=== PATIENT | male | born 1935 | race Caucasian/White ===

== ENCOUNTER 2019-08-10 17:48 | Observation (INO) ==
[2019-08-10] MEDS ORDERED: SODIUM CHLORIDE 0.9% 500 ML IV SCH (18:15)
[2019-08-10 18:41] LABS: Basophils # (auto) 0.03 K/uL (0-0.2); Basophils % (auto) 0.4 %; Eosinophils % (auto) 1.4 %; Hematocrit (blood only) 42.6 % (42-52); Hemoglobin 14.6 g/dL (14.0-18.0); Immature Granulocytes # (auto) 0.01 K/uL (0.00-0.02); Immature Granulocytes % (auto) 0.1 %; Lymphocytes # (auto) 0.93 K/uL (1.2-3.4); Mean Corpuscular Hgb Conc 34.3 g/dL (32-36); Mean Corpuscular Volume 90.4 fL (80-100); Monocytes % (auto) 11.1 %; Neutrophils # (auto) 5.31 K/uL (1.4-6.5); Platelet Count 183 K/uL (130-400); RDW Coefficient of Variation 13.6 % (11.5-14.5); RDW Standard Deviation 45.2 fL (36.4-46.3); Red Blood Count 4.71 M/uL (4.7-6.1); White Blood Count 7.18 K/uL (4.8-10.8)
[2019-08-10 18:49] LABS: BUN Creatinine Ratio 16.8 (10-20); Calcium 8.4 mg/dl (8.5-10.1); Creatinine Clr Calc Pharmacy 49.7 ml/min; Est GFR (Non-African American) 56.1; Magnesium 2.3 mg/dl (1.8-2.4)
[2019-08-10 19:13] LABS: Albumin Globulin Ratio 0.8 (0.9-2); Bilirubin,Total 0.6 mg/dl (0.2-1); Globulin 3.6 gm/dl (2.5-4.0); Thyroid Stimulating Hormone 3.72 uIu/ml (0.300-4.500); Total Protein 6.6 gm/dl (6.4-8.2); Troponin I 0.06 ng/ml (0-0.045)
--- NOTE | 2019-08-10 19:16 | Emergency Department Note ---
History of Present Illness General Chief Complaint: Syncope Time Seen by Provider: 08/10/19 17:58 Source: patient Mode of arrival: ambulatory Limitations: no limitations History of Present Illness Provider Complaint: + loss of consciousness Onset (ago): less than 1 hour(s) -: + second(s) Description of event: no tonic-clonic movements Prodromal symptoms: + none Witnessed: + yes - by bystander Context: + at rest; no standing up Injuries sustained associated with event: + none Current symptoms: + none History: + previous syncopal episode Treatments prior to arrival: + none HPI narrative: This is an 84-year-old male who presents to the ED with a chief complaint of a syncopal episode. The patient was sitting in a chair when the daughter noticed that he became pale and passed out. He was smoking his pipe at the time. The patient was out for less than a minute. The patient did not have any seizure activity. He has had similar symptoms previously. The last episode was in January. The daughter states that when he awoke, he stated what happened. And he otherwise did not have any symptoms. He does have a history of A. fib and is on Xarelto. 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 He just finished wearing a event monitor last week. The daughter is unsure of t he results. The patient has no complaints at this time. His last syncopal episode happened in January. At that time he had a complete work-up including an echocardiogram that did not show any reason for his syncope. Home Medicaitons Home Medications Medication Instructions Recorded Confirmed Type finasteride 5 mg PO DAILY 01/10/19 06/27/19 History cyanocobalamin (vitamin B-12) 1,000 mcg PO DAILY 03/09/19 06/27/19 History 1,000 mcg tablet levothyroxine 75 mcg PO DAILY 03/09/19 06/27/19 History rivaroxaban [Xarelto] 10 mg PO DAILY 03/09/19 06/27/19 History tamsulosin 0.4 mg capsule 0.4 mg PO DAILY 03/09/19 06/27/19 History Blood Pressure Med 1 tab PO HS 06/27/19 06/27/19 History Allergies Allergy/AdvReac Type Severity Reaction Status Date / Time No Known Allergies Allergy Unverified 06/27/19 23:40 Past Med/Surg History Medical History Atrial fibrillation CKD (chronic kidney disease) On rivaroxaban therapy Family History Other Family history non-contributory Social History Preferred Language: Wallisian Feels Safe at Home: Yes Smoking Status: Current every day smoker Review of Systems A total of 10 systems reviewed and were otherwise negative Physical Exam Vital Signs: Vital Signs - 24 hr 08/10/19 17:53 08/10/19 17:54 08/10/19 18:00 Temperature Temperature Source Pulse Rate 51 L 67 72 Pulse Rate from Sp O2 Sensor 71 80 72 Respiratory Rate 22 20 23 Respiratory Effort / Characteristics Respiratory Depth Respiratory Patter n Blood Pressure 126/66 108/67 Blood Pressure Dary n 78 71 Pulse Oximetry 96 96 96 Oxygen Delivery Me thod Sepsis Recent Feve r Within 48 Hours Sepsis New/Unexpla ined Change in Men naz Status Sepsis Action Take n by Nursing 08/10/19 18:01 08/10/19 18:21 Temperature 36.8 C Temperature Source Oral Pulse Rate 70 83 Pulse Rate from Sp O2 Sensor 78 Respiratory Rate 21 20 Respiratory Effort / Characteristics Non-Labored Sponta neous Respiratory Depth Normal Respiratory Patter n Regular Blood Pressure 126/66 Blood Pressure Dary n 86 Pulse Oximetry 96 96 Oxygen Delivery Me thod Room Air Sepsis Recent Feve r Within 48 Hours No Sepsis New/Unexpla ined Change in Men naz Status No Sepsis Action Take n by Nursing No Action Required Physical Exam: CONSTITUTIONAL/VITAL SIGNS: Reviewed / noted above. GENERAL: Non-toxic in appearance. INTEGUMENTARY: Warm, dry, and [place]. HEAD: Normocephalic. EYES: without scleral icterus or trauma. ENT/OROPHARYNX: clear and moist. LYMPHADENOPATHY/NECK: Is supple without lymphadenopathy or meningismus. RESPIRATORY: Lungs clear and equal. CARDIOVASCULAR: Regular rate and rhythm. GI/ABDOMEN: Soft and nontender. No organomegaly or pulsatile mass. No rebound or guarding. Normal bowel sounds. EXTREMITIES: Warm and well perfused. BACK: No CVA tenderness. NEUROLOGICAL: Intact without focal deficits. PSYCHIATRIC: normal affect. MUSCULOSKELETAL: Normally developed with good muscle tone. TRIAGE NURSING DOCUMENTATION REVIEWED. Course Administered Medications Discontinued Medications Sodium Chloride (Nss) 500 mls @ 999 mls/hr IV .Q31M JOE Stop: 08/10/19 18:45 Last Infusion: 08/10/19 19:08 Dose: 0 mls/hr Documented by: [id number] Admin: 08/10/19 18:32 Dose: 999 mls/hr Documented by: [id number] Medical Decision Making Differential Diagnosis + syncope due to orthostatic hypotension, + vasovagal event, + pulmonary embolism, + dehydration, + orthostasis, + infection, + hypoglycemia, + electrolyte abnormalities, + dysrhythmias, + ACS, + intracerebral event and + neurologic Medical Records Attestation: I reviewed the patient's medical records. Home Medications Current Medication List: was personally reviewed by me Laboratory Data Attestation: I reviewed the patient's lab results. Result diagrams: 08/10/19 18:20 08/10/19 18:20 Lab Results 08/10/19 08/10/19 Range/Units 18:20 18:20 WBC 7.18 (4.8-10.8) K/uL RBC 4.71 (4.7-6.1) M/uL Hgb 14.6 (14.0-18.0) g/dL Hct 42.6 (42-52) % MCV 90.4 (80-100) fL MCH 31.0 (25-34) pg MCHC 34.3 (32-36) g/dL RDW Std Deviation 45.2 (36.4-46.3) fL RDW Coeff of Millie 13.6 (11.5-14.5) % Plt Count 183 (130-400) K/uL MPV 11.0 H (7.4-10.4) fL Immature Gran % (Auto) 0.1 % Neut % (Auto) 74.0 % Lymph % (Auto) 13.0 % [place] % (Auto) 11.1 % Eos % (Auto) 1.4 % Baso % (Auto) 0.4 % Neut # (Auto) 5.31 (1.4-6.5) K/uL Lymph # (Auto) 0.93 L (1.2-3.4) K/uL [place] # (Auto) 0.80 H (0.11-0.59) K/uL Eos # (Auto) 0.10 (0-0.5) K/uL Baso # (Auto) 0.03 (0-0.2) K/uL Immature Gran # (Auto) 0.01 (0.00-0.02) K/uL Sodium 137 (136-145) mmol/L Potassium 4.0 (3.5-5.1) mmol/L Chloride 105 (98-107) mmol/L Carbon Dioxide 26 (21-32) mmol/L Anion Gap 6.0 (3-11) BUN 20 H (7-18) mg/dl Creatinine 1.17 (0.6-1.4) mg/dl Est Cr Clr Drug Dosing 49.7 ml/min Est GFR ( Amer) 65.0 Est GFR (Non-Af Amer) 56.1 BUN/Creatinine Ratio 16.8 (10-20) Glucose 93 (70-99) mg/dl Calcium 8.4 L (8.5-10.1) mg/dl Magnesium 2.3 (1.8-2.4) mg/dl Total Bilirubin 0.6 (0.2-1) mg/dl AST 6 L (15-37) U/L ALT 10 L (12-78) U/L Alkaline Phosphatase 44 L (45-117) U/L Troponin I 0.060 H* (0-0.045) ng/ml Total Protein 6.6 (6.4-8.2) gm/dl Albumin 3.0 L (3.4-5.0) gm/dl Globulin 3.6 (2.5-4.0) gm/dl Albumin/Globulin Ratio 0.8 L (0.9-2) TSH 3.720 (0.300-4.500) uIu/ml ECG Data Attestation: I personally reviewed and interpreted this ECG as follows: Indication: syncope Rate (beats per minute): 80 Rhythm: atrial fibrillation Findings: no PVC and no ST elevation Blood Pressure Blood Pressure Findings: Normal blood pressure MDM Narrative This is an 84-year-old male who presents to the ED with a chief complaint of a syncopal episode. The patient was sitting in a chair when the daughter noticed that he became pale and passed out. He was smoking his pipe at the time. The patient was out for less than a minute. The patient did not have any seizure ac tivity. He has had similar symptoms previously. The last episode was in January. The daughter states that when he awoke, he stated what happened. And he otherwise did not have any symptoms. He does have a history of A. fib and is on Xarelto. 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 He just finished wearing a event monitor last week. The daughter is unsure of the results. The patient has no complaints at this time. His last syncopal episode happened in January. At that time he had a complete work-up including an echocardiogram that did not show any reason for his syncope. The patient CBC and chemistry panel was unremarkable. Troponin is slightly elevated at 0.60. Twelve-lead EKG shows a atrial fibrillation at a rate of 80 without acute injury or ectopy. The patient does have a history of A. fib and is on Xarelto. He was treated with 500 cc normal saline IV. He was monitored here. He will be seen by the hospitalist for further inpatient evaluation and care due to the elevated troponin. I did speak with cardiology, Dr. Butler, about the patient. He will see the patient tomorrow. Impression & Plan Syncope, Elevated troponin Discharge Plan Visit Data Chief Complaint: Syncope ED Provider: Christiano Bagley Discharge Problem: Syncope, Elevated troponin Patient Disposition: Being Evaluated by Hospitalist Forms Stand Alone Forms: My [facility] [employer] [facility] Prescriptions Prescriptions: No Action cyanocobalamin (vitamin B-12) [Vitamin B-12] 1,000 mcg tablet 1,000 mcg PO DAILY RF: 0 tamsulosin 0.4 mg capsule 0.4 mg PO DAILY RF: 0 finasteride 5 mg tablet 5 mg PO DAILY RF: 0 levothyroxine 75 mcg Tablet 75 mcg PO DAILY RF: 0 Xarelto 10 mg Tablet 10 mg PO DAILY RF: 0 Blood Pressure Med 1 tab PO HS RF: 0 Referrals Referrals: Raf Uribe DO [Primary Care Provider] - Discharge Problem: Syncope Qualifiers: Syncope type: unspecified Qualified Code(s): R55 - Syncope and collapse
--- NOTE | 2019-08-10 20:09 | XRay Report ---
XR chest 1V portable HISTORY: Shortness of breath. syncope COMPARISON: Chest 03/09/2019. FINDINGS: The heart remains mildly enlarged. The lungs are clear. No pleural effusions. No pneumothor ax. Mild elevation the left hemidiaphragm, unchanged. IMPRESSION: No significant change compared to the prior study. No acute process. ACT 112: Negative or not required by law. Electronically signed by: Tony Escudero M.D. 08/10/2019 8:07 PM
[2019-08-10] MEDS ORDERED: POLYETHYLENE (MIRALAX) 17 GM PACK PO PRN (20:28)
[2019-08-10] MEDS ORDERED: MAGNESIUM HYDROXIDE SUSP 30 ML UDC PO PRN (20:28)
[2019-08-10] MEDS ORDERED: ONDANSETRON INJ 2 MG/ML 2 ML VIAL IV PRN (20:28)
[2019-08-10] MEDS ORDERED: ACETAMINOPHEN 325 MG TAB PO PRN (20:28)
[2019-08-10] MEDS ORDERED: NITROGLYCERIN SL 0.4 MG/TAB TAB SL PRN (20:28)
--- NOTE | 2019-08-10 21:06 | History & Physical Report ---
Date of Service August 10, 2019 Assessment & Plan (1) Syncope: Pt is 84 y/o M with PMH Paroxysmal atrial fibrillation on Xarelto, HTN, BPH, CKD III, CVA, hypothyroidism presented to ER with c/o syncope this afternoon while sitting. Denies CP, SOB, palpitations, dizziness prior to episode. H/O syncopal episode in 01/2019. No recent fall or head injury Zio patch removed last week (results unavailable at this time) Echo: 07/03/2019: EF: 55%, moderate aortic regurgitation, moderate mitral regu rgitation, mild tricuspid regurgitation. DDX: arrhythmia, tachybrady syndrome, orthostatic hypotension In ER pt asymptomatic and reports feels at baseline. Afebrile, P: 51-80's, BP: 126/66, R: 21, 96% on RA. No leukocytosis, no significant electrolyte abnormality EKG with rate controlled a-fib -Monitor on tele -orthostatic vital signs -carotid doppler r/o carotid disease -CBC, BMP in am -Cardiology consult (2) Atrial fibrillation: H/O PAF on Xarelto -Current rate controlled -Continue Xarelto (3) Elevated troponin: Mildly elevated troponin Troponin: 0.06. EKG rate controlled a-fib, no acute ST elevation -Trend troponin -Had echo in 06/2019 (4) HTN (hypertension): SBP's high 90's to 120's in ER -Hold home BP and BPH meds HS and reassess tomorrow (5) CKD (chronic kidney disease), stage III: Cr: 1.17. Baseline Cr: 1.2 -Monitor renal functions (6) BPH (benign prostatic hyperplasia): -Hold HS BPH meds at this time and reassess BP tomorrow (7) Hypothyroidism: TSH: 3.7 -Continue levothyroxine DVT Prophylaxis -On Xarelto Full Code as per discussion with pt and family Follows with Dr Raf Uribe for routine care Pt was seen and care coordinated with Dr Fallon. See addendum History of Present Illness Chief Complaint: Syncope Primary Care Provider: Raf Uribe DO Pt is 84 y/o M with PMH Paroxysmal atrial fibrillation on Xarelto, HTN, BPH, CKD III, CVA, hypothyroidism presented to ER with c/o syncope this afternoon. Pt primarily Guinean speaking, family assists is some translation. Reports pt was sitting outside in the shade today with his feet up smoking pipe. Family noticed that pt twitched his legs and then had syncopal episode. Family was able to lower pt from chair immediately and reports pt regained consciousness. Denies any falls or head injury recently. Denies any dizziness, palpitations, CP, SOB prior to episode. States felt normal and without symptoms upon awakening today and ate breakfast. Has been reporting some intermittent "not feeling well" described as nausea, dizziness and lethargy over past couple of weeks. Most days feels well and able to push mow and chop some wood and does feel tired after doing those activities but without any dizziness. Reports syncopal episode in 01/2019 after prolonged standing that occurred while in [place] and had negative work up at that time. Pt followed with Dr Barragan with cardiology last week and had Zio patch removed last week (results unavailable to me at this time). Echo: 07/03/2019: EF: 55%, moderate aortic regurgitation, moderate mitral regurgitation, mild tricuspid regurgitation. Denies fever/chills, diaphoresis, V/D/C, OLSON, vision changes, neck pain, CP, SOB, orthopnea, palpitations, cough, sore throat, choking, otalgia, rhinorrhea, abdominal pain, paresthesias, weakness, extremity weakness, extremity edema, rashes, urinary symptoms. Allergies Allergy/AdvReac Type Severity Reaction Status Date / Time No Known Allergies Allergy Unverified 08/10/19 20:00 Home Medications Home Medications Medication Instructions Recorded Confirmed Type finasteride 5 mg PO HS 01/10/19 08/10/19 History cyanocobalamin (vitamin B-12) 1,000 mcg PO DAILY 03/09/19 08/10/19 History 1,000 mcg tablet tamsulosin 0.4 mg capsule 0.4 mg PO HS 03/09/19 08/10/19 History Potassium Tab 75 mg PO 3XWK 08/10/19 08/10/19 History candesartan 32 mg PO HS 08/10/19 08/10/19 History ferrous sulfate [iron] 325 mg PO 3XWK 08/10/19 08/10/19 History fluticasone propionate [Flonase 2 spray INTRANASAL DAILY 08/10/19 08/10/19 History Allergy Relief] levothyroxine 125 mcg PO DAILY 08/10/19 08/10/19 History rivaroxaban [Xarelto] 20 mg PO PM 08/10/19 08/10/19 History torsemide 0 mg PO DAILY 08/10/19 08/10/19 History Past Med/Surg History Medical History Atrial fibrillation BPH (benign prostatic hyperplasia) CKD (chronic kidney disease), stage III HTN (hypertension) Hypothyroidism On rivaroxaban therapy Surgical History History of cataract surgery Family History Brother Cancer Mother Stroke Social History Preferred Language: Lithuanian Communication Ability: Effective Sole Stapler Welt Required: No Beliefs That Will Affect Care: None marital status: Current Living Situation: Spouse Other Information That Helps Us Care for You: No Feels Safe at Home: Yes Safety Concerns: Afraid for Self Smoking Status: Current some day smoker Tobacco Type: pipe ; Do You Dip or Chew Tobacco: No ; Second Hand Exposure: No ; Tobacco Cessation Education Requested by Patient: No Hx Alcohol Use: Yes Alcohol type: wine Hx Substance Use: No Review of Systems Review of Systems: All systems reviewed & are unremarkable except as noted in HPI & below Physical Exam Physical Exam: General: no distress, WDWN Head: normocephalic, atraumatic Eyes: PERRL, EOM's intact, conjunctiva non-injected, anicteric ENT: normal inspection external ears, nose, mucous membranes moist Neck: supple, trachea midline Lungs: clear, no respiratory distress, no wheezing/rhonchi/rales CV: irregularly irregular, systolic murmur, no pretibial edema Abd: normal BS, soft, non-tender Ext: no cyanosis, no calf tenderness Neuro: A&O x 3, no focal deficits noted, normal affect Skin: warm, dry Results & Data Results & Data ([facility]) Vital Signs (Past 12 Hours) Vital Signs Temp Pulse Resp BP Pulse Ox 08/10/19 20:31 77 22 97 08/10/19 20:30 78 15 119/82 97 08/10/19 20:01 83 22 98 08/10/19 20:00 83 24 114/84 97 08/10/19 19:31 83 22 98 08/10/19 19:30 75 22 120/88 98 08/10/19 19:01 72 24 97 08/10/19 19:00 74 24 122/68 98 08/10/19 18:31 78 22 97 08/10/19 18:30 78 24 99/75 L 97 08/10/19 18:21 36.8 C 83 20 126/66 96 08/10/19 18:01 70 21 96 08/10/19 18:00 72 23 108/67 96 08/10/19 17:54 67 20 96 08/10/19 17:53 51 L 22 126/66 96 Laboratory Results Short CBC 08/10/19 08/10/19 Range/Units 18:20 18:20 WBC 7.18 (4.8-10.8) K/uL Hgb 14.6 (14.0-18.0) g/dL Hct 42.6 (42-52) % Plt Count 183 (130-400) K/uL Troponin I 0.060 H* (0-0.045) ng/ml BMP 08/10/19 18:20 Sodium 137 Potassium 4.0 Chloride 105 Carbon Dioxide 26 BUN 20 H Creatinine 1.17 Glucose 93 Calcium 8.4 L Cardiac Enzymes 08/10/19 Range/Units 18:20 Troponin I 0.060 H* (0-0.045) ng/ml Liver Function 08/10/19 Range/Units 18:20 Total Bilirubin 0.6 (0.2-1) mg/dl AST 6 L (15-37) U/L ALT 10 L (12-78) U/L Alkaline Phosphatase 44 L (45-117) U/L Albumin 3.0 L (3.4-5.0) gm/dl Diagnostic Findings CXR: IMPRESSION: No significant change compared to the prior study. No acute process. Code Status & VTE Plan VTE Prophylaxis Plan VTE Prophylaxis will be ordered: Yes Supervising Physician Co-Signing Physician Notes Attending addendum: Patient seen and examined, care coordinated with Aracely Nuno PA-C This is an 84-year-old male with past medical history of paroxysmal A. fib on Xarelto for anticoagulation, hypertension CKD stage III prior history of CVA Brought to ER after patient sustained episode of syncope Patient reports of not feeling , felt dizzy and lightheaded, had brief episode of passing out, patient reports and sustained a fall, family members were present Patient will be monitored in telemetry unit, Mild elevation of troponin, no complaint of shortness of breath or chest pain, Recent echo 3 weeks ago showed normal LV function Cardiology consult requested Please refer to further documentation by Elaine Nuno PA-C for discussion of other chronic issues. Chelsie Fallon MD (1) Syncope Syncope type: unspecified Qualified Code(s): R55 - Syncope and collapse
[2019-08-10] MEDS ORDERED: POTASSIUM 75 MG PO SCH (22:30)
[2019-08-10] MEDS ORDERED: RIVAROXABAN 20 MG TAB PO SCH (23:00)
[2019-08-11] MEDS: LEVOTHYROXINE SODIUM 125 MCG TABLET PO SCH (05:43)
--- NOTE | 2019-08-11 06:07 | Ultrasound Report ---
US carotid doppler BI HISTORY: Mental status change syncope /assessment for carotid stenosis COMPARISON: None. TECHNIQUE: Real-time, grayscale, and color Doppler sonography of the carotid arteries was performed. Imaging reviewed in the transverse and longitudinal planes. All measurements were calculated based on NASCET criteria. FINDINGS: Antegrade flow is seen in the bilateral vertebral arteries. The brachial pressures are hemodynamically similar. Mild plaque formation bilaterally The peak systolic velocity within the right ICA is 45. The right systolic ratio is 0.4. The peak systolic velocity within the left ICA is 46. The left systolic ratio is 0.5. IMPRESSION: No hemodynamically significant stenosis seen within the carotid arteries. Mild plaque formation bilat erally. ACT 112: Negative or not required by law. The above report was generated using voice recognition software. It may contain grammatical, syntax or spelling errors. Electronically signed by: Shree Lea M.D. 08/11/2019 6:06 AM
[2019-08-11 06:45] LABS: BUN Creatinine Ratio 19.6 (10-20); Calcium 8.3 mg/dl (8.5-10.1); Est GFR (Non-African American) 64.7; Potassium 3.9 mmol/L (3.5-5.1)
[2019-08-11 06:51] LABS: Troponin I 0.068 ng/ml (0-0.045)
[2019-08-11] MEDS: ASPIRIN 81 MG ECTAB PO SCH (08:33)
[2019-08-11] MEDS: FLUTICASONE PROPIONATE NA SPR 16 GM BTL NAE SCH (08:33)
[2019-08-11] MEDS: CYANOCOBALAMIN 500 MCG TABLET (VITAMIN B-12) PO SCH (08:33)
--- NOTE | 2019-08-11 10:20 | Cardiology Consultation ---
Date of Consultation August 11, 2019 Assessment & Plan (1) Syncope: (2) Atrial fibrillation: Recurrent syncope. Paroxysmal AF. Converted from rate controlled AF to SR overnight at 20:48 without pause. Zio monitor x 14 days without explanation of syncope, although no events reported while wearing the monitor. Troponin mildly elevated x 3 at 0.06, 0.065, 0.068 ng/ml without chuckie angina. Normal LVEF on recent outpatient echo. Recommend ongoing inpatient observation. Will consider implantable loop recorder or pacemaker implantation this hospital stay. hold Xarelto. Start heparin bridge at 2100. Updates discussed with patient's spouse , Sara, , by phone. History of Present Illness Attending Physician: Bud Michaels MD History of Present Illness Timmy Gaines is an 84 year old male seen in cardiology consultation per the request of Dr. Fallon for the evaluation of syncope. The patient's primary language is Lebanese. In addition to interviewing patient, history is obtained from review of his records, and telephone discussion with his spouse, Sara. Shortly after getting out of bed yesterday the patient was sitting outside with his feet propped up smoking his pipe. His spouse noticed that his legs were twitching he lost consciousness and lost postural tone in the chair. Spouse was able to pull him out from the chair and to lower him to the ground at which time he regained consciousness with no postevent confusion noted. He has had other loss of consciousness events. One occurred in January 2019 he was walking in [facility], he became weak, sat down on a wall, and then lost consciousness falling backwards into a tree. He was seen locally at a hospital there and discharged. He had another event when they were vacationing in [place] several years ago. The patient also has several unwitnessed fall episodes that his spouse is concerned may have actually been syncopal episodes. The patient had been seen in outpatient consultation by Dr. Jame Barragan of our practice for evaluation of syncope earlier this month. A 14-day 0 monitor worker had been placed on 07/20/2019. The results were reviewed today. The predominant rhythm was sinus rhythm with an average heart rate of 67 bpm. 67 relatively brief episodes of supraventricular tachycardia were observed the longest of which was 14.9 seconds with an average rate of 90 bpm. Atrial fibrillation occurred, 2% burden, with ventricular rates ranging from 56 to 153 bpm. Average ventricular rate while in atrial fibrillation was 86 bpm. The longest episode was 3 hours and 3 minutes with average heart rate of 81 bpm. Frequent supraventricular ectopy was noted, 7.4% burden. No pauses or bradycardia arrhythmia were observed. There was 1 patient triggered event that correlated with sinus rhythm with atrial ectopic beat. EKG noted on presentation to the emergency department last evening 08/10/2019, atrial fibrillation 80 bpm, QT interval 491 ms which is mildly prolonged, compared to the previous tracing dated 06/27/2019 atrial fibrillation had replaced sinus rhythm. On telemetry the patient converted from atrial fibrillation to sinus rhythm last evening at 2048 hrs., with a 1.3-second offset, therefore there is no significant conversion pause observed. Repeat EKG performed this morning 08/11/19 revealed sinus rhythm at 61 bpm with first-degree AV block, [place] interval 290 ms, age-indeterminate inferior infarct pattern which is more recognizable now that he is in sinus rhythm. Recent outpatient echocardiogram performed 07/03/2019 at [facility] revealed moderate concentric left ventricular hypertrophy LVEF 55 to 59%, moderate aortic valve sclerosis without stenosis, mild aortic valve regurgitation, moderate mitral regurgitation mild tricuspid regurgitation. Normal left ventricular wall motion without regional wall motion abnormalities. Allergies Allergy/AdvReac Type Severity Reaction Status Date / Time No Known Allergies Allergy Unverified 08/10/19 20:00 Home Medications Home Medications Medication Instructions Recorded Confirmed Type finasteride 5 mg PO HS 01/10/19 08/10/19 History cyanocobalamin (vitamin B-12) 1,000 mcg PO DAILY 03/09/19 08/10/19 History 1,000 mcg tablet tamsulosin 0.4 mg capsule 0.4 mg PO HS 03/09/19 08/10/19 History Potassium Tab 75 mg PO 3XWK 08/10/19 08/10/19 History candesartan 32 mg PO HS 08/10/19 08/10/19 History ferrous sulfate [iron] 325 mg PO 3XWK 08/10/19 08/10/19 History fluticasone propionate [Flonase 2 spray INTRANASAL DAILY 08/10/19 08/10/19 History Allergy Relief] levothyroxine 125 mcg PO DAILY 08/10/19 08/10/19 History rivaroxaban [Xarelto] 20 mg PO PM 08/10/19 08/10/19 History torsemide 0 mg PO DAILY 08/10/19 08/10/19 History Patient History Medical History Atrial fibrillation BPH (benign prostatic hyperplasia) CKD (chronic kidney disease), stage III HTN (hypertension) Hypothyroidism On rivaroxaban therapy Surgical History History of cataract surgery Family History Brother Cancer Mother Stroke Social History Preferred Language: Japanese Communication Ability: Effective Agate Setter Required: No Beliefs That Will Affect Care: None marital status: Current Living Situation: Spouse Other Information That Helps Us Care for You: No Feels Safe at Home: Yes Safety Concerns: Afraid for Self Smoking Status: Current some day smoker Tobacco Type: pipe ; Do You Dip or Chew Tobacco: No ; Second Hand Exposure: No ; Tobacco Cessation Education Requested by Patient: No Hx Alcohol Use: Yes Alcohol type: wine Hx Substance Use: No Physical Exam Physical Exam: Temp Pulse Resp BP Pulse Ox 36.5 C 62 15 153/77 H 95 08/11/19 11:44 08/11/19 11:44 08/11/19 11:44 08/11/19 11:44 08/11/19 11:44 Constitutional: WD/WN, vitals as above Respiratory: normal respiratory effort, lungs clear to auscultation Cardiovascular: RRR, no murmur, no edema Gastrointestinal (Abdomen): normal bowel sounds, soft, nontender, no hepatosplenomegaly Musculoskeletal: no cyanosis or clubbing, extremities motor strength 5/5 Neurologic: PERRL, EOMI, accommodation nl, no face palsy, no dysarthria Results & Data ([facility]) Vital Signs (Past 12 Hours) Vital Signs Temp Pulse Pulse Resp BP BP Pulse Ox 08/11/19 07:43 36.7 C 63 21 135/74 93 08/11/19 04:03 58 L 10 L 161/75 H 96 08/11/19 04:00 58 L 60 16 152/80 H 97 08/11/19 03:47 62 21 152/80 H 98 08/11/19 03:46 69 21 160/75 H 94 08/11/19 03:45 67 21 165/81 H 99 08/11/19 03:30 64 13 96 08/11/19 03:04 63 21 133/69 95 08/11/19 03:00 59 L 16 97 08/11/19 02:30 60 18 97 08/11/19 02:04 58 L 16 113/53 L 96 08/11/19 02:00 61 3 L 96 08/11/19 01:38 36.6 C 08/11/19 01:30 59 L 10 L 97 08/11/19 01:04 71 17 157/70 H 08/11/19 01:00 62 19 98 08/11/19 00:30 65 8 L 96 08/11/19 00:00 63 19 94 08/10/19 23:47 36.5 C 68 20 125/59 L 98 08/10/19 23:30 67 21 96 08/10/19 23:28 66 14 125/59 L 97 08/10/19 23:00 65 18 95 08/10/19 22:34 36.6 C 61 14 138/70 96 08/10/19 22:31 71 17 08/10/19 22:29 62 11 L 138/70 08/10/19 22:25 68 19 Laboratory Results Cardiac Enzymes 08/10/19 08/11/19 08/11/19 Range/Units 18:20 00:14 06:00 AST 6 L (15-37) U/L Troponin I 0.060 H* 0.065 H* 0.068 H* (0-0.045) ng/ml CBC 08/10/19 Range/Units 18:20 WBC 7.18 (4.8-10.8) K/uL RBC 4.71 (4.7-6.1) M/uL Hgb 14.6 (14.0-18.0) g/dL Hct 42.6 (42-52) % Plt Count 183 (130-400) K/uL Neut # (Auto) 5.31 (1.4-6.5) K/uL Lymph # (Auto) 0.93 L (1.2-3.4) K/uL [place] # (Auto) 0.80 H (0.11-0.59) K/uL Eos # (Auto) 0.10 (0-0.5) K/uL Baso # (Auto) 0.03 (0-0.2) K/uL Comprehensive Metabolic Panel 08/10/19 08/11/19 Range/Units 18:20 06:00 Sodium 137 140 (136-145) mmol/L Potassium 4.0 3.9 (3.5-5.1) mmol/L Chloride 105 109 H (98-107) mmol/L Carbon Dioxide 26 26 (21-32) mmol/L BUN 20 H 20 H (7-18) mg/dl Creatinine 1.17 1.04 (0.6-1.4) mg/dl Glucose 93 84 (70-99) mg/dl Calcium 8.4 L 8.3 L (8.5-10.1) mg/dl AST 6 L (15-37) U/L ALT 10 L (12-78) U/L Alkaline Phosphatase 44 L (45-117) U/L Total Protein 6.6 (6.4-8.2) gm/dl Albumin 3.0 L (3.4-5.0) gm/dl Intake and Output 08/10/19 08/11/19 08/11/19 22:59 06:59 14:59 Intake Total 500 / 500 240 / 240 Balance 500 / 500 240 / 240 Intake: IV 500 / 500 Nss 500 ml @ 999 mls/hr IV . 500 / 500 Q31M [facility] Rx#:[id number] Oral 240 / 240 Other: # Unmeasured Voids 1 1 1 Weight 82.25 kg Diagnostic Findings Recent 14-day heart monitor, echocardiogram as summarized above. (1) Syncope Syncope type: unspecified Qualified Code(s): R55 - Syncope and collapse
--- NOTE | 2019-08-11 10:46 | Electrocardiogram Report ---
Test Reason : Blood Pressure : / mmHG Vent. Rate : 080 BPM Atrial Rate : 100 BPM P-R Int : 000 ms QRS Dur : 090 ms QT Int : 426 ms P-R-T Axes : 000 007 056 degrees QTc Int : 491 ms Atrial fibrillation Prolonged QT Abnormal ECG When compared with ECG of 27-JUN-2019 23:47, Atrial fibrillation has replaced Sinus rhythm Criteria for Inferior infarct are no longer Present Confirmed by Shane Edwards ([id number]) on 08/11/2019 10:46:15 AM Referred By: REFERRED SELF Confirmed By:David Edwards
--- NOTE | 2019-08-11 11:00 | Electrocardiogram Report ---
Test Reason : Blood Pressure : / mmHG Vent. Rate : 061 BPM Atrial Rate : 061 BPM P-R Int : 290 ms QRS Dur : 098 ms QT Int : 472 ms P-R-T Axes : 065 -11 039 degrees QTc Int : 475 ms Sinus rhythm with 1st degree A-V block Inferior infarct , age undetermined Abnormal ECG When compared with ECG of 10-AUG-2019 18:02, (unconfirmed) Sinus rhythm has replaced Atrial fibrillation Inferior infarct is now Present Confirmed by Shane Edwards ([id number]) on 08/11/2019 10:59:41 AM Referred By: REFERRED SELF Confirmed By:David Edwards
[2019-08-11] MEDS ORDERED: HEPARIN SODIUM/DEXTROSE 25,000 UNITS/500 ML BAG IV SCH (14:00)
--- NOTE | 2019-08-11 19:06 | Hospitalist Progress Note ---
Date of Service August 11, 2019 Assessment & Plan (1) Syncope: Syncopal episode. Rule out froilan or tachyarrhythmia. Has first degree AV block. Check Lyme screen. Does not have orthostatic hypotension. Cardiology consulted. Continue cardiac monitoring. (2) Atrial fibrillation: History of PAF; currently in NSR. Anticoagulated with apixaban. (3) Elevated troponin: Troponin minimally elevated. No chest pain or acute EKG changes. Doubt acute coronary syndrome. Cardiology consulted. (4) HTN (hypertension): Candesartan on hold because of syncope. (5) Carotid artery disease: Carotid duplex showed plaque without significant stenosis. Check lipid profile. Continue anti-thrombotic therapy. (6) CKD (chronic kidney disease), stage III: Serum creatinine 1.04. Follow. (7) Hypothyroidism: TSH 3.72. Continue levothyroxine. (8) BPH (benign prostatic hyperplasia): Tamsulosin on hold because of syncope. (9) DVT prophylaxis: On apixaban for PAF. (10) Discharge planning issues: Anticipated discharge to home. Family Medicine follow-up with Dr. Raf Uribe. Admission and Anticipated Discharge Date Admission Date: August 10, 2019 Subjective Recheck for syncope and other problems. Patient seen in their room around 1100. Feels well. No further syncopal episodes. No chest pain, SOB, palpitations. No arrhythmia noted on telemetry. Review of Systems: Constitutional- no fever. Cardiac- as noted above. Pulmonary- no cough or SOB. GI- no nausea, vomiting, diarrhea, melena, hematochezia. - no urinary symptoms. Otherwise, as noted above. Physical Exam Constitutional: no acute distress Respiratory: no respiratory distress Auscultation: lungs clear to auscultation bilaterally Cardiovascular: Rate/Rhythm: regular rate and regular rhythm Vessels: no JVD Extremities: no calf tenderness and no edema Gastrointestinal (Abdomen): normal bowel sounds, soft, nontender, no hepatosplenomegaly Musculoskeletal: Extremities: no cyanosis Skin: no rashes, warm and dry Psychiatric: Orientation: alert and oriented x 3 Results & Data Results & Data ([facility]) Vital Signs (Past 12 Hours) Vital Signs Temp Pulse Resp BP Pulse Ox 08/11/19 16:01 36.5 C 60 17 154/77 H 95 08/11/19 11:44 36.5 C 62 15 153/77 H 95 08/11/19 07:43 36.7 C 63 21 135/74 93 Laboratory Results Laboratory Results - last 24 hr 08/10/19 08/11/19 08/11/19 18:20 00:14 06:00 Sodium 140 Potassium 3.9 Chloride 109 H Carbon Dioxide 26 Anion Gap 5.0 BUN 20 H Creatinine 1.04 Est Cr Clr Drug Dosing 56.0 Est GFR ( Amer) 75.0 Est GFR (Non-Af Amer) 64.7 BUN/Creatinine Ratio 19.6 Glucose 84 Calcium 8.3 L Total Bilirubin 0.6 Alkaline Phosphatase 44 L Troponin I 0.060 H* 0.065 H* 0.068 H* Total Protein 6.6 Globulin 3.6 Albumin/Globulin Ratio 0.8 L TSH 3.720 ECG Additional Comments: EKG performed at 0852 reviewed and demonstrated NSR at 61 / min, first degree AV block, no acute changes. (1) Syncope Syncope type: unspecified Qualified Code(s): R55 - Syncope and collapse
[2019-08-11] MEDS ORDERED: Heparin IV Standard *NO* Bolus IV ONE (23:00)
[2019-08-11] MEDS: HEPARIN SODIUM/DEXTROSE 25,000 UNITS/500 ML BAG IV SCH (23:16)
[2019-08-12 06:12] LABS: Partial Thromboplastin Ratio > 5.0
[2019-08-12] MEDS: LEVOTHYROXINE SODIUM 125 MCG TABLET PO SCH (06:12)
[2019-08-12 06:17] LABS: Partial Thromboplastin Time > 139.0 Seconds (21.0-31.0)
[2019-08-12 06:27] LABS: BUN Creatinine Ratio 18.8 (10-20); Est GFR (Non-African American) 64.7; Potassium 3.9 mmol/L (3.5-5.1)
[2019-08-12 07:20] LABS: Lyme Ab IgG w/WB Rflx Negative (Negative); Lyme Ab IgM w/WB Rflx Negative (Negative)
[2019-08-12 07:46] LABS: Partial Thromboplastin Ratio 3.5
[2019-08-12] MEDS: FLUTICASONE PROPIONATE NA SPR 16 GM BTL NAE SCH (08:14)
[2019-08-12] MEDS: ASPIRIN 81 MG ECTAB PO SCH (08:14)
[2019-08-12] MEDS: CYANOCOBALAMIN 500 MCG TABLET (VITAMIN B-12) PO SCH (08:14)
--- NOTE | 2019-08-12 12:31 | Electrocardiogram Report ---
Test Reason : Blood Pressure : / mmHG Vent. Rate : 054 BPM Atrial Rate : 054 BPM P-R Int : 292 ms QRS Dur : 092 ms QT Int : 494 ms P-R-T Axes : 060 -15 040 degrees QTc Int : 468 ms Sinus bradycardia with sinus arrhythmia with 1st degree A-V block Inferior infarct (cited on or before 15-APR-2010) Abnormal ECG When compared with ECG of 11-AUG-2019 08:52, No significant change was found Confirmed by Shane Edwards ([id number]) on 08/12/2019 12:30:53 PM Referred By: REFERRED SELF Confirmed By:David Edwards
[2019-08-12] MEDS: TORSEMIDE 10 MG TAB PO SCH (12:36)
--- NOTE | 2019-08-12 13:05 | Cardiology Progress Note ---
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 There have been no developments of telemetry. Will likely proceed with implantable loop recorder this hospital stay. Patient is on a heparin bridge pending procedure. Xarelto is on hold. Subjective Patient seen in follow-up of syncope. He states he is feeling well. Denies any chest discomfort or shortness of breath. Telemetry reveals ongoing sinus rhythm. No tachycardia or bradycardia. Physical Exam Physical Exam: Temp Pulse Resp BP Pulse Ox 36.6 C 64 18 134/57 L 92 08/12/19 08:11 08/12/19 12:36 08/12/19 12:36 08/12/19 12:36 08/12/19 12:36 Constitutional: WD/WN, vitals as above Respiratory: normal respiratory effort, lungs clear to auscultation Cardiovascular: Rate/Rhythm: regular rhythm Heart Sounds: + murmur (1/6 systolic murmur) Gastrointestinal (Abdomen): normal bowel sounds, soft, nontender, no hepatosplenomegaly Neurologic: PERRL, EOMI, accommodation nl, no face palsy, no dysarthria Results & Data Vital Signs (Past 12 Hours) Vital Signs Temp Pulse Pulse Resp BP Pulse Ox 08/12/19 12:36 64 18 134/57 L 92 08/12/19 08:11 36.6 C 56 L 18 172/76 H 95 08/12/19 04:23 36.6 C 59 L 19 170/85 H 97 08/12/19 02:08 52 L Diagnostic Findings Coagulation 08/12/19 08/12/19 Range/Units 05:35 07:11 APTT > 139.0 H* 97.0 H* (21.0-31.0) Seconds Lipids 08/12/19 Range/Units 05:35 Triglycerides 31 (0-150) mg/dl Cholesterol 136 (0-200) mg/dl HDL Cholesterol 62 mg/dl Cholesterol/HDL Ratio 2 Comprehensive Metabolic Panel 08/12/19 Range/Units 05:35 Sodium 142 (136-145) mmol/L Potassium 3.9 (3.5-5.1) mmol/L Chloride 109 H (98-107) mmol/L Carbon Dioxide 27 (21-32) mmol/L BUN 20 H (7-18) mg/dl Creatinine 1.04 (0.6-1.4) mg/dl Glucose 79 (70-99) mg/dl Calcium 8.0 L (8.5-10.1) mg/dl Intake and Output 08/11/19 08/12/19 08/12/19 22:59 06:59 14:59 Intake Total 203.967 / 1018.967 0 / 0 Balance 203.967 / 1018.967 0 / 0 Intake: IV 203.967 / 203.967 0 / 0 HEPARIN SODIUM/DEXTROSE 25,000 203.967 / 203.967 0 / 0 units In 500 ml @ 0 UNITS/HR IV .Q0M [facility] Rx#:[id number] Other: # Unmeasured Voids 3 2 Weight 80.7 kg (1) Syncope Syncope type: unspecified Qualified Code(s): R55 - Syncope and collapse
--- NOTE | 2019-08-12 13:15 | Communication Note ---
Date of Service: August 12, 2019 I called and updated patient's spouse , Sara, by phone.
[2019-08-12 14:54] LABS: Partial Thromboplastin Ratio 3.4
[2019-08-12 14:58] LABS: Partial Thromboplastin Time 94.6 Seconds (21.0-31.0)
--- NOTE | 2019-08-12 18:19 | Hospitalist Progress Note ---
Date of Service August 12, 2019 Assessment & Plan (1) Syncope: Multiple syncopal episodes. Rule out froilan or tachyarrhythmia. Outpatient ZIO patch did not show any significant arrhythmias. Has first degree AV block. Lyme screen negative. Does not have orthostatic hypotension. Cardiology consulted. Continue cardiac monitoring. (2) Atrial fibrillation: History of PAF; currently in NSR. Anticoagulated with apixaban. Apixaban on hold for loop recorder; receiving IV heparin. (3) Elevated troponin: Troponin minimally elevated. No chest pain or acute EKG changes. Doubt acute coronary syndrome. Cardiology consulted. (4) HTN (hypertension): Candesartan on hold because of syncope. (5) Carotid artery disease: Carotid duplex showed plaque without significant stenosis. LDL-c = 68. Continue anti-thrombotic therapy. (6) CKD (chronic kidney disease), stage III: Serum creatinine 1.04. Follow. (7) Hypothyroidism: TSH 3.72. Continue levothyroxine. (8) BPH (benign prostatic hyperplasia): Tamsulosin on hold because of syncope. (9) DVT prophylaxis: Anticoagulated with apixaban for PAF. Apixaban on hold for loop recorder; receiving IV heparin. (10) Discharge planning issues: Anticipated discharge to home. Family Medicine follow-up with Dr. Raf Uribe. Admission and Anticipated Discharge Date Admission Date: August 10, 2019 Subjective Recheck for syncope and other problems. Patient seen in their room around 1030. Doing well. No further syncope or lightheadedness. No chest pain, SOB, palpitations. No significant arrhythmias noted on telemetry. Review of Systems: Constitutional- no fever. Cardiac- as noted above. Pulmonary- no cough or SOB. GI- no nausea, vomiting, diarrhea, melena, hematochezia. - no urinary symptoms. Otherwise, as noted above. Physical Exam Constitutional: no acute distress Respiratory: no respiratory distress Auscultation: lungs clear to auscultation bilaterally Cardiovascular: Rate/Rhythm: regular rate and regular rhythm Vessels: no JVD Extremities: no calf tenderness and no edema Gastrointestinal (Abdomen): normal bowel sounds, soft, nontender, no hepatosplenomegaly Musculoskeletal: Extremities: no cyanosis Skin: no rashes, warm and dry Psychiatric: Orientation: alert and oriented x 3 Results & Data Results & Data ([facility]) Vital Signs (Past 12 Hours) Vital Signs Temp Pulse Resp BP Pulse Ox 08/12/19 15:17 36.6 C 58 L 18 154/80 H 97 08/12/19 12:36 64 18 134/57 L 92 08/12/19 08:11 36.6 C 56 L 18 172/76 H 95 Laboratory Results Laboratory Results - last 24 hr 08/12/19 08/12/19 08/12/19 05:35 05:35 05:35 APTT > 139.0 H* PTT Ratio > 5.0 Sodium 142 Potassium 3.9 Chloride 109 H Carbon Dioxide 27 Anion Gap 6.0 BUN 20 H Creatinine 1.04 Est Cr Clr Drug Dosing 56.0 Est GFR ( Amer) 75.0 Est GFR (Non-Af Amer) 64.7 BUN/Creatinine Ratio 18.8 Glucose 79 Calcium 8.0 L Triglycerides 31 Cholesterol 136 LDL Cholesterol, Calc 68 VLDL Cholesterol, Calc 6 HDL Cholesterol 62 Cholesterol/HDL Ratio 2 Lyme Disease IgG Ab Negative Lyme Disease IgM Ab Negative 08/12/19 08/12/19 07:11 14:22 APTT 97.0 H* 94.6 H* PTT Ratio 3.5 3.4 Sodium Potassium Chloride Carbon Dioxide Anion Gap BUN Creatinine Est Cr Clr Drug Dosing Est GFR ( Amer) Est GFR (Non-Af Amer) BUN/Creatinine Ratio Glucose Calcium Triglycerides Cholesterol LDL Cholesterol, Calc VLDL Cholesterol, Calc HDL Cholesterol Cholesterol/HDL Ratio Lyme Disease IgG Ab Lyme Disease IgM Ab (1) Syncope Syncope type: unspecified Qualified Code(s): R55 - Syncope and collapse
[2019-08-12] MEDS: HEPARIN SODIUM/DEXTROSE 25,000 UNITS/500 ML BAG IV SCH (22:08)
[2019-08-12 23:20] LABS: Partial Thromboplastin Ratio 2.9
[2019-08-13] MEDS: LEVOTHYROXINE SODIUM 125 MCG TABLET PO SCH (06:20)
[2019-08-13 06:34] LABS: Hematocrit (blood only) 41.1 % (42-52); Hemoglobin 13.6 g/dL (14.0-18.0); Mean Corpuscular Hemoglobin 30.3 pg (25-34); Mean Corpuscular Hgb Conc 33.1 g/dL (32-36); Mean Corpuscular Volume 91.5 fL (80-100); Mean Platelet Volume 11.2 fL (7.4-10.4); Platelet Count 183 K/uL (130-400); RDW Coefficient of Variation 13.5 % (11.5-14.5); RDW Standard Deviation 44.9 fL (36.4-46.3); Red Blood Count 4.49 M/uL (4.7-6.1); White Blood Count 6.23 K/uL (4.8-10.8)
[2019-08-13 06:54] LABS: Partial Thromboplastin Ratio 2.8
[2019-08-13 06:57] LABS: Partial Thromboplastin Time 76.8 Seconds (21.0-31.0)
[2019-08-13 07:10] LABS: BUN Creatinine Ratio 17.6 (10-20); Calcium 8.1 mg/dl (8.5-10.1); Creatinine Clr Calc Pharmacy 49.3 ml/min; Est GFR (African American) 64.4; Est GFR (Non-African American) 55.5; Potassium 3.9 mmol/L (3.5-5.1)
[2019-08-13] MEDS ORDERED: FERROUS SULFATE 325 MG TAB PO SCH (09:00)
[2019-08-13] MEDS ORDERED: LIDOCAINE HCL 1% 20 ML VIAL ONE (09:07)
--- NOTE | 2019-08-13 09:11 | Cardiology Progress Note ---
Date of Service August 13, 2019 Assessment & Plan (1) Syncope: Recurrent syncope. H/o PAF. -no rhythm abnormalities on recent outpatient Zio monitor or on telemetry to explain pt's event. -Will proceed with loop recorder, to be placed by Dr Edwards of EP. - Heparin gtt on hold. -I called and updated his spouse, Sara. (2) Elevated troponin: Mild, flat troponin elevation of 0.068 ng/ ml. No symptoms of angina. No acute repolarization changes on echo to suggest ischemia. Normal LVEF on recent outpt echo earlier this month. Age undetermined inferior infarct pattern on EKG is chronic, dating back to 2010. Subjective Patient seen in follow up. He is feeling well. No recurrent symptoms overnight. Telemetry reveals sinus bradycardia in the 50s. No significant arrhythmias. Review of Systems Review of Systems: All systems reviewed & are unremarkable except as noted in HPI & below Physical Exam Physical Exam: Temp Pulse Resp BP Pulse Ox 36.7 C 59 L 20 160/90 H 97 08/13/19 08:00 08/13/19 08:00 08/13/19 08:00 08/13/19 08:00 08/13/19 08:00 Constitutional: WD/WN, vitals as above Respiratory: normal respiratory effort, lungs clear to auscultation Cardiovascular: RRR, no murmur, no edema Gastrointestinal (Abdomen): normal bowel sounds, soft, nontender, no hepatospl enomegaly Neurologic: PERRL, EOMI, accommodation nl, no face palsy, no dysarthria Results & Data Vital Signs (Past 12 Hours) Vital Signs Temp Pulse Resp BP Pulse Ox 08/13/19 08:00 36.7 C 59 L 20 160/90 H 97 08/13/19 02:47 36.5 C 60 16 175/89 H 97 08/12/19 23:04 36.5 C 59 L 16 159/82 H 97 08/12/19 22:09 36.7 C 59 L 21 167/79 H 96 Laboratory Results Coagulation 08/12/19 08/12/19 08/13/19 Range/Units 14:22 22:38 06:06 APTT 94.6 H* 81.0 H* 76.8 H* (21.0-31.0) Seconds CBC 08/13/19 Range/Units 06:06 WBC 6.23 (4.8-10.8) K/uL RBC 4.49 L (4.7-6.1) M/uL Hgb 13.6 L (14.0-18.0) g/dL Hct 41.1 L (42-52) % Plt Count 183 (130-400) K/uL Comprehensive Metabolic Panel 08/13/19 Range/Units 06:06 Sodium 141 (136-145) mmol/L Potassium 3.9 (3.5-5.1) mmol/L Chloride 110 H (98-107) mmol/L Carbon Dioxide 27 (21-32) mmol/L BUN 21 H (7-18) mg/dl Creatinine 1.18 (0.6-1.4) mg/dl Glucose 76 (70-99) mg/dl Calcium 8.1 L (8.5-10.1) mg/dl Intake and Output 08/12/19 08/13/19 08/13/19 22:59 06:59 14:59 Intake Total 296.033 / 1309.683 163.65 / 1309.683 8.75 / 8.75 Balance 296.033 / 1309.683 163.65 / 1309.683 8.75 / 8.75 Intake: IV 296.033 / 459.683 163.65 / 459.683 8.75 / 8.75 HEPARIN SODIUM/DEXTROSE 25,000 296.033 / 459.683 163.65 / 459.683 8.75 / 8.75 units In 500 ml @ 800 UNITS/HR 16 mls/hr IV .Q24H [facility] Rx#: [id number] Other: Other Intake Source NPO # Unmeasured Voids 2 Weight 80.9 kg (1) Syncope Syncope type: unspecified Qualified Code(s): R55 - Syncope and collapse
--- NOTE | 2019-08-13 09:39 | Electrophysiology Report ---
Date of Service August 13, 2019 Electrophysiology Procedure Electrophysiology Procedure Report The procedure performed: Implantation of patient activated loop recorder Staff curriculum and assessment coordinator: Shane Edwards MD Indication: Patient is an 84-year-old gentleman with a history of recurrent syncope. Outpatient monitoring has not revealed any diagnosis. He was advised to consider an implantable loop recorder for more prolonged monitoring. Procedure in detail: The patient was informed of the risks benefits and alternatives to the intended procedure. They understood such and wished to proceed. The patient was taken to the electrophysiology suite where the upper chest area was prepped and draped in the usual sterile fashion. An area left lateral to the sternum in the 4th intercostal space was subsequently anesthetized using subcutaneous administration of lidocaine solution. A small incision was made at this site and implantation of the loop recorder was accomplished using a proprietary implantation tool. The small incision was subsequently closed using a single 4 0 Vicryl suture. Steri-Strips and a sterile dressing were then applied. The patient tolerated the procedure well. There were no immediate complications. The device was tested noninvasively prior to conclusion of the procedure. Equipment used: Patient activated loop recorder: Station [employer]. Model number LNQ11. Serial number [id number] Electrophysiology codes Implantable Monitors Procedure 1: Implantable Monitors: [id number] Cardiac event recorder implant
[2019-08-13] MEDS: ASPIRIN 81 MG ECTAB PO SCH (10:15)
[2019-08-13] MEDS: CYANOCOBALAMIN 500 MCG TABLET (VITAMIN B-12) PO SCH (10:15)
[2019-08-13] MEDS: FLUTICASONE PROPIONATE NA SPR 16 GM BTL NAE SCH (10:15)
--- NOTE | 2019-08-13 11:02 | Communication Note ---
Date of Service: August 13, 2019 I called office, and set up appointment for pt to be enrolled in the device clinic. Resume Xarelto this evening. Stable for discharge on prior to hospital medications. Follow up with Dr Barragan and Device clinic.
[2019-08-13 13:16] LABS: Partial Thromboplastin Ratio 1.1; Partial Thromboplastin Time 31.6 Seconds (21.0-31.0)
[2019-08-13] MEDS: TORSEMIDE 10 MG TAB PO SCH (14:10)
--- NOTE | 2019-08-13 16:52 | Hospitalist Progress Note ---
Date of Service August 13, 2019 Assessment & Plan Admission and Anticipated Discharge Date Admission Date: August 10, 2019 Results & Data Results & Data ([facility]) Vital Signs (Past 12 Hours) Vital Signs Temp Pulse Resp BP Pulse Ox 08/13/19 15:40 36.6 C 58 L 18 165/77 H 98 08/13/19 10:08 36.7 C 60 16 168/81 H 08/13/19 08:00 36.7 C 59 L 20 160/90 H 97
--- NOTE | 2019-08-13 16:55 | Hospitalist Progress Note ---
Date of Service August 13, 2019 Assessment & Plan (1) Syncope: Multiple syncopal episodes. Rule out froilan or tachyarrhythmia. Outpatient ZIO patch showed intermittent AF with controlled rate, significant hemodynamically significant arrhythmias. Has first degree AV block. Lyme screen negative. Did not have orthostatic hypotension. Cardiology consulted. Continue cardiac monitoring. (2) Atrial fibrillation: History of PAF; currently in NSR. Anticoagulated with apixaban. Apixaban held loop recorder and pt received IV heparin. (3) Elevated troponin: Troponin minimally elevated. No chest pain or acute EKG changes. Doubt acute coronary syndrome. Cardiology consulted. (4) HTN (hypertension): Resume candesartan at time of DC. (5) Carotid artery disease: Carotid duplex showed plaque without significant stenosis. LDL-c = 68. Continue anti-thrombotic therapy. (6) CKD (chronic kidney disease), stage III: Serum creatinine 1.04. Follow. (7) Hypothyroidism: TSH 3.72. Continue levothyroxine. (8) BPH (benign prostatic hyperplasia): Continue tamsulosin HS. (9) DVT prophylaxis: Received apixaban and IV heparin. (10) Discharge planning issues: Discharge to home. Family Medicine follow-up with Dr. Raf Uribe. Cardiology follow-up with Dr. Barragan. given update by phone. Admission and Anticipated Discharge Date Admission Date: August 10, 2019 Subjective Recheck for syncope and other problems. Patient seen in their room around 1600. Doing well. Loop recorder placed today. No further syncope or lightheadedness. No chest pain, SOB, palpitations. No significant arrhythmias noted on telemetry. Review of Systems: Constitutional- no fever. Cardiac- as noted above. Pulmonary- no cough or SOB. GI- no nausea, vomiting, diarrhea, melena, hematochezia. - no urinary symptoms. Otherwise, as noted above. Physical Exam Constitutional: no acute distress Respiratory: no respiratory distress Auscultation: lungs clear to auscultation bilaterally Cardiovascular: Rate/Rhythm: regular rate and regular rhythm Vessels: no JVD Extremities: no calf tenderness and no edema Gastrointestinal (Abdomen): normal bowel sounds, soft, nontender, no hepatosplenomegaly Musculoskeletal: Extremities: no cyanosis Skin: no rashes, warm and dry Psychiatric: Orientation: alert and oriented x 3 Results & Data Results & Data ([facility]) Vital Signs (Past 12 Hours) Vital Signs Temp Pulse Resp BP Pulse Ox 08/13/19 15:40 36.6 C 58 L 18 165/77 H 98 08/13/19 10:08 36.7 C 60 16 168/81 H 08/13/19 08:00 36.7 C 59 L 20 160/90 H 97 (1) Syncope Syncope type: unspecified Qualified Code(s): R55 - Syncope and collapse
[2019-08-13] MEDS ORDERED: RIVAROXABAN 20 MG TAB PO SCH (21:00)
--- NOTE | 2019-08-15 07:52 | Discharge Summary ---
Date of Service Date of Admission: 08/10/19 Date of Discharge: 08/13/19 Admission HPI Per Admitting Provider Pt is 84 y/o M with PMH Paroxysmal atrial fibrillation on Xarelto, HTN, BPH, CKD III, CVA, hypothyroidism presented to ER with c/o syncope this afternoon. Pt primarily Mohawk speaking, family assists is some translation. Reports pt was sitting outside in the shade today with his feet up smoking pipe. Family noticed that pt twitched his legs and then had syncopal episode. Family was able to lower pt from chair immediately and reports pt regained consciousness. Denies any falls or head injury recently. Denies any dizziness, palpitations, CP, SOB prior to episode. States felt normal and without symptoms upon awakening today and ate breakfast. Has been reporting some intermittent "not feeling well" described as nausea, dizziness and lethargy over past couple of weeks. Most days feels well and able to push mow and chop some wood and does feel tired after doing those activities but without any dizziness. Reports syncopal episode in 01/2019 after prolonged standing that occurred while in [place] and had negative work up at that time. Pt followed with Dr Barragan with cardiology last week and had Zio patch removed last week (results unavailable to me at this time). Echo: 07/03/2019: EF: 55%, moderate aortic regurgitation, moderate mitral regurgitation, mild tricuspid regurgitation. Denies fever/chills, diaphoresis, V/D/C, OLSON, vision changes, neck pain, CP, SOB, orthopnea, palpitations, cough, sore throat, choking, otalgia, rhinorrhea, abdominal pain, paresthesias, weakness, extremity weakness, extremity edema, rashes, urinary symptoms. Principal Diagnosis syncope Discharge Data Allergies Allergy/AdvReac Type Severity Reaction Status Date / Time No Known Allergies Allergy Unverified 08/10/19 20:00 Consultations 08/10/19 19:52 ED Decision to Admit Stat 08/10/19 20:28 Consult Cardiology Routine 08/10/19 20:31 Consult Case Management - Discharge Planning Routine Procedures Performed Operation Date: 08/13/19 09:15 Actual Procedures p Implant Cardiac Event Recorder - Enrico Edwards MD Ordered Studies 08/10/19 20:34 US carotid doppler BI Urgent 08/13/19 08:56 CL Cath Imgs for PACS use only Routine Hospital Course (1) Syncope: Multiple syncopal episodes over months. Rule out froilan or tachyarrhythmia. Outpatient ZIO patch showed intermittent AF with controlled rate, significant hemodynamically significant arrhythmias. Has first degree AV block. Lyme screen negative. Did not have orthostatic hypotension. Cardiology consulted. Continue cardiac monitoring. (2) Atrial fibrillation: History of PAF; currently in NSR. Anticoagulated with apixaban. Apixaban held loop recorder and pt received IV heparin. (3) Elevated troponin: Troponin minimally elevated. No chest pain or acute EKG changes. Doubt acute coronary syndrome. Cardiology consulted. (4) HTN (hypertension): Resume candesartan at time of DC. (5) Carotid artery disease: Carotid duplex showed plaque without significant stenosis. LDL-c = 68. Continue anti-thrombotic therapy. (6) CKD (chronic kidney disease), stage III: Serum creatinine 1.04. Follow. (7) Hypothyroidism: TSH 3.72. Continue levothyroxine. (8) BPH (benign prostatic hyperplasia): Continue tamsulosin HS. (9) DVT prophylaxis: Received apixaban and IV heparin. (10) Discharge planning issues: Discharged to home. Family Medicine follow-up with Dr. Raf Uribe. Cardiology follow-up with Dr. Barragan. given update by phone. Total Time Total Time Spent Total Time Spent (In Minutes): 40 Discharge Plan Discharge Items Patient Disposition: Home - Self-Care Reason For Visit: loss of consciousness Discharge Diagnosis: syncope paroxysmal atrial fibrillation Condition on Discharge: Good Activity: As commented below Driving/Machine Use: No driving. Non-emergency contact: Primary Care Provider, Hospitalist and [employer] Call non-emergency contact if: you have any medication questions and your symptoms worsen Follow-up/Referrals: Jame Barragan DO [[employer]] - Raf Uribe DO [Primary Care Provider] - 08/20/19 11:10 am (08/20/2019 11:10 AM Raf Uribe DO [facility] ) Diet: Heart Healthy Add Attending Provider Instructions: MEDICATION CHANGES: Only use torsemide (Demadex) as needed for swelling of legs or feet. If you take it every day, you might get dehydrated. No other medication changes at this time. SUMMARY OF TEST RESULTS: Blood work suggested at least some mild dehydration. Potassium and magnesium levels were normal. Thyroid level was normal. Total cholesterol was 136. LDL cholesterol was 68. HDL cholesterol was 62. Triglyceride level was 31. Lyme test was negative. Troponin (protein from heart muscle) was slightly elevated, but did not rise further. This pattern does not indicate a heart attack. Chest x-ray did not show any sign of pneumonia, congestive heart failure, or other significant findings. Ultrasound of carotid arteries showed some mild plaque, but no significant blockage. RECOMMENDATIONS FOR FOLLOW-UP: Respiratory Services Manager for loop recorder will contact you and help you with its operation. OTHER INSTRUCTIONS: Keep a diary of how you are feeling, with dates and times of any events. Check your blood pressure once or twice a day. Keep diary of times and readings. If you have any episodes of extreme weakness, light headedness, or passing out: Call Cardiology office if symptoms are mild for loop recorder interrogation. Call 911 if symptoms severe or Cardiology office is closed. Drink plenty of fluids (2-3 liters / day), especially during warm weather. Seek medical attention if you have: * temperature above 101 * chest pain or trouble breathing * abdominal pain, nausea, vomiting * diarrhea, dark stools or bloody stools * any unanswered questions or concerns Call 911 if symptoms are severe. Please take good care of yourself. Call if you have any questions or problems. You can reach a [facility] hospitalist on duty at [facility] 24 hours a day by calling [phone]. My cell # is [phone]. Pending Studies at Discharge: No Stand-Alone Forms: My [facility], Smoking Cessation Medications and DC Order Prescriptions: Continued cyanocobalamin (vitamin B-12) [Vitamin B-12] 1,000 mcg tablet 1,000 mcg PO DAILY RF: 0 tamsulosin 0.4 mg capsule 0.4 mg PO HS RF: 0 finasteride 5 mg tablet 5 mg PO HS RF: 0 torsemide 10 mg Tablet 5 mg PO DAILY RF: 0 ferrous sulfate [iron] 325 mg (65 mg iron) Tablet 325 mg PO 3XWK RF: 0 candesartan 32 mg Tablet 32 mg PO HS RF: 0 fluticasone propionate [Flonase Allergy Relief] 50 mcg/actuation spray,suspension 2 spray INTRANASAL DAILY RF: 0 Potassium Tab 75 mg PO 3XWK RF: 0 levothyroxine 125 mcg Tablet 125 mcg PO DAILY RF: 0 Xarelto 20 mg Tablet 20 mg PO PM RF: 0 Discharge Orders: Discharge Order (Routine); Ordered 08/13/19 Ordered By: Bud Ricci/Other Patient Handouts: Loop Recorder Implantation, Having Loop Recorder Implantation Admission Data Admit Date/Time: 08/10/19 20:28 Attending Provider: Bud Michaels Admit Provider: Chelsie Fallon Primary Care Provider: Raf Uribe Other Providers: Andre Lorenzo ; Alex Flores ; Eduardo Bradshaw ; Karlo Colvin ; Cleveland Patricia ; Jame Barragan ; Shree Kumar ; Cayla Condon ; Sanjuana Mckeon ; Dane Grady ; Chelsie Fallon Other Interventions: Discharge Summary Assessment (RN) Last Done: 08/13/19 17:29 DC Date/Time DO NOT enter until pt leaves facility: 08/13/19 18:47
== END 2019-08-13 18:47 | disposition home or self-care (01) ==
LOC: ED 17:48 → 1E 20:28 → SUATTDRO 20:28 → INTOOBSV 20:28 → 1E 21:17 → 2S 08-13 09:30

== ENCOUNTER 2019-09-14 17:05 | Inpatient (IN) ==
[2019-09-14] MEDS ORDERED: SODIUM CHLORIDE 0.9% 1000ML 500 ML IV ONE (17:27)
--- NOTE | 2019-09-14 17:32 | Emergency Department Note ---
Impression & Plan Atrial fibrillation with RVR, On rivaroxaban therapy, Elevated troponin ED Provider Note NAME: BESSIE ESCUDERO AGE: 84 SEX: M : 1935 ARRIVES VIA: Ambulance INFORMANT: Patient ED PROVIDER(S): Tam Estrada DO CHIEF COMPLAINT: Abdominal pain, nausea and heart racing HPI: Patient is an 84-year-old male with a past medical history of CAD, A. fib on rivaroxaban, CKD, hypertension, hypothyroidism who presents the ER for not feeling well. He woke up at 4 PM this afternoon. When he woke up he went to eat and was not feeling well in his stomach. He was very nauseated. He went to lay down. He became very pale and didn't look well. History of A. fib and a loop recorder in place which replaced the zio monitor. Currently he did not have a clear reason why he has passed out before in the past per the . He currently denies any chest pain or shortness of breath. He notes he did feel his heart racing extremely fast. checked his blood pressure and heart rate and the heart rate was in the 140s. He denies all other complaints at this time and feels significantly better. He has passed out with this multiple times before in the past. ROS: See above HPI for pertinent positives & negatives. A total of 10 systems reviewed and were otherwise negative. PAST MEDICAL HISTORY:See Below PAST SURGICAL HISTORY:See Below FAMILY HISTORY:See Below SOCIAL HISTORY:See Below HOME MEDICATIONS:See Below ALLERGIES:See Below VITALS:See Below PHYSICAL EXAMINATION: GENERAL: Sitting up in bed, alert, chronically ill-appearing, disheveled EYE EXAM: normal conjunctiva. OROPHARYNX: mucous membranes are dry NECK: supple, no nuchal rigidity, no adenopathy, non-tender LUNGS: Clear to auscultation. Normal chest wall mechanics HEART: Tachycardic and irregular regular, S1 normal and S2 normal ABDOMEN: abdomen soft, non-tender, normo-active bowel sounds, no masses, no rebound or guarding. BACK: Back is symmetrical on inspection and there is no deformity, no midline tenderness, no CVA tenderness. SKIN: no rashes and no bruising UPPER EXTREMITIES: upper extremities are grossly normal. LOWER EXTREMITIES: No pitting edema. NEURO EXAM: Normal sensorium, cranial nerves II-XII grossly intact, normal speech, no gross weakness of arms, no gross weakness of legs. MEDICAL DECISION MAKING: Patient is an 84-year-old male with a past medical history of CKD, paroxysmal A. fib with a loop recorder in place who presents the ER for not feeling well after waking up at 4 PM today. Upon presentation he is found to be in A. fib with RVR. Heart rate was in the low 100s. He eventually converted to sinus rhythm on his own. IV was established blood work was obtained upon arrival. Labs show no significant leukocytosis or anemia. INR was unremarkable. He is on Xarelto. BMP with a slightly elevated chloride. Bilirubin and LFTs were unremarkable. Initial troponin was elevated 0.066. Lipase was normal. TSH was unremarkable. Repeat troponin did trend up to 0.103. Discussed with cardiology via telephone after interrogating his loop recorder. In August 29 just after 8 AM he went into a wide-complex tachycardia. I initially thought that this was most consistent with V. tach. I discussed this and the remainder of the case with Dr. Butler. Unable to ascertain if the patient was symptomatic at that time although this was reviewed by EP. They do favor that this is likely A. fib with aberrancy; does have a book which she has been recording when he is symptomatic but is at home unfortunately. We discussed his history and current presentation. Do favor that his bump in troponin off of his baseline is likely rate related to the A. fib with RVR. Discussed with the patient and at bedside. They are extremely concerned with the rising troponin and also concerned with this episode of not feeling well earlier today. They do not want to go home at this time as they feel very uncomfortable with this. Consequently discussed with the hospitalist for observation patient will be evaluated by cardiology tomorrow morning. Triage Nursing notes reviewed. Prior medical records reviewed Vital Signs: reviewed and remarkable for tachycardic Differential diagnosis: Differential diagnosis includes etiologies such as vasovagal event, infection, hypoglycemia, electrolyte abnormalities, cardiac sources, intracerebral event, toxicologic, neurologic, as well as others were entertained. ER treatment provided: See below Diagnostics interpreted by me: ECG: A. fib RVR Normal axis No PVCs Prolonged QTC EKG #2 Sinus rhythm rate of 57 Inferior Q waves First-degree AV block No PVCs Normal QTC Cardiac Monitoring: An order was placed for continuous cardiac monitoring. The monitor shows a rate of 115 with A. fib rhythm. Laboratory studies: As stated above and show below. Imaging studies: Portable AP upright 1 view of the chest shows no focal infiltrate or pneumothorax Consultation(s): Discussed with Dr. Franck Butler ED COURSE: Procedures: none Critical Care: None Past Med/Surg History Medical History Atrial fibrillation BPH (benign prostatic hyperplasia) CKD (chronic kidney disease), stage III HTN (hypertension) Hypothyroidism On rivaroxaban therapy Surgical History History of cataract surgery Family History Brother Cancer Mother Stroke Social History Smoking Status: Current every day smoker Tobacco Type: Pipe Second Hand Exposure: No; Do You Dip or Chew Tobacco: No; Tobacco Cessation Education Requested by Patient: No Hx Alcohol Use: No Hx Substance Use: No Preferred Language: Maori Communication Ability: Effective Devulcanizer Operator Required: No Beliefs That Will Affect Care: None marital status: Current Living Situation: Spouse Other Information That Helps Us Care for You: No Feels Safe at Home: Yes Safety Concerns: Feels Safe At This Time Allergies Allergies Allergy/AdvReac Type Severity Reaction Status Date / Time No Known Allergies Allergy Verified 09/14/19 18:17 Home Meds Home Medications Medication Instructions Recorded Confirmed finasteride 5 mg PO HS 01/10/19 09/14/19 cyanocobalamin (vitamin B-12) 1,000 mcg PO QAM 03/09/19 09/14/19 1,000 mcg tablet tamsulosin 0.4 mg capsule 0.4 mg PO HS 03/09/19 09/14/19 Potassium Tab 75 mg PO 3XWK 08/10/19 09/14/19 Xarelto 20 mg PO PM 08/10/19 09/14/19 ferrous sulfate [iron] 325 mg PO 3XWK 08/10/19 09/14/19 fluticasone propionate [Flonase 2 spray INTRANASAL DAILY 08/10/19 09/14/19 Allergy Relief] levothyroxine 125 mcg PO DAILY 08/10/19 09/14/19 Previous Rx's Medication Instructions Recorded candesartan [Atacand] 16 mg PO DAILY #90 tab 08/16/19 Results & Data (ED) Vital Signs Vital Signs - 24 hr 09/14/19 17:17 09/14/19 18:05 09/14/19 18:36 Temperature 36.5 C Temperature Source Oral Pulse Rate 80 63 Pulse Rate [Apical] 70 Pulse Rate from SpO2 Sensor 63 Respiratory Rate 18 18 19 Blood Pressure 120/59 L 138/66 Blood Pressure [Left Arm] 111/65 Blood Pressure Mean 79 81 Blood Pressure Mean [Left Arm] 80 Pulse Oximetry 97 94 96 Oxygen Delivery Method Room Air Room Air Room Air Sepsis Recent Fever Within 48 Hours No Sepsis New/Unexplained Change in Mental Status No Sepsis Action Taken by Nursing No Action Required 09/14/19 19:00 09/14/19 19:16 09/14/19 19:30 Temperature Temperature Source Pulse Rate 63 57 L Pulse Rate [Apical] Pulse Rate from SpO2 Sensor 61 58 L Respiratory Rate 21 18 Blood Pressure 124/67 132/61 Blood Pressure [Left Arm] Blood Pressure Mean 93 77 Blood Pressure Mean [Left Arm] Pulse Oximetry 98 97 Oxygen Delivery Method Room Air Room Air Room Air Sepsis Recent Fever Within 48 Hours Sepsis New/Unexplained Change in Mental Status Sepsis Action Taken by Nursing 09/14/19 20:05 09/14/19 20:30 Temperature Temperature Source Pulse Rate 56 L 55 L Pulse Rate [Apical] Pulse Rate from SpO2 Sensor 56 L 55 L Respiratory Rate 16 21 Blood Pressure 133/72 148/72 H Blood Pressure [Left Arm] Blood Pressure Mean 84 82 Blood Pressure Mean [Left Arm] Pulse Oximetry 98 98 Oxygen Delivery Method Room Air Room Air Sepsis Recent Fever Within 48 Hours Sepsis New/Unexplained Change in Mental Status Sepsis Action Taken by Nursing Laboratory Data Result diagrams: 09/14/19 17:19 09/14/19 17:19 Lab Results 09/14/19 09/14/19 09/14/19 Range/Units 17:19 17:19 17:19 WBC 6.02 (4.8-10.8) K/uL RBC 4.65 L (4.7-6.1) M/uL Hgb 14.5 (14.0-18.0) g/dL Hct 42.0 (42-52) % MCV 90.3 (80-100) fL MCH 31.2 (25-34) pg MCHC 34.5 (32-36) g/dL RDW Std Deviation 45.1 (36.4-46.3) fL RDW Coeff of Millie 13.7 (11.5-14.5) % Plt Count 156 (130-400) K/uL MPV 10.8 H (7.4-10.4) fL Immature Gran % (Auto) 0.2 % Neut % (Auto) 70.2 % Lymph % (Auto) 16.8 % [place] % (Auto) 8.3 % Eos % (Auto) 3.8 % Baso % (Auto) 0.7 % Neut # (Auto) 4.23 (1.4-6.5) K/uL Lymph # (Auto) 1.01 L (1.2-3.4) K/uL [place] # (Auto) 0.50 (0.11-0.59) K/uL Eos # (Auto) 0.23 (0-0.5) K/uL Baso # (Auto) 0.04 (0-0.2) K/uL Immature Gran # (Auto) 0.01 (0.00-0.02) K/uL PT 11.7 (9.0-12.0) Seconds INR 1.1 (0.9-1.1) APTT 34.3 H (21.0-31.0) Seconds PTT Ratio 1.2 Sodium 138 (136-145) mmol/L Potassium 3.6 (3.5-5.1) mmol/L Chloride 108 H (98-107) mmol/L Carbon Dioxide 24 (21-32) mmol/L Anion Gap 7.0 (3-11) BUN 16 (7-18) mg/dl Creatinine 1.07 (0.6-1.4) mg/dl Est Cr Clr Drug Dosing 52.6 ml/min Est GFR ( Amer) 72.5 Est GFR (Non-Af Amer) 62.5 BUN/Creatinine Ratio 15.3 (10-20) Glucose 104 H (70-99) mg/dl Calcium 8.4 L (8.5-10.1) mg/dl Magnesium (1.8-2.4) mg/dl Total Bilirubin 0.9 (0.2-1) mg/dl AST 9 L (15-37) U/L ALT 10 L (12-78) U/L Alkaline Phosphatase 42 L (45-117) U/L Troponin I 0.066 H* (0-0.045) ng/ml Total Protein 6.4 (6.4-8.2) gm/dl Albumin 2.9 L (3.4-5.0) gm/dl Globulin 3.5 (2.5-4.0) gm/dl Albumin/Globulin Ratio 0.8 L (0.9-2) Lipase 96 (73-393) U/L TSH (0.300-4.500) uIu/ml 09/14/19 09/14/19 Range/Units 17:19 19:29 WBC (4.8-10.8) K/uL RBC (4.7-6.1) M/uL Hgb (14.0-18.0) g/dL Hct (42-52) % MCV (80-100) fL MCH (25-34) pg MCHC (32-36) g/dL RDW Std Deviation (36.4-46.3) fL RDW Coeff of Millie (11.5-14.5) % Plt Count (130-400) K/uL MPV (7.4-10.4) fL Immature Gran % (Auto) % Neut % (Auto) % Lymph % (Auto) % [place] % (Auto) % Eos % (Auto) % Baso % (Auto) % Neut # (Auto) (1.4-6.5) K/uL Lymph # (Auto) (1.2-3.4) K/uL [place] # (Auto) (0.11-0.59) K/uL Eos # (Auto) (0-0.5) K/uL Baso # (Auto) (0-0.2) K/uL Immature Gran # (Auto) (0.00-0.02) K/uL PT (9.0-12.0) Seconds INR (0.9-1.1) APTT (21.0-31.0) Seconds PTT Ratio Sodium (136-145) mmol/L Potassium (3.5-5.1) mmol/L Chloride (98-107) mmol/L Carbon Dioxide (21-32) mmol/L Anion Gap (3-11) BUN (7-18) mg/dl Creatinine (0.6-1.4) mg/dl Est Cr Clr Drug Dosing ml/min Est GFR ( Amer) Est GFR (Non-Af Amer) BUN/Creatinine Ratio (10-20) Glucose (70-99) mg/dl Calcium (8.5-10.1) mg/dl Magnesium 2.2 (1.8-2.4) mg/dl Total Bilirubin (0.2-1) mg/dl AST (15-37) U/L ALT (12-78) U/L Alkaline Phosphatase (45-117) U/L Troponin I 0.103 H* (0-0.045) ng/ml Total Protein (6.4-8.2) gm/dl Albumin (3.4-5.0) gm/dl Globulin (2.5-4.0) gm/dl Albumin/Globulin Ratio (0.9-2) Lipase (73-393) U/L TSH 0.872 (0.300-4.500) uIu/ml Administered Medications Miscellaneous (Order Awaiting Action) 1 ea N/A QS JOE Stop: 10/14/19 21:44 Last Admin: 09/14/19 23:14 Dose: Not Given Documented by: [id number] Rivaroxaban (Xarelto) 20 mg PO PM JOE Stop: 10/15/19 20:59 Last Admin: 09/14/19 23:00 Dose: 20 mg Documented by: [id number] Discontinued Medications Sodium Chloride (Nss 1000ml) 500 mls @ 999 mls/hr IV .Q31M ONE Stop: 09/14/19 17:57 Last Infusion: 09/14/19 19:40 Dose: 0 mls/hr Documented by: [id number] Admin: 09/14/19 18:05 Dose: 999 mls/hr Documented by: [id number] Ioversol (Optiray 320 100ml) 93 ml IV ONCE ONE Stop: 09/14/19 18:29 Last Admin: 09/14/19 18:29 Dose: 93 ml Documented by: [id number] Polyethylene Glycol (Miralax Powder Packet) 17 gm PO ONE STA Stop: 09/14/19 22:58 Last Admin: 09/14/19 23:00 Dose: Not Given Documented by: [id number] Potassium Chloride (Klor-Con M20) 40 meq PO ONE ONE Stop: 09/14/19 21:46 Last Admin: 09/14/19 22:10 Dose: 40 meq Documented by: [id number] Discharge Plan Visit Data *Final* Discharge Date/Time: 09/14/19 21:14 Chief Complaint: Cardiac Assessment Stated Complaint: TACHYCARDIA ED Provider: Tam Estrada Discharge Problem: Atrial fibrillation with RVR, On rivaroxaban therapy, Elevated troponin Patient Disposition: Admitted As Inpatient Discharge Instructions Interventions: ED Discharge Assessment Last Done: 09/14/19 21:14
[2019-09-14 17:36] LABS: Basophils # (auto) 0.04 K/uL (0-0.2); Basophils % (auto) 0.7 %; Eosinophils # (auto) 0.23 K/uL (0-0.5); Eosinophils % (auto) 3.8 %; Hemoglobin 14.5 g/dL (14.0-18.0); Immature Granulocytes # (auto) 0.01 K/uL (0.00-0.02); Immature Granulocytes % (auto) 0.2 %; Lymphocytes # (auto) 1.01 K/uL (1.2-3.4); Lymphocytes % (auto) 16.8 %; Mean Corpuscular Hemoglobin 31.2 pg (25-34); Mean Corpuscular Hgb Conc 34.5 g/dL (32-36); Mean Corpuscular Volume 90.3 fL (80-100); Mean Platelet Volume 10.8 fL (7.4-10.4); Monocytes % (auto) 8.3 %; Neutrophils # (auto) 4.23 K/uL (1.4-6.5); Neutrophils % (auto) 70.2 %; Platelet Count 156 K/uL (130-400); RDW Coefficient of Variation 13.7 % (11.5-14.5); RDW Standard Deviation 45.1 fL (36.4-46.3); Red Blood Count 4.65 M/uL (4.7-6.1); White Blood Count 6.02 K/uL (4.8-10.8)
[2019-09-14 17:44] LABS: Albumin Level 2.9 gm/dl (3.4-5.0); BUN Creatinine Ratio 15.3 (10-20); Calcium 8.4 mg/dl (8.5-10.1); Creatinine Clr Calc Pharmacy 52.6 ml/min; Est GFR (African American) 72.5; Est GFR (Non-African American) 62.5; Potassium 3.6 mmol/L (3.5-5.1)
[2019-09-14 17:50] LABS: INR 1.1 (0.9-1.1); Partial Thromboplastin Ratio 1.2; Partial Thromboplastin Time 34.3 Seconds (21.0-31.0); Prothrombin Time 11.7 Seconds (9.0-12.0)
[2019-09-14 17:54] LABS: Albumin Globulin Ratio 0.8 (0.9-2); Bilirubin,Total 0.9 mg/dl (0.2-1); Globulin 3.5 gm/dl (2.5-4.0); Total Protein 6.4 gm/dl (6.4-8.2); Troponin I 0.066 ng/ml (0-0.045)
--- NOTE | 2019-09-14 18:03 | XRay Report ---
XR chest 1V portable CLINICAL HISTORY: Atypical chest pain COMPARISON STUDY: 08/10/2019 FINDINGS: The heart is mildly enlarged. Electronic device projects over the left chest possibly repre senting an event recorder. There are postsurgical changes involve the right shoulder. There is no garcía lure. There is no lobar consolidation. There is minor basilar interstitial thickening similar to the prior study.[ IMPRESSION: No active disease in the chest. ACT 112: Negative or not required by law. Electronically signed by: Raz Cash M.D. 09/14/2019 6:02 PM
[2019-09-14] MEDS ORDERED: IOVERSOL 100ml IV ONE (18:28)
--- NOTE | 2019-09-14 18:43 | CT Scan Report ---
CT abd pelvis IV con only CLINICAL HISTORY: Abdominal pain radiating to the upper abdomen. Tachycardia. COMPARISON STUDY: 06/28/2019 TECHNIQUE: The patient was scanned in a dynamic helical fashion during intravenous administration of 93 cc of Optiray 320. A dose lowering technique was utilized adhering to the principles of ALARA. CT DOSE: 460.94 mGy.cm FINDINGS: Lower chest: There are mild dependent atelectatic changes at the left lung base. There is a small hia naz hernia. This 7 mm solid right lower lobe pulmonary nodule, unchanged from the prior study Liver: The contrast-enhanced liver is normal in size, contour, and attenuation. There is no intrahepa tic biliary ductal dilatation. The hepatic veins and portal veins are patent. Gallbladder: Unremarkable. Spleen: Normal in size and attenuation. Pancreas: Unremarkable. Adrenal glands: Unremarkable. Kidneys: There is a stable indeterminate 1 cm left renal exophytic mass which exceeds water attenuati on. There is no hydronephrosis. Bowel: There are no transition zones indicate bowel obstruction. There is no evidence of acute divert iculitis. There is moderate fecal retention. Clinical correlation in regards to constipation is recom mended. Is not visualized with certainty. There are no findings to indicate acute appendicitis. There is a dilma wel containing right inguinal hernia without evidence of obstruction Peritoneum: There is no intraperitoneal free air or abdominal ascites. Vasculature: The abdominal aorta is normal in course and caliber. Adenopathy: None. Pelvic viscera: There is bladder wall thickening. There is marked prostatomegaly. There are left pelv ic varicosities, similar to the preceding study. Skeletal structures: No destructive osseous lesions are seen. IMPRESSION: 1. No acute intra-abdominal or pelvic findings 2. Stable 7 mm solid right lower lobe pulmonary nodule 3. No evidence of bowel obstruction. No evidence of free air 4. No evidence of acute diverticulitis. No evidence of acute appendicitis 5. Fecal retention. Clinical correlation with regards to constipation is recommended 6. Bladder wall thickening and marked prostatomegaly 7. Right inguinal hernia which contains small bowel loops. No current evidence of obstruction 8. Stable indeterminate 1 cm left renal mass ACT 112: Negative or not required by law. Electronically signed by: aRz Cash M.D. 09/14/2019 6:42 PM
[2019-09-14] MEDS ORDERED: ACETAMINOPHEN 325 MG TAB PO PRN (21:33)
--- NOTE | 2019-09-14 21:44 | History & Physical Report ---
Date of Service September 14, 2019 Assessment & Plan (1) Paroxysmal atrial fibrillation: -Admit to telemetry -Patient presenting from home with reports of nausea and palpitations. reports heart rate was in the 140s at home. -History of paroxysmal atrial fibrillation, underwent loop recorder placement on 08/12. Interrogated in the ED, report unavailable to me at this time. -Patient currently in NSR with rates in the 50s and some occasional PACs -Anticoagulated on Xarelto, will continue -Continue to monitor on telemetry, cardiology to evaluate the patient tomorrow. Case discussed with Dr. Bradshaw. (2) Elevated troponin: -Troponin 0.06 -> 0.10 -EKG without acute ST changes -Likely due to demand ischemia from A. fib with RVR -Continue cycle cardiac enzymes (3) HTN (hypertension): -BP controlled, continue candesartan (4) Hypothyroidism: -TSH 0.872 (5) DVT prophylaxis: -Anticoagulated on Xarelto Admission and Anticipated Discharge Date Admission Date: September 14, 2019 History of Present Illness Chief Complaint: Nausea, palpitations Primary Care Provider: Raf Uribe, 84-year-old male with PMH paroxysmal atrial fibrillation, HTN, CKD stage III, hypothyroidism, and other problems listed below who presents the ED for evaluation of nausea and palpitations. Patient recently admitted to [facility] 08/09- 08/12 for evaluation of syncope. Telemetry monitoring during admission was unremarkable and patient underwent loop recorder. Patient is primarily [place] Citizen speaking, therefore who is at the bedside provides some history. She reports that patient typically is awake all night and then sleeps until about 2:00 in the afternoon. She reports patient woke up around 230 this afternoon and had his breakfast. Shortly after, patient had reported some nausea and palpitations. reports that she took patient's heart rate at home and it was 149. She reports her blood pressure was okay. EMS was called and patient was brought to the ED for further evaluation. Patient otherwise has been feeling well at home. No fevers or chills. Denies chest pain. No lightheaded ness, dizziness, diaphoresis, syncopal events. Denies abdominal pain, vomiting, diarrhea. No urinary symptoms. Upon arrival to the ED, patient was in atrial fibrillation with rates in the 90s. He subsequently spontaneously converted to NSR. Patient is currently in NSR with rates in the 50s with some PACs. Patient is currently asymptomatic. Labs are unremarkable with the exception of mildly elevated troponin 0.06-> 0.10. CT ABD/pelvis negative for acute findings. CXR negative for acute findings well. Allergies Allergy/AdvReac Type Severity Reaction Status Date / Time No Known Allergies Allergy Verified 09/14/19 18:17 Home Medications Home Medications Medication Instructions Recorded Confirmed Type finasteride 5 mg PO HS 01/10/19 09/14/19 History cyanocobalamin (vitamin B-12) 1,000 mcg PO QAM 03/09/19 09/14/19 History 1,000 mcg tablet tamsulosin 0.4 mg capsule 0.4 mg PO HS 03/09/19 09/14/19 History Potassium Tab 75 mg PO 3XWK 08/10/19 09/14/19 History Xarelto 20 mg PO PM 08/10/19 09/14/19 History ferrous sulfate [iron] 325 mg PO 3XWK 08/10/19 09/14/19 History fluticasone propionate [Flonase 2 spray INTRANASAL DAILY 08/10/19 09/14/19 History Allergy Relief] levothyroxine 125 mcg PO DAILY 08/10/19 09/14/19 History candesartan [Atacand] 16 mg PO DAILY #90 tab 08/16/19 09/14/19 Rx Past Med/Surg History Medical History Atrial fibrillation BPH (benign prostatic hyperplasia) CKD (chronic kidney disease), stage III HTN (hypertension) Hypothyroidism On rivaroxaban therapy Surgical History History of cataract surgery Family History Brother Cancer Mother Stroke Social History Smoking Status: Current every day smoker Tobacco Type: Pipe Second Hand Exposure: No; Do You Dip or Chew Tobacco: No; Tobacco Cessation Education Requested by Patient: No Hx Alcohol Use: No Hx Substance Use: No Preferred Language: [place] Citizen Communication Ability: Effective Site Reliability Engineer Required: No Beliefs That Will Affect Care: None marital status: Current Living Situation: Spouse Other Information That Helps Us Care for You: No Feels Safe at Home: Yes Safety Concerns: Feels Safe At This Time Review of Systems Review of Systems: ROS per HPI, all other systems reviewed and negative Physical Exam Constitutional: WD/WN, vitals as above Eyes: PERRL, conjunctivae normal, anicteric sclerae ENMT: external ear and nose normal, oropharynx normal Respiratory: normal respiratory effort, lungs clear to auscultation Cardiovascular: Rate/Rhythm: regular rate and regular rhythm Vessels: normal peripheral pulses Extremities: no edema Gastrointestinal (Abdomen): normal bowel sounds, soft, nontender, no hepatosplenomegaly Musculoskeletal: no cyanosis or clubbing, extremities motor strength 5/5 Skin: no rashes, warm and dry Neurologic: PERRL, EOMI, accommodation nl, no face palsy, no dysarthria Psychiatric: A+Ox3, euthymic affect Results & Data Results & Data ([facility]) Vital Signs (Past 12 Hours) Vital Signs Temp Pulse Pulse Resp BP BP Pulse Ox 09/14/19 21:00 57 L 18 151/86 H 97 09/14/19 20:30 55 L 21 148/72 H 98 09/14/19 20:05 56 L 16 133/72 98 09/14/19 19:30 57 L 18 132/61 97 09/14/19 19:00 63 21 124/67 98 09/14/19 18:36 63 19 138/66 96 09/14/19 18:05 70 18 111/65 94 09/14/19 17:17 36.5 C 80 18 120/59 L 97 Laboratory Results Short CBC 09/14/19 09/14/19 09/14/19 Range/Units 17:19 17:19 19:29 WBC 6.02 (4.8-10.8) K/uL Hgb 14.5 (14.0-18.0) g/dL Hct 42.0 (42-52) % Plt Count 156 (130-400) K/uL Troponin I 0.066 H* 0.103 H* (0-0.045) ng/ml BMP 09/14/19 17:19 Sodium 138 Potassium 3.6 Chloride 108 H Carbon Dioxide 24 BUN 16 Creatinine 1.07 Glucose 104 H Calcium 8.4 L Cardiac Enzymes 09/14/19 09/14/19 Range/Units 17:19 19:29 Troponin I 0.066 H* 0.103 H* (0-0.045) ng/ml Liver Function 09/14/19 Range/Units 17:19 Total Bilirubin 0.9 (0.2-1) mg/dl AST 9 L (15-37) U/L ALT 10 L (12-78) U/L Alkaline Phosphatase 42 L (45-117) U/L Albumin 2.9 L (3.4-5.0) gm/dl Diagnostic Findings CT ABD/PELVIS IMPRESSION: 1. No acute intra-abdominal or pelvic findings 2. Stable 7 mm solid right lower lobe pulmonary nodule 3. No evidence of bowel obstruction. No evidence of free air 4. No evidence of acute diverticulitis. No evidence of acute appendicitis 5. Fecal retention. Clinical correlation with regards to constipation is recommended 6. Bladder wall thickening and marked prostatomegaly 7. Right inguinal hernia which contains small bowel loops. No current evidence of obstruction 8. Stable indeterminate 1 cm left renal mass CXR IMPRESSION: No active disease in the chest. Code Status & VTE Plan Code Status Patient is a full code as per my discussion with him. VTE Prophylaxis Plan VTE Prophylaxis will be ordered: No Supervising Physician Co-Signing Physician Notes Patient was seen and examined by me, care coordinated with BOB Lynn. Please see her note above for further details. Mr. Warner is an 84-year-old male with paroxysmal atrial fibrillation, HTN, CKD stage III, hypothyroidism who presents to the ED for evaluation of nausea and palpitations. Patient recently admitted to [facility] 08/09-08/12 for evaluation of syncope. Telemetry monitoring during admission was unremarkable and patient underwent loop recorder. Today, per , patient's heart rate at home was 149. EMS was called and patient was brought to the ED for further evaluation. Upon arrival to the ED, patient was in atrial fibrillation with rates in the 90s. He subsequently spontaneously converted to NSR. Patient is currently in NSR with rates in high 50s with some PACs. Patient is currently asymptomatic. Labs are unremarkable with the exception of mildly elevated troponin 0.06-> 0.10. CT ABD/pelvis negative for acute findings, significant for constipation. CXR negative for acute findings. Patient is currently lying in bed, in no acute distress. Patient's is at the bedside, she translates as patient is primarily [place] Citizen speaking. Patient himself is alert and oriented and participates in conversation without difficulty. Heart sounds are regular, lung sounds clear to auscultation bilaterally, without any wheezing rhonchi or crackles. Abdomen soft, nontender, nondistended, positive bowel sounds. Patient moves all 4 extremities spo ntaneously without difficulty. He states that he currently feels very well. Denies any chest pain, nausea, vomiting, fevers, chills, shortness of breath, palpitations. Discussed constipation found on CT, patient states that he often has to strain movement, will start patient on MiraLAX. Cardiology, Dr. Bradshaw was contacted and discussed with ED provider. We will continue to monitor pt on telemetry, cardiology will follow-up tomorrow. Estefania Johnson MD
[2019-09-14] MEDS ORDERED: POTASSIUM CHLORIDE 20 MEQ TABCR PO ONE (21:45)
[2019-09-14 21:58] LABS: Magnesium 2.2 mg/dl (1.8-2.4); Thyroid Stimulating Hormone 0.872 uIu/ml (0.300-4.500)
[2019-09-14] MEDS ORDERED: POLYETHYLENE (MIRALAX) 17 GM PACK PO STA (22:57)
[2019-09-15] MEDS: LEVOTHYROXINE SODIUM 125 MCG TABLET PO SCH (04:57)
[2019-09-15] MEDS ORDERED: HydrALAZINE HCL 20 MG/ML VIAL IV ONE (05:29)
[2019-09-15] MEDS ORDERED: AMLODIPINE BESYLATE 5 MG TAB PO SCH (05:30)
[2019-09-15 06:25] LABS: Hematocrit (blood only) 40.1 % (42-52); Hemoglobin 13.7 g/dL (14.0-18.0); Mean Corpuscular Hemoglobin 31.1 pg (25-34); Mean Corpuscular Hgb Conc 34.2 g/dL (32-36); Mean Corpuscular Volume 90.9 fL (80-100); Mean Platelet Volume 10.8 fL (7.4-10.4); Platelet Count 169 K/uL (130-400); RDW Coefficient of Variation 13.7 % (11.5-14.5); RDW Standard Deviation 45.6 fL (36.4-46.3); Red Blood Count 4.41 M/uL (4.7-6.1); White Blood Count 6.21 K/uL (4.8-10.8)
[2019-09-15 06:55] LABS: BUN Creatinine Ratio 17.9 (10-20); Calcium 8.3 mg/dl (8.5-10.1); Creatinine Clr Calc Pharmacy 55.3 ml/min; Est GFR (African American) 79.6; Est GFR (Non-African American) 68.7; Potassium 4.5 mmol/L (3.5-5.1)
[2019-09-15] MEDS: CYANOCOBALAMIN 500 MCG TABLET (VITAMIN B-12) PO SCH (09:11)
[2019-09-15] MEDS: POLYETHYLENE (MIRALAX) 17 GM PACK PO SCH ×2 (09:15→19:44)
--- NOTE | 2019-09-15 13:28 | Electrocardiogram Report ---
Test Reason : Blood Pressure : / mmHG Vent. Rate : 100 BPM Atrial Rate : 312 BPM P-R Int : 000 ms QRS Dur : 100 ms QT Int : 398 ms P-R-T Axes : 000 -07 068 degrees QTc Int : 513 ms Atrial fibrillation Prolonged QT Abnormal ECG When compared with ECG of 16-AUG-2019 10:26, Atrial fibrillation has replaced Sinus rhythm Vent. rate has increased BY 40 BPM Criteria for Inferior infarct are no longer Present Confirmed by Ankush Akers ([id number]) on 09/15/2019 1:28:33 PM Referred By: REFERRED SELF Confirmed By:Ankush Akers
--- NOTE | 2019-09-15 13:33 | Electrocardiogram Report ---
Test Reason : Blood Pressure : / mmHG Vent. Rate : 057 BPM Atrial Rate : 057 BPM P-R Int : 286 ms QRS Dur : 090 ms QT Int : 500 ms P-R-T Axes : 064 -23 038 degrees QTc Int : 486 ms Sinus bradycardia with 1st degree A-V block with Premature atrial complexes Inferior infarct , age undetermined Abnormal ECG When compared with ECG of 14-SEP-2019 17:15, (unconfirmed) Sinus rhythm has replaced Atrial fibrillation Vent. rate has decreased BY 43 BPM Confirmed by Ankush Akers ([id number]) on 09/15/2019 1:32:47 PM Referred By: REFERRED SELF Confirmed By:Ankush Akers
--- NOTE | 2019-09-15 13:48 | Electrocardiogram Report ---
Test Reason : Blood Pressure : / mmHG Vent. Rate : 059 BPM Atrial Rate : 059 BPM P-R Int : 276 ms QRS Dur : 092 ms QT Int : 490 ms P-R-T Axes : 056 -10 054 degrees QTc Int : 485 ms Sinus bradycardia with 1st degree A-V block Prolonged QT Abnormal ECG When compared with ECG of 14-SEP-2019 19:30, (unconfirmed) Premature atrial complexes are no longer Present Confirmed by Ankush Akers ([id number]) on 09/15/2019 1:47:33 PM Referred By: REFERRED SELF Confirmed By:Ankush Akers
--- NOTE | 2019-09-15 14:46 | Cardiology Consultation ---
Date of Consultation September 15, 2019 Assessment & Plan (1) Atrial fibrillation with RVR: The patient has recently been followed closely by cardiology for recurrent syncopal episodes that were not explained on recent CO monitor, or by findings on implanted loop recorder placed 08/13/2019. Presents with a different symptomatology, of feeling poorly yesterday, with epigastric discomfort, at which time findings of atrial fibrillation with rapid ventricular response noted with subsequent spontaneous offset to sinus rhythm while in the emergency room. No significant conversion pause, and resolution of his symptoms. He performed on arrival yesterday at 17: 15 reveals atrial fibrillation at 100 bpm any significant polarization changes. Repeat tracing today reveals sinus bradycardia at 59 bpm with long first-degree AV block, IL interval 276 ms, no significant repolarization changes. Mild troponin elevation noted. Patient variant symptomatic atrial fibrillation with rapid ventricular response yesterday with associated rate related anginal symptoms and resultant elevation in his troponin I. Likely does have underlying heart disease. He is currently on no AV derick blockers due to his baseline bradycardia. I think at this point his episode from last night is suggestive of symptomatic tachycardia-bradycardia syndrome. I discussed proceeding with dual-chamber pacemaker for heart rate support which would allow aggressive AV derick blockers, and perhaps even the addition of a miodarone. Patient/family goals of this. For now we will continue his Xarelto with plan to hold 1-2 doses prior to pacemaker. His screening liver function tests and TSH are within normal limits. History of Present Illness Attending Physician: Jenny Padilla, History of Present Illness Timmy Gaines is an 84 year old male seen in cardiology consultation per the request of BOB Muniz for the evaluation of a sensation of generalized illness with findings of paroxysmal atrial fibrillation. The patient's primary kiln stacker is Dr. Barragan of our practice however undersigned as I had cared for him during his previous admission, and I had also seen him in the emergency department on 08/16/2019. He has a recent history of recurrent syncopal episodes recent implantation of a [employer] LINQ implantable loop recorder in July,. He typically sleeps most of the day and gets up to start his routine at 330 to 4 PM. Yesterday he got up at approximately 3:30 PM. He was having his first meal the day and his spouse reports that he said he was not feeling well. He has to lay down. She took his blood pressure blood pressure with a systolic reading in the 130s, however his heart rate was elevated 140s. He described a pressure sensation in his upper abdomen. She ultimately summoned EMS and reportedly while EMS was there he had deviation of heart rates on the true monitor ranging anywhere from 40 bpm per 140 bpm range. He arrived in the emergency room he was placed on telemetry and his initial insult included atrial fibrillation 130 bpm. At 1734 he was noted to spontaneously convert back to sinus rhythm at a significant conversion pause. Ever since, and well and he actually is eager to go home. Recorder was interrogated. There was an episode of irregular tachycardia noted 08/30/2019 was felt to either be due to nonsustained ventricular tachycardia more likely atrial fibrillation with aberrant conduction. One occurred in January 2019 he was walking in [facility], he became weak, sat down on a wall, and then lost consciousness falling backwards into a tree. He was seen locally at a hospital there and discharged. He had another event when they were vacationing in [place] several years ago. The patient also has several unwitnessed fall episodes that his spouse is concerned may have actually been syncopal episodes. Recent outpatient echocardiogram performed 07/03/2019 at [facility] revealed moderate concentric left ventricular hypertrophy LVEF 55 to 59%, moderate aortic valve sclerosis without stenosis, mild aortic valve regurgitation, moderate mitral regurgitation mild tricuspid regurgitation. Normal left ventricular wall motion without regional wall motion abnormalities. Allergies Allergy/AdvReac Type Severity Reaction Status Date / Time No Known Allergies Allergy Verified 09/14/19 18:17 Home Medications Home Medications Medication Instructions Recorded Confirmed Type finasteride 5 mg PO HS 01/10/19 09/14/19 History cyanocobalamin (vitamin B-12) 1,000 mcg PO QAM 03/09/19 09/14/19 History 1,000 mcg tablet tamsulosin 0.4 mg capsule 0.4 mg PO HS 03/09/19 09/14/19 History Potassium Tab 75 mg PO 3XWK 08/10/19 09/14/19 History Xarelto 20 mg PO PM 08/10/19 09/14/19 History ferrous sulfate [iron] 325 mg PO 3XWK 08/10/19 09/14/19 History fluticasone propionate [Flonase 2 spray INTRANASAL DAILY 08/10/19 09/14/19 History Allergy Relief] levothyroxine 125 mcg PO DAILY 08/10/19 09/14/19 History candesartan [Atacand] 16 mg PO DAILY #90 tab 08/16/19 09/14/19 Rx Patient History Medical History Atrial fibrillation BPH (benign prostatic hyperplasia) CKD (chronic kidney disease), stage III HTN (hypertension) Hypothyroidism On rivaroxaban therapy (Acute) Surgical History History of cataract surgery Family History Brother Cancer Mother Stroke Social History Smoking Status: Current every day smoker Tobacco Type: Pipe Second Hand Exposure: No; Do You Dip or Chew Tobacco: No; Tobacco Cessation Education Requested by Patient: No Hx Alcohol Use: No Hx Substance Use: No Preferred Language: [place] Communication Ability: Effective Safety Grooving Machine Operator Required: No Beliefs That Will Affect Care: None marital status: Current Living Situation: Spouse Other Information That Helps Us Care for You: No Feels Safe at Home: Yes Safety Concerns: Feels Safe At This Time Review of Systems Review of Systems: All systems reviewed & are unremarkable except as noted in HPI & below Physical Exam Physical Exam: Temp Pulse Resp BP Pulse Ox 37.0 C 62 23 147/87 H 95 09/15/19 12:17 09/15/19 12:17 09/15/19 12:17 09/15/19 12:17 09/15/19 12:17 Constitutional: WD/WN, vitals as above Respiratory: normal respiratory effort, lungs clear to auscultation Cardiovascular: RRR, no murmur, no edema Gastrointestinal (Abdomen): normal bowel sounds, soft, nontender, no hepatosplenomegaly Neurologic: PERRL, EOMI, accommodation nl, no face palsy, no dysarthria Results & Data ([facility]) Vital Signs (Past 12 Hours) Vital Signs Temp Pulse Pulse Resp BP BP Pulse Ox 09/15/19 12:17 37.0 C 62 23 147/87 H 95 09/15/19 10:00 74 09/15/19 06:56 36.7 C 66 18 183/78 H 97 08/01/20 03:40 36.7 C 56 L 16 165/80 H 97 Laboratory Results Cardiac Enzymes 09/14/19 09/14/19 09/14/19 Range/Units 17:19 19:29 23:55 AST 9 L (15-37) U/L Troponin I 0.066 H* 0.103 H* 0.256 H* (0-0.045) ng/ml 09/15/19 Range/Units 06:01 AST (15-37) U/L Troponin I 0.359 H* (0-0.045) ng/ml Coagulation 09/14/19 Range/Units 17:19 PT 11.7 (9.0-12.0) Seconds APTT 34.3 H (21.0-31.0) Seconds CBC 09/14/19 09/15/19 Range/Units 17:19 06:01 WBC 6.02 6.21 (4.8-10.8) K/uL RBC 4.65 L 4.41 L (4.7-6.1) M/uL Hgb 14.5 13.7 L (14.0-18.0) g/dL Hct 42.0 40.1 L (42-52) % Plt Count 156 169 (130-400) K/uL Neut # (Auto) 4.23 (1.4-6.5) K/uL Lymph # (Auto) 1.01 L (1.2-3.4) K/uL [place] # (Auto) 0.50 (0.11-0.59) K/uL Eos # (Auto) 0.23 (0-0.5) K/uL Baso # (Auto) 0.04 (0-0.2) K/uL Comprehensive Metabolic Panel 09/14/19 09/15/19 Range/Units 17:19 06:01 Sodium 138 142 (136-145) mmol/L Potassium 3.6 4.5 D (3.5-5.1) mmol/L Chloride 108 H 111 H (98-107) mmol/L Carbon Dioxide 24 29 (21-32) mmol/L BUN 16 18 (7-18) mg/dl Creatinine 1.07 0.99 (0.6-1.4) mg/dl Glucose 104 H 83 (70-99) mg/dl Calcium 8.4 L 8.3 L (8.5-10.1) mg/dl AST 9 L (15-37) U/L ALT 10 L (12-78) U/L Alkaline Phosphatase 42 L (45-117) U/L Total Protein 6.4 (6.4-8.2) gm/dl Albumin 2.9 L (3.4-5.0) gm/dl Intake and Output 09/14/19 09/15/19 09/15/19 22:59 06:59 14:59 Intake Total 500 / 650 150 / 650 Balance 500 / 650 150 / 650 Intake: IV 500 / 500 Nss 1000ML 500 ml @ 999 mls/hr 500 / 500 IV .Q31M ONE Rx#:[id number] Oral 150 / 150 Other: # Unmeasured Voids 1 Weight 79.6 kg 80.5 kg
--- NOTE | 2019-09-15 17:19 | Hospitalist Progress Note ---
Date of Service September 15, 2019 Assessment & Plan (1) Paroxysmal atrial fibrillation: Symptoms from yesterday appeared to have resolved. Converted to sinus rhythm overnight. Now in sinus bradycardia and not on AV derick blockers at this time. 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 (2) Demand ischemia: denies chest pain, presumed underlying coronary disease. Echo only if cardiology feels this is necessary. Not experiencing ACS symptoms. Likely related to demand ischemia. Defer further cardiac workup to specialist if needed. (3) HTN (hypertension): uncontrolled. increase candesartan to 32mg (whole tab) instead of 16mg qHS which is what he takes at home. May be influenced by patient's lack of sleep. Low salt diet. (4) Hypothyroidism: TSH at goal, cont home Synthroid (5) DVT prophylaxis: -Anticoagulated on Xarelto which will be held in preparation for procedure Full Code Dispo-cont PCU monitoring Jenny Padilla DO [facility] Hospitalist Admission and Anticipated Discharge Date Admission Date: September 14, 2019 Subjective Greek-speaking patient who cannot speak Palestinian well. Defers questions to his who is not present. 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 Review of Systems Review of Systems: All systems reviewed & are unremarkable except as noted in Subjective Physical Exam Physical Exam: CONSTITUTIONAL: WNWD, vitals as above, generally well- appearing EYES: normal conjunctivae, no scleral icterus ENT: external ear and nose normal, oropharynx clear, MMM RESPIRATORY: clear to auscultation bilaterally, no crackles, rales or wheezes, normal respiratory effort CARDIOVASCULAR: regular rate and rhythm, S1 and 2 heard without murmurs, gallops or rubs, no JVD, no peripheral edema GASTROINTESTINAL: soft, nontender, nondistended. MUSCULOSKELETAL: strength 5/5 throughout, head is normocephalic and atraumatic, able to sit up independently SKIN: warm and dry NEUROLOGIC: CN 2-12 grossly intact, normal cognition, normal speech, no tremor, no gross neuro deficits. PSYCHIATRIC: alert cooperative and oriented to person, place and time. Results & Data Results & Data ([facility] Vital Signs (Past 12 Hours) Vital Signs Temp Pulse Pulse Resp BP BP Pulse Ox 09/15/19 15:24 36.6 C 60 18 165/84 H 97 09/15/19 12:17 37.0 C 62 23 147/87 H 95 09/15/19 10:00 74 09/15/19 06:56 36.7 C 66 18 183/78 H 97 Laboratory Results Short CBC 09/14/19 09/15/19 Range/Units 17:19 06:01 WBC 6.02 6.21 (4.8-10.8) K/uL Hgb 14.5 13.7 L (14.0-18.0) g/dL Hct 42.0 40.1 L (42-52) % Plt Count 156 169 (130-400) K/uL BMP 09/14/19 09/15/19 17:19 06:01 Sodium 138 142 Potassium 3.6 4.5 D Chloride 108 H 111 H Carbon Dioxide 24 29 BUN 16 18 Creatinine 1.07 0.99 Glucose 104 H 83 Calcium 8.4 L 8.3 L Cardiac Enzymes 09/14/19 09/14/19 09/14/19 Range/Units 17:19 19:29 23:55 Troponin I 0.066 H* 0.103 H* 0.256 H* (0-0.045) ng/ml 09/15/19 Range/Units 06:01 Troponin I 0.359 H* (0-0.045) ng/ml Liver Function 09/14/19 Range/Units 17:19 Total Bilirubin 0.9 (0.2-1) mg/dl AST 9 L (15-37) U/L ALT 10 L (12-78) U/L Alkaline Phosphatase 42 L (45-117) U/L Albumin 2.9 L (3.4-5.0) gm/dl Medications Administered Current Inpatient Medications Acetaminophen (Tylenol) 650 mg PO Q4H PRN PRN Reason: Pain or Fever Stop: 10/14/19 21:32 Candesartan Cilexetil (Atacand) 1 ea PO HS JOE Stop: 10/15/19 20:59 Cyanocobalamin (Vitamin B-12) 1,000 mcg PO QAM JOE Stop: 10/15/19 08:59 Last Admin: 09/15/19 09:11 Dose: 1,000 mcg Documented by: Ferrous Sulfate (Feosol) 325 mg PO MoWeFr [facility] Stop: 10/17/19 08:59 Finasteride (Proscar) 5 mg PO HS [facility] Stop: 10/15/19 20:59 Levothyroxine Sodium (Synthroid) 125 mcg PO DAILYBB JOE Stop: 10/15/19 06:29 Last Admin: 09/15/19 04:57 Dose: 125 mcg Documented by: Polyethylene Glycol (Miralax Powder Packet) 17 gm PO BID [facility] Stop: 10/15/19 08:59 Last Admin: 09/15/19 09:15 Dose: Not Given Documented by: Rivaroxaban (Xarelto) 20 mg PO PM [facility] Stop: 10/15/19 20:59 Last Admin: 09/14/19 23:00 Dose: 20 mg Documented by: Tamsulosin HCl (Flomax) 0.4 mg PO HS [facility] Stop: 10/15/19 20:59
[2019-09-15] MEDS: FINASTERIDE 5 MG TAB PO SCH (19:43)
[2019-09-15] MEDS: CANDESARTAN CILEXETIL PO SCH (19:44)
[2019-09-15] MEDS: TAMSULOSIN HCL 0.4 MG CAP PO SCH (19:45)
[2019-09-15] MEDS ORDERED: RIVAROXABAN 20 MG TAB PO SCH (21:00)
[2019-09-16] MEDS: LEVOTHYROXINE SODIUM 125 MCG TABLET PO SCH (05:15)
[2019-09-16] MEDS: CYANOCOBALAMIN 500 MCG TABLET (VITAMIN B-12) PO SCH (07:28)
[2019-09-16] MEDS: POLYETHYLENE (MIRALAX) 17 GM PACK PO SCH ×2 (07:30→19:47)
[2019-09-16 09:47] LABS: Basophils # (auto) 0.04 K/uL (0-0.2); Basophils % (auto) 0.6 %; Eosinophils # (auto) 0.21 K/uL (0-0.5); Eosinophils % (auto) 3.4 %; Hematocrit (blood only) 40.3 % (42-52); Hemoglobin 13.8 g/dL (14.0-18.0); Immature Granulocytes # (auto) 0.01 K/uL (0.00-0.02); Immature Granulocytes % (auto) 0.2 %; Lymphocytes # (auto) 1.24 K/uL (1.2-3.4); Lymphocytes % (auto) 19.8 %; Mean Corpuscular Hemoglobin 30.9 pg (25-34); Mean Corpuscular Volume 90.4 fL (80-100); Mean Platelet Volume 10.6 fL (7.4-10.4); Monocytes # (auto) 0.69 K/uL (0.11-0.59); Neutrophils # (auto) 4.06 K/uL (1.4-6.5); Platelet Count 173 K/uL (130-400); RDW Coefficient of Variation 13.6 % (11.5-14.5); Red Blood Count 4.46 M/uL (4.7-6.1); White Blood Count 6.25 K/uL (4.8-10.8)
[2019-09-16 09:55] LABS: Mean Corpuscular Hgb Conc 34.2 g/dL (32-36)
[2019-09-16 10:00] LABS: INR 1.1 (0.9-1.1); Partial Thromboplastin Ratio 1.1; Partial Thromboplastin Time 31.4 Seconds (21.0-31.0); Prothrombin Time 11.4 Seconds (9.0-12.0)
[2019-09-16] MEDS: HEPARIN SODIUM/DEXTROSE 25,000 UNITS/500 ML BAG IV SCH (10:07)
[2019-09-16] MEDS: Heparin IV Standard *NO* Bolus IV SCH ×3 (10:17→11:28)
--- NOTE | 2019-09-16 12:02 | Cardiology Progress Note ---
Date of Service September 16, 2019 Assessment & Plan (1) Paroxysmal atrial fibrillation: Patient not on AV derick blockers due to relative bradycardia at baseline. Presented with symptoms associated with atrial fibrillation, rapid ventricular response this presentation. This was different than his previous current syncope. Based on loop recorder and telemetry findings, bradycardia syndrome. Xarelto on hold pending pacemaker. Bridge started. (2) HTN (hypertension): Blood pressure is above goal. He did have previous symptoms suggestive of orthostatic hypotension. On 08/16/2019 I had actually reduced his Atacand from to 16 mg. He is back on 32 mg daily with very high blood pressures noted. Start amlodipine 2.5 mg daily for additional blood pressure control, this would also be helpful from an antianginal standpoint. (3) Demand ischemia: Mildly elevated troponin, likely due to A. fib RVR, with suspected underlying heart disease. Subjective Patient without complaints. SR in the 50s to 60s noted. Physical Exam Physical Exam: Temp Pulse Resp BP Pulse Ox 37.0 C 65 16 190/80 H 95 09/16/19 11:48 09/16/19 11:48 09/16/19 11:48 09/16/19 11:48 09/16/19 11:48 Constitutional: WD/WN, vitals as above Respiratory: normal respiratory effort, lungs clear to auscultation Cardiovascular: RRR, no murmur, no edema Gastrointestinal (Abdomen): normal bowel sounds, soft, nontender, no hepatosplenomegaly Neurologic: PERRL, EOMI, accommodation nl, no face palsy, no dysarthria Results & Data Vital Signs (Past 12 Hours) Vital Signs Temp Pulse Pulse Resp BP Pulse Ox 09/16/19 11:48 37.0 C 65 16 190/80 H 95 09/16/19 08:10 169/83 H 09/16/19 08:03 64 09/16/19 07:34 36.8 C 62 19 188/88 H 98 09/16/19 03:17 36.8 C 54 L 16 168/80 H 95 Laboratory Results Coagulation 09/16/19 Range/Units 09:37 PT 11.4 (9.0-12.0) Seconds APTT 31.4 H (21.0-31.0) Seconds CBC 09/16/19 Range/Units 09:37 WBC 6.25 (4.8-10.8) K/uL RBC 4.46 L (4.7-6.1) M/uL Hgb 13.8 L (14.0-18.0) g/dL Hct 40.3 L (42-52) % Plt Count 173 (130-400) K/uL Neut # (Auto) 4.06 (1.4-6.5) K/uL Lymph # (Auto) 1.24 (1.2-3.4) K/uL Weber # (Auto) 0.69 H (0.11-0.59) K/uL Eos # (Auto) 0.21 (0-0.5) K/uL Baso # (Auto) 0.04 (0-0.2) K/uL Intake and Output 09/15/19 09/16/19 09/16/19 22:59 06:59 14:59 Intake Total 350 / 800 Balance 350 / 800 Intake: Oral 350 / 800 Other: # Unmeasured Voids 1 Weight 79.7 kg
[2019-09-16] MEDS: AMLODIPINE BESYLATE 5 MG TAB PO SCH (13:00)
--- NOTE | 2019-09-16 13:40 | Electrocardiogram Report ---
Test Reason : Blood Pressure : / mmHG Vent. Rate : 059 BPM Atrial Rate : 059 BPM P-R Int : 272 ms QRS Dur : 092 ms QT Int : 500 ms P-R-T Axes : 064 -27 053 degrees QTc Int : 495 ms Sinus bradycardia with 1st degree A-V block with Premature supraventricular complexes Low voltage QRS Borderline ECG When compared with ECG of 15-SEP-2019 07:59, Premature supraventricular complexes are now Present Confirmed by Ankush Akers ([id number]) on 09/16/2019 1:39:52 PM Referred By: REFERRED SELF Confirmed By:Ankush Akers
--- NOTE | 2019-09-16 14:45 | Hospitalist Progress Note ---
Date of Service September 16, 2019 Assessment & Plan (1) Paroxysmal atrial fibrillation: Initial symptoms have resolved now that he converted to sinus rhythm. Not on AV derick blockers at this time. Xarelto held in preparation for a pacemaker for tachybrady syndrome, possible on . Heparin bridge started this am. (2) Demand ischemia: denies chest pain, presumed underlying coronary disease. Echo only if cardiology feels this is necessary. Not experiencing ACS symptoms. Likely related to demand ischemia. Defer further cardiac workup to specialist if needed. (3) HTN (hypertension): uncontrolled. increase candesartan to 32mg (whole tab) instead of 16mg qHS which is what he takes at home. Initially felt this was secondary to significant insomnia reported in the hospital. This didn't improve things much and norvasc was added by Cardiology. Cont low salt diet. (4) Hypothyroidism: TSH at goal, cont home Synthroid (5) DVT prophylaxis: -Anticoagulated on Xarelto which will be held in preparation for procedure, heparin bridge in the meantime Full Code Dispo-cont PCU monitoring Jenny Padilla DO [facility] Hospitalist Admission and Anticipated Discharge Date Admission Date: September 14, 2019 Subjective Pt doing well, denies pain Tolerating PO Possible pacemaker on Xarelto held, heparin started Review of Systems Review of Systems: All systems reviewed & are unremarkable except as noted in Subjective Physical Exam Physical Exam: CONSTITUTIONAL: WNWD, vitals as above, generally well- appearing EYES: normal conjunctivae, no scleral icterus ENT: external ear and nose normal, oropharynx clear, MMM RESPIRATORY: clear to auscultation bilaterally, no crackles, rales or wheezes, normal respiratory effort CARDIOVASCULAR: regular rate and rhythm, S1 and 2 heard without murmurs, gallops or rubs, no JVD, no peripheral edema GASTROINTESTINAL: soft, nontender, nondistended. MUSCULOSKELETAL: strength 5/5 throughout, head is normocephalic and atraumatic, able to sit up independently SKIN: warm and dry NEUROLOGIC: CN 2-12 grossly intact, normal cognition, normal speech, no tremor, no gross neuro deficits. PSYCHIATRIC: alert cooperative and oriented to person, place and time. Results & Data Results & Data ([facility]) Vital Signs (Past 12 Hours) Vital Signs Temp Pulse Pulse Resp BP Pulse Ox 09/16/19 11:48 37.0 C 65 16 190/80 H 95 09/16/19 08:10 169/83 H 09/16/19 08:03 64 09/16/19 07:34 36.8 C 62 19 188/88 H 98 09/16/19 03:17 36.8 C 54 L 16 168/80 H 95 Laboratory Results Short CBC 09/16/19 Range/Units 09:37 WBC 6.25 (4.8-10.8) K/uL Hgb 13.8 L (14.0-18.0) g/dL Hct 40.3 L (42-52) % Plt Count 173 (130-400) K/uL Medications Administered Current Inpatient Medications Acetaminophen (Tylenol) 650 mg PO Q4H PRN PRN Reason: Pain or Fever Stop: 10/14/19 21:32 Amlodipine Bes[facility] ([facility]) [facility] Stop: 10/16/19 11:59 Last Admin: 09/16/19 13:00 Dose: 2.5 mg Documented by: Candesartan Cilexetil (Atacand) 1 ea PO [facility] Stop: 10/15/19 20:59 Last Admin: 09/15/19 19:44 Dose: 1 ea Documented by: Cyanocobalamin (Vitamin B-12) 1,000 mcg [facility] Stop: 10/15/19 08:59 Last Admin: 09/16/19 07:28 Dose: 1,000 mcg Documented by: [facility] Sulfate ([facility]osol) [facility] Stop: 10/17/19 08:59 Finasteride (Proscar) 5 mg PO [facility] Stop: 10/15/19 20:59 Last Admin: 09/15/19 19:43 Dose: 5 mg Documented by: Heparin Sodium/Dextrose (Heparin Sodium/Dextrose) 25,000 units in 500 mls @ 27 mls/hr IV .[id number] [facility]; Protocol Stop: 10/16/19 09:29 Last Admin: 09/16/19 10:07 Dose: 1,350 units/hr, 27 mls/hr Documented by: Levothyroxine Sodium (Synthroid) 125 [facility] Stop: 10/15/19 06:29 Last Admin: 09/16/19 05:15 Dose: 125 mcg Documented by: Polyethylene Glycol (Miralax Powder Packet) 17 gm PO BID JOE Stop: 10/15/19 08:59 Last Admin: 09/16/19 07:30 Dose: 17 gm Documented by: Tamsulosin HCl (Flomax) 0.4 mg PO [facility] Stop: 10/15/19 20:59 Last Admin: 09/15/19 19:45 Dose: 0.4 mg Documented by:
[2019-09-16 16:18] LABS: Partial Thromboplastin Ratio 3.5
[2019-09-16 16:30] LABS: Partial Thromboplastin Time 97.5 Seconds (21.0-31.0)
[2019-09-16] MEDS: TAMSULOSIN HCL 0.4 MG CAP PO SCH (19:47)
[2019-09-16] MEDS: CANDESARTAN CILEXETIL PO SCH (19:47)
[2019-09-16] MEDS: FINASTERIDE 5 MG TAB PO SCH (19:47)
[2019-09-16 23:36] LABS: Partial Thromboplastin Ratio 3.3
[2019-09-16 23:40] LABS: Partial Thromboplastin Time 93.1 Seconds (21.0-31.0)
[2019-09-17] MEDS: LEVOTHYROXINE SODIUM 125 MCG TABLET PO SCH (05:56)
[2019-09-17 07:37] LABS: Partial Thromboplastin Time 83.9 Seconds (21.0-31.0)
[2019-09-17] MEDS: FERROUS SULFATE 325 MG TAB PO SCH (08:16)
[2019-09-17] MEDS: AMLODIPINE BESYLATE 5 MG TAB PO SCH (08:16)
[2019-09-17] MEDS: CYANOCOBALAMIN 500 MCG TABLET (VITAMIN B-12) PO SCH (08:16)
[2019-09-17] MEDS: POLYETHYLENE (MIRALAX) 17 GM PACK PO SCH ×2 (08:18→20:01)
[2019-09-17] MEDS: HEPARIN SODIUM/DEXTROSE 25,000 UNITS/500 ML BAG IV SCH (09:01)
--- NOTE | 2019-09-17 11:40 | Cardiology Progress Note ---
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 NPO after MN. Loop recorder will be explanted. (2) Atrial fibrillation with RVR: Xarelto has been on hold. Stop heparin 09/17 at 4 am in preparation for pacemaker. (3) Demand ischemia: Symptoms suggestive of angina, and mild troponin elevation in setting of A. fib RVR. Plan to add beta lara post pacemaker. (4) HTN (hypertension): Blood pressure uncharacteristically high for him. There is some degree of anxiety noted with him being in the hospital. His prior to hospital dose of Atacand which had been 32 mg daily in the past was reduced to 60 mg on 08/16/2019 due to concerns of orthostatic hypotension. The Atacand dose has been increased to 32 mg at bedtime. Amlodipine added yesterday. Continue to follow. (5) Mitral regurgitation: Systolic murmur noted. History of moderate mitral regurgitation. Repeat echocardiogram performed this hospital stay and this will be reviewed. Developments discussed over the phone with the patient's spouse. Case discussed with Dr. Michaels. Subjective Patient seen in follow-up of epigastric discomfort, previous recurrent syncope (no recurrence this hospital stay) and clinical diagnosis of tachycardia bradycardia syndrome with paroxysmal atrial fibrillation. Telemetry reveals no recurrent episodes of atrial fibrillation since admission. Sinus rhythm in the 60s with premature atrial contractions, and long first-degree AV block noted. Blood pressure remains elevated. Physical Exam Physical Exam: Temp Pulse Resp BP Pulse Ox 36.8 C 68 19 184/86 H 97 09/17/19 07:49 09/17/19 07:49 09/17/19 07:49 09/17/19 07:49 09/17/19 07:49 Constitutional: WD/WN, vitals as above Respiratory: normal respiratory effort, lungs clear to auscultation Cardiovascular: RRR, no murmur, no edema Gastrointestinal (Abdomen): normal bowel sounds, soft, nontender, no hepatosplenomegaly Neurologic: PERRL, EOMI, accommodation nl, no face palsy, no dysarthria Results & Data Vital Signs (Past 12 Hours) Vital Signs Temp Pulse Resp BP BP Pulse Ox 09/17/19 07:49 36.8 C 68 19 184/86 H 97 09/17/19 03:28 36.8 C 58 L 16 162/85 H 96
[2019-09-17 15:38] LABS: Partial Thromboplastin Ratio 2.2
[2019-09-17 15:43] LABS: Partial Thromboplastin Time 62.6 Seconds (21.0-31.0)
[2019-09-17] MEDS: CANDESARTAN CILEXETIL PO SCH (20:01)
[2019-09-17] MEDS: FINASTERIDE 5 MG TAB PO SCH (20:01)
[2019-09-17] MEDS: TAMSULOSIN HCL 0.4 MG CAP PO SCH (20:02)
--- NOTE | 2019-09-17 22:48 | Hospitalist Progress Note ---
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 Pacemaker followed by beta lara or amiodarone recommended. Rivaroxaban on hold for pacemaker. (2) Elevated troponin: Troponin I as high as 0.359. Elevated troponin probably due to tachycardia / demand ischemia. (3) HTN (hypertension): BP's have been normal at home, but now elevated. Candesartan increased to 32 mg daily. Started on amlodipine. Follow and titrate Rx. (4) Hypothyroidism: TSH normal. Continue levothyroxine. (5) BPH (benign prostatic hyperplasia): Continue finasteride + tamsulosin. (6) DVT prophylaxis: Holding rivaroxaban for pacemaker. IV heparin. Ambulate. (7) Discharge planning issues: Anticipated discharge to home. Family Medicine follow-up with Dr. Raf Uribe. Admission and Anticipated Discharge Date Admission Date: September 14, 2019 Subjective Recheck for tachy-froilan syndrome and other problems. Patient seen in their room around 1130; visiting. Feels well. No chest pain, SOB, palpitations. Sinus bradycardia in 50's on pneumatic drum sander. Review of Systems: Constitutional- no fever. Cardiac- as noted above. Pulmonary- no cough or SOB. GI- no nausea, vomiting, diarrhea, melena, hematochezia. - no urinary symptoms. Otherwise, as noted above. Physical Exam Constitutional: no acute distress Respiratory: no respiratory distress Auscultation: lungs clear to auscultation bilaterally Cardiovascular: Rate/Rhythm: regular rate and regular rhythm Heart Sounds: + murmur (III/ sys murmur LSB and apex); no gallop and no cardiac rub Vessels: no JVD Extremities: + edema (trace pretibial); no calf tenderness Gastrointestinal (Abdomen): normal bowel sounds, soft, nontender, no hepatosplenomegaly Musculoskeletal: Extremities: no cyanosis Skin: no rashes, warm and dry Psychiatric: Orientation: alert and oriented x 3 Results & Data Results & Data ([facility] Vital Signs (Past 12 Hours) Vital Signs Temp Pulse Resp BP Pulse Ox 09/17/19 18:52 36.8 C 60 20 155/76 H 96 09/17/19 15:47 36.5 C 60 16 154/79 H 95 09/17/19 12:03 36.8 C 64 19 177/100 H 96 Laboratory Results 09/16/19 09:37 09/15/19 06:01
[2019-09-18] MEDS: LEVOTHYROXINE SODIUM 125 MCG TABLET PO SCH (05:52)
[2019-09-18 06:18] LABS: Basophils # (auto) 0.05 K/uL (0-0.2); Eosinophils # (auto) 0.16 K/uL (0-0.5); Eosinophils % (auto) 3.2 %; Hematocrit (blood only) 40.5 % (42-52); Hemoglobin 13.5 g/dL (14.0-18.0); Immature Granulocytes # (auto) 0.01 K/uL (0.00-0.02); Immature Granulocytes % (auto) 0.2 %; Lymphocytes # (auto) 1.28 K/uL (1.2-3.4); Lymphocytes % (auto) 25.8 %; Mean Corpuscular Hemoglobin 30.5 pg (25-34); Mean Corpuscular Hgb Conc 33.3 g/dL (32-36); Mean Corpuscular Volume 91.6 fL (80-100); Monocytes # (auto) 0.58 K/uL (0.11-0.59); Monocytes % (auto) 11.7 %; Neutrophils # (auto) 2.88 K/uL (1.4-6.5); Neutrophils % (auto) 58.1 %; Platelet Count 181 K/uL (130-400); RDW Coefficient of Variation 13.4 % (11.5-14.5); RDW Standard Deviation 45.2 fL (36.4-46.3); Red Blood Count 4.42 M/uL (4.7-6.1); White Blood Count 4.96 K/uL (4.8-10.8)
[2019-09-18 06:27] LABS: Partial Thromboplastin Ratio 1.3
[2019-09-18 06:45] LABS: Albumin Level 2.9 gm/dl (3.4-5.0); BUN Creatinine Ratio 15.3 (10-20); Calcium 8.3 mg/dl (8.5-10.1); Creatinine Clr Calc Pharmacy 53.7 ml/min; Est GFR (African American) 76.8; Est GFR (Non-African American) 66.2; Potassium 4.1 mmol/L (3.5-5.1)
[2019-09-18 06:48] LABS: Albumin Globulin Ratio 0.9 (0.9-2); Bilirubin,Total 0.6 mg/dl (0.2-1); Globulin 3.4 gm/dl (2.5-4.0); Total Protein 6.3 gm/dl (6.4-8.2)
--- NOTE | 2019-09-18 09:23 | Pre Anesthesia Assessment ---
Date of Service September 18, 2019 Pre Sedation Assessment Vital Signs Temp Pulse Resp BP Pulse Ox 09/18/19 07:03 36.5 C 55 L 18 165/77 H 96 09/18/19 03:12 36.6 C 58 L 18 153/78 H 96 09/18/19 00:00 36.8 C 60 16 156/69 H 98 09/17/19 18:52 36.8 C 60 20 155/76 H 96 09/17/19 15:47 36.5 C 60 16 154/79 H 95 09/17/19 12:03 36.8 C 64 19 177/100 H 96 Cardiovascular + bradycardic Respiratory normal respiratory effort, lungs clear to auscultation Pre-Sedation Airway Assessment Smoking Status: Current every day smoker Hx Sleep Apnea: No Short, Thick Neck: No Thyromental Distance: > or= 3.5 Finger Breadths Oral Cavity: + WNL Mallampati Class: II ASA: ASA3 NPO Status Date of Last Intake of Fluids: 09/17/19 Time of Last Intake of Fluids: 21:00 Date of Last Intake of Solid Food: 09/17/19 Time of Last Intake of Solid Foods: 21:00 Procedure Planning Contraindications for Sedation: none Current Medications Reviewed: Yes Notes The planned sedation has been discussed with the patient. Informed Consent was obtained. I have identified the patient, determined the appropriateness of sedation and have assessed the patient immediately prior to the procedure. All medicine(s) and interventions are by my order.
--- NOTE | 2019-09-18 09:23 | History & Physical Bridge Note ---
Date of Service September 18, 2019 History & Physical Bridge Note I have examined the patient, reviewed the History & Physical and in the interval since the performance of the History & Physical I have noted the following changes of clinical significance: pt with TBS for a dual chamber ppm; I discussed the procedure with his and consents signed
[2019-09-18] MEDS ORDERED: LIDOCAINE HCL 1% 20 ML VIAL ONE (09:30)
[2019-09-18] MEDS ORDERED: BUPIVACAINE 0.25% 30 ML VIAL ONE (09:30)
[2019-09-18] MEDS ORDERED: BACITRACIN INJ 50,000 UNIT VIAL ONE (09:31)
[2019-09-18] MEDS ORDERED: CEFAZOLIN 250 MG/ML 1 GM VIAL ONE (09:53)
[2019-09-18] MEDS ORDERED: fentaNYL citrate 100 MCG/2 ML VIAL ONE ×2 (09:53→11:30)
[2019-09-18] MEDS ORDERED: MIDAZOLAM HCL 5 MG/ML 1 ML VIAL ONE (09:53)
[2019-09-18] MEDS ORDERED: ENALAPRILAT 2.5 MG/2 ML 2ML VIAL ONE (10:51)
[2019-09-18] MEDS ORDERED: METOPROLOL TARTRATE 1 MG/ML VIAL IV ONE (11:00)
[2019-09-18] MEDS ORDERED: AMIODARONE 150MG / 100ML D5W IV ONE (11:11)
[2019-09-18] MEDS ORDERED: AMIODARONE 360MG / 200ML D5W IV ONE (11:21)
[2019-09-18] MEDS ORDERED: MIDAZOLAM HCL 1 MG/ML 2ML VIAL ONE (11:30)
[2019-09-18] MEDS ORDERED: 0.2 MICRON FILTER SET 1 EA IV SCH (11:50)
[2019-09-18] MEDS ORDERED: STAT IV Infusion **Titration per Protocol STA (11:50)
[2019-09-18] MEDS ORDERED: AMIODARONE IV BOLUS & DRIP IV STA (11:50)
[2019-09-18] MEDS ORDERED: Nursing to Pharmacy Communication SCH (12:00)
--- NOTE | 2019-09-18 12:00 | Post Anesthesia Assessment ---
Date of Service September 18, 2019 Post Sedation Assessment Vital Signs Temp Pulse Resp BP Pulse Ox 09/18/19 07:03 36.5 C 55 L 18 165/77 H 96 09/18/19 03:12 36.6 C 58 L 18 153/78 H 96 09/18/19 00:00 36.8 C 60 16 156/69 H 98 09/17/19 18:52 36.8 C 60 20 155/76 H 96 09/17/19 15:47 36.5 C 60 16 154/79 H 95 09/17/19 12:03 36.8 C 64 19 177/100 H 96 Recovery Score Activity: Moves 4 extremities Respiration: Deep Breath/Cough Circulation: +/-20% PreAnes Value Consciousness: Fully Awake Oxygen Saturation: > 92% On Room Air Discharge Sedation Level of Care: Fast Track Phase II Post Sedation Plan On clinical assessment, the patient appears to have tolerated the sedation without complications. Patient is recovering as anticipated. Patient will continue to be monitored by nursing and may be discharged when sedation discharge criteria are met per below protocol. Upon Completions of procedure up to 15 minutes continue every 5 minute vital signs and the P.A.R. score; then discharge to a Phase I or Fast Track to Phase II per the following guidelines: * Discharge Patient to appropriate Phase II area if PAR is 8 or greater or return to pre- procedure baseline. The post - procedure orders will be as directed. * If PAR score is less than 8 or not return to pre-procedure baseline then patient will follow Phase I monitoring till PAR is reached for Phase II. The Phase I may be done in procedure room or may call to secure a Phase I area. * If naloxone or flumazenil are used for reversal, hold in Phase I for continued monitoring from when last reversal dose was given for a minimum of 60 minutes or longer pending the nurse and/or physician discretion of patient condition before discharge to Phase II. Please call the Sedation Physician to re-evaluate and complete post-note for discharge to Phase II area. Do NOT discharge from procedure sedation or Phase 1 until post- sedation evaluation note is complete by procedure /sedation MD Sedation Discharge Instructions to be given to the patient at discharge to home.
--- NOTE | 2019-09-18 12:00 | Operative Report ---
Post Operative Report Pre & Post Diagnosis TBS Operation Date: 09/18/19 09:30 <No data on this case meets the specified criteria> I identified the patient and participated in the time-out.: Yes Procedure Operation Date: 09/18/19 09:30 Actual Procedures p Pacer with A/V Leads (Dual) - Sanjuana Mckeon DO s Venogram, Unilateral - Sanjuana Mckeon DO s Remove Cardiac Event Recorder - Sanjuana Mckeon DO Surgeon Sanjuana Mckeon DO Furnace Keeper none Estimated Blood Loss 35 Findings Consistent with Post-Op Diagnosis Specimens none Description of Procedure see official report I attest to the content of the Intraoperative Record and any orders documented therein. Any exceptions are noted below.
[2019-09-18] MEDS ORDERED: AMIODARONE / D5W 360 MG/200 ML BAG IV ONE (12:15)
[2019-09-18] MEDS ORDERED: AMIODARONE / D5W 150 MG/100 ML BAG IV ONE (12:15)
--- NOTE | 2019-09-18 13:06 | XRay Report ---
SINGLE VIEW CHEST CLINICAL HISTORY: Status post pacemaker implantation. FINDINGS: An AP, portable, upright chest radiograph is compared to study dated 09/14/2019. The examina tion is degraded by portable technique and patient rotation. A 2-lead cardiac pacemaker partially obs cures the left upper chest. This is new from previous. Leads project over the right atrial appendage and the right ventricle. The heart is enlarged noting atherosclerotic calcification of the thoracic a reina. The pulmonary vasculature is noncongested. Chronic interstitial thickening and elevation of the left hemidiaphragm is similar to previous. There is no airspace consolidation or large pleural effus ion. No pneumothorax is seen. The skeletal structures are osteopenic. The bony thorax is grossly int act. Postoperative changes noted in the right humeral head. IMPRESSION: 1. A 2-lead cardiac pacemaker has been placed as above. No pneumothorax is identified post procedure. 2. Cardiomegaly without radiographic evidence of congestive failure. 3. No airspace consolidation or large pleural effusion is identified. ACT 112: Negative or not required by law. Electronically signed by: Matt Shanks M.D. 09/18/2019 1:05 PM
[2019-09-18] MEDS: POLYETHYLENE (MIRALAX) 17 GM PACK PO SCH ×2 (13:17→21:46)
[2019-09-18] MEDS ORDERED: HYDROmorphone INJ 0.5 MG/0.5 ML SYR IV PRN (13:22)
[2019-09-18] MEDS ORDERED: OXYCODONE HCL IR 5 MG TAB (IMMEDIATE RELEASE) PO PRN (13:22)
[2019-09-18] MEDS: AMLODIPINE BESYLATE 5 MG TAB PO SCH (13:34)
[2019-09-18] MEDS: CYANOCOBALAMIN 500 MCG TABLET (VITAMIN B-12) PO SCH (13:34)
[2019-09-18] MEDS: LORazepam 0.5 MG/1 ML VIAL IV PRN ×2 (13:35→17:50)
--- NOTE | 2019-09-18 15:59 | Cardiology Progress Note ---
Date of Service September 18, 2019 Assessment & Plan (1) Tachycardia-bradycardia syndrome: (2) Atrial fibrillation with RVR: Patient is s/p PPM. Reverted back to AF during the procedure. Amiodarone infusion started in EP lab and pt has reverted to SR as of 13:49. LFTs normal this am. TSH normal earlier this hospital stay. Echo 09/16 revealed normal LVEF, moderate MR, unchanged compared to prior outpatient study. No anticoagulants today. Will reassess timing of restarting Xarelto on 09/18 on rounds tomorrow. Subjective Patient seen post pacemaker. Portable CXR performed post procedure reveals no pneumothorax. Pt with noted mild post procedure site pain. BP well controlled. Patient reverted to AF during the procedure. Review of Systems Review of Systems: All systems reviewed & are unremarkable except as noted in HPI & below Physical Exam Physical Exam: Temp Pulse Resp BP Pulse Ox 36.5 C 60 20 127/66 95 09/18/19 15:09 09/18/19 15:09 09/18/19 15:09 09/18/19 15:09 09/18/19 15:09 Constitutional: WD/WN, vitals as above Cardiovascular: Rate/Rhythm: regular rate and regular rhythm Heart Sounds: + murmur (2/6 SM) Vessels: no JVD Extremities: + edema Chest (Breasts): Additional Comments: left infraclavicular pocket, dressing not removed as it was just place, no surrounding erythema Gastrointestinal (Abdomen): normal bowel sounds, soft, nontender, no hepatosplenomegaly Neurologic: PERRL, EOMI, accommodation nl, no face palsy, no dysarthria Results & Data Vital Signs (Past 12 Hours) Vital Signs Temp Pulse Pulse Resp BP BP BP 09/18/19 15:09 36.5 C 60 20 127/66 09/18/19 14:45 36.5 C 60 20 127/66 09/18/19 14:00 36.7 C 60 18 131/69 09/18/19 13:59 61 125/71 09/18/19 13:30 71 158/83 H 09/18/19 13:00 78 154/78 H 09/18/19 12:47 76 142/82 H 09/18/19 12:46 56 L 09/18/19 12:27 70 18 144/85 H 09/18/19 12:12 67 18 144/85 H 09/18/19 08:55 56 L 165/77 H 09/18/19 08:30 61 09/18/19 08:00 56 L 09/18/19 07:30 56 L 09/18/19 07:03 36.5 C 56 L 55 L 18 165/77 H 165/77 H 09/18/19 07:00 51 L 09/18/19 06:30 53 L 09/18/19 06:00 75 09/18/19 05:30 51 L 09/18/19 05:00 52 L 09/18/19 04:30 49 L 09/18/19 04:00 57 L Pulse Ox 09/18/19 15:09 95 09/18/19 14:45 95 09/18/19 14:00 95 09/18/19 13:59 94 09/18/19 13:30 95 09/18/19 13:00 09/18/19 12:47 97 09/18/19 12:46 96 09/18/19 12:27 96 09/18/19 12:12 94 09/18/19 08:55 09/18/19 08:30 09/18/19 08:00 09/18/19 07:30 09/18/19 07:03 96 09/18/19 07:00 09/18/19 06:30 09/18/19 06:00 09/18/19 05:30 09/18/19 05:00 09/18/19 04:30 09/18/19 04:00
--- NOTE | 2019-09-18 16:43 | Electrocardiogram Report ---
Test Reason : Blood Pressure : / mmHG Vent. Rate : 060 BPM Atrial Rate : 060 BPM P-R Int : 322 ms QRS Dur : 092 ms QT Int : 510 ms P-R-T Axes : 025 -12 042 degrees QTc Int : 510 ms Atrial-paced rhythm with prolonged AV conduction Inferior infarct (cited on or before 18-SEP-2019) Prolonged QT Abnormal ECG When compared with ECG of 16-SEP-2019 07:39, Electronic atrial pacemaker has replaced Sinus rhythm Confirmed by Shane Edwards ([id number]) on 09/18/2019 4:43:10 PM Referred By: REFERRED SELF Confirmed By:David Edwards
[2019-09-18] MEDS: AMIODARONE / D5W 360 MG/200 ML BAG IV SCH (17:49)
[2019-09-18] MEDS: CANDESARTAN CILEXETIL PO SCH (21:47)
[2019-09-18] MEDS: FINASTERIDE 5 MG TAB PO SCH (21:47)
[2019-09-18] MEDS: TAMSULOSIN HCL 0.4 MG CAP PO SCH (21:47)
--- NOTE | 2019-09-18 22:27 | Hospitalist Progress Note ---
Date of Service September 18, 2019 Assessment & Plan (1) Tachycardia-bradycardia syndrome: Presented with PAF + sinus bradycardia. Pacemaker placed today. Recurrent AF in EP lab; stared on amio load. (2) Elevated troponin: Troponin I as high as 0.359. Elevated troponin probably due to tachycardia / demand ischemia. (3) HTN (hypertension): BP's have been normal at home, but now elevated. Candesartan increased to 32 mg daily. Started on amlodipine. Follow and titrate Rx. (4) Hypothyroidism: TSH normal. Continue levothyroxine. (5) BPH (benign prostatic hyperplasia): Continue finasteride + tamsulosin. (6) DVT prophylaxis: Holding rivaroxaban for pacemaker. Ambulate. (7) Discharge planning issues: Anticipated discharge to home. Family Medicine follow-up with Dr. Raf Uribe. Cardiology follow-up with [facility] at [facility]. Admission and Anticipated Discharge Date Admission Date: September 14, 2019 Subjective Recheck for tachy-froilan syndrome and other problems. Patient seen in their room around 1650. Pacemaker placed this afternoon. Developed AF with RVR during the procedure; started on IV amio load. Had some nausea and pacer site discomfort after procedure. [place] better after receiving lorazepam and hydromorphone. Review of Systems: Constitutional- no fever. Cardiac- as noted above. Pulmonary- no cough or SOB. GI- no nausea, vomiting, diarrhea, melena, hematochezia. - no urinary symptoms. Otherwise, as noted above. Physical Exam Constitutional: no acute distress Respiratory: no respiratory distress Auscultation: lungs clear to auscultation bilaterally Cardiovascular: Rate/Rhythm: regular rate and regular rhythm Heart Sounds: + murmur (III/ sys murmur LSB and apex); no gallop and no cardiac rub Vessels: no JVD Extremities: + edema (trace pretibial); no calf tenderness Chest (Breasts): Chest: + abnormal inspection of chest (pacemaker site ba ndaged) Gastrointestinal (Abdomen): normal bowel sounds, soft, nontender, no hepatosplenomegaly Musculoskeletal: Extremities: no cyanosis Skin: no rashes, warm and dry Psychiatric: Orientation: alert and oriented x 3 Results & Data Results & Data ([facility]) Vital Signs (Past 12 Hours) Vital Signs Temp Pulse Pulse Resp BP BP BP 08/04/20 20:47 36.6 C 62 18 140/74 09/18/19 17:39 63 16 122/63 09/18/19 16:00 60 09/18/19 15:09 36.5 C 60 20 127/66 09/18/19 14:45 36.5 C 60 20 127/66 09/18/19 14:00 36.7 C 60 18 131/69 09/18/19 13:59 61 125/71 09/18/19 13:30 71 158/83 H 09/18/19 13:00 78 154/78 H 09/18/19 12:47 76 142/82 H 09/18/19 12:46 56 L 09/18/19 12:27 70 18 144/85 H 09/18/19 12:12 67 18 144/85 H Pulse Ox 09/18/19 20:47 98 09/18/19 17:39 94 09/18/19 16:00 09/18/19 15:09 95 09/18/19 14:45 95 09/18/19 14:00 95 09/18/19 13:59 94 09/18/19 13:30 95 09/18/19 13:00 09/18/19 12:47 97 09/18/19 12:46 96 09/18/19 12:27 96 09/18/19 12:12 94 Laboratory Results Laboratory Results - last 24 hr 09/18/19 09/18/19 09/18/19 05:47 05:47 05:47 WBC 4.96 RBC 4.42 L Hgb 13.5 L Hct 40.5 L MCV 91.6 MCH 30.5 MCHC 33.3 RDW Std Deviation 45.2 RDW Coeff of Millie 13.4 Plt Count 181 MPV 11.0 H Immature Gran % (Auto) 0.2 Neut % (Auto) 58.1 Lymph % (Auto) 25.8 [place] % (Auto) 11.7 Eos % (Auto) 3.2 Baso % (Auto) 1.0 Neut # (Auto) 2.88 Lymph # (Auto) 1.28 [place] # (Auto) 0.58 Eos # (Auto) 0.16 Baso # (Auto) 0.05 Immature Gran # (Auto) 0.01 APTT 35.0 H PTT Ratio 1.3 Sodium 139 Potassium 4.1 Chloride 107 Carbon Dioxide 27 Anion Gap 5.0 BUN 16 Creatinine 1.02 Est Cr Clr Drug Dosing 53.7 Est GFR ( Amer) 76.8 Est GFR (Non-Af Amer) 66.2 BUN/Creatinine Ratio 15.3 Glucose 71 Calcium 8.3 L Total Bilirubin 0.6 AST 7 L ALT 9 L Alkaline Phosphatase 43 L Total Protein 6.3 L Albumin 2.9 L Globulin 3.4 Albumin/Globulin Ratio 0.9 Diagnostic Findings PORT CHEST X-RAY IMPRESSION: 1. A 2-lead cardiac pacemaker has been placed as above. No pneumothorax is identified post procedure. 2. Cardiomegaly without radiographic evidence of congestive failure. 3. No airspace consolidation or large pleural effusion is identified. Electronically signed by: Matt Shanks M.D. 09/18/2019 1:05 PM
[2019-09-19 01:45] LABS: Hematocrit (blood only) 43.4 % (42-52); Hemoglobin 15.4 g/dL (14.0-18.0); Mean Corpuscular Hgb Conc 35.5 g/dL (32-36); Mean Corpuscular Volume 90.2 fL (80-100); Mean Platelet Volume 10.7 fL (7.4-10.4); Platelet Count 158 K/uL (130-400); RDW Coefficient of Variation 13.5 % (11.5-14.5); RDW Standard Deviation 44.4 fL (36.4-46.3); Red Blood Count 4.81 M/uL (4.7-6.1); White Blood Count 9.87 K/uL (4.8-10.8)
[2019-09-19 02:15] LABS: BUN Creatinine Ratio 14.9 (10-20); Calcium 8.6 mg/dl (8.5-10.1); Creatinine Clr Calc Pharmacy 39.1 ml/min; Est GFR (African American) 52.4; Est GFR (Non-African American) 45.2; Potassium 4.3 mmol/L (3.5-5.1)
[2019-09-19] MEDS: LEVOTHYROXINE SODIUM 125 MCG TABLET PO SCH (04:39)
[2019-09-19] MEDS: AMIODARONE / D5W 360 MG/200 ML BAG IV SCH (06:01)
--- NOTE | 2019-09-19 06:39 | XRay Report ---
XR chest 2V PA/lateral CLINICAL HISTORY: post ppm COMPARISON STUDY: 09/18/2019 FINDINGS: Interval development of a small left-sided pneumothorax. Bipolar cardiac pacemaker is uncha nged in location. Maximum pleural separation on the left is 1.2 cm. Lungs otherwise remain clear. There is minimal basi lar atelectasis. IMPRESSION: Small left-sided pneumothorax with a maximum separation of 1.2 cm. ACT 112: Negative or not required by law. The above report was generated using voice recognition software. It may contain grammatical, syntax or spelling errors. Electronically signed by: Shree Lea M.D. 09/19/2019 6:38 AM
[2019-09-19] MEDS ORDERED: RIVAROXABAN 20 MG TAB PO SCH (09:00)
[2019-09-19] MEDS: FERROUS SULFATE 325 MG TAB PO SCH (09:51)
[2019-09-19] MEDS: CYANOCOBALAMIN 500 MCG TABLET (VITAMIN B-12) PO SCH (09:51)
[2019-09-19] MEDS: AMLODIPINE BESYLATE 5 MG TAB PO SCH (09:52)
[2019-09-19] MEDS: POLYETHYLENE (MIRALAX) 17 GM PACK PO SCH ×2 (09:55→20:57)
--- NOTE | 2019-09-19 10:22 | Pulmonary Consultation ---
Date of Consultation September 19, 2019 Assessment & Plan (1) Pneumothorax on left: Patient has maximum separation of 1.2 cm on chest x-ray this morning at 0700 No hemodynamic changes No shift in mediastinum on chest x-ray and no evidence of tracheal deviation on exam This time patient appears to be stable Continue with oxygen via Oxymask Repeat chest x-ray with inspiratory and expiratory views at noon today No indication for chest tube placement at this time Follow supportively (2) Tobacco abuse: Patient is an everyday smoker of pipe; he smokes approximately 3 bowls per day Patient states that he does not inhale Discussed cessation and patient states that he enjoys smoking pipe and has no plans to discontinue at this time Thank you for including us in the care of this patient. We will continue to follow along with you. Next chest x-ray is due at noon today. Please refer to Dr. Vieira's addendum for further recommendations. (3) Paroxysmal atrial fibrillation: (4) Hypothyroidism: (5) BPH (benign prostatic hyperplasia): (6) CKD (chronic kidney disease), stage III: Supervising Physician Co-Signing Physician Notes Patient seen and examined with Matt martin PA-C. I agree with his plan and plan aside for any additions/exceptions noted: Patient with iatrogenic pneumothorax status post placement of a pacemaker. The chest x-ray from noon demonstrates improvement in the size of the pneumothorax. No indication for evacuation of the pneumothorax with needle decompression or chest tube placement at this time. Patient is ambulating in the room on room air with no significant issues. Recommend leaving him on supplemental oxygen for 24 hours to allow for the pneumothorax to fully resolve. Pulmonary will sign off at this time. Please call us with questions. Thank you. History of Present Illness Attending Physician: Bud Michaels MD History of Present Illness Attending: Dr. iVeira This is an 84-year-old male of [place] descent who was admitted for elective placement of pacemaker for previous episodes of syncope secondary to tachybradycardia syndrome. Patient has a past medical history including paroxysmal atrial fibrillation, hypertension, CKD stage III, hypothyroidism, tachybradycardia syndrome, history of syncope. The patient was previously admitted to [facility] September 14, 2019 for paroxysmal atrial fibrillation and work-up for tachybradycardia syndrome. He underwent loop recorder placement on 08/13/2019 and was found to have normal sinus rhythm with heart rate in the 50s. He has been anticoagulated in the past on Xarelto. This was held for elective placement of pacemaker 09/18/[address] Mckeon. Patient was doing well and had no complications overnight. This mor patt he had a chest x-ray completed which revealed a left-sided pneumothorax with maximum separation of 1.2 cm. The pulmonary service was consulted to evaluate and make recommendations on treatment. The patient was seen at bedside in room 212 with his present at the time my examination and interview. He denies any shortness of breath. He does have some pain around the 10th rib which worsens with deep inspiration. He has no complaints of fever or hemoptysis. He has no other pain in the chest wall flank or back. He currently is on an Oxymask at 8 L. He had no episodes of hypoxia. Oxygen was administered due to acute pneumothorax. The patient has systolic blood pressure in the 150s. He has no difficulty swallowing. He feels no specific deviation of his trachea. He has no drooling or other physical symptoms. He denies previous history of pneumothorax or other pulmonary dis ease. He has no other acute complaints at this time. The patient does have a tobacco abuse history and currently smokes pipe with approximately 3 bowls per day. He denies inhaling and states that he smokes strictly for pleasure. He denies any significant anxiety. He has no desire to quit smoking at this time. Allergies Allergy/AdvReac Type Severity Reaction Status Date / Time No Known Allergies Allergy Verified 09/14/19 18:17 Home Medications Home Medications Medication Instructions Recorded Confirmed Type finasteride 5 mg PO HS 01/10/19 09/14/19 History cyanocobalamin (vitamin B-12) 1,000 mcg PO QAM 03/09/19 09/14/19 History 1,000 mcg tablet tamsulosin 0.4 mg capsule 0.4 mg PO HS 03/09/19 09/14/19 History Potassium Tab 75 mg PO 3XWK 08/10/19 09/14/19 History Xarelto 20 mg PO PM 08/10/19 09/14/19 History ferrous sulfate [iron] 325 mg PO 3XWK 08/10/19 09/14/19 History fluticasone propionate [Flonase 2 spray INTRANASAL DAILY 08/10/19 09/14/19 History Allergy Relief] levothyroxine 125 mcg PO DAILY 08/10/19 09/14/19 History candesartan [Atacand] 16 mg PO DAILY #90 tab 08/16/19 09/14/19 Rx Patient History Medical History Atrial fibrillation BPH (benign prostatic hyperplasia) CKD (chronic kidney disease), stage III HTN (hypertension) Hypothyroidism On rivaroxaban therapy (Acute) Surgical History History of cataract surgery Family History Brother Cancer Mother Stroke Social History Smoking Status: Current every day smoker Tobacco Type: Pipe Second Hand Exposure: No; Do You Dip or Chew Tobacco: No; Tobacco Cessation Education Requested by Patient: No Hx Alcohol Use: No Hx Substance Use: No Preferred Language: [place]ian Communication Ability: Effective Referral Rn Required: No Beliefs That Will Affect Care: None marital status: Current Living Situation: Spouse Other Information That Helps Us Care for You: No Feels Safe at Home: Yes Safety Concerns: Feels Safe At This Time Review of Systems Review of Systems: All systems reviewed & are unremarkable except as noted in HPI & below Physical Exam Physical Exam: GENERAL : No acute distress. Patient is pleasant. No conversational dyspnea noted. EYES: No icterus, gaze conjugate. Pupils equal round and reactive to light NOSE: No evidence of epistaxis MOUTH: No lesions or candidiasis. Mucosa is moist NECK: Supple LUNGS: CTA B/L, no wheezes, rales or rhonchi. Breath sounds are equal bilaterally. There is no space or appreciation of Velcro crackling. There is no evidence of subcutaneous emphysema around the pacemaker site. HEART: Regular, rate controlled in normal sinus rhythm. ABDOMEN: Soft, NT, ND, BS Present EXTREMITIES: No LE edema, pedal pulses intact and equal bilaterally. No calf pain or tenderness. NEURO: A&OX3 Results & Data Results & Data ([facility]) Vital Signs (Past 12 Hours) Vital Signs Temp Pulse Pulse Resp BP Pulse Ox 09/19/19 08:03 37.4 C 67 18 150/62 H 100 09/19/19 04:23 36.6 C 62 19 157/73 H 97 09/19/19 02:16 60 09/19/19 00:01 36.5 C 64 18 151/76 H 99 Laboratory Results 09/19/19 01:36 09/19/19 01:36 Diagnostic Findings XR chest 2V PA/lateral CLINICAL HISTORY: post ppm COMPARISON STUDY: 09/18/2019 FINDINGS: Interval development of a small left-sided pneumothorax. Bipolar cardiac pacemaker is unchanged in location. Maximum pleural separation on the left is 1.2 cm. Lungs otherwise remain clear. There is minimal basilar atelectasis. IMPRESSION: Small left-sided pneumothorax with a maximum separation of 1.2 cm. Electronically signed by: Shree Lea M.D. 09/19/2019 6:38 AM PG Care Time/CCT Total # of Minutes Spent Total Time Spent with Patient: Total time spent is greater than 50% in coordination of care (as documented) at patient's floor/unit and/or counseling patient: 40 minutes including discussion with patient's at patient's bedside Coding Level of Care Code 80471 Initial Inpt Care Lvl 3 Diagnoses Pneumothorax on left J93.9 Tobacco abuse Z72.0 Paroxysmal atrial fibrillation I48.0 Hypothyroidism E03.9 BPH (benign prostatic hyperplasia) N40.0 CKD (chronic kidney disease), stage III N18.3
--- NOTE | 2019-09-19 10:55 | Cardiology Progress Note ---
Date of Service September 19, 2019 Assessment & Plan (1) Tachycardia-bradycardia syndrome: (2) Paroxysmal atrial fibrillation: (3) Mitral regurgitation: (4) Pneumothorax on left: He received a dose of Xarelto 20 mg this morning. I am going to hold this pending further assessment of his pneumothorax. Looking ahead, we need to get him back on his typical home schedule, and since he gets up at 3:30 PM to 4:00 PM, will need to rearrange his dosing schedule. He is due for a repeat chest x-ray at 12 noon. Currently he is on supplemental oxygen, but his oxygen saturation had been fine on room air prior to that. This will likely respond to conservative observation. Pulmonary medicine input noted and appreciated. Plan for incentive spirometry after the repeat chest x- ray. Continue rhythm control strategy with amiodarone for now. It is noted that he has a pipe smoker. But he is very symptomatic with the atrial fibrillation. Now that the pacemaker is in place, proceed with amiodarone and oral metoprolol. In terms of his hypertension, now that the pacemaker is in place, will dis continue amlodipine in favor of metoprolol. Continue Atacand. Blood pressure appears much improved compared to earlier this hospital stay. Findings and plan discussed with patient's spouse in length at bedside. Subjective Patient seen in follow-up of tachycardia-bradycardia syndrome, paroxysmal atrial fibrillation, status post dual-chamber pacemaker clinically done well since the pacemaker. He had reverted back to atrial fibrillation during the procedure, but then subsequently converted to sinus rhythm fusion yesterday afternoon. His initial chest x-ray audible study performed post procedure yesterday revealed no evidence of pneumothorax, the follow-up study today reveals a small 1.2 cm apical sided pneumothorax. Device interrogation revealed normal function he is in sinus rhythm on an amiodarone infusion. Physical Exam Physical Exam: Temp Pulse Resp BP Pulse Ox 37.4 C 61 18 131/68 98 09/19/19 08:03 09/19/19 10:30 09/19/19 10:30 09/19/19 10:30 09/19/19 10:30 Constitutional: WD/WN, vitals as above Respiratory: normal respiratory effort, lungs clear to auscultation Cardiovascular: Rate/Rhythm: regular rhythm Heart Sounds: + murmur (I-II/ SM heard at apex ) Vessels: no JVD Extremities: no edema Chest (Breasts): Additional Comments: Dressing removed for inspection of the left infraclavicular pacemaker pocket, incision is clean dry and intact, mild post procedure erythema noted. No drainage. No hematoma. Gastrointestinal (Abdomen): normal bowel sounds, soft, nontender, no hepatosplenomegaly Results & Data Vital Signs (Past 12 Hours) Vital Signs Temp Pulse Pulse Resp BP BP Pulse Ox 09/19/19 10:30 61 18 131/68 98 09/19/19 10:00 61 23 99 09/19/19 09:48 65 22 143/67 H 98 09/19/19 08:03 37.4 C 67 18 150/62 H 100 09/19/19 07:30 63 09/19/19 04:23 36.6 C 62 19 157/73 H 97 09/19/19 02:16 60 09/19/19 00:01 36.5 C 64 18 151/76 H 99 Laboratory Results CBC 09/19/19 Range/Units 01:36 WBC 9.87 (4.8-10.8) K/uL RBC 4.81 (4.7-6.1) M/uL Hgb 15.4 (14.0-18.0) g/dL Hct 43.4 (42-52) % Plt Count 158 (130-400) K/uL Comprehensive Metabolic Panel 09/19/19 Range/Units 01:36 Sodium 139 (136-145) mmol/L Potassium 4.3 (3.5-5.1) mmol/L Chloride 106 (98-107) mmol/L Carbon Dioxide 25 (21-32) mmol/L BUN 21 H (7-18) mg/dl Creatinine 1.40 D (0.6-1.4) mg/dl Glucose 128 H (70-99) mg/dl Calcium 8.6 (8.5-10.1) mg/dl Intake and Output 09/18/19 09/19/19 09/19/19 22:59 06:59 14:59 Intake Total 600 / 800 200 / 800 Balance 600 / 800 200 / 800 Intake: IV 200 / 400 200 / 400 NEXTERONE / D5W 360 mg In 200 200 / 400 200 / 400 ml @ 0.5 MG/MIN 16.667 mls/hr IV .Q12H COUNT INCLUDES THE [facility] Rx#:[id number] Oral 400 / 400 Other: # Unmeasured Voids 1 1
[2019-09-19] MEDS ORDERED: AMIODARONE 200 MG TAB PO ONE (11:00)
--- NOTE | 2019-09-19 12:51 | XRay Report ---
XR chest 2V PA/lateral CLINICAL HISTORY: follow up ptx pneumothorax COMPARISON STUDY: 09/19/2019 6:22 AM FINDINGS: Left-sided pneumothorax slightly improved from the prior study. Pleural separation has impr nohemi from 12 to 9 mm at the left apex. Pleural separation medial left base has diminished to 6 mm fro m 10 mm. Lungs otherwise appear clear. Findings of minimal atelectatic change left base are present. IMPRESSION: 1. Mild improvement of the left-sided pneumothorax. Mild residual. ACT 112: Negative or not required by law. The above report was generated using voice recognition software. It may contain grammatical, syntax or spelling errors. Electronically signed by: Shree Lea M.D. 09/19/2019 12:49 PM
[2019-09-19] MEDS: AMIODARONE 200 MG TAB PO SCH (17:42)
[2019-09-19] MEDS: FINASTERIDE 5 MG TAB PO SCH (20:57)
[2019-09-19] MEDS: CANDESARTAN CILEXETIL PO SCH (20:58)
[2019-09-19] MEDS: TAMSULOSIN HCL 0.4 MG CAP PO SCH (20:58)
[2019-09-19] MEDS: METOPROLOL TARTRATE 25 MG TAB PO SCH (20:59)
--- NOTE | 2019-09-19 21:31 | Hospitalist Progress Note ---
Date of Service September 19, 2019 Assessment & Plan (1) Tachycardia-bradycardia syndrome: Presented with PAF + sinus bradycardia. Dual chamber pacemaker placed by Dr. Mckeon on 09/18/19. Recurrent AF in EP lab; stared on amio load. NSR this a.m. Metoprolol started. Further rhythm management per Cardiology. (2) Pneumothorax on left: Small left pneumothorax after pacemaker placement. No respiratory distress. Pulmonary Medicine consulted. (3) Elevated troponin: Troponin I as high as 0.359. Elevated troponin probably due to tachycardia / demand ischemia. (4) HTN (hypertension): BP's have been normal at home, but now elevated. Candesartan increased to 32 mg daily. Started on amlodipine. Started on metoprolol after pacemaker inserted. Follow and titrate Rx. (5) Hypothyroidism: TSH normal. Continue levothyroxine. (6) BPH (benign prostatic hyperplasia): Continue finasteride + tamsulosin. (7) DVT prophylaxis: Holding rivaroxaban for pacemaker. Ambulate. (8) Discharge planning issues: Anticipated discharge to home. Family Medicine follow-up with Dr. Raf Uribe. Cardiology follow-up with [facility] Team at [facility]. given update by phone and later at bedside. Admission and Anticipated Discharge Date Admission Date: September 14, 2019 Subjective Recheck for tachy-froilan syndrome and other problems. Patient seen in their room around 0820. Pacemaker placed yesterday. Chest x-ray this morning showed small L pneumothorax. Feels well. No chest pain or SOB. Review of Systems: Constitutional- no fever. Cardiac- as noted above. Pulmonary- as noted above. GI- no nausea, vomiting, diarrhea, melena, hematochezia. - no urinary symptoms. Otherwise, as noted above. Physical Exam Constitutional: no acute distress Respiratory: no respiratory distress Auscultation: lungs clear to auscultation bilaterally Cardiovascular: Rate/Rhythm: regular rate and regular rhythm Heart Sounds: + murmur (III/ sys murmur LSB and apex); no gallop and no cardiac rub Vessels: no JVD Extremities: + edema (trace pretibial); no calf tenderness Chest (Breasts): Chest: + abnormal inspection of chest (pacemaker site bandaged) Gastrointestinal (Abdomen): normal bowel sounds, soft, nontender, no hepatosplenomegaly Musculoskeletal: Extremities: no cyanosis Skin: no rashes, warm and dry Psychiatric: Orientation: alert and oriented x 3 Results & Data Results & Data ([facility]) Vital Signs (Past 12 Hours) Vital Signs Temp Pulse Pulse Pulse Resp BP BP 09/19/19 20:00 36.4 C L 63 16 146/80 H 09/19/19 16:00 37.0 C 60 18 130/63 09/19/19 15:44 66 09/19/19 11:53 36.7 C 64 23 142/70 H 09/19/19 10:30 61 18 131/68 09/19/19 10:00 61 23 09/19/19 09:48 65 22 143/67 H Pulse Ox 09/19/19 20:00 100 09/19/19 16:00 98 09/19/19 15:44 09/19/19 11:53 98 09/19/19 10:30 98 09/19/19 10:00 99 09/19/19 09:48 98 Laboratory Results 09/19/19 01:36 09/19/19 01:36 Diagnostic Findings PORTABLE CHEST X-RAY Reviewed by the undersigned and formally interpreted by Radiology: FINDINGS: Interval development of a small left-sided pneumothorax. Bipolar cardiac pacemaker is unchanged in location. Maximum pleural separation on the left is 1.2 cm. Lungs otherwise remain clear. There is minimal basilar atelectasis. IMPRESSION: Small left-sided pneumothorax with a maximum separation of 1.2 cm. Electronically signed by: Shree Lea M.D. 09/19/2019 6:38 AM
[2019-09-20] MEDS: LEVOTHYROXINE SODIUM 125 MCG TABLET PO SCH (05:32)
[2019-09-20 06:00] LABS: Hematocrit (blood only) 39.8 % (42-52); Hemoglobin 13.1 g/dL (14.0-18.0); Mean Corpuscular Hemoglobin 30.1 pg (25-34); Mean Corpuscular Hgb Conc 32.9 g/dL (32-36); Mean Corpuscular Volume 91.5 fL (80-100); Mean Platelet Volume 11.3 fL (7.4-10.4); Platelet Count 154 K/uL (130-400); RDW Coefficient of Variation 13.6 % (11.5-14.5); RDW Standard Deviation 45.9 fL (36.4-46.3); Red Blood Count 4.35 M/uL (4.7-6.1); White Blood Count 8.46 K/uL (4.8-10.8)
[2019-09-20 06:53] LABS: BUN Creatinine Ratio 17.1 (10-20); Creatinine Clr Calc Pharmacy 54.8 ml/min; Est GFR (African American) 78.6; Est GFR (Non-African American) 67.8; Magnesium 2.2 mg/dl (1.8-2.4); Potassium 3.9 mmol/L (3.5-5.1)
--- NOTE | 2019-09-20 08:51 | XRay Report ---
XR chest inspiration/expiratio HISTORY: 84 years-old Male Left pneumothorax follow-up study in a patient with left-sided pneumothor ax COMPARISON: Chest radiograph 09/19/2019 TECHNIQUE: PA inspiration and expiration views of the chest FINDINGS: Left subclavian pacer. Calcified plaque the thoracic aortic arch. Cardiac silhouette is normal in siz e. Linear subsegmental left basilar atelectasis/scarring. Mild blunting of the costophrenic angles. N o overt pulmonary edema or airspace consolidation typical for pneumonia. Small left apical pneumothor ax with pleural separation of 8 mm on inspiration and expiration previously measured 9 mm. Bones appe ar grossly intact. IMPRESSION: Unchanged small left apical pneumothorax. ACT 112: Negative or not required by law. The above report was generated using voice recognition software. It may contain grammatical, syntax o r spelling errors. Electronically signed by: Yanick Locke M.D. 09/20/2019 8:50 AM
[2019-09-20] MEDS: CYANOCOBALAMIN 500 MCG TABLET (VITAMIN B-12) PO SCH (09:48)
[2019-09-20] MEDS: POLYETHYLENE (MIRALAX) 17 GM PACK PO SCH (09:48)
[2019-09-20] MEDS: METOPROLOL TARTRATE 25 MG TAB PO SCH (09:49)
[2019-09-20] MEDS: AMIODARONE 200 MG TAB PO SCH (12:00)
--- NOTE | 2019-09-20 14:18 | Cardiology Progress Note ---
Date of Service September 20, 2019 Assessment & Plan (1) Tachycardia-bradycardia syndrome: (2) Paroxysmal atrial fibrillation: Patient is s/p dual chamber pacemaker. Patient gets up at 3:30 -4:00 pm at home. Will need to take this schedule into account with his medication plans. Proceed with metoprolol succinate 50 mg daily at 9 pm. Amiodarone 200 mg daily 9 pm. Xarelto 20 mg daily at 9 pm, will give dose in hospital now, next dose tomorrow night. Plan for device check / wound check at [facility], 09/24/19 at 9 :[address] and visit [address] Dr Barragan at 10:30 am . (3) HTN (hypertension): Prior to hospital dose of Atacand increased from 16 mg to 32 mg daily. Discharge on metoprolol succinate 50 mg daily at night . (4) Pneumothorax on left: Pulm input noted and appreciated. Separation on chest X-ray down to 8 mm. Wean oxygen. Stable for discharge. (5) Mitral regurgitation: Stable moderate MR. Continue to follow as outpatient. DISPOSITION: Stable for discharge with follow up and med plan as above. Subjective Patient seen in follow up. Denies chest pain or shortness of breath. Telemetry reveals SR in the 70s with demand pacing. Physical Exam Physical Exam: Temp Pulse Resp BP Pulse Ox 37 C 61 26 H 165/92 H 100 09/20/19 12:10 09/20/19 12:01 09/20/19 12:01 09/20/19 12:01 09/20/19 12:01 Constitutional: WD/WN, vitals as above Respiratory: normal respiratory effort, lungs clear to auscultation Cardiovascular: Rate/Rhythm: regular rhythm Heart Sounds: + murmur (2/6 SM) Vessels: no JVD Extremities: no edema Chest (Breasts): Additional Comments: left infraclavicular pacemaker pocket, dressing changed personally, clean dry and intact Neurologic: PERRL, EOMI, accommodation nl, no face palsy, no dysarthria Results & Data Vital Signs (Past 12 Hours) Vital Signs Temp Pulse Pulse Resp BP BP Pulse Ox 09/20/19 12:10 37 C 09/20/19 12:01 61 26 H 165/92 H 100 09/20/19 12:00 61 16 09/20/19 11:00 69 18 09/20/19 10:23 62 17 134/64 09/20/19 10:00 68 23 09/20/19 09:50 70 17 134/64 09/20/19 09:00 36.7 C 68 23 09/20/19 08:13 68 27 H 09/20/19 08:00 63 14 100 09/20/19 07:00 64 100 09/20/19 06:00 60 100 09/20/19 05:00 60 100 09/20/19 04:00 64 100 09/20/19 03:53 70 152/70 H 100 09/20/19 03:50 37.0 C 68 18 152/70 H 99 09/20/19 03:00 62 100 Laboratory Results CBC 09/20/19 Range/Units 05:11 WBC 8.46 (4.8-10.8) K/uL RBC 4.35 L (4.7-6.1) M/uL Hgb 13.1 L (14.0-18.0) g/dL Hct 39.8 L (42-52) % Plt Count 154 (130-400) K/uL Comprehensive Metabolic Panel 09/20/19 Range/Units 05:11 Sodium 138 (136-145) mmol/L Potassium 3.9 (3.5-5.1) mmol/L Chloride 106 (98-107) mmol/L Carbon Dioxide 28 (21-32) mmol/L BUN 17 (7-18) mg/dl Creatinine 1.00 D (0.6-1.4) mg/dl Glucose 89 (70-99) mg/dl Calcium 8.0 L (8.5-10.1) mg/dl Intake and Output 09/19/19 09/20/19 09/20/19 22:59 06:59 14:59 Intake Total 1200 / 1560 Output Total Balance 1200 / 1560 - Intake: Oral 1200 / 1560 Output: # Bowel Movements Other: # Unmeasured Voids 1 3 Weight 80 kg
[2019-09-20] MEDS ORDERED: RIVAROXABAN 20 MG TAB PO ONE (14:30)
--- NOTE | 2019-09-20 15:10 | Hospitalist Progress Note ---
Date of Service September 20, 2019 Assessment & Plan (1) Tachycardia-bradycardia syndrome: Presented with PAF + sinus bradycardia. Dual chamber pacemaker placed by Dr. Mckeon on 09/18/19. Recurrent AF in EP lab; stared on amio load. Metoprolol started. Discharge on metoprolol succinate 50 mg daily and amiodarone 200 mg daily. (2) Paroxysmal atrial fibrillation: Discharge on metoprolol succinate 50 mg daily and amiodarone 200 mg daily. Continue anticoagulation with rivaroxaban. (3) Pneumothorax on left: Small left pneumothorax after pacemaker placement. No respiratory distress. Pulmonary Medicine consulted. (4) Elevated troponin: Troponin I as high as 0.359. Elevated troponin probably due to tachycardia / demand ischemia. (5) HTN (hypertension): BP's have been normal at home, but now elevated. Candesartan increased to 32 mg daily. Started on metoprolol succinate 50 mg daily after pacemaker inserted. (6) Hypothyroidism: TSH normal. Continue levothyroxine. (7) BPH (benign prostatic hyperplasia): Continue finasteride + tamsulosin. (8) DVT prophylaxis: Held rivaroxaban for pacemaker. Ambulate. (9) Discharge planning issues: Discharge to home. Family Medicine follow-up with Dr. Raf Uribe. Cardiology follow-up with [facility]iology Team at [facility]. given update. Admission and Anticipated Discharge Date Admission Date: September 14, 2019 Subjective Recheck for tachy-froilan syndrome and other problems. Patient seen in their room around 1450. Feels well. No chest pain or SOB. Review of Systems: Constitutional- no fever. Cardiac- as noted above. Pulmonary- as noted above. GI- no nausea, vomiting, diarrhea. - no urinary symptoms. Otherwise, as noted above. Physical Exam Constitutional: no acute distress Respiratory: no respiratory distress Auscultation: lungs clear to auscultation bilaterally Cardiovascular: Rate/Rhythm: regular rate and regular rhythm Heart Sounds: + murmur (III/ sys murmur LSB and apex); no gallop and no cardiac rub Vessels: no JVD Extremities: + edema (trace pretibial); no calf tenderness Chest (Breasts): Chest: + abnormal inspection of chest (pacemaker site bandaged) Gastrointestinal (Abdomen): normal bowel sounds, soft, nontender, no hepatosplenomegaly Musculoskeletal: Extremities: no cyanosis Skin: no rashes, warm and dry Psychiatric: Orientation: alert and oriented x 3 Results & Data Results & Data ([facility]) Vital Signs (Past 12 Hours) Vital Signs Temp Pulse Pulse Resp BP BP Pulse Ox 09/20/19 12:10 37 C 09/20/19 12:01 61 26 H 165/92 H 100 09/20/19 12:00 61 16 09/20/19 11:00 69 18 09/20/19 10:23 62 17 134/64 09/20/19 10:00 68 23 09/20/19 09:50 70 17 134/64 09/20/19 09:00 36.7 C 68 23 09/20/19 08:13 68 27 H 09/20/19 08:00 63 14 100 09/20/19 07:00 64 100 09/20/19 06:00 60 100 09/20/19 05:00 60 100 09/20/19 04:00 64 100 09/20/19 03:53 70 152/70 H 100 09/20/19 03:50 37.0 C 68 18 152/70 H 99 Laboratory Results 09/20/19 05:11 09/20/19 05:11 Diagnostic Findings CHEST X-RAY Reviewed by the undersigned and formally interpreted by Radiology: FINDINGS: Left subclavian pacer. Calcified plaque the thoracic aortic arch. Cardiac silhouette is normal in size. Linear subsegmental left basilar ate lectasis/scarring. Mild blunting of the costophrenic angles. No overt pulmonary edema or airspace consolidation typical for pneumonia. Small left apical pneumothorax with pleural separation of 8 mm on inspiration and expiration previously measured 9 mm. Bones appear grossly intact. IMPRESSION: Unchanged small left apical pneumothorax. Electronically signed by: Yanick Locke M.D. 09/20/2019 8:50 AM
[2019-09-20] MEDS ORDERED: AMIODARONE 200 MG TAB PO SCH (21:00)
[2019-09-20] MEDS ORDERED: METOPROLOL SUCC 50MG EXT REL TAB PO SCH (21:00)
--- NOTE | 2019-09-21 07:33 | Discharge Summary ---
Date of Service Date of Admission: 09/14/19 Date of Discharge: 09/20/19 Admission HPI Per Admitting Provider 84-year-old male with PMH paroxysmal atrial fibrillation, HTN, CKD stage III, hypothyroidism, and other problems listed below who presents the ED for evaluation of nausea and palpitations. Patient recently admitted to [facility] 08/09- 08/12 for evaluation of syncope. Telemetry monitoring during admission was unremarkable and patient underwent loop recorder. Patient is primarily [place] speaking, therefore who is at the bedside provides some history. She reports that patient typically is awake all night and then sleeps until about 2:00 in the afternoon. She reports patient woke up around 230 this afternoon and had his breakfast. Shortly after, patient had reported some nausea and palpitations. reports that she took patient's heart rate at home and it was 149. She reports her blood pressure was okay. EMS was called and patient was brought to the ED for further evaluation. Patient otherwise has been feeling well at home. No fevers or chills. Denies chest pain. No lightheadedness, dizziness, diaphoresis, syncopal events. Denies abdominal pain, vomiting, diarrhea. No urinary symptoms. Upon arrival to the ED, patient was in atrial fibrillation with rates in the 90s. He subsequently spontaneously converted to NSR. Patient is currently in NSR with rates in the 50s with some PACs. Patient is currently asymptomatic. Labs are unremarkable with the exception of mildly elevated troponin 0.06-> 0.10. CT ABD/pelvis negative for acute findings. CXR negative for acute findings well. Principal Diagnosis tachy-froilan syndrome OTHER NEW / ACUTE DIAGNOSES small left pneumothorax (iatrogenic) Discharge Data Allergies Allergy/AdvReac Type Severity Reaction Status Date / Time No Known Allergies Allergy Verified 09/14/19 18:17 Consultations 09/14/19 20:18 ED Decision to Admit Stat 09/14/19 21:33 Consult Cardiology Routine 09/19/19 07:16 Consult Pulmonology Routine Procedures Performed Operation Date: 09/18/19 09:30 Actual Procedures p Pacer with A/V Leads (Dual) - Sanjuana Mckeon DO s Venogram, Unilateral - Sanjuana Mckeon DO s Remove Cardiac Event Recorder - Sanjuana Mckeon DO Ordered Studies 09/14/19 17:27 CT abd pelvis IV con only Stat 09/18/19 06:57 CL Cath Imgs for PACS use only Routine 09/18/19 09:30 EP Lab Images for PACS ONCE Hospital Course (1) Tachycardia-bradycardia syndrome: Presented with PAF + sinus bradycardia. Dual chamber pacemaker placed by Dr. Mckeon on 09/18/19. Recurrent AF in EP lab; stared on amio load. Metoprolol initiated. Discharged on metoprolol succinate 50 mg daily and amiodarone 200 mg daily. (2) Paroxysmal atrial fibrillation: Discharged on metoprolol succinate 50 mg daily and amiodarone 200 mg daily. Continue anticoagulation with rivaroxaban. (3) Pneumothorax on left: Small left pneumothorax after pacemaker placement. No respiratory distress. Pulmonary Medicine consulted. Follow-up chest x-rays showed improved. Check repeat chest x-ray in clinic next week. (4) Elevated troponin: Troponin I as high as 0.359. Elevated troponin probably due to tachycardia / demand ischemia. (5) HTN (hypertension): BP's have been normal at home, but now elevated. Candesartan increased to 32 mg daily. Started on metoprolol succinate 50 mg daily after pacemaker inserted. (6) Hypothyroidism: TSH normal. Continue levothyroxine. (7) BPH (benign prostatic hyperplasia): Continue finasteride + tamsulosin. (8) DVT prophylaxis: Held rivaroxaban for pacemaker. Ambulate. (9) Discharge planning issues: Discharged to home. Family Medicine follow-up with Dr. Raf Uribe. Cardiology follow-up with [facility] at [facility]. Total Time Total Time Spent Total Time Spent (In Minutes): 40 Discharge Plan Discharge Items Patient Disposition: Home - Self-Care Reason For Visit: irregular heart rhythm Discharge Diagnosis: atrial fibrillation (irregular heart rhythm) sinus bradycardia (slow heart rhythm) small left pneumothorax (collapsed lung) Activity: As commented below Activity Comment: do not raise the left elbow over the left shoulder for 1 month Lifting: No more than 10 pounds Lifting Comment: do not lift more than 10 pounds with the left arm for 2 weeks Bathing: Keep incision dry Bathing Comment: keep dressing on and dry until wound check Sexual Activity: After two weeks Non-emergency contact: Structural Analyst Call non-emergency contact if: you have any medication questions Follow-up/Referrals: Jame Barragan DO [Structural Analyst] - (09/24/2019 9:30 AM [facility] 09/24/2019 10:30 AM Jame Barragan DO Cardiology, [facility] ) Raf Uribe DO [Primary Care Provider] - (10/01/2019 2:40 PM Aurora Brar PA-C [facility]) Diet: Heart Healthy Carmen Attending Provider Instructions: MEDICATION CHANGES: New medications: amiodarone (Cordarone) 200 mg daily at 9:00 PM metoprolol succinate (Toprol XL) 50 mg daily at 9:00 PM New dose: candesartan (Atacand) 32 mg daily at 9:00 PM SUMMARY OF TEST RESULTS: Chest x-ray showed small left pneumothorax (collapsed lung). OTHER INSTRUCTIONS: Seek medical attention if you have: * temperature above 101 * chest pain or trouble breathing * abdominal pain, nausea, vomiting * diarrhea, dark stools or bloody stools * any unanswered questions or concerns Call 911 if symptoms are severe. Please take good care of yourself. Call if you have any questions or problems. You can reach a [facility] hospitalist on duty at [facility] 24 hours a day by calling [phone]. My cell # is [phone]. Carmen Full Time Provider Instructions: device and wound check at [facility] cardiology Pending Studies at Discharge: No Stand-Alone Forms: My [facility], Smoking Cessation Medications and DC Order Prescriptions: New metoprolol succinate 50 mg tablet extended release 24 hr 50 mg PO DAILY Qty: 30 RF: 5 amiodarone 200 mg tablet 200 mg PO DAILY Qty: 30 RF: 5 candesartan 32 mg tablet 32 mg PO DAILY Qty: 30 RF: 5 Continued cyanocobalamin (vitamin B-12) [Vitamin B-12] 1,000 mcg tablet 1,000 mcg PO QAM RF: 0 finasteride 5 mg tablet 5 mg PO HS RF: 0 ferrous sulfate [iron] 325 mg (65 mg iron) Tablet 325 mg PO 3XWK RF: 0 fluticasone propionate [Flonase Allergy Relief] 50 mcg/actuation spray,suspension 2 spray INTRANASAL DAILY RF: 0 Potassium Tab 75 mg PO 3XWK RF: 0 levothyroxine 125 mcg Tablet 125 mcg PO DAILY RF: 0 Xarelto 20 mg Tablet 20 mg PO PM RF: 0 tamsulosin 0.4 mg capsule 0.4 mg PO HS Qty: 0 RF: 0 Discontinued candesartan [Atacand] 16 mg tablet 16 mg PO DAILY Qty: 90 RF: 1 Discharge Orders: Discharge Order (Routine); Ordered 09/20/19 Ordered By: Bud Michaels Admission Data Admit Date/Time: 09/14/19 20:34 Attending Provider: Bud Michaels Admit Provider: Roney Johnson Primary Care Provider: Raf Uribe Other Providers: Tyler Caballero ; Eduardo Bradshaw ; Jenny Padilla ; Yusef Vieira Other Interventions: Discharge Summary Assessment (RN) Last Done: 09/20/19 18:30 DC Date/Time DO NOT enter until pt leaves facility: 09/20/19 18:52
[2019-09-21] MEDS ORDERED: RIVAROXABAN 20 MG TAB PO SCH (21:00)
--- NOTE | 2019-10-01 12:52 | Operative Report (OR) ---
DATE OF OPERATION: 09/18/2019 PREOPERATIVE DIAGNOSES: Syncope and tachybrady syndrome. POSTOPERATIVE DIAGNOSIS: Syncope and tachybrady syndrome. PROCEDURE: Dual chamber pacemaker with peripheral venogram under fluoroscopic guidance as well as the LINQ extraction. SURGEON: Sanjuana Mckeon DO. ASSISTANTS: None. ANESTHESIA: Monitored conscious sedation administered under my supervision by Alejandrina Sofia. Start time 10:05, end time 11:57. Total of 6 mg of Versed, 125 mcg of fentanyl. INTRAVENOUS FLUIDS: 200 mL. ANTIBIOTICS: 2 grams of Ancef. CONTRAST: 40 mL. CONDITION: Stable. COMPLICATIONS: Probable pneumothorax. ADDITIONAL MEDICINES: Metoprolol 5 mg and Vasotec 2.5. URINE OUTPUT: Not applicable. SPECIMENS: None. FINDINGS: See below. DRAINS: None. INDICATIONS: This is an 84-year-old gentleman who is [place]ian speaking, who has a past medical history for paroxysmal atrial fibrillation - on Xarelto, hypothyroidism, chronic kidney disease stage III, BPH, first-degree AV block, recurrent syncope with evidence of tachy where he underwent a LINQ insertion just recently and ultimately was admitted back to the hospital with evidence of tachybrady syndrome, so he was recommended a pacemaker with LINQ extraction. CONSENT: Consent was obtained prior to the patient going into the electrophysiology lab. Since the patient is [place]ian speaking, I did discuss the procedure and possible risks with his , who signed on his behalf. The risks include but not limited to sudden cardiac , cardiac arrhythmias, cerebrovascular accident, myocardial infarction, injury to the blood vessels, chamber of the heart, lung, bleeding, and infection. The patient's consent was obtained. DESCRIPTION OF THE PROCEDURE: The patient was brought into electrophysiology lab in fasting state. He was connected to continuous environmental monitoring technician. Timeout was performed to ensure patient identity and procedure correctly. The patient was prepped and draped over the left infraclavicular space in normal surgical standard fashion. Monitored conscious sedation was given throughout the procedure for patient's comfort level. Enterprise precautions were maintained throughout the procedure. 10 mL of 1% lidocaine-bupivacaine mixture were given in the left deltopectoral groove. Incision was made in the left deltopectoral groove. Blunt dissection was performed down to identify the cephalic vein. Cephalic vein was identified and isolated using 0 silk ties. It was tiny. I was able to access it and flowed a wire part way, but then it kept going up to the carotids. I used a Glidewire and still was not really able. I put a sheath in partly and gave contrast and saw that there was like a narrowing right in an area of the subclavian vein. I then did a peripheral venogram. I actually performed this a few times to identify the axillary vein and again I could not really get a wire through this narrowing. I ultimately had to stick very medial in the subclavian and I had a high suspicion that I probably caused a small pneumothorax. The patient's vitals were stable throughout the case. I ultimately was able to get access through this very proximal subclavian stick and passed a wire down and then an 8-Bolivian sheath was inserted over the wire and the dilator was removed and a second guidewire was inserted through the 8-Bolivian sheath. The sheath was removed, flushed, dilator reinserted over it and then it was reinserted over one of the guidewires. The guidewire and dilator were removed. The right ventricular lead was then advanced into right ventricle and positioned in the right ventricular apex under fluoroscopic guidance. There was adequate pacing and sensing thresholds and no diaphragmatic stimulation in high output pacing. The 8-Bolivian sheath was peeled away and the lead was fixated to pectoralis muscle using 0 silk suture. A second 8-Bolivian sheath was inserted over the retained guidewire without any resistance. Guidewire and dilator removed. The right atrial lead was then advanced into right atrium and positioned in the right atrial appendage under fluoroscopic guidance. There was adequate pacing and sensing thresholds and no diaphragmatic stimulation with high output pacing. The 8-Bolivian sheath was peeled away and lead was fixated to pectoralis muscle using 0 silk suture. The patient did go into atrial fibrillation briefly during the procedure. We gave metoprolol and I ended up starting amiodarone to get him out of the AFib. A pacemaker pocket was created using blunt dissection over the pectoralis muscle. The pocket was flushed with copious amounts of bacitracin saline wash and inspected for hemostasis. The pulse generator was attached to the leads making sure the pins were in appropriate position, passed set screws and the set screws were all tightened. Pulse generator was then placed in the Tyrx pouch, then placed in the pocket, making sure that the leads were lying flat beneath the device. Incision was closed in a 3-layer fashion with 2-0 Vicryl interrupted suture followed by 3-0 Vicryl interrupted suture, followed by 4-0 Monocryl running stitch, followed by Dermabond and Telfa and micropore dressing. Then, an additional 5 mL of 1% lidocaine was given over the LINQ incision. Incision was made over the LINQ and the LINQ was extracted. The pocket was flushed with some saline and a 4-0 Vicryl was used to approximate the edges first with an interrupted stitch and then followed by a running stitch and Dermabond was applied. EQUIPMENT: 1. The pulse generator is a [employer] [place] XT DR YAYA Fried [id number], serial number [id number]. 2. Tyrx pouch is reference [employer] [id number], lot number [id number], expiration 05/31/2020. 3. Right atrial lead Medtronic 5076-52 cm, serial number [id number]. 4. Right ventricular lead, Medtronic 5076-58 cm, serial number [id number]. INTRAOPERATIVE TESTIN. Right atrial lead: Fib waves were 2.5 millivolts, impedance 543 ohms. 2. Right ventricular lead: R waves 6.7 millivolts, impedance 1075 ohms, threshold 0.5 volts at 0.4 milliseconds. FINAL MEASUREMENTS THROUGH THE DEVICE: 1. Right atrial lead: Fib waves 2.4 millivolts, impedance 475 ohms. 2. Right ventricular lead: R waves 9.4 millivolts, impedance 855 ohms, threshold 0.5 volts at 0.4 milliseconds. FINAL PARAMETERS: MVP-R 60/120. Right atrial amplitude 3.5 volts, pulse width 0.4 milliseconds, sensitivity 0.3 millivolts. Right ventricular amplitude 3.5 volts, pulse width 0.4 milliseconds, sensitivity 0.9 millivolts. IMPRESSION: Successful implantation of a dual chamber rate responsive permanent pacemaker along with a LINQ extraction secondary to tachybrady syndrome and syncope with a peripheral venogram. PLAN: Monitor the patient overnight, 12-lead ECG, chest x-ray. We will get one now as well as one tomorrow as I am sure that I probably caused a small pneumothorax. He is not allowed to lift left elbow or left shoulder for 1 month. He cannot lift more than 10 pounds with his left arm for 2 weeks. He is to leave the dressing on and dry until his wound check next week. He can restart his Xarelto and I will discuss with general cardiology about possibly amiodarone as rhythm control management. I attest to the content of the Intraoperative Record and any orders documented therein. Any exception s are noted below.
== END 2019-09-20 18:52 | disposition home or self-care (01) | DRG 243 ==
LOC: ED 17:05 → 2E 20:34 → SUATTDRO 20:34 → 2E 21:14

== ENCOUNTER 2019-09-23 07:52 | Observation (INO) ==
[2019-09-23 08:46] LABS: Basophils # (auto) 0.04 K/uL (0-0.2); Basophils % (auto) 0.6 %; Eosinophils # (auto) 0.46 K/uL (0-0.5); Eosinophils % (auto) 7.3 %; Hematocrit (blood only) 39.9 % (42-52); Hemoglobin 13.6 g/dL (14.0-18.0); Immature Granulocytes # (auto) 0.01 K/uL (0.00-0.02); Immature Granulocytes % (auto) 0.2 %; Lymphocytes # (auto) 1.15 K/uL (1.2-3.4); Lymphocytes % (auto) 18.3 %; Mean Corpuscular Hemoglobin 31.1 pg (25-34); Mean Corpuscular Hgb Conc 34.1 g/dL (32-36); Mean Corpuscular Volume 91.1 fL (80-100); Mean Platelet Volume 10.8 fL (7.4-10.4); Monocytes # (auto) 0.54 K/uL (0.11-0.59); Monocytes % (auto) 8.6 %; Neutrophils # (auto) 4.09 K/uL (1.4-6.5); Platelet Count 162 K/uL (130-400); RDW Coefficient of Variation 13.6 % (11.5-14.5); RDW Standard Deviation 45.5 fL (36.4-46.3); Red Blood Count 4.38 M/uL (4.7-6.1); White Blood Count 6.29 K/uL (4.8-10.8)
[2019-09-23 08:57] LABS: INR 1.1 (0.9-1.1); Partial Thromboplastin Ratio 1.2; Partial Thromboplastin Time 33.9 Seconds (21.0-31.0); Prothrombin Time 11.6 Seconds (9.0-12.0)
[2019-09-23 09:03] LABS: Alanine Aminotransferase 11 U/L (12-78); Albumin Level 2.7 gm/dl (3.4-5.0); Aspartate Aminotransferase 13 U/L (15-37); BUN Creatinine Ratio 12.8 (10-20); Blood Urea Nitrogen 15 mg/dl (7-18); Calcium 8.4 mg/dl (8.5-10.1); Carbon Dioxide 27 mmol/L (21-32); Chloride 106 mmol/L (98-107); Creatinine Clr Calc Pharmacy 49.3 ml/min; Est GFR (African American) 67.1; Est GFR (Non-African American) 57.9; Glucose 113 mg/dl (70-99); Lipase 79 U/L (73-393); Potassium 4.1 mmol/L (3.5-5.1); Sodium 137 mmol/L (136-145)
[2019-09-23 09:18] LABS: Albumin Globulin Ratio 0.8 (0.9-2); Alkaline Phosphatase 42 U/L (45-117); Bilirubin,Total 0.8 mg/dl (0.2-1); Creatine Kinase 75 U/L (39-308); Creatine Kinase MB < 1.0 ng/ml (0.5-3.6); Globulin 3.4 gm/dl (2.5-4.0); NT Pro B Type Natriuretic Pept 481 pg/ml (0-1800); Total Protein 6.1 gm/dl (6.4-8.2); Troponin I 0.066 ng/ml (0-0.045)
--- NOTE | 2019-09-23 09:49 | Ultrasound Report ---
US venous doppler UE LT HISTORY: Pain. Edema. Pt c/o Left UE COMPARISON STUDY: None. FINDINGS: Thrombus is identified within the left forearm. This appears to be a branch of the cephalic vein. IMPRESSION: Acute thrombus within the left forearm at the level of the mid cephalic vein. ACT 112: Negative or not required by law. The above report was generated using voice recognition software. It may contain grammatical, syntax or spelling errors. Electronically signed by: Shree Lea M.D. 09/23/2019 9:47 AM
[2019-09-23] MEDS ORDERED: DOXYCYCLINE HYCLATE 100 MG CAP PO STA (10:00)
[2019-09-23] MEDS ORDERED: ACETAMINOPHEN 500 MG TAB PO STA (10:00)
--- NOTE | 2019-09-23 10:02 | XRay Report ---
XR KUB/Abdomen 1 view CLINICAL HISTORY: Pt c/o constipation pain COMPARISON STUDY: No previous studies for comparison. FINDINGS: Nonobstructive bowel pattern. Mild increase in colonic fecal load consistent with a compone nt of fecal stasis. No evidence for rectal fecal impaction. IMPRESSION: Moderate increase in colonic fecal load suggesting a component of fecal stasis. ACT 112: Negative or not required by law. The above report was generated using voice recognition software. It may contain grammatical, syntax or spelling errors. Electronically signed by: Shree Lea M.D. 09/23/2019 10:01 AM
--- NOTE | 2019-09-23 10:04 | XRay Report ---
XR chest 1V portable CLINICAL HISTORY: Chest Pain pain COMPARISON STUDY: 09/20/2019 FINDINGS: Mild stable cardiomegaly. Permanent bipolar cardiac pacer. Lungs are clear. Improved left-s ided pneumothorax with minimal left apical residual. IMPRESSION: Improved exam from the prior study. Left-sided pneumothorax is considerably improved wit h minimal residual left apex. ACT 112: Negative or not required by law. The above report was generated using voice recognition software. It may contain grammatical, syntax or spelling errors. Electronically signed by: Shree Lea M.D. 09/23/2019 10:02 AM
--- NOTE | 2019-09-23 11:06 | Electrocardiogram Report ---
Test Reason : Blood Pressure : / mmHG Vent. 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
--- NOTE | 2019-09-23 12:43 | History & Physical Report ---
Date of Service September 23, 2019 Assessment & Plan (1) Superficial vein thrombosis: -Admit to [facility] w/ telemetry -Patient presenting from home for evaluation of nausea and left hand swelling -In the ED, LUE venous Doppler showing acute thrombus within the left forearm at the level of the mid cephalic vein -Patient is anticoagulated on Xarelto -Warm compresses -Was given Keflex on 09/20, will continue to complete course -Afebrile, no leukocytosis; no fluctuance at site to suggest abscess (2) Nausea: (3) Constipation: -KUB showing signs of fecal stasis -Nausea currently resolved -Bowel regimen with MiraLAX and Colace (4) Elevated troponin: -Mildly elevated troponin 0.066 (improved from 0.359 on 09/14) -No chest pain, EKG demonstrates paced rhythm -Cardiology consult, input appreciated (5) Pneumothorax on left: -Developed a small left apical pneumothorax post pacemaker procedure -CXR today shows considerable improvement -No respiratory symptoms (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: -S/p pacemaker on 09/17 -Site appears to be healing well; no surrounding erythema or drainage noted (8) Paroxysmal atrial fibrillation: -Rhythm controlled on amiodarone, rate controlled on metoprolol -Anticoagulated on Xarelto (9) HTN (hypertension): -BP mildly elevated however patient did not take medications yet today -Continue home doses of metoprolol and candesartan (10) Hypothyroidism: -Continue levothyroxine (11) BPH (benign prostatic hyperplasia): -Continue tamsulosin and finasteride (12) DVT prophylaxis: -Anticoagulated on Xarelto History of Present Illness Chief Complaint: Nausea, left hand swelling Primary Care Provider: Raf Uribe DO 84-year-old male with PMH paroxysmal atrial fibrillation anticoagulated on Xarelto, tachybradycardia syndrome s/p pacemaker, CKD stage III, HTN, BPH, hypothyroidism, and other problems listed below who presents to the ED for evaluation of nausea and left hand swelling. Patient is primarily Faroese speaking, therefore is the bedside who provides the history. Patient was recently admitted to [facility] 09/13 - 09/19 for management of tachybradycardia syndrome and underwent pacemaker placement on 09/17. Postop course was complicated by small left pneumothorax however patient did not require chest tube placement. Patient was also started on metoprolol and amiodarone. Candesartan dose was increased. Since arriving home, patient developed left hand swelling and erythema and also an area of erythema on the left forearm. He was seen in the cardiology clinic on 09/20 and placed on cephalexin. reports that swelling and erythema had been improving until this morning when it became acutely worse. Yesterday, patient developed some nausea. No vomiting, denies abdominal pain. Reports no bowel movement in 1 week. Since arriving to the ED, nausea and left arm swelling and erythema have improved. There have been no fevers or chills. Denies any surrounding erythema or drainage from recent pacemaker insertion site. No palpitations, chest pain, shortness of breath, syncopal events. Denies lightheadedness and dizziness. No urinary symptoms. In the ED, left upper extremity venous Doppler shows acute thrombus within the left forearm at the level of the mid cephalic vein. KUB shows signs of fecal stasis. CXR shows considerable improvement in left apical pneumothorax. Labs are unremarkable with the exception of a mildly elevated troponin at 0.066. EKG demonstrates an atrial paced rhythm. Allergies Allergy/AdvReac Type Severity Reaction Status Date / Time No Known Allergies Allergy Verified 09/23/19 08:23 Home Medications Home Medications Medication Instructions Recorded Confirmed Type finasteride 5 mg PO DAILY@209901/10/19 09/23/19 History cyanocobalamin (vitamin B-12) 1,000 mcg PO QAM 03/09/19 09/23/19 History 1,000 mcg tablet Potassium Tab 75 mg PO MOWEFR@79908/10/19 09/23/19 History Xarelto 20 mg PO DAILY@209908/10/19 09/23/19 History ferrous sulfate [iron] 325 mg PO MOWEFR@79908/10/19 09/23/19 History levothyroxine 125 mcg PO QAM 08/10/19 09/23/19 History amiodarone 200 mg PO DAILY@209909/23/19 09/23/19 History candesartan 32 mg PO DAILY@209909/23/19 09/23/19 History cephalexin 500 mg PO BID 09/23/19 09/23/19 History metoprolol succinate 50 mg PO DAILY@89909/23/19 09/23/19 History tamsulosin 0.4 mg PO DAILY@0200 09/23/19 09/23/19 History Past Med/Surg History Medical History BPH (benign prostatic hyperplasia) CKD (chronic kidney disease), stage III HTN (hypertension) Hypothyroidism Mitral regurgitation On rivaroxaban therapy (Acute) Paroxysmal atrial fibrillation Tobacco abuse Surgical History History of cataract surgery S/P placement of cardiac pacemaker Family History Brother Cancer Mother Stroke Social History Smoking Status: Current every day smoker Tobacco Type: Pipe Second Hand Exposure: No; Hx Alcohol Use: No Hx Substance Use: No Preferred Language: Faroese Communication Ability: Effective [employer] Required: No Beliefs That Will Affect Care: None marital status: Current Living Situation: Spouse Other Information That Helps Us Care for You: No Feels Safe at Home: Yes Safety Concerns: Feels Safe At This Time Review of Systems Review of Systems: ROS per HPI, all other systems reviewed and negative Physical Exam Constitutional: WD/WN, vitals as above Eyes: PERRL, conjunctivae normal, anicteric sclerae ENMT: external ear and nose normal, oropharynx normal Respiratory: normal respiratory effort, lungs clear to auscultation Cardiovascular: Rate/Rhythm: regular rate and regular rhythm Vessels: normal peripheral pulses Extremities: no edema Chest (Breasts): Chest: + pacemaker (Left chest, incision dry and intact, no surrounding erythema or drainage noted) Additional Comments: Small incision over sternum noted, dressing removed, no signs of erythema or drainage Gastrointestinal (Abdomen): normal bowel sounds, soft, nontender, no hepatos plenomegaly Musculoskeletal: no cyanosis or clubbing, extremities motor strength 5/5 +2 edema left hand, CSM checks intact; small reddened and minimally raised area noted to left forearm, no fluctuance noted Skin: no rashes, warm and dry Neurologic: PERRL, EOMI, accommodation nl, no face palsy, no dysarthria Psychiatric: A+Ox3, euthymic affect Results & Data Results & Data (MN) Vital Signs (Past 12 Hours) Vital Signs Temp Pulse Pulse Resp BP BP Pulse Ox 09/23/19 10:30 60 17 161/81 H 98 09/23/19 09:58 67 18 166/93 H 98 09/23/19 08:36 60 18 139/65 97 09/23/19 07:57 36.7 C 82 18 108/68 99 Laboratory Results Short CBC 09/23/19 Range/Units 08:35 WBC 6.29 (4.8-10.8) K/uL Hgb 13.6 L (14.0-18.0) g/dL Hct 39.9 L (42-52) % Plt Count 162 (130-400) K/uL BMP 09/23/19 08:35 Sodium 137 Potassium 4.1 Chloride 106 Carbon Dioxide 27 BUN 15 Creatinine 1.14 Glucose 113 H Calcium 8.4 L Cardiac Enzymes 09/23/19 Range/Units 08:35 Total Creatine Kinase 75 (39-308) U/L CK-MB (CK-2) < 1.0 (0.5-3.6) ng/ml Troponin I 0.066 H* (0-0.045) ng/ml Liver Function 09/23/19 Range/Units 08:35 Total Bilirubin 0.8 (0.2-1) mg/dl AST 13 L (15-37) U/L ALT 11 L (12-78) U/L Alkaline Phosphatase 42 L (45-117) U/L Albumin 2.7 L (3.4-5.0) gm/dl Diagnostic Findings LUE VENOUS DOPPLER IMPRESSION: Acute thrombus within the left forearm at the level of the mid cephalic vein. CXR IMPRESSION: Improved exam from the prior study. Left-sided pneumothorax is considerably improved with minimal residual left apex. KUB XR IMPRESSION: Moderate increase in colonic fecal load suggesting a component of fecal stasis. Code Status & VTE Plan Code Status Patient is a full code as per my discussion with him. VTE Prophylaxis Plan VTE Prophylaxis will be ordered: No Supervising Physician Co-Signing Physician Notes HISTORY: Record reviewed. Patient interviewed and examined. Care coordinated with BOB Lynn. Please refer to her documentation for complete history. Briefly, 84 YO M with tachy-froilan syndrome, s/p pacemaker placement 09/18/19. Small post-procedure pneumothorax improved without intervention. Developed swelling and discomfort of left hand and arm 09/20. Seen in Cardiology Clinic. Started on cephalexin for possible cellulitis. Worsening pain and swelling of left forearm last night. Came to ED for evaluation this morning. No fever. Swelling left arm better this afternoon. EXAM: General- no distress Lungs- clear to auscultation; no respiratory distress Cardiovascular- RRR; no gallop; no JVD; no pretibial edema Chest- pacemaker incision without erythema or drainage Abdomen- + bowel sounds, soft, nontender Extremities- no cyanosis; no calf tenderness Neuro- alert, oriented Skin- warm & dry; area of erythema and swelling left forearm proximal to apparent old IV site; no fluctuance or drainage DATA: 09/23/19 08:35 09/23/19 08:35 Troponin 0.066 (compared to 0.359 on 09/14, elevation associated with tachyarrhythmia). Chest x-ray reviewed and demonstrated dual chamber pacemaker, decreased size of small left pneumothorax, no infiltrates, effusions, CHF. Venous duplex LUE demonstrated superficial phlebitis left forearm. EKG performed at 0832 reviewed and demonstrated atrial paced rhythm at 60 / minute, no acute changes. ASSESSMENT AND PLAN: Superficial thrombophlebitis LUE. ? associated infection. Afebrile. No leukocytosis. Patient and his spouse both feel that appearance has improved since starting cephalexin. Add warm compresses. Elevate arm on pillow. Slightly elevated troponin, but improved since 09/14 when pt presented with tachyarrhythmia. Doubt acute coronary syndrome. Left pneumothorax. Resolving. PAF Continue metoprolol, amiodarone, rivaroxaban. Please refer to EARNESTINE Garza's documentation for discussion of other issues.
--- NOTE | 2019-09-23 12:44 | Emergency Department Note ---
History of Present Illness General Chief complaint: Illness Stated complaint: SWELLING TO HANDS Source: patient, family (), RN notes reviewed and old records reviewed Mode of arrival: ambulatory Limitations: no limitations History of Present Illness Provider complaint: arm swelling, weakness Onset (ago): day(s) 2 Location: upper extremity Radiation: non-radiation Severity: moderate Pain Consistency: + intermittent Maximum Pain Intensity: 3 Current Pain Intensity: 3 Quality: + aching Relieved By: + immobilization Exacerbated By: + movement Associated symptoms: + weakness; no confusion, no chest pain, no diaphoresis, no fever/chills, no headaches and no nausea/vomiting Treatments prior to arrival: none This is an 84-year-old male who is being treated with Keflex for a phlebitis caused by an IV during the patient's last day. In addition the patient is also complaining of weakness. He reports being discharged in the hospital 3 days ago however has not done well at home. Home Medications Home Medications Medication Instructions Recorded Confirmed Type finasteride 5 mg PO DAILY@209901/10/19 09/23/19 History cyanocobalamin (vitamin B-12) 1,000 mcg PO QAM 03/09/19 09/23/19 History 1,000 mcg tablet Potassium Tab 75 mg PO MOWEFR@79908/10/19 09/23/19 History Xarelto 20 mg PO DAILY@209908/10/19 09/23/19 History ferrous sulfate [iron] 325 mg PO MOWEFR@79908/10/19 09/23/19 History levothyroxine 125 mcg PO QAM 08/10/19 09/23/19 History amiodarone 200 mg PO DAILY@209909/23/19 09/23/19 History candesartan 32 mg PO DAILY@209909/23/19 09/23/19 History cephalexin 500 mg PO BID 09/23/19 09/23/19 History metoprolol succinate 50 mg PO DAILY@89909/23/19 09/23/19 History tamsulosin 0.4 mg PO DAILY@19909/23/19 09/23/19 History acetaminophen 1,000 mg PO Q8H PRN #60 tab 09/24/19 Rx Allergies Allergy/AdvReac Type Severity Reaction Status Date / Time No Known Allergies Allergy Verified 09/23/19 08:23 Past Med/Surg History Medical History BPH (benign prostatic hyperplasia) CKD (chronic kidney disease), stage III HTN (hypertension) Hypothyroidism Mitral regurgitation On rivaroxaban therapy (Acute) Paroxysmal atrial fibrillation Prolonged QT interval Tachycardia-bradycardia syndrome Tobacco abuse Surgical History History of cataract surgery S/P placement of cardiac pacemaker Family History Brother Cancer Mother Stroke Social History Smoking Status: Current every day smoker Tobacco Type: Pipe Second Hand Exposure: No; Hx Alcohol Use: No Hx Substance Use: No Preferred Language: Occitan Communication Ability: Effective Acting Teacher Required: No Beliefs That Will Affect Care: None marital status: Current Living Situation: Spouse Other Information That Helps Us Care for You: No Feels Safe at Home: Yes Safety Concerns: Feels Safe At This Time Review of Systems A total of 10 systems reviewed and were otherwise negative Physical Exam Vital Signs Vital Signs - 24 hr 09/23/19 07:57 09/23/19 08:36 09/23/19 09:58 Temperature 36.7 C Temperature Source Oral Pulse Rate 82 Pulse Rate [Apical] 60 67 Pulse Rhythm [Apical] Regular Regular Pulse Strength [Apical] Normal Respiratory Rate 18 18 18 Respiratory Effort / Characteristics Non-Labored Spontaneous Non-Labored Spontaneous Respiratory Depth Normal Normal Normal Respiratory Pattern Regular Regular Blood Pressure 108/68 Blood Pressure [Right Arm] 139/65 166/93 H Blood Pressure Mean 81 Blood Pressure Mean [Right Arm] 89 117 Pulse Oximetry 99 97 98 Oxygen Delivery Method Room Air Room Air Room Air Sepsis Recent Fever Within 48 Hours No Sepsis New/Unexplained Change in Mental Status No Sepsis Action Taken by Nursing No Action Required 09/23/19 10:30 Temperature Temperature Source Pulse Rate Pulse Rate [Apical] 60 Pulse Rhythm [Apical] Regular Pulse Strength [Apical] Respiratory Rate 17 Respiratory Effort / Characteristics Non-Labored Spontaneous Respiratory Depth Normal Respiratory Pattern Regular Blood Pressure Blood Pressure [Right Arm] 161/81 H Blood Pressure Mean Blood Pressure Mean [Right Arm] 107 Pulse Oximetry 98 Oxygen Delivery Method Room Air Sepsis Recent Fever Within 48 Hours Sepsis New/Unexplained Change in Mental Status Sepsis Action Taken by Nursing VITAL SIGNS - Vital signs and nursing notes were reviewed. GENERAL - 84-year-old male appearing stated age who is in no acute distress. Communicates well with provider and answers questions appropriately. SKIN - Without rashes. HEAD - NC/AT. EYES - PERRL with EOMI bilaterally. Sclera anicteric. Palpebral conjunctiva pink and moist with no injection noted. EARS - No deformities of external structures noted on gross examination bilaterally. No pain elicited with palpation of the tragus bilaterally. External auditory canals without discharge or otorrhea. Tympanic membranes pearly knowles without retraction or bulging. No fluid or purulent material visualized behind the TM. Handle of malleus, umbo, cone of light, pars tensa/flaccid all easily visualized. NOSE - Midline and without cyanosis. No epistaxis or purulent drainage noted. Septum midline without deviation or septal hematoma noted. MOUTH/OROPHARYNX - Without perioral cyanosis. Buccal mucosa pink and moist and without leukoplakia. Tongue midline with equal elevation of palate bilaterally. No tonsillar hypertrophy, erythema, or exudates noted. dentition noted. NECK - Neck with FROM. Supple to palpation. lymphadenopathy noted. No nuchal rigidity. LUNGS - Chest wall symmetric without accessory muscle use, intercostals retractions, or central cyanosis. Normal vesicular breath sounds CTA B/L. No wheezes, rales, or rhonchi appreciated. CARDIAC - RRR with S1/S2. No murmur, rubs, or gallops appreciated. ABDOMEN - Abdominal contour without pulsations or visible masses. BS normoactive all four quadrants. No tenderness, palpable masses, hepatosplenomegaly, or ascites noted. EXTREMITIES - No clubbing or peripheral cyanosis. No pretibial edema present. +3/5 radial, posterior tibial, and dorsalis pedis pulses palpated throughout. +5/5 strength noted in UE/LE bilaterally. NEUROLOGIC - Cranial nerves II through XII grossly intact. Sensory intact to light touch throughout. Patellar reflexes +2/4. PSYCH - A&Ox3 and cooperates fully with examiner. Pt is very pleasant and interacts well with examiner. Course Administered Medications Discontinued Medications Acetaminophen (Tylenol) 1,000 mg PO NOW STA Stop: 09/23/19 10:01 Last Admin: 09/23/19 10:24 Dose: 1,000 mg Documented by: [id number] Acetaminophen (Tylenol) 650 mg PO Q4H PRN PRN Reason: Pain or Fever Stop: 10/23/19 13:13 Last Admin: 09/23/19 20:13 Dose: 650 mg Documented by: [id number] Amiodarone HCl (Cordarone) 200 mg PO DAILY@2099 [facility] Stop: 10/23/19 20:59 Last Admin: 09/23/19 20:06 Dose: 200 mg Documented by: [id number] Candesartan Cilexetil (Atacand) 1 ea PO DAILY@2099 [facility] Stop: 10/23/19 20:59 Last Admin: 09/23/19 20:06 Dose: 1 ea Documented by: [id number] Cephalexin HCl (Keflex) 500 mg PO BID [facility]; Protocol Stop: 09/30/19 20:59 Last Admin: 09/24/19 09:28 Dose: 500 mg Documented by: [id number] Admin: 09/23/19 20:06 Dose: 500 mg Documented by: [id number] Cyanocobalamin (Vitamin B-12) 1,000 mcg PO [facility] Stop: 10/24/19 08:59 Last Admin: 09/24/19 09:28 Dose: 1,000 mcg Documented by: [id number] Docusate Sodium (Colace) 100 mg PO BID [facility] Stop: 10/23/19 13:13 Last Admin: 09/24/19 09:28 Dose: 100 mg Documented by: [id number] Admin: 09/23/19 20:06 Dose: 100 mg Documented by: [id number] Admin: 09/23/19 14:30 Dose: 100 mg Documented by: [id number] Doxycycline Hyclate (Vibramycin) 100 mg PO NOW [facility] Stop: 09/23/19 10:01 Last Admin: 09/23/19 10:23 Dose: 100 mg Documented by: [id number] Finasteride (Proscar) 5 mg PO DAILY@2099 [facility] Stop: 10/23/19 20:59 Last Admin: 09/23/19 20:06 Dose: 5 mg Documented by: [id number] [facility] Stop: 10/24/19 06:29 Last Admin: 09/24/19 06:01 Dose: 125 mcg Documented by: [id number] Metoprolol Succinate (Toprol Xl) 50 mg PO DAILY@2099 [facility] Stop: 10/23/19 20:59 Last Admin: 09/23/19 20:06 Dose: 50 mg Documented by: [id number] Polyethylene Glycol (Miralax Powder Packet) 17 gm PO BID [facility] Stop: 10/23/19 13:13 Last Admin: 09/24/19 09:31 Dose: 17 gm Documented by: [id number] Admin: 09/23/19 20:06 Dose: 17 gm Documented by: [id number] Admin: 09/23/19 14:30 Dose: 17 gm Documented by: [id number] Rivaroxaban (Xarelto) 20 mg PO DAILY@2100 [facility] Stop: 10/23/19 20:59 Last Admin: 09/23/19 20:06 Dose: 20 mg Documented by: [id number] Tamsulosin HCl (Flomax) 0.4 mg PO HS [facility] Stop: 10/23/19 20:59 Last Admin: 09/23/19 20:04 Dose: 0.4 mg Documented by: [id number] Medical Decision Making Differential Diagnosis Infection, dehydration, metabolic abnormality, hypo/hyperglycemia, electrolyte disturbance, anemia, hypoxia, cardiac sources, intracerebral event, toxicologic, neurologic, as well as other pathologies. Medical Records Attestation: I reviewed the patient's medical records. Home Medications Current Medication List: was personally reviewed by me Laboratory Data Attestation: I reviewed the patient's lab results. Result diagrams: 09/24/19 07:08 09/24/19 07:08 Lab Results 09/23/19 09/23/19 09/23/19 Range/Units 08:35 08:35 08:35 WBC 6.29 (4.8-10.8) K/uL RBC 4.38 L (4.7-6.1) M/uL Hgb 13.6 L (14.0-18.0) g/dL Hct 39.9 L (42-52) % MCV 91.1 (80-100) fL MCH 31.1 (25-34) pg MCHC 34.1 (32-36) g/dL RDW Std Deviation 45.5 (36.4-46.3) fL RDW Coeff of Millie 13.6 (11.5-14.5) % Plt Count 162 (130-400) K/uL MPV 10.8 H (7.4-10.4) fL Immature Gran % (Auto) 0.2 % Neut % (Auto) 65.0 % Lymph % (Auto) 18.3 % [place] % (Auto) 8.6 % Eos % (Auto) 7.3 % Baso % (Auto) 0.6 % Neut # (Auto) 4.09 (1.4-6.5) K/uL Lymph # (Auto) 1.15 L (1.2-3.4) K/uL [place] # (Auto) 0.54 (0.11-0.59) K/uL Eos # (Auto) 0.46 (0-0.5) K/uL Baso # (Auto) 0.04 (0-0.2) K/uL Immature Gran # (Auto) 0.01 (0.00-0.02) K/uL PT 11.6 (9.0-12.0) Seconds INR 1.1 (0.9-1.1) APTT 33.9 H (21.0-31.0) Seconds PTT Ratio 1.2 Sodium 137 (136-145) mmol/L Potassium 4.1 (3.5-5.1) mmol/L Chloride 106 (98-107) mmol/L Carbon Dioxide 27 (21-32) mmol/L Anion Gap 4.0 (3-11) BUN 15 (7-18) mg/dl Creatinine 1.14 (0.6-1.4) mg/dl Est Cr Clr Drug Dosing 49.3 ml/min Est GFR ( Amer) 67.1 Est GFR (Non-Af Amer) 57.9 BUN/Creatinine Ratio 12.8 (10-20) Glucose 113 H (70-99) mg/dl Calcium 8.4 L (8.5-10.1) mg/dl Total Bilirubin 0.8 (0.2-1) mg/dl AST 13 L (15-37) U/L ALT 11 L (12-78) U/L Alkaline Phosphatase 42 L (45-117) U/L Total Creatine Kinase 75 (39-308) U/L CK-MB (CK-2) < 1.0 (0.5-3.6) ng/ml CK/CKMB % Calc TNP Troponin I 0.066 H* (0-0.045) ng/ml NT-Pro-B Natriuret Pep 481 (0-1800) pg/ml Total Protein 6.1 L (6.4-8.2) gm/dl Albumin 2.7 L (3.4-5.0) gm/dl Globulin 3.4 (2.5-4.0) gm/dl Albumin/Globulin Ratio 0.8 L (0.9-2) Lipase 79 (73-393) U/L Imaging Data Radiologist's Impression: [facility], [place] [phone] Ultrasound Report Patient: BESSIE ESCUDEROAdmit Date: 09/23/19 MR#: [id number]: [address] Acct ID:[id number]: [address] Date: [address] [place] [address] Zip: [place] [address] Age: 84Location: ED Sex: M Room/Bed: Att Phy:Diagnosis: SWELLING TO HANDS Eve Phy: Raf Uribe, DOService Date: 09/23/19 Fam Phy:Interpreting Phy: Shree Lea MD Admit Phy: Ordering Phy: Christiano Park MD cc: ~ US venous doppler UE LT HISTORY: Pain. Edema. Pt c/o Left UE COMPARISON STUDY: None. FINDINGS: Thrombus is identified within the left forearm. This appears to be a branch of the cephalic vein. IMPRESSION: Acute thrombus within the left forearm at the level of the mid cephalic vein. ACT 112: Negative or not required by law. The above report was generated using voice recognition software. It may contain grammatical, syntax or spelling errors. Electronically signed by: Shree Lea M.D. 09/23/2019 9:47 AM Dictated: 09/23/19946 Transcribed: 09/23/19 0947 [facility], [place] [phone] XRay Report Patient: BESSIE ESCUDEROAdmit Date: 09/23/19 MR#: [id number]: [address] Acct ID:[id number]: [address] Date: [address] [place] [address] Zip: [place] [address] Age: 84Location: ED Sex: M Room/Bed: Att Phy:Diagnosis: SWELLING TO HANDS Eve Phy: Raf Uribe, DOService Date: 09/23/19 Fam Phy:Interpreting Phy: Shree Lea MD Admit Phy: Ordering Phy: Christiano Park MD cc: ~ XR chest 1V portable CLINICAL HISTORY: Chest Pain pain COMPARISON STUDY: 09/20/2019 FINDINGS: Mild stable cardiomegaly. Permanent bipolar cardiac pacer. Lungs are clear. Improved left-sided pneumothorax with minimal left apical residual. IMPRESSION: Improved exam from the prior study. Left-sided pneumothorax is considerably improved with minimal residual left apex. ACT 112: Negative or not required by law. The above report was generated using voice recognition software. It may contain grammatical, syntax or spelling errors. Electronically signed by: Shree Lea M.D. 09/23/2019 10:02 AM Dictated: 09/23/19 1001 Transcribed: 09/23/19 1001 [place], [place] [phone] XRay Report Patient: BESSIE ESCUDEROAdmit Date: 09/23/19 MR#: [id number]: [address] [facility] Acct ID:[id number]: [address] [facility] Zip[facility] [place] [address] Age: 84Location: ED Sex: M Room/Bed: Att Phy:Diagnosis: SWELLING TO HANDS Eve Phy: Raf Uribe, DOService Date: 09/23/19 Fam Phy:Interpreting Phy: Shree Lea MD Admit Phy: Ordering Phy: Christiano Park MD cc: ~ XR KUB/Abdomen 1 view CLINICAL HISTORY: Pt c/o constipation pain COMPARISON STUDY: No previous studies for comparison. FINDINGS: Nonobstructive bowel pattern. Mild increase in colonic fecal load consistent with a component of fecal stasis. No evidence for rectal fecal impaction. IMPRESSION: Moderate increase in colonic fecal load suggesting a component of fecal stasis. ACT 112: Negative or not required by law. The above report was generated using voice recognition software. It may contain grammatical, syntax or spelling errors. Electronically signed by: Shree Lea M.D. 09/23/2019 10:01 AM Dictated: 09/23/19 1000 Transcribed: 09/23/19 1000 ECG Data Attestation: I personally reviewed and interpreted this ECG as follows: Indication: + other (Atrial paced) Rate (beats per minute): 60 ECG Murphy: + Normal ECG Findings: + Q waves (Inferior) Comparison ECG Date: from (09/18/2019) Change: no significant change MDM Narrative Patient was seen and evaluated as above in room A3. Review was performed of nursing notes and vital signs. I did review pertinent previous visits and patient history. After obtaining a thorough history and physical examination the above work up was performed. This is a 84-year-old male presents to the emergency department complaining of weakness. Patient is also complaining of arm swelling. He does have a superficial clot however is already on Xarelto. His troponin is slightly elevated. I did discuss the case with the hospitalist service. An order was placed for continuous cardiac monitoring. The monitor shows a rate of 60 with paced rhythm. The patient was evaluated during the global COVID-19 pandemic, and that diagnosis was suspected/considered upon their initial presentation. Their evaluation, treatment and testing was consistent with current guidelines for patients who present with complaints or symptoms that may be related to COVID- 19. Impression & Plan Superficial vein thrombosis, Weakness Discharge Plan Visit Data *Final* Discharge Date/Time: 09/23/19 12:41 Chief Complaint: Illness Stated Complaint: SWELLING TO HANDS ED Provider: Christiano Park Discharge Problem: Superficial vein thrombosis, Weakness Patient Disposition: Admitted As Inpatient Discharge Instructions Interventions: ED Discharge Assessment Last Done: 09/23/19 12:41
[2019-09-23] MEDS ORDERED: ACETAMINOPHEN 325 MG TAB PO PRN (13:14)
--- NOTE | 2019-09-23 13:59 | Cardiology Progress Note ---
Date of Service September 23, 2019 Subjective It was my pleasure to see Mr. Gaines in consultation today September 23, 2019. He is a very pleasant 84-year-old gentleman who presents the emergency room with complaints of nausea, fatigue and left arm swelling. Recently admitted with tachybradycardia syndrome and underwent dual-chamber permanent pacemaker placement. He was also started on amiodarone at that time. He states that since discharge he just has not been feeling well notes that he is been weak. Poor appetite but denies any chest pain, shortness of breath, palpitations, lightheadedness, dizziness or syncope. Also having significant pain on the left forearm with swelling and erythema. Results & Data Vital Signs (Past 12 Hours) Vital Signs Temp Pulse Pulse Resp BP BP Pulse Ox 09/23/19 13:27 78 09/23/19 13:25 36.5 C 64 18 176/83 H 98 09/23/19 12:41 60 18 169/82 H 95 09/23/19 10:30 60 17 161/81 H 98 09/23/19 09:58 67 18 166/93 H 98 09/23/19 08:36 60 18 139/65 97 09/23/19 07:57 36.7 C 82 18 108/68 99
--- NOTE | 2019-09-23 14:03 | Cardiology Consultation ---
Date of Consultation September 23, 2019 Assessment & Plan (1) Superficial vein thrombosis: (2) Paroxysmal atrial fibrillation: (3) Tachycardia-bradycardia syndrome: (4) S/P placement of cardiac pacemaker: (5) Pneumothorax on left: Superficial thrombosis of the left upper extremity already on Xarelto anticoagulation, improving as per since presentation. He underwent dual-chamber permanent pacemaker placement a few days ago and started on amiodarone to maintain sinus rhythm with his history of paroxysmal atrial fibrillation. Overall, my suspicion is that his nausea and fatigue is due to recent admission, deconditioning and advanced age. We will continue current outpatient cardiac medical regimen. Pneumothorax continues to improve and the patient denies any shortness of breath. History of Present Illness Reason for Consultation: Tachy-froilan syndrome s/p PPM placement Requesting Physician: Dr. Michaels Attending Physician: Bud Michaels MD History of Present Illness It was my pleasure to see Mr. Gaines in consultation today September 23, 2019. He is a very pleasant 84-year-old gentleman who presents the emergency room with complaints of nausea, fatigue and left arm swelling. Recently admitted with tachybradycardia syndrome and underwent dual-chamber permanent pacemaker placement. He was also started on amiodarone at that time. He states that since discharge he just has not been feeling well notes that he is been weak. Poor appetite but denies any chest pain, shortness of breath, palpitations, lightheadedness, dizziness or syncope. Also having significant pain on the left forearm with swelling and erythema. Allergies Allergy/AdvReac Type Severity Reaction Status Date / Time No Known Allergies Allergy Verified 09/23/19 08:23 Home Medications Home Medications Medication Instructions Recorded Confirmed Type finasteride 5 mg PO DAILY@209901/10/19 09/23/19 History cyanocobalamin (vitamin B-12) 1,000 mcg PO QAM 03/09/19 09/23/19 History 1,000 mcg tablet Potassium Tab 75 mg PO MOWEFR@79908/10/19 09/23/19 History Xarelto 20 mg PO DAILY@209908/10/19 09/23/19 History ferrous sulfate [iron] 325 mg PO MOWEFR@79908/10/19 09/23/19 History levothyroxine 125 mcg PO QAM 08/10/19 09/23/19 History amiodarone 200 mg PO DAILY@209909/23/19 09/23/19 History candesartan 32 mg PO DAILY@2100 09/23/19 09/23/19 History cephalexin 500 mg PO BID 09/23/19 09/23/19 History metoprolol succinate 50 mg PO DAILY@0900 09/23/19 09/23/19 History tamsulosin 0.4 mg PO DAILY@0200 09/23/19 09/23/19 History Patient History Medical History BPH (benign prostatic hyperplasia) CKD (chronic kidney disease), stage III HTN (hypertension) Hypothyroidism Mitral regurgitation On rivaroxaban therapy (Acute) Paroxysmal atrial fibrillation Tobacco abuse Surgical History History of cataract surgery S/P placement of cardiac pacemaker Family History Brother Cancer Mother Stroke Social History Smoking Status: Current every day smoker Tobacco Type: Pipe Second Hand Exposure: No; Hx Alcohol Use: No Hx Substance Use: No Preferred Language: Citizen [place] Communication Ability: Effective Windlasser Required: No Beliefs That Will Affect Care: None marital status: Current Living Situation: Spouse Other Information That Helps Us Care for You: No Feels Safe at Home: Yes Safety Concerns: Feels Safe At This Time Review of Systems Review of Systems: All systems reviewed & are unremarkable except as noted in HPI & below Physical Exam Physical Exam: General: Awake, alert and oriented x 3. No acute distress. HEENT: Normocephalic, atraumatic. Pupils equal, round and reactive to light and accommodation. Extraocular muscles are intact. Anicteric sclera. Moist mucous membranes. Neck: No JVD. No bruit. Cardiovascular: Regular. Positive S-4. Normal S-1 and S-2. No S-3. 3/6 holosystolic ejection murmur, left sternal border, mid-clavicular line with radiation to the axilla. No rubs. Pulmonary: Clear to auscultation bilaterally. No rales, rhonchi, or wheezing. Abdomen: Bowel sounds x 4, soft. No rebound, guarding or tenderness. No organomegaly. Extremities: No clubbing, cyanosis or edema. +2 pedal pulses bilaterally. Skin: Warm and dry. Results & Data ([facility]) Vital Signs (Past 12 Hours) Vital Signs Temp Pulse Pulse Resp BP BP Pulse Ox 09/23/19 13:27 78 09/23/19 13:25 36.5 C 64 18 176/83 H 98 09/23/19 12:41 60 18 169/82 H 95 09/23/19 10:30 60 17 161/81 H 98 09/23/19 09:58 67 18 166/93 H 98 09/23/19 08:36 60 18 139/65 97 09/23/19 07:57 36.7 C 82 18 108/68 99
[2019-09-23] MEDS: DOCUSATE SODIUM 100 MG CAP PO SCH ×2 (14:30→20:06)
[2019-09-23] MEDS: POLYETHYLENE (MIRALAX) 17 GM PACK PO SCH ×2 (14:30→20:06)
[2019-09-23] MEDS: cephALEXin 500 MG CAP PO SCH (20:06)
[2019-09-23] MEDS ORDERED: FINASTERIDE 5 MG TAB PO SCH (21:00)
[2019-09-23] MEDS ORDERED: RIVAROXABAN 20 MG TAB PO SCH (21:00)
[2019-09-23] MEDS ORDERED: METOPROLOL SUCC 50MG EXT REL TAB PO SCH (21:00)
[2019-09-23] MEDS ORDERED: TAMSULOSIN HCL 0.4 MG CAP PO SCH (21:00)
[2019-09-23] MEDS ORDERED: AMIODARONE 200 MG TAB PO SCH (21:00)
[2019-09-23] MEDS ORDERED: CANDESARTAN CILEXETIL 32 MG TABLET PO SCH (21:00)
[2019-09-24] MEDS ORDERED: LEVOTHYROXINE SODIUM 125 MCG TABLET PO SCH (06:30)
[2019-09-24 07:42] LABS: Hematocrit (blood only) 40.4 % (42-52); Hemoglobin 13.5 g/dL (14.0-18.0); Mean Corpuscular Hemoglobin 30.8 pg (25-34); Mean Corpuscular Hgb Conc 33.4 g/dL (32-36); Platelet Count 181 K/uL (130-400); RDW Coefficient of Variation 13.7 % (11.5-14.5); RDW Standard Deviation 46.2 fL (36.4-46.3); Red Blood Count 4.39 M/uL (4.7-6.1)
[2019-09-24 08:22] LABS: BUN Creatinine Ratio 15.6 (10-20); Calcium 8.5 mg/dl (8.5-10.1); Creatinine Clr Calc Pharmacy 49.3 ml/min; Est GFR (African American) 67.1; Est GFR (Non-African American) 57.9; Potassium 4.6 mmol/L (3.5-5.1)
[2019-09-24] MEDS ORDERED: CYANOCOBALAMIN 500 MCG TABLET (VITAMIN B-12) PO SCH (09:00)
[2019-09-24] MEDS: cephALEXin 500 MG CAP PO SCH (09:28)
[2019-09-24] MEDS: DOCUSATE SODIUM 100 MG CAP PO SCH (09:28)
[2019-09-24] MEDS: POLYETHYLENE (MIRALAX) 17 GM PACK PO SCH (09:31)
--- NOTE | 2019-09-24 11:13 | Hospitalist Progress Note ---
Date of Service September 24, 2019 Assessment & Plan (1) Superficial vein thrombosis: Presented to ED with swelling of LUE. Venous duplex demonstrated superficial thrombophlebitis. Mild associated erythema. Had been started on cephalexin in clinic on 09/20. No fever or leukocytosis. Both patient and his state that appearance of hand and arm are improving since cephalexin started. Finish course of cephalexin. Warm compresses. Elevate LUE. Further evaluation as necessary for worsening symptoms. (2) Elevated troponin: Serum troponins minimally elevated @ 0.066, 0.50, 0.055. No anginal symptoms or EKG changes. Troponins were elevated 09/13 & 09/14 in setting of PAF with RVR with last determination on 09/14 = 0.359. Acute coronary syndrome very unlikely. (3) Paroxysmal atrial fibrillation: History of tachy-froilan with PAF and bradycardia. S/P dual chamber pacemaker 09/18/19. Continue amiodarone, metoprolol, rivaroxaban. 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 Pacemaker follow-up in clinic. (5) Pneumothorax on left: Small left pneumothorax after pacemaker placement 09/18/19. Pneumothorax improved with conservative management. Repeat chest x-ray on 09/22 showed that the pneumothorax measured 2 mm. No need for further imaging unless symptoms occur. (6) HTN (hypertension): BP's elevated at times, but generally well-controlled. Continue metoprolol, candesartan. (7) CKD (chronic kidney disease), stage III: Serum creatinine stable at 1.14. (8) Nausea: Intermittent nausea during recent illnesses. QTc 502 msec. Best to avoid ondansetron, promethazine, and other QT-prolonging meds. Improved. Tolerating solid diet. No need for further evaluation at this time. (9) Constipation: Mild constipation. MiraLax PRN. (10) BPH (benign prostatic hyperplasia): Continue finasteride and tamsulosin. (11) Hypothyroidism: TSH 0.872 on 09/14/19. Continue levothyroxine. (12) DVT prophylaxis: Continue rivaroxaban. Ambulate. (13) Discharge planning issues: Discharge to home. Family Medicine follow-up with Dr. Raf Uribe. Cardiology follow-up with Dr. Barragan. (14) Prolonged QT interval: Admission and Anticipated Discharge Date Admission Date: September 23, 2019 Subjective Recheck for multiple problems. Patient seen in their room around 10:30; visiting. Doing well. No fever. Left hand and arm feel better. No CP or SOB. Nausea resolved. Ambulating in hallway without lightheadedness or other problems. Ready to go home. Physical Exam Constitutional: no acute distress Respiratory: no respiratory distress Auscultation: lungs clear to auscultation bilaterally Cardiovascular: Rate/Rhythm: regular rate and regular rhythm Vessels: no JVD Extremities: no calf tenderness and no edema Chest (Breasts): Additional Comments: L subclavian pacemaker incision without hematoma, erythema, warmth, or drainage Gastrointestinal (Abdomen): normal bowel sounds, soft, nontender, no hepatosplenomegaly Musculoskeletal: minimal edema dorsum L hand L forearm IV site with minimal erythema and swelling; no drainage Skin: no rashes, warm and dry Psychiatric: Orientation: alert and oriented x 3 Results & Data Results & Data ([facility]) Vital Signs (Past 12 Hours) Vital Signs Temp Pulse Pulse Resp BP Pulse Ox 09/24/19 07:20 36.7 C 60 18 148/81 H 96 09/24/19 04:17 60 09/24/19 03:02 36.4 C L 60 15 158/78 H 97 09/23/19 23:53 36.5 C 64 15 178/81 H 95 Laboratory Results Laboratory Results - last 24 hr 09/23/19 09/23/19 09/24/19 13:50 19:52 07:08 WBC 5.70 RBC 4.39 L Hgb 13.5 L Hct 40.4 L MCV 92.0 MCH 30.8 MCHC 33.4 RDW Std Deviation 46.2 RDW Coeff of Millie 13.7 Plt Count 181 MPV 11.0 H Sodium Potassium Chloride Carbon Dioxide Anion Gap BUN Creatinine Est Cr Clr Drug Dosing Est GFR ( Amer) Est GFR (Non-Af Amer) BUN/Creatinine Ratio Glucose Calcium Troponin I 0.050 H* 0.055 H* 09/24/19 07:08 WBC RBC Hgb Hct MCV MCH MCHC RDW Std Deviation RDW Coeff of Millie Plt Count MPV Sodium 138 Potassium 4.6 Chloride 105 Carbon Dioxide 30 Anion Gap 3.0 BUN 18 Creatinine 1.14 Est Cr Clr Drug Dosing 49.3 Est GFR ( Amer) 67.1 Est GFR (Non-Af Amer) 57.9 BUN/Creatinine Ratio 15.6 Glucose 85 Calcium 8.5 Troponin I ECG Additional Comments: EKG performed at 0720 reviewed and demonstrated atrial-paced rhythm at 60 / min, QTc 502 msec, no acute changes.
--- NOTE | 2019-09-24 12:53 | Cardiology Progress Note ---
Date of Service September 24, 2019 Assessment & Plan (1) Superficial vein thrombosis: Clinically improving, on chronic anticoagulation Overall patient stable Patient ambulating hallway stable for patient report any worsening symptoms or complaints (2) Paroxysmal atrial fibrillation: (3) Tachycardia-bradycardia syndrome: (4) S/P placement of cardiac pacemaker: (5) Pneumothorax on left: Superficial thrombosis of the left extremity already on Xarelto anticoagulation, improving as per since presentation. He underwent dual-chamber permanent pacemaker placement a few days ago and started on amiodarone to maintain sinus rhythm with his history of paroxysmal atrial fibrillation. Presenting symptoms are improved and pneumothorax resolving Subjective Patient seen and examined, chart, medications, telemetry reviewed. Patient feeling improved this morning ambulatory in room. No chest pain or shortness of breath. No tachypalpitations or dizziness. Telemetry reveals appropriate pacer function, no tachyarrhythmias Superficial phlebitis improved Physical Exam Constitutional: WD/WN, vitals as above Eyes: PERRL, conjunctivae normal, anicteric sclerae ENMT: external ear and nose normal, oropharynx normal Neck: trachea midline, no thyromegaly Respiratory: normal respiratory effort, lungs clear to auscultation Good aeration to both apices Cardiovascular: Rate/Rhythm: regular rate and regular rhythm Heart Sounds: normal S1 and normal S2; no gallop and no murmur Palpation: normal PMI Vessels: normal carotid upstroke and radial pulses present; no JVD and no carotid bruit Extremities: no edema Chest (Breasts): Chest: + pacemaker (Surgical incision healing well no surrounding erythema or hematoma) Gastrointestinal (Abdomen): normal bowel sounds, soft, nontender, no hepatosplenomegaly Musculoskeletal: no cyanosis or clubbing, extremities motor strength 5/5 Skin: no rashes, warm and dry Neurologic: PERRL, EOMI, accommodation nl, no face palsy, no dysarthria Psychiatric: A+Ox3, euthymic affect Results & Data Vital Signs (Past 12 Hours) Vital Signs Temp Pulse Pulse Pulse Resp BP Pulse Ox 09/24/19 11:49 36.5 C 64 60 18 163/79 H 97 09/24/19 11:17 36.5 C 60 18 163/79 H 97 09/24/19 07:20 36.7 C 60 18 148/81 H 96 09/24/19 04:17 60 09/24/19 03:02 36.4 C L 60 15 158/78 H 97 Laboratory Results Laboratory Results - last 24 hr 09/23/19 09/23/19 09/24/19 13:50 19:52 07:08 WBC 5.70 RBC 4.39 L Hgb 13.5 L Hct 40.4 L MCV 92.0 MCH 30.8 MCHC 33.4 RDW Std Deviation 46.2 RDW Coeff of Millie 13.7 Plt Count 181 MPV 11.0 H Sodium Potassium Chloride Carbon Dioxide Anion Gap BUN Creatinine Est Cr Clr Drug Dosing Est GFR ( Amer) Est GFR (Non-Af Amer) BUN/Creatinine Ratio Glucose Calcium Troponin I 0.050 H* 0.055 H* 09/24/19 07:08 WBC RBC Hgb Hct MCV MCH MCHC RDW Std Deviation RDW Coeff of Millie Plt Count MPV Sodium 138 Potassium 4.6 Chloride 105 Carbon Dioxide 30 Anion Gap 3.0 BUN 18 Creatinine 1.14 Est Cr Clr Drug Dosing 49.3 Est GFR ( Amer) 67.1 Est GFR (Non-Af Amer) 57.9 BUN/Creatinine Ratio 15.6 Glucose 85 Calcium 8.5 Troponin I
--- NOTE | 2019-09-24 15:22 | Discharge Summary ---
Date of Service Date of Admission: 09/23/19 Date of Discharge: 09/24/19 Admission HPI Per Admitting Provider 84-year-old male with PMH paroxysmal atrial fibrillation anticoagulated on Xarelto, tachybradycardia syndrome s/p pacemaker, CKD stage III, HTN, BPH, hypothyroidism, and other problems listed below who presents to the ED for evaluation of nausea and left hand swelling. Patient is primarily Korean speaking, therefore is the bedside who provides the history. Patient was recently admitted to [facility] 09/13 - 09/19 for management of tachybradycardia syndrome and underwent pacemaker placement on 09/17. Postop course was complicated by small left pneumothorax however patient did not require chest tube placement. Patient was also started on metoprolol and amiodarone. Candesartan dose was increased. Since arriving home, patient developed left hand swelling and erythema and also an area of erythema on the left forearm. He was seen in the cardiology clinic on 09/20 and placed on cephalexin. reports that swelling and erythema had been improving until this morning when it became acutely worse. Yesterday, patient developed some nausea. No vomiting, denies abdominal pain. Reports no bowel movement in 1 week. Since arriving to the ED, nausea and left arm swelling and erythema have improved. There have been no fevers or chills. Denies any surrounding erythema or drainage from recent pacemaker insertion site. No palpitations, chest pain, shortness of breath, syncopal events. Denies lightheadedness and dizziness. No urinary symptoms. In the ED, left upper extremity venous Doppler shows acute thrombus within the left forearm at the level of the mid cephalic vein. KUB shows signs of fecal stasis. CXR shows considerable improvement in left apical pneumothorax. Labs are unremarkable with the exception of a mildly elevated troponin at 0.066. EKG demonstrates an atrial paced rhythm. Principal Diagnosis superficial thrombophlebitis left forearm OTHER ACUTE DIAGNOSES: elevated serum troponin Discharge Data Allergies Allergy/AdvReac Type Severity Reaction Status Date / Time No Known Allergies Allergy Verified 09/23/19 08:23 Consultations 09/23/19 10:56 ED Decision to Admit Stat 09/23/19 11:20 Consult Cardiology Stat 09/23/19 13:14 Consult Case Management - Discharge Planning Routine Ordered Studies 09/23/19 08:21 US venous doppler UE LT Stat Hospital Course (1) Superficial vein thrombosis: Presented to ED with swelling of LUE. Venous duplex demonstrated superficial thrombophlebitis. Mild associated erythema. Had been started on cephalexin in clinic on 09/20 for possible cellulitis. No fever or leukocytosis. Both patient and his state that appearance of hand and arm are improving since cephalexin started. Finish course of cephalexin. Warm compresses. Elevate LUE. Further evaluation as necessary for worsening symptoms. (2) Elevated troponin: Serum troponins minimally elevated @ 0.066, 0.50, 0.055. No anginal symptoms or EKG changes. Troponins were elevated 09/13 & 09/14 in setting of PAF with RVR with last determination on 09/14 = 0.359. Acute coronary syndrome very unlikely. (3) Paroxysmal atrial fibrillation: History of tachy-froilan with PAF and bradycardia. S/P dual chamber pacemaker 09/18/19. Continue amiodarone, metoprolol, rivaroxaban. 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 Pacemaker follow-up in clinic. (5) Pneumothorax on left: Small left pneumothorax after pacemaker placement 09/18/19. Pneumothorax improved with conservative management. Repeat chest x-ray on 09/22 showed that the pneumothorax measured 2 mm. No need for further imaging unless symptoms occur. (6) HTN (hypertension): BP's elevated at times, but generally well-controlled. Continue metoprolol, candesartan. (7) CKD (chronic kidney disease), stage III: Serum creatinine stable at 1.14. (8) Nausea: Intermittent nausea during recent illnesses. QTc 502 msec. Best to avoid ondansetron, promethazine, and other QT-prolonging meds. Improved. Tolerating solid diet. No need for further evaluation at this time. (9) Constipation: Mild constipation. MiraLax PRN. (10) BPH (benign prostatic hyperplasia): Continue finasteride and tamsulosin. (11) Hypothyroidism: TSH 0.872 on 09/14/19. Continue levothyroxine. (12) DVT prophylaxis: Continue rivaroxaban. Ambulate. (13) Discharge planning issues: Discharged to home. Family Medicine follow-up with Dr. Raf Uribe. Cardiology follow-up with Dr. Barragan. (14) Prolonged QT interval: Total Time Total Time Spent Total Time Spent (In Minutes): 25 Discharge Plan Discharge Items Patient Disposition: Home - Self-Care Reason For Visit: nausea, swelling of left arm and hand Discharge Diagnosis: superficial thrombophlebitis left forearm (small blood clot at IV site) Activity: As commented below Activity Comment: Please refer to pacemaker instructions from 09/20/19. Non-emergency contact: Primary Care Provider, Hospitalist and [employer] Manager Architect Call non-emergency contact if: you have any medication questions, your symptoms worsen and your temperature is above 101 Follow-up/Referrals: Jame Barragan DO [[employer] Manager Architect] - (Office will contact you with next appointment.) Raf Uribe DO [Primary Care Provider] - 10/01/19 2:40 pm (May Anny Brar PA-C Department [facility] 10/01/2019 2:40 PM Provider) Diet: Heart Healthy Addtl Attending Provider Instructions: MEDICATION CHANGES: Take MiraLax once or twice a day as needed for constipation. Take acetaminophen (Tylenol Extra Strength) 500 mg pills, 2 pills every 8 hours as needed for pain. Continue taking cephalexin (Keflex) as prescribed until finished. SUMMARY OF TEST RESULTS: Ultrasound showed small / superficial blood clot in left forearm. Chest x-ray showed that the small pneumothorax (collapsed lung) on the left continues to improve, now very small. RECOMMENDATIONS FOR FOLLOW-UP: Follow-up in pacemaker clinic. Office will contact you with next appointment. OTHER INSTRUCTIONS: Apply warm compresses to left forearm a few times a day until better. Elevate left arm to help with swelling. Seek medical attention if you have: * temperature above 101 * chest pain or trouble breathing * abdominal pain, nausea, vomiting * diarrhea, dark stools or bloody stools * worsening pain, swelling, redness of left arm * any unanswered questions or concerns Call 911 if symptoms are severe. Please take good care of yourself. Call if you have any questions or problems. You can reach a [facility] hospitalist on duty at [facility] 24 hours a day by calling [phone]. My cell # is [phone]. Pending Studies at Discharge: No Stand-Alone Forms: My [facility], Smoking Cessation Medications and DC Order Prescriptions: New acetaminophen 500 mg tablet 1,000 mg PO Q8H PRN (Reason: fever or pain) Qty: 60 RF: 0 Continued cyanocobalamin (vitamin B-12) [Vitamin B-12] 1,000 mcg tablet 1,000 mcg PO QAM RF: 0 finasteride 5 mg tablet 5 mg PO DAILY@2100 RF: 0 ferrous sulfate [iron] 325 mg (65 mg iron) Tablet 325 mg PO MOWEFR@0800 RF: 0 Potassium Tab 75 mg PO MOWEFR@0800 RF: 0 levothyroxine 125 mcg Tablet 125 mcg PO QAM RF: 0 Xarelto 20 mg Tablet 20 mg PO DAILY@2100 RF: 0 amiodarone 200 mg tablet 200 mg PO DAILY@2099 RF: 0 metoprolol succinate 50 mg tablet extended release 24 hr 50 mg PO DAILY@0900 RF: 0 tamsulosin 0.4 mg capsule 0.4 mg PO DAILY@0200 RF: 0 candesartan 32 mg tablet 32 mg PO DAILY@2099 RF: 0 cephalexin 500 mg capsule 500 mg PO BID RF: 0 Discharge Orders: Discharge Order (Routine); Ordered 09/24/19 Ordered By: Bud Michaels Admission Data Admit Date/Time: 09/23/19 11:31 Attending Provider: Bud Michaels Admit Provider: Bud Michaels Primary Care Provider: Raf Uribe Other Providers: Chelsie Flalon ; Alex Flores Other Interventions: Discharge Summary Assessment (RN) Last Done: 09/24/19 11:49 DC Date/Time DO NOT enter until pt leaves facility: 09/24/19 13:21
--- NOTE | 2019-09-24 22:15 | Electrocardiogram Report ---
Test Reason : Blood Pressure : / mmHG Vent. Rate : 060 BPM Atrial Rate : 060 BPM P-R Int : 370 ms QRS Dur : 094 ms QT Int : 502 ms P-R-T Axes : -45 -19 037 degrees QTc Int : 502 ms Atrial-paced rhythm with prolonged AV conduction Inferior infarct (cited on or before 18-SEP-2019) Prolonged QT Abnormal ECG When compared with ECG of 23-SEP-2019 08:32, No significant change was found Confirmed by Fabian Wade ([id number]) on 09/24/2019 10:14:53 PM Referred By: REFERRED SELF Confirmed By:Fabian Wade
== END 2019-09-24 13:21 | disposition home or self-care (01) ==
LOC: 2N 07:52 → ED 07:52 → 2N 12:41

== ENCOUNTER 2020-08-07 14:18 | Inpatient (IN) ==
--- NOTE | 2020-08-07 14:59 | Emergency Department Note ---
Impression & Plan Weakness, Prolonged QT interval, ROBERTO (dyspnea on exertion) ED Provider Note INFORMANT: Patient ED PROVIDER(S): Bud Mckeon MD CHIEF COMPLAINT: Shortness of breath PLAN: Disposition: Admitted Condition: Good Outpatient prescription management: none Referral: None MEDICAL DECISION MAKING: Patient presents to the emergency department because of weakness and shortness of breath. He has had dyspnea on exertion. Outpatient labs were concerning for CHF. Laboratory testing revealed an unremarkable CBC and chemistry panel. The patient had an elevated troponin and BNP. A chest x-ray was ordered but his asked for it to be held because he just had one done. This was done as an outpatient. I was unable to obtain the report directly. The hospitalist will be able to review. His ECG did not reveal any acute ischemic change. Consultation was made with [facility] hospitalist service. The patient was evaluated in the ER and admitted for further management. Triage Nursing notes reviewed and agree them. Vital Signs: reviewed and remarkable for no significant abnormalities Differential diagnosis: Reactive airway disease, pneumonia, pneumothorax, COPD, CHF, infections, cardiac ischemia, pulmonary embolism, musculoskeletal, gastrointestinal, as well as other pathologies. Diagnostics interpreted by me: ECG: Twelve-lead ECG reveals sinus rhythm with first-degree block and prolonged QT interval. No ST elevation or depression. No PACs or PVCs. Cardiac Monitoring: Cardiac monitoring ordered by me: The patient was placed on continuous cardiac monitoring and observed. It revealed a normal sinus rhythm at 60 beats per minute without ectopy or evidence of dysrhythmia. Imaging studies: Deferred by request of family. HPI: The patient is a 85 year old male who presents to the Emergency Room with complaints of weakness and fatigue. This started a few weeks ago and is wors ening. The patient also notes the following associated symptoms, ROBERTO, SOB, cough, HTN. The patient has taken no medication for relieving factors. Current pain is rated as 0/10. Has mild constipation. Pt denies LOC, headache, fevers, chills, diaphoresis, visual changes, neck pain, chest pain, nausea, vomiting, abdominal pain, back pain, melena, hematochezia, urinary symptoms, numbness, lymphadenopathy, rash, or other complaints. ROS: See above HPI for pertinent positives & negatives. A total of 10 systems reviewed and were otherwise negative. PAST MEDICAL HISTORY:See Below , Tachy-froilan, AFib PAST SURGICAL HISTORY:See Below, Pacer FAMILY HISTORY:See Below SOCIAL HISTORY:See Below, HOME MEDICATIONS:See Below ALLERGIES:See Below VITALS:See Below PHYSICAL EXAMINATION: GENERAL: Awake, alert, tired-appearing, in no distress HENT: Normocephalic, atraumatic. Oropharynx unremarkable. EYES: Normal conjunctiva. Sclera non-icteric. NECK: Inspection normal. Non-tender. Supple. No nuchal rigidity. FROM. No masses. RESPIRATORY: Clear to auscultation. No wheezes. No rales. Normal respiratory effort. CARDIAC: Normal rate. Normal rhythm. No murmurs. No rubs. Extremities warm and well perfused. Pulses equal. No JVD. GI: Soft, non-distended. No tenderness to palpation. No rebound or guarding. No masses. RECTAL: Deferred. MUSCULOSKELETAL: Atraumatic. Chest examination reveals no tenderness. The back is symmetrical on inspection without obvious abnormality. There is no CVA tenderness to palpation. No joint edema. LOWER EXTREMITIES: Calves are equal size bilaterally and non-tender. No edema. No discoloration. NEURO: Normal sensorium. No sensory or motor deficits noted. SKIN: No rash or jaundice noted. Bud Mckeon MD Past Med/Surg History Medical History (Updated 08/07/20 @ 20:10 by Alejandrina Vital PA-C) BPH (benign prostatic hyperplasia) CKD (chronic kidney disease), stage III HTN (hypertension) Hypothyroidism Mitral regurgitation Paroxysmal atrial fibrillation Prolonged QT interval Tachycardia-bradycardia syndrome Tobacco abuse Surgical History History of cataract surgery S/P placement of cardiac pacemaker Family History Brother Cancer Mother Stroke Social History Smoking Status: Light tobacco smoker Tobacco Type: Pipe Cigarettes Per Day: 1-2 BOWLS/DAY; Second Hand Exposure: No; Hx Alcohol Use: Yes Alcohol type: wine Hx Substance Use: No Preferred Language: [place] Communication Ability: Effective Visual Impairment: No Limitations 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 Beliefs That Will Affect Care: None marital status: Current Living Situation: Spouse Feels Safe at Home: Yes Safety Concerns: Feels Safe At This Time Assistive Devices: None Allergies Allergies Allergy/AdvReac Type Severity Reaction Status Date / Time No Known Allergies Allergy Verified 08/07/20 15:42 Home Meds Home Medications Medication Instructions Recorded Confirmed finasteride 5 mg PO DAILY@9901/10/19 08/07/20 cyanocobalamin (vitamin B-12) 1,000 mcg PO QAM 03/09/19 08/07/20 1,000 mcg tablet ferrous sulfate [iron] 325 mg PO 3XWK 08/10/19 08/07/20 candesartan 32 mg PO DAILY@209909/23/19 08/07/20 metoprolol succinate 50 mg PO DAILY@209909/23/19 08/07/20 tamsulosin 0.4 mg PO DAILY@9909/23/19 08/07/20 amiodarone [Pacerone] 100 mg PO QPM 08/07/20 08/07/20 aspirin 81 mg PO QAM 08/07/20 08/07/20 fluticasone propionate 1 spray INTRANASAL BID 08/07/20 08/07/20 levothyroxine 150 mcg PO QAM 08/07/20 08/07/20 potassium 75 mg PO MOWEFR 08/07/20 08/07/20 torsemide 10 mg PO DAILY PRN 08/07/20 08/07/20 Previous Rx's Medication Instructions Recorded acetaminophen 1,000 mg PO Q8H PRN #60 tab 09/24/19 albuterol sulfate 90 mcg/actuation 2 puff INHALATION Q6H PRN #18 g 07/30/20 aerosol inhaler tiotropium 2.5 mcg-olodaterol 2.5 2 puff INHALATION DAILY #4 g 07/30/20 mcg/actuation mist for inhalation Results & Data (ED) Vital Signs Vital Signs - 24 hr 08/07/20 14:26 08/07/20 14:43 08/07/20 14:56 Temperature 36.4 C L Temperature Source Oral Pulse Rate 73 69 Pulse Rate from SpO2 Sensor 69 Respiratory Rate 18 19 Blood Pressure 155/89 H 164/84 H Blood Pressure Mean 111 110 Pulse Oximetry 98 98 97 Oxygen Delivery Method Room Air Room Air Sepsis Recent Fever Within 48 Hours No Sepsis New/Unexplained Change in Mental Status No Sepsis Action Taken by Nursing No Action Required 08/07/20 15:00 08/07/20 16:00 08/07/20 16:17 Temperature Temperature Source Pulse Rate 61 60 71 Pulse Rate from SpO2 Sensor 60 71 Respiratory Rate 18 19 22 Blood Pressure 153/83 H 165/85 H 167/98 H Blood Pressure Mean 106 111 121 Pulse Oximetry 98 95 97 Oxygen Delivery Method Room Air Sepsis Recent Fever Within 48 Hours Sepsis New/Unexplained Change in Mental Status Sepsis Action Taken by Nursing 08/07/20 16:30 08/07/20 17:00 08/07/20 17:30 Temperature Temperature Source Pulse Rate 60 60 72 Pulse Rate from SpO2 Sensor 60 60 72 Respiratory Rate 24 20 18 Blood Pressure 167/84 H 162/83 H 178/94 H Blood Pressure Mean 111 109 122 Pulse Oximetry 96 96 98 Oxygen Delivery Method Sepsis Recent Fever Within 48 Hours Sepsis New/Unexplained Change in Mental Status Sepsis Action Taken by Nursing 08/07/20 18:00 Temperature Temperature Source Pulse Rate 60 Pulse Rate from SpO2 Sensor 60 Respiratory Rate 22 Blood Pressure 162/80 H Blood Pressure Mean 107 Pulse Oximetry 97 Oxygen Delivery Method Sepsis Recent Fever Within 48 Hours Sepsis New/Unexplained Change in Mental Status Sepsis Action Taken by Nursing Laboratory Data Result diagrams: 08/07/20 15:06 08/07/20 15:06 Lab Results 08/07/20 08/07/20 08/07/20 Range/Units 15:06 15:06 15:06 WBC 6.49 (4.8-10.8) K/uL RBC 4.63 L (4.7-6.1) M/uL Hgb 14.7 (14.0-18.0) g/dL Hct 44.0 (42-52) % MCV 95.0 (80-100) fL MCH 31.7 (25-34) pg MCHC 33.4 (32-36) g/dL RDW Std Deviation 46.4 H (36.4-46.3) fL RDW Coeff of Millie 13.3 (11.5-14.5) % Plt Count 195 (130-400) K/uL MPV 11.0 H (7.4-10.4) fL Immature Gran % (Auto) 0.2 % Neut % (Auto) 71.1 % Lymph % (Auto) 14.0 % Kimble % (Auto) 11.6 % Eos % (Auto) 2.6 % Baso % (Auto) 0.5 % Neut # (Auto) 4.62 (1.4-6.5) K/uL Lymph # (Auto) 0.91 L (1.2-3.4) K/uL Kimble # (Auto) 0.75 H (0.11-0.59) K/uL Eos # (Auto) 0.17 (0-0.5) K/uL Baso # (Auto) 0.03 (0-0.2) K/uL Immature Gran # (Auto) 0.01 (0.00-0.02) K/uL Sodium 136 (136-145) mmol/L Potassium 4.1 (3.5-5.1) mmol/L Chloride 102 (98-107) mmol/L Carbon Dioxide 30 (21-32) mmol/L Anion Gap 4.0 (3-11) BUN 16 (7-18) mg/dl Creatinine 1.20 (0.6-1.4) mg/dl Est Cr Clr Drug Dosing 50.4 ml/min Est GFR ( Amer) 62.6 ml/min Est GFR (Non-Af Amer) 54.0 ml/min BUN/Creatinine Ratio 13.2 (10-20) Glucose 72 (70-99) mg/dl Calcium 8.3 L (8.5-10.1) mg/dl Magnesium 2.4 (1.8-2.4) mg/dl Total Bilirubin 0.9 (0.2-1) mg/dl AST 13 L (15-37) U/L ALT 9 L (12-78) U/L Alkaline Phosphatase 42 L (45-117) U/L Troponin I 0.097 H* (0-0.045) ng/ml NT-Pro-B Natriuret Pep 2689 H (0-1800) pg/ml Total Protein 6.6 (6.4-8.2) gm/dl Albumin 3.0 L (3.4-5.0) gm/dl Globulin 3.6 (2.5-4.0) gm/dl Albumin/Globulin Ratio 0.8 L (0.9-2) TSH 8.510 H (0.300-4.500) uIu/ml Free T4 1.41 (0.8-1.6) ng/dl Specimen Hemolysis Urine Color Urine Appearance (Clear) Urine pH (4.5-7.5) Ur Specific Rock (1.000-1.030) Urine Protein (Negative) Urine Glucose (UA) (Negative) Urine Ketones (Negative) Urine Blood (Negative) Urine Nitrite (Negative) Urine Bilirubin (Negative) Urine Urobilinogen (Negative) Ur Leukocyte Esterase (Negative) Urine WBC (Auto) (0-5) /hpf Urine RBC (Auto) (0-4) /hpf U Hyaline Cast (Auto) (0-5) /lpf U Epithel Cells (Auto) (0-5) /lpf Urine Bacteria (Auto) (Negative) Anaplasma Smear See Comment COVID-19 Eval Order SARS-CoV-2 (PCR) (Negative) 08/07/20 08/07/20 08/07/20 Range/Units 15:26 16:38 16:38 WBC (4.8-10.8) K/uL RBC (4.7-6.1) M/uL Hgb (14.0-18.0) g/dL Hct (42-52) % MCV (80-100) fL MCH (25-34) pg MCHC (32-36) g/dL RDW Std Deviation (36.4-46.3) fL RDW Coeff of Millie (11.5-14.5) % Plt Count (130-400) K/uL MPV (7.4-10.4) fL Immature Gran % (Auto) % Neut % (Auto) % Lymph % (Auto) % Kimble % (Auto) % Eos % (Auto) % Baso % (Auto) % Neut # (Auto) (1.4-6.5) K/uL Lymph # (Auto) (1.2-3.4) K/uL Kimble # (Auto) (0.11-0.59) K/uL Eos # (Auto) (0-0.5) K/uL Baso # (Auto) (0-0.2) K/uL Immature Gran # (Auto) (0.00-0.02) K/uL Sodium (136-145) mmol/L Potassium (3.5-5.1) mmol/L Chloride (98-107) mmol/L Carbon Dioxide (21-32) mmol/L Anion Gap (3-11) BUN (7-18) mg/dl Creatinine (0.6-1.4) mg/dl Est Cr Clr Drug Dosing ml/min Est GFR ( Amer) ml/min Est GFR (Non-Af Amer) ml/min BUN/Creatinine Ratio (10-20) Glucose (70-99) mg/dl Calcium (8.5-10.1) mg/dl Magnesium (1.8-2.4) mg/dl Total Bilirubin (0.2-1) mg/dl AST (15-37) U/L ALT (12-78) U/L Alkaline Phosphatase (45-117) U/L Troponin I (0-0.045) ng/ml NT-Pro-B Natriuret Pep (0-1800) pg/ml Total Protein (6.4-8.2) gm/dl Albumin (3.4-5.0) gm/dl Globulin (2.5-4.0) gm/dl Albumin/Globulin Ratio (0.9-2) TSH (0.300-4.500) uIu/ml Free T4 (0.8-1.6) ng/dl Specimen Hemolysis Urine Color Yellow Urine Appearance Clear (Clear) Urine pH 7.0 (4.5-7.5) Ur Specific Rock 1.005 (1.000-1.030) Urine Protein Negative (Negative) Urine Glucose (UA) Negative (Negative) Urine Ketones Negative (Negative) Urine Blood 1+ H (Negative) Urine Nitrite Negative (Negative) Urine Bilirubin Negative (Negative) Urine Urobilinogen Negative (Negative) Ur Leukocyte Esterase Negative (Negative) Urine WBC (Auto) 0 (0-5) /hpf Urine RBC (Auto) 0-4 (0-4) /hpf U Hyaline Cast (Auto) 0 (0-5) /lpf U Epithel Cells (Auto) 0-5 (0-5) /lpf Urine Bacteria (Auto) Negative (Negative) Anaplasma Smear COVID-19 Eval Order Covid19 at [facility] SARS-CoV-2 (PCR) NEGATIVE (Negative) Administered Medications Finasteride (Finasteride 5 Mg Tab) 5 mg PO HS JOE Stop: 09/06/20 20:59 Last Admin: 08/07/20 22:05 Dose: 5 mg Documented by: [id number] Fluticasone Propionate (Fluticasone Propionate Na Spr 16 Gm Btl) 1 sprays VADIM BID JOE Stop: 09/06/20 20:59 Last Admin: 08/07/20 22:03 Dose: 1 sprays Documented by: [id number] Heparin Sodium (Porcine) (Heparin Sod 5,000 Unit/0.5 Ml Vial) 5,000 units SQ Q12 JOE Stop: 09/06/20 20:59 Last Admin: 08/07/20 22:06 Dose: 5,000 units Documented by: [id number] Losartan Potassium (Losartan Potassium 50 Mg Tab) 50 mg PO DAILY@2099 [facility] Stop: 09/06/20 21:59 Last Admin: 08/07/20 22:03 Dose: 50 mg Documented by: [id number] Metoprolol Succinate (Metoprolol Succ 50mg Ext Rel Tab) 50 mg PO DAILY@2099 [facility] Stop: 09/06/20 20:59 Last Admin: 08/07/20 22:05 Dose: 50 mg Documented by: [id number] Tamsulosin HCl (Tamsulosin Hcl 0.4 Mg Cap) 0.4 mg PO HS [facility] Stop: 09/06/20 20:59 Last Admin: 08/07/20 22:06 Dose: 0.4 mg Documented by: [id number] Discontinued Medications Amiodarone HCl (Amiodarone 200 Mg Tab) 100 mg PO ONE ONE Stop: 08/07/20 21:31 Last Admin: 08/07/20 22:04 Dose: 100 mg Documented by: [id number] Furosemide (Furosemide 40 Mg/4 Ml Vial) 20 mg IV NOW STA Stop: 08/07/20 17:02 Last Admin: 08/07/20 17:10 Dose: 20 mg Documented by: [id number] Furosemide (Furosemide 40 Mg/4 Ml Vial) 40 mg IV NOW STA Stop: 08/07/20 20:06 Last Admin: 08/07/20 21:39 Dose: 40 mg Documented by: [id number] Sodium Chloride (Nss 1000ml) 1,000 mls @ 125 mls/hr IV .Q8H [facility] Stop: 08/07/20 22:59 Last Infusion: 08/07/20 18:15 Dose: 0 mls/hr Documented by: [id number] Admin: 08/07/20 15:07 Dose: 125 mls/hr Documented by: [id number] Nitroglycerin (Nitroglycerin 2% Ointment 30gm Tube) 0.5 inch EXT NOW STA Stop: 08/07/20 17:02 Last Admin: 08/07/20 17:10 Dose: 0.5 inch Documented by: [id number] Discharge Plan Visit Data Chief Complaint: Hypertension Stated Complaint: HIGH BP - DOESN'T FEEL WELL ED Provider: Bud cMkeon Discharge Problem: Weakness, Prolonged QT interval, ROBERTO (dyspnea on exertion) Patient Disposition: Admitted As Inpatient Discharge Instructions Interventions: ED Discharge Assessment Last Done: 08/07/20 19:47
[2020-08-07] MEDS ORDERED: SODIUM CHLORIDE 0.9% 1000ML 1,000 ML IV SCH (15:00)
[2020-08-07 15:31] LABS: Basophils # (auto) 0.03 K/uL (0-0.2); Basophils % (auto) 0.5 %; Eosinophils # (auto) 0.17 K/uL (0-0.5); Eosinophils % (auto) 2.6 %; Hemoglobin 14.7 g/dL (14.0-18.0); Immature Granulocytes # (auto) 0.01 K/uL (0.00-0.02); Immature Granulocytes % (auto) 0.2 %; Lymphocytes # (auto) 0.91 K/uL (1.2-3.4); Mean Corpuscular Hemoglobin 31.7 pg (25-34); Mean Corpuscular Hgb Conc 33.4 g/dL (32-36); Monocytes # (auto) 0.75 K/uL (0.11-0.59); Monocytes % (auto) 11.6 %; Neutrophils # (auto) 4.62 K/uL (1.4-6.5); Neutrophils % (auto) 71.1 %; Platelet Count 195 K/uL (130-400); RDW Coefficient of Variation 13.3 % (11.5-14.5); RDW Standard Deviation 46.4 fL (36.4-46.3); Red Blood Count 4.63 M/uL (4.7-6.1); White Blood Count 6.49 K/uL (4.8-10.8)
[2020-08-07 15:39] LABS: Appearance Urine Clear (Clear); Bacteria Urine Automated Negative (Negative); Bilirubin Urine Negative (Negative); Blood Urine 1+ (Negative); Cast Urine Automated 0 /lpf (0-5); Color Urine Yellow; Epithelial Cell Urine Auto 0-5 /lpf (0-5); Glucose Urine UA Negative (Negative); Ketones Urine Negative (Negative); Leukocyte Esterase Urine Negative (Negative); Nitrite Urine Negative (Negative); Protein Urine Negative (Negative); RBC Urine Automated 0-4 /hpf (0-4); Specific Gravity Urine 1.005 (1.000-1.030); Urobilinogen Urine Negative (Negative); WBC Urine Automated 0 /hpf (0-5)
[2020-08-07 16:00] LABS: BUN Creatinine Ratio 13.2 (10-20); Calcium 8.3 mg/dl (8.5-10.1); Creatinine Clr Calc Pharmacy 50.4 ml/min; Est GFR (African American) 62.6 ml/min; Magnesium 2.4 mg/dl (1.8-2.4); Potassium 4.1 mmol/L (3.5-5.1)
[2020-08-07 16:10] LABS: Albumin Globulin Ratio 0.8 (0.9-2); Bilirubin,Total 0.9 mg/dl (0.2-1); Globulin 3.6 gm/dl (2.5-4.0); Thyroid Stimulating Hormone 8.51 uIu/ml (0.300-4.500); Total Protein 6.6 gm/dl (6.4-8.2); Troponin I 0.097 ng/ml (0-0.045)
[2020-08-07 16:23] LABS: T4 Free Thyroxine 1.41 ng/dl (0.8-1.6)
[2020-08-07] MEDS ORDERED: FUROSEMIDE 40 MG/4 ML VIAL IV STA ×2 (17:01→20:05)
[2020-08-07] MEDS ORDERED: NITROGLYCERIN 2% OINTMENT 30GM TUBE EXT STA (17:01)
--- NOTE | 2020-08-07 18:19 | History & Physical Report ---
Date of Service August 07, 2020 Assessment & Plan (1) Heart failure, diastolic, with acute decompensation: (2) Generalized weakness: (3) Fatigue: This is an 85yo M with a PMH of paroxysmal atrial fibrillation, h/o tachy froilan syndrome s/p pacemaker placement, hypothyroidism, CKD III, tobacco use and other medical problems listed below who presents with generalized weakness, fatigue and non productive cough over the past few days. Likely multifactorial with decompensated HF, hypothyroidism with elevated TSH, possible infectious process, arrhythmia Mild decompensation of HFpEF with BNP 2,689, CXR with cardiomegaly and radiographic evidence of mild central pulmonary vascular congestion, small right pleural effusion possible trace left pleural effusion Prescribed Torsemide 10mg PRN for BLE edema but has not been taking much over past few months Given 20mg IV Lasix in ED along with IV fluids. Will give another 40mg IV Lasix this evening and continue daily Most recent TTE from Sep 2019 with EF 55-60%, moderate-severe MR, mild TR and aortic regurgitation Grade 1 diastolic dysfunction documented in the past Strict I&Os, daily weights, low sodium diet Concerned with possible underlying tick borne illness - Lyme and anaplasma serology pending Pacer interrogation, 2D echo, routine cardiology consult (4) Elevated troponin I level: Chronic troponin elevation noted on previous admissions, likely 2/2 uncontrolled HTN Initial trop 0.097. Continue trending troponin, optimize BP (5) HTN (hypertension): Continue NTG 1" paste Q6H, candesartan dose increased to 32mg yesterday, Toprol (6) Hypothyroidism: TSH elevated at 8.510, free T4 wnl Increased levothyroxine from 150 to 175 mcg Will need repeat TFT as an outpatient in 4-6 weeks (7) Paroxysmal atrial fibrillation: NSR on initial EKG. Monitor in telemetry Continue amiodarone, Toprol Not on anticoagulation due to h/o spontaneous calf hematoma (8) Tachycardia-bradycardia syndrome: S/p pacemaker placement (9) Chronic cough: (10) COPD (chronic obstructive pulmonary disease): Follows with Dr. Meyer. Recently started on Stiolto inhaler daily, continue albuterol PRN (11) CKD (chronic kidney disease), stage III: Kidney function at baseline. Monitor with daily BMP DVT Ppx: SQ heparin Q12 Code status: FULL PCP: S [facility] Dispo: Admitted to PCU Patient seen in collaboration with Dr. Bennett. Please see addendum. History of Present Illness Chief Complaint: gen weakness, BLE edema Primary Care Provider: Raf Uribe DO This is an 85yo M with a PMH of paroxysmal atrial fibrillation, h/o tachy froilan syndrome s/p pacemaker placement, hypothyroidism, CKD III, tobacco use and other medical problems listed below who presents with generalized weakness, fatigue and non productive cough over the past few days. Patient is primarily [place]ian speaking so at bedside as preferred watch commander. BP elevated at 180/100 at its highest per home reading. Repeat readings around 160/100. also notes she is observed increased work of breathing at rest and some BLE edema. Was seen in clinic yesterday for the symptoms and had lab work, which revealed an elevated BNP ~ 2600. Denies fever or chills. No lightheadedness or near syncope. No chest pain, palpitations, orthopnea, PND, nausea, vomiting, abdominal pain, dysuria, diarrhea or constipation. No weight gain. Only new medication is Stiolto inhaler. Increased candesartan back to 32mg from 16mg yesterday as instructed in clinic. [place] but denies known tick bites or infectious exposure. Smokes 1 pipe per day. Allergies Allergy/AdvReac Type Severity Reaction Status Date / Time No Known Allergies Allergy Verified 08/07/20 15:42 Home Medications Medication Instructions Recorded Confirmed Type finasteride 5 mg PO DAILY@9901/10/19 08/07/20 History cyanocobalamin (vitamin B-12) 1,000 mcg PO QAM 03/09/19 08/07/20 History 1,000 mcg tablet ferrous sulfate [iron] 325 mg PO 3XWK 08/10/19 08/07/20 History candesartan 32 mg PO DAILY@209909/23/19 08/07/20 History metoprolol succinate 50 mg PO DAILY@209909/23/19 08/07/20 History tamsulosin 0.4 mg PO DAILY@9909/23/19 08/07/20 History acetaminophen 1,000 mg PO Q8H PRN #60 tab 09/24/19 08/07/20 Rx albuterol sulfate 90 mcg/actuation 2 puff INHALATION Q6H PRN #18 g 07/30/20 08/07/20 Rx aerosol inhaler tiotropium 2.5 mcg-olodaterol 2.5 2 puff INHALATION DAILY #4 g 07/30/20 08/07/20 Rx mcg/actuation mist for inhalation amiodarone [Pacerone] 100 mg PO QPM 08/07/20 08/07/20 History aspirin 81 mg PO QAM 08/07/20 08/07/20 History fluticasone propionate 1 spray INTRANASAL BID 08/07/20 08/07/20 History levothyroxine 150 mcg PO QAM 08/07/20 08/07/20 History potassium 75 mg PO MOWEFR 08/07/20 08/07/20 History torsemide 10 mg PO DAILY PRN 08/07/20 08/07/20 History Past Med/Surg History Medical History (Updated 08/07/20 @ 20:10 by Alejandrina Vital PA-C) BPH (benign prostatic hyperplasia) CKD (chronic kidney disease), stage III HTN (hypertension) Hypothyroidism Mitral regurgitation Paroxysmal atrial fibrillation Prolonged QT interval Tachycardia-bradycardia syndrome Tobacco abuse Surgical History History of cataract surgery S/P placement of cardiac pacemaker Family History Brother Cancer Mother Stroke Social History Smoking Status: Light tobacco smoker Tobacco Type: Pipe Cigarettes Per Day: 1-2 BOWLS/DAY; Second Hand Exposure: No; Hx Alcohol Use: Yes Alcohol type: wine Hx Substance Use: No Preferred Language: Slovenian Communication Ability: Effective Visual Impairment: No Limitations Transcription Manager Required: No Beliefs That Will Affect Care: None marital status: Current Living Situation: Spouse Feels Safe at Home: Yes Safety Concerns: Feels Safe At This Time Assistive Devices: None Review of Systems Review of Systems: At least ten systems reviewed and negative except as noted in the HPI. Physical Exam Physical Exam: Please see Dr. Bennett's addendum for physical exam. Results & Data Results & Data ([facility]) Vital Signs (Past 12 Hours) Vital Signs Temp Pulse Resp BP Pulse Ox 08/07/20 16:00 60 19 165/85 H 95 08/07/20 15:00 61 18 153/83 H 98 08/07/20 14:56 97 08/07/20 14:43 69 19 164/84 H 98 08/07/20 14:26 36.4 C L 73 18 155/89 H 98 Laboratory Results Short CBC 08/07/20 08/07/20 Range/Units 15:06 15:06 WBC 6.49 (4.8-10.8) K/uL Hgb 14.7 (14.0-18.0) g/dL Hct 44.0 (42-52) % Plt Count 195 (130-400) K/uL Troponin I 0.097 H* (0-0.045) ng/ml NT-Pro-B Natriuret Pep 2689 H (0-1800) pg/ml TSH 8.510 H (0.300-4.500) uIu/ml BMP 08/07/20 15:06 Sodium 136 Potassium 4.1 Chloride 102 Carbon Dioxide 30 BUN 16 Creatinine 1.20 Glucose 72 Calcium 8.3 L Cardiac Enzymes 08/07/20 Range/Units 15:06 Troponin I 0.097 H* (0-0.045) ng/ml Liver Function 08/07/20 Range/Units 15:06 Total Bilirubin 0.9 (0.2-1) mg/dl AST 13 L (15-37) U/L ALT 9 L (12-78) U/L Alkaline Phosphatase 42 L (45-117) U/L Albumin 3.0 L (3.4-5.0) gm/dl Urine 08/07/20 Range/Units 15:26 Urine Color Yellow Urine Appearance Clear (Clear) Urine pH 7.0 (4.5-7.5) Ur Specific Hale 1.005 (1.000-1.030) Urine Protein Negative (Negative) Urine Glucose (UA) Negative (Negative) Code Status & VTE Plan VTE Prophylaxis Plan VTE Prophylaxis will be ordered: Yes Supervising Physician Co-Signing Physician Notes Patient is an 85-year-old man with history of paroxysmal atrial fibrillation, tachybradycardia syndrome, hypothyroidism, CKD stage III and other medical problems presents with history of generalized weakness, fatigue, worsening cough since last few days. Patient's family noted him to have elevated blood pressur e and was evaluated by PCP yesterday who increased his Candesartan dose to 32mg daily. Patient currently denies any chest pain, shortness of breath, dizziness, nausea, abdominal pain. But he did admit to have noted bilateral lower extremity edema. He denies any orthopnea, PND. Please review HPI for complete details of presentation. He was noted to have chronic troponin elevation. His TSH is elevated at 8.5 and free T4 is within normal limits. EKG showed normal sinus rhythm with first-degree AV block, prolonged QTC. Chest x-ray showed findings suggestive of pulmonary vascular congestion, small bilateral pleural effusion, atelectasis. Procalcitonin is normal. Patient continues to smoke on daily basis. Follows with [facility] pulmonology as outpatient Physical Exam: Vitals signs as noted above General Appearance:Moderately built and nourished, no apparent distress Head: normocephalic, Atraumatic Eyes: normal inspection, EOMI, PERRL Neck: supple, Trachea midline Respiratory/Chest: Decreased breath sounds, CTA, No accessory muscle use Cardiovascular: S1, S2, No murmur Abdomen/GI:Soft, Non tender, Bowel sounds present Extremities/Musculoskeletal:normal inspection, 1+ B/L LE edema Neurologic/Psych:AAOX3, grossly no focal neurological deficits Skin: normal color, warm Acute CHF Elevated Troponin R/O ACS Abnormal thyroid function test Uncontrolled blood pressure Tachybradycardia syndrome S/P Pacemaker COPD CKD III We will hold p.o. diuretics. Start on IV Lasix. Check resting echo, I's and O's, daily weight, Monitor electrolytes Cardiology consult Culture pacemaker interrogation necessary Agree with checking Lyme screen We will adjust levothyroxine dose as above We will need repeat thyroid function tests as outpatient Will monitor blood pressure and adjust antihypertensives as needed Trend cardiac enzymes and repeat EKG in AM Further management based on echo findings. I personally reviewed the record. Patient is [facility] and [facility]. Patient's care is coordinated with Alejandrina Vital PA-C. Please refer to the documentation above for details of patient's presentation and for discussion of other issues.
--- NOTE | 2020-08-07 19:54 | XRay Report ---
XR chest 1V portable CLINICAL HISTORY: Weakness preadmission chest x-ray. COMPARISON STUDY: 11/21/2019 FINDINGS: The heart is enlarged. There is mild elevation of interstitium consistent with mild pulmona ry vascular congestion. There is a small right pleural effusion. A trace left pleural effusion cannot be excluded. There are basilar opacities, atelectatic versus infectious/inflammatory. There is a lef t subclavian dual-chamber central venous pacemaker. IMPRESSION: 1. Cardiomegaly and radiographic evidence of mild central pulmonary vascular congestion 2. Small right pleural effusion possible trace left pleural effusion 3. Basilar opacities, atelectatic versus infectious/ ACT 112: Negative or not required by law. Electronically signed by: Raz Cash M.D. 08/07/2020 7:53 PM
[2020-08-07] MEDS ORDERED: FUROSEMIDE 40 MG/4 ML PO ONE (20:01)
[2020-08-07 20:17] LABS: Lyme Ab IgG w/WB Rflx Negative (Negative); Lyme Ab IgM w/WB Rflx Negative (Negative)
[2020-08-07] MEDS ORDERED: POLYETHYLENE (MIRALAX) 17 GM PACK PO PRN (20:49)
[2020-08-07] MEDS ORDERED: ALBUTEROL HFA 8 GM INHALER INH PRN (20:49)
[2020-08-07] MEDS ORDERED: ACETAMINOPHEN HOME PACK 500 MG TABLET PO PRN (20:49)
[2020-08-07] MEDS ORDERED: ACETAMINOPHEN 325 MG TAB PO PRN (20:49)
[2020-08-07] MEDS ORDERED: METOPROLOL SUCC 50MG EXT REL TAB PO SCH (21:00)
[2020-08-07] MEDS ORDERED: FINASTERIDE 5 MG TAB PO SCH (21:00)
[2020-08-07] MEDS ORDERED: TAMSULOSIN HCL 0.4 MG CAP PO SCH (21:00)
[2020-08-07] MEDS ORDERED: CANDESARTAN 32 MG PO SCH (21:00)
[2020-08-07] MEDS ORDERED: AMIODARONE 200 MG TAB PO ONE (21:30)
[2020-08-07] MEDS ORDERED: LOSARTAN POTASSIUM 50 MG TAB PO SCH (22:00)
[2020-08-07] MEDS: FLUTICASONE PROPIONATE NA SPR 16 GM BTL NAE SCH (22:03)
[2020-08-07] MEDS: HEPARIN SOD 5,000 UNIT/0.5 ML VIAL SQ SCH (22:06)
[2020-08-08] MEDS: NITROGLYCERIN 2% OINTMENT 30GM TUBE EXT SCH ×2 (00:17→05:42)
[2020-08-08 04:33] LABS: Hematocrit (blood only) 40.8 % (42-52); Hemoglobin 14.1 g/dL (14.0-18.0); Mean Corpuscular Hemoglobin 32.4 pg (25-34); Mean Corpuscular Hgb Conc 34.6 g/dL (32-36); Mean Corpuscular Volume 93.8 fL (80-100); Mean Platelet Volume 10.8 fL (7.4-10.4); Platelet Count 185 K/uL (130-400); RDW Coefficient of Variation 13.1 % (11.5-14.5); RDW Standard Deviation 45.5 fL (36.4-46.3); Red Blood Count 4.35 M/uL (4.7-6.1); White Blood Count 6.47 K/uL (4.8-10.8)
[2020-08-08 04:51] LABS: BUN Creatinine Ratio 14.1 (10-20); Calcium 7.9 mg/dl (8.5-10.1); Creatinine Clr Calc Pharmacy 50.7 ml/min; Est GFR (African American) 65.3 ml/min; Est GFR (Non-African American) 56.3 ml/min; Magnesium 2.2 mg/dl (1.8-2.4); Potassium 3.5 mmol/L (3.5-5.1)
[2020-08-08 05:04] LABS: Thyroid Stimulating Hormone 8.66 uIu/ml (0.300-4.500); Troponin I 0.09 ng/ml (0-0.045)
--- NOTE | 2020-08-08 06:22 | Electrocardiogram Report ---
Test Reason : Blood Pressure : / mmHG Vent. Rate : 071 BPM Atrial Rate : 071 BPM P-R Int : 344 ms QRS Dur : 102 ms QT Int : 484 ms P-R-T Axes : -14 -14 032 degrees QTc Int : 525 ms Atrial-paced rhythm with prolonged AV conduction Prolonged QT Abnormal ECG When compared with ECG of 21-NOV-2019 07:26, No significant change Confirmed by Fabian Wade ([id number]) on 08/08/2020 6:21:50 AM Referred By: SELF Confirmed By:Fabian Wade
[2020-08-08] MEDS ORDERED: LEVOTHYROXINE SODIUM 175 MCG TABLET PO SCH (06:30)
[2020-08-08] MEDS: FLUTICASONE PROPIONATE NA SPR 16 GM BTL NAE SCH (08:29)
[2020-08-08] MEDS: HEPARIN SOD 5,000 UNIT/0.5 ML VIAL SQ SCH (08:30)
[2020-08-08] MEDS ORDERED: FERROUS SULFATE 325 MG TAB PO SCH (09:00)
[2020-08-08] MEDS ORDERED: ASPIRIN 81 MG ECTAB PO SCH (09:00)
[2020-08-08] MEDS ORDERED: FUROSEMIDE 40 MG in SYRINGE 0 ML IV SCH (09:00)
[2020-08-08] MEDS ORDERED: UMECLIDINIUM/VILANTEROL 62.5/25MCG 7 PUFFS/INHALER INH SCH (09:00)
[2020-08-08] MEDS ORDERED: FUROSEMIDE 40 MG/4 ML VIAL IV SCH (09:00)
[2020-08-08] MEDS ORDERED: CYANOCOBALAMIN 500 MCG TABLET (VITAMIN B-12) PO SCH (09:00)
--- NOTE | 2020-08-08 10:13 | Cardiology Consultation ---
Date of Consultation August 08, 2020 Assessment & Plan (1) Heart failure, diastolic, with acute decompensation: Patient treated with 2 doses of intravenous Lasix with subsequent improvement of volume status. Fluid balance -1200 cc. Renal function electrolytes remained stable. Blood pressure also significantly improved with diuretic therapy. Repeat resting 2D transthoracic echocardiogram demonstrates preserved LV systolic function, moderate mitral regurgitation, no evidence of pulmonary hypertension. Recommend discontinuation of intravenous diuretic therapy. Patient had been taking torsemide on an as-needed basis in the outpatient setting. Recommend prescription of torsemide 10 mg daily. Repeat basic metabolic panel in 1 week in the outpatient setting. (2) Elevated troponin I level: Secondary to acute decompensated heart failure. Endings not indicative of acute coronary syndrome. (3) Mitral regurgitation: Moderate mitral regurgitation per repeat echocardiogram (previously graded as moderate-severe). Continue medical management. (4) Paroxysmal atrial fibrillation: Maintained in sinus rhythm with amiodarone. Anticoagulation discontinued secondary to calf hematoma. No evidence of recurrent atrial fibrillation per telemetry or most recent pacemaker interrogation 05/2020. (5) S/P placement of cardiac pacemaker: Atrial paced rhythm on telemetry. Normal function with adequate battery life per most recent interrogation. (6) Hypothyroidism: Elevated TSH. Management as per internal medicine. (7) CKD (chronic kidney disease), stage III: History of Present Illness Reason for Consultation: CHF Requesting Physician: Dr. Best Attending Physician: Jonah Best MD History of Present Illness 85-year-old patient presented to the emergency department with weakness, shortness of breath, and fatigue. 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 Anticoagulation discontinued earlier this year due to a calf hematoma. No recurrent atrial fibrillation per most recent pacemaker interrogation in May 2020. Patient reported attempting exercise earlier this week when he became fatigue and shortness of breath. Stated "it is not my day". His daughter treated him with oral torsemide, 10 mg daily for 3 days with moderate diuresis. Symptoms did not improve and he cannot obtain an appointment for outpatient cardiology evaluation, therefore, he came to the ER for further evaluation. Treated with 1 dose of intravenous furosemide in the ER as well as additional dose this a.m. Fluid balance is -1200 cc. He is feeling much better this morning. Denies orthopnea or PND. No palpitations, lightheadedness, dizziness, syncope, or near syncope. Telemetry demonstrates an atrial paced rhythm. Allergies Allergy/AdvReac Type Severity Reaction Status Date / Time No Known Allergies Allergy Verified 08/07/20 15:42 Home Medications Medication Instructions Recorded Confirmed Type finasteride 5 mg PO DAILY@0100 01/10/19 08/07/20 History cyanocobalamin (vitamin B-12) 1,000 mcg PO QAM 03/09/19 08/07/20 History 1,000 mcg tablet ferrous sulfate [iron] 325 mg PO 3XWK 08/10/19 08/07/20 History candesartan 32 mg PO DAILY@209909/23/19 08/07/20 History metoprolol succinate 50 mg PO DAILY@209909/23/19 08/07/20 History tamsulosin 0.4 mg PO DAILY@01009/23/19 08/07/20 History acetaminophen 1,000 mg PO Q8H PRN #60 tab 09/24/19 08/07/20 Rx albuterol sulfate 90 mcg/actuation 2 puff INHALATION Q6H PRN #18 g 07/30/20 08/07/20 Rx aerosol inhaler tiotropium 2.5 mcg-olodaterol 2.5 2 puff INHALATION DAILY #4 g 07/30/20 08/07/20 Rx mcg/actuation mist for inhalation amiodarone [Pacerone] 100 mg PO QPM 08/07/20 08/07/20 History aspirin 81 mg PO QAM 08/07/20 08/07/20 History fluticasone propionate 1 spray INTRANASAL BID 08/07/20 08/07/20 History levothyroxine 150 mcg PO QAM 08/07/20 08/07/20 History potassium 75 mg PO MOWEFR 08/07/20 08/07/20 History torsemide 10 mg PO DAILY PRN 08/07/20 08/07/20 History Patient History Medical History BPH (benign prostatic hyperplasia) CKD (chronic kidney disease), stage III HTN (hypertension) Hypothyroidism Mitral regurgitation Paroxysmal atrial fibrillation Prolonged QT interval Tachycardia-bradycardia syndrome Tobacco abuse Surgical History History of cataract surgery S/P placement of cardiac pacemaker Family History Brother Cancer Mother Stroke Social History Smoking Status: Light tobacco smoker Tobacco Type: Pipe Cigarettes Per Day: 1-2 BOWLS/DAY; Second Hand Exposure: No; Hx Alcohol Use: Yes Alcohol type: wine Hx Substance Use: No Preferred Language: Irish Communication Ability: Effective Visual Impairment: No Limitations Education Intern Required: No Beliefs That Will Affect Care: None marital status: Current Living Situation: Spouse Feels Safe at Home: Yes Safety Concerns: Feels Safe At This Time Assistive Devices: None Review of Systems Review of Systems: All systems reviewed & are unremarkable except as noted in Subjective Physical Exam Constitutional: well developed and well nourished; no acute distress and not ill appearing Respiratory: normal respiratory effort; no respiratory distress, no labored breathing and no retractions Auscultation: no crackles, no rales, no rhonchi and no wheezes Cardiovascular: Rate/Rhythm: regular rate and regular rhythm Heart Sounds: normal S1, normal S2 and + murmur (1/6 systolic ejection murmur heard best at the base) Vessels: no JVD Extremities: no edema Gastrointestinal (Abdomen): Inspection/Auscultation: abdomen normal to inspection and normal bowel sounds; abdomen not distended Percussion/Palpation: abdomen soft; abdomen nontender, no guarding and abdomen not rigid Neurologic: CN's II-XI intact bilaterally and moves all extremities; no focal motor deficits Motor/Sensory: no tremor Psychiatric: A+Ox3, euthymic affect Results & Data ([facility]) Vital Signs (Past 12 Hours) Vital Signs Temp Pulse Pulse Resp BP Pulse Ox 08/08/20 09:48 60 08/08/20 08:16 36.8 C 76 16 129/75 96 08/08/20 03:54 36.6 C 65 20 145/73 H 92 08/07/20 23:31 36.7 C 65 20 170/92 H 94
--- NOTE | 2020-08-08 11:34 | Hospitalist Progress Note ---
Date of Service August 08, 2020 Assessment & Plan (1) Heart failure, diastolic, with acute decompensation: Acute diastolic heart failure He was not taking his diuretics at home and was admitted with generalized weakness fatigue and shortness of breath cough Has had enough diuresis with intravenous Lasix Appreciate cardiology input and recommendation Echo showed-normal LV systolic function with EF of 60 to 65%, borderline concentric LVH, the basal septum is thickened and angulated consistent with sigmoid septum, diastolic dysfunction, grade 2, aortic valve sclerosis mild without significant stenosis, mild aortic regurgitation, there is moderate mitral regurgitation and trace tricuspid regurgitation without any pulmonary hypertension Mild elevation in troponin secondary to decompensated heart failure, no ACS He has been feeling much better and wants to go home He has been ambulating in the room without any significant problem Discharge home this afternoon with torsemide 10 mg daily to continue (2) Generalized weakness: (3) Fatigue: This is an 85yo M with a PMH of paroxysmal atrial fibrillation, h/o tachy froilan syndrome s/p pacemaker placement, hypothyroidism, CKD III, tobacco use and other medical problems listed below who presents with generalized weakness, fatigue and non productive cough over the past few days. Likely multifactorial with decompensated HF, hypothyroidism with elevated TSH, possible infectious process, arrhythmia Mild decompensation of HFpEF with BNP 2,689, CXR with cardiomegaly and radiographic evidence of mild central pulmonary vascular congestion, small right pleural effusion possible trace left pleural effusion Prescribed Torsemide 10mg PRN for BLE edema but has not been taking much over past few months Strict I&Os, daily weights, low sodium diet Concerned with possible underlying tick borne illness - Lyme and anaplasma serology pending Pacer interrogation, 2D echo, routine cardiology consult (4) Elevated troponin I level: Chronic troponin elevation noted on previous admissions, likely 2/2 uncontrolled HTN Initial trop 0.097. Continue trending troponin, optimize BP Secondary to decompensated CHF-no ACS (5) HTN (hypertension): Continue NTG 1" paste Q6H, candesartan dose increased to 32mg yesterday, Toprol Well controlled (6) Hypothyroidism: TSH elevated at 8.510, free T4 wnl Increased levothyroxine from 150 to 175 mcg Will need repeat TFT as an outpatient in 4-6 weeks (7) Paroxysmal atrial fibrillation: NSR on initial EKG. Monitor in telemetry Continue amiodarone, Toprol Not on anticoagulation due to h/o spontaneous calf hematoma Heart rate is controlled,has a pacemaker (8) Tachycardia-bradycardia syndrome: S/p pacemaker placement (9) Chronic cough: (10) COPD (chronic obstructive pulmonary disease): Follows with Dr. Meyer. Recently started on Stiolto inhaler daily, continue albuterol PRN (11) CKD (chronic kidney disease), stage III: Kidney function at baseline. Monitor with daily BMP DVT Ppx: SQ heparin Q12 Code status: FULL PCP: Ligia Uribe Dispo: Admitted to PCU Discharge home this afternoon Admission and Anticipated Discharge Date Admission Date: August 07, 2020 Subjective August 08, 2020 The patient was seen and examined in telemetry unit in presence of the daughter He was admitted with shortness of breath and noted to have acute CHF He is diuresed enough and denies any significant symptoms this morning He wants to go home this afternoon Review of Systems Review of Systems: All systems reviewed and are unremarkable except as noted below Physical Exam Physical Exam: Lying in bed comfortably Constitutional: well developed, well nourished and + obese; not ill appearing Eyes: PERRL, conjunctivae normal, anicteric sclerae ENMT: external ear and nose normal, oropharynx normal Neck: trachea midline, no thyromegaly Respiratory: no respiratory distress Auscultation: lungs clear to auscultation bilaterally; no crackles Cardiovascular: Rate/Rhythm: + irregularly irregular Heart Sounds: + murmur (Same over precordium) Extremities: no edema Gastrointestinal (Abdomen): Inspection/Auscultation: normal bowel sounds; abdomen not distended Percussion/Palpation: abdomen soft; abdomen nontender Musculoskeletal: No acute arthritis in any joint Neurologic: Alert, awake and oriented x3. No focal sensory and motor deficit appreciated Psychiatric: A+Ox3, euthymic affect Lymphatic: no cervical or axillary lymphadenopathy Results & Data Results & Data ([facility]) Vital Signs (Past 12 Hours) Vital Signs Temp Pulse Pulse Resp BP Pulse Ox 08/08/20 09:48 60 08/08/20 08:16 36.8 C 76 16 129/75 96 08/08/20 03:54 36.6 C 65 20 145/73 H 92 08/07/20 23:31 36.7 C 65 20 170/92 H 94 Laboratory Results Short CBC 08/07/20 08/08/20 Range/Units 15:06 04:10 WBC 6.49 6.47 (4.8-10.8) K/uL Hgb 14.7 14.1 (14.0-18.0) g/dL Hct 44.0 40.8 L (42-52) % Plt Count 195 185 (130-400) K/uL BMP 08/07/20 08/08/20 15:06 04:10 Sodium 136 137 Potassium 4.1 3.5 Chloride 102 102 Carbon Dioxide 30 31 BUN 16 16 Creatinine 1.20 1.16 Glucose 72 76 Calcium 8.3 L 7.9 L Cardiac Enzymes 08/07/20 08/07/20 08/08/20 Range/Units 15:06 21:09 04:10 Troponin I 0.097 H* 0.094 H* 0.090 H* (0-0.045) ng/ml Liver Function 08/07/20 Range/Units 15:06 Total Bilirubin 0.9 (0.2-1) mg/dl AST 13 L (15-37) U/L ALT 9 L (12-78) U/L Alkaline Phosphatase 42 L (45-117) U/L Albumin 3.0 L (3.4-5.0) gm/dl Urine 08/07/20 Range/Units 15:26 Urine Color Yellow Urine Appearance Clear (Clear) Urine pH 7.0 (4.5-7.5) Ur Specific [place] 1.005 (1.000-1.030) Urine Protein Negative (Negative) Urine Glucose (UA) Negative (Negative) Medications Administered Current Inpatient Medications Acetaminophen (Acetaminophen 325 Mg Tab) 650 mg PO Q4H PRN PRN Reason: Pain or Fever Stop: 09/06/20 20:48 Albuterol (Albuterol Hfa 8 Gm Inhaler) 2 puffs INH Q6H PRN PRN Reason: Shortness Of Breath Or Wheezin Stop: 09/06/20 20:48 Amiodarone HCl (Amiodarone 200 Mg Tab) 100 mg PO QPM JOE Stop: 09/07/20 20:59 Aspirin (Aspirin 81 Mg Ectab) 81 mg PO QAM JOE Stop: 09/07/20 08:59 Last Admin: 08/08/20 08:28 Dose: 81 mg Documented by: Cyanocobalamin (Cyanocobalamin 500 Mcg Tablet (Vitamin B-12)) 1,000 mcg PO QAM [facility] Stop: 09/07/20 08:59 Last Admin: 08/08/20 08:28 Dose: 1,000 mcg Documented by: Ferrous Sulfate (Ferrous Sulfate 325 Mg Tab) 325 mg PO MoWeFr@0900 [facility] Stop: 09/07/20 08:59 Last Admin: 08/08/20 08:29 Dose: 325 mg Documented by: Finasteride (Finasteride 5 Mg Tab) 5 mg PO [facility] Stop: 09/06/20 20:59 Last Admin: 08/07/20 22:05 Dose: 5 mg Documented by: Fluticasone Propionate (Fluticasone Propionate Na Spr 16 Gm Btl) 1 sprays VADIM BID [facility] Stop: 09/06/20 20:59 Last Admin: 08/08/20 08:29 Dose: 1 sprays Documented by: Heparin Sodium (Porcine) (Heparin Sod 5,000 Unit/0.5 Ml Vial) 5,000 units SQ Q12 [facility] Stop: 09/06/20 20:59 Last Admin: 08/08/20 08:30 Dose: 5,000 units Documented by: Levothyroxine Sodium (Levothyroxine Sodium 175 Mcg Tablet) 175 mcg PO DAILYBB [facility] Stop: 09/07/20 06:29 Last Admin: 08/08/20 05:44 Dose: 175 mcg Documented by: Losartan Potassium (Losartan Potassium 50 Mg Tab) 50 mg PO DAILY@2099 [facility] Stop: 09/06/20 21:59 Last Admin: 08/07/20 22:03 Dose: 50 mg Documented by: Metoprolol Succinate (Metoprolol Succ 50mg Ext Rel Tab) 50 mg PO DAILY@2099 [facility] Stop: 09/06/20 20:59 Last Admin: 08/07/20 22:05 Dose: 50 mg Documented by: Polyethylene Glycol (Polyethylene (Miralax) 17 Gm Pack) 17 gm PO DAILY PRN PRN Reason: Constipation Stop: 09/06/20 20:48 Tamsulosin HCl (Tamsulosin Hcl 0.4 Mg Cap) 0.4 mg PO [facility] Stop: 09/06/20 20:59 Last Admin: 08/07/20 22:06 Dose: 0.4 mg Documented by: Torsemide (Torsemide 10 Mg Tab) 10 mg PO QAM [facility] Stop: 09/08/20 08:59 Umeclidinium/Vilanterol (Umeclidinium/Vilanterol 62.5/25mcg 7 Puffs/Inhaler) 1 puffs INH DAILY JO[facility] Stop: 09/07/20 08:59 Last Admin: 08/08/20 08:31 Dose: 1 puffs Documented by:
--- NOTE | 2020-08-08 14:34 | Electrocardiogram Report ---
Test Reason : Blood Pressure : / mmHG Vent. Rate : 065 BPM Atrial Rate : 441 BPM P-R Int : 380 ms QRS Dur : 098 ms QT Int : 514 ms P-R-T Axes : 000 -28 016 degrees QTc Int : 534 ms Atrial-paced rhythm with prolonged AV conduction Prolonged QT Abnormal ECG When compared with ECG of 07-AUG-2020 14:41, No significant change was found Confirmed by Ankush Akers ([id number]) on 08/08/2020 2:33:46 PM Referred By: REFERRED SELF Confirmed By:Ankush Akers
--- NOTE | 2020-08-08 16:24 | Discharge Summary ---
Date of Service August 08, 2020 Admission HPI Per Admitting Provider This is an 85yo M with a PMH of paroxysmal atrial fibrillation, h/o tachy froilan syndrome s/p pacemaker placement, hypothyroidism, CKD III, tobacco use and other medical problems listed below who presents with generalized weakness, fatigue and non productive cough over the past few days. 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 BP elevated at 180/100 at its highest per home reading. Repeat readings around 160/100. also notes she is observed increased work of breathing at rest and some BLE edema. Was seen in clinic yesterday for the symptoms and had lab work, which revealed an elevated BNP ~ 2600. Denies fever or chills. No lightheadedness or near syncope. No chest pain, palpitations, orthopnea, PND, nausea, vomiting, abdominal pain, dysuria, diarrhea or constipation. No weight gain. Only new medication is Stiolto inhaler. Increased candesartan back to 32mg from 16mg yesterday as instructed in clinic. [place] denies known tick bites or infectious exposure. Smokes 1 pipe per day. Admission Exam Per Admitting Provider Vitals signs as noted above General Appearance:Moderately built and nourished, no apparent distress Head: normocephalic, Atraumatic Eyes: normal inspection, EOMI, PERRL Neck: supple, Trachea midline Respiratory/Chest: Decreased breath sounds, CTA, No accessory muscle use Cardiovascular: S1, S2, No murmur Abdomen/GI:Soft, Non tender, Bowel sounds present Extremities/Musculoskeletal:normal inspection, 1+ B/L LE edema Neurologic/Psych:AAOX3, grossly no focal neurological deficits Skin: normal color, warm Principal Diagnosis Acute diastolic heart failure, hypertension, hypothyroidism, paroxysmal atrial fibrillation not on any anticoagulation due to h/o spontaneous left calf hematoma Discharge Exam Constitutional well developed, well nourished and + obese; not ill appearing Eyes PERRL, conjunctivae normal, anicteric sclerae ENMT external ear and nose normal, oropharynx normal Neck trachea midline, no thyromegaly Respiratory no respiratory distress Auscultation: lungs clear to auscultation bilaterally; no crackles Cardiovascular Rate/Rhythm: + irregularly irregular Heart Sounds: + murmur (Same over precordium) Extremities: no edema Gastrointestinal (Abdomen) Inspection/Auscultation: normal bowel sounds; abdomen not distended Percussion/Palpation: abdomen soft; abdomen nontender Psychiatric A+Ox3, euthymic affect Lymphatic no cervical or axillary lymphadenopathy Discharge Data Allergies Allergy/AdvReac Type Severity Reaction Status Date / Time No Known Allergies Allergy Verified 08/07/20 15:42 Consultations 08/07/20 17:02 ED Decision to Admit Stat 08/08/20 08:00 Consult Cardiology Routine Hospital Course (1) Heart failure, diastolic, with acute decompensation: Acute diastolic heart failure He was not taking his diuretics at home and was admitted with generalized weakness fatigue and shortness of breath cough Has had enough diuresis with intravenous Lasix Appreciate cardiology input and recommendation Echo showed-normal LV systolic function with EF of 60 to 65%, borderline concentric LVH, the basal septum is thickened and angulated consistent with sigmoid septum, diastolic dysfunction, grade 2, aortic valve sclerosis mild without significant stenosis, mild aortic regurgitation, there is moderate mitral regurgitation and trace tricuspid regurgitation without any pulmonary hypertension Mild elevation in troponin secondary to decompensated heart failure, no ACS He has been feeling much better and wants to go home He has been ambulating in the room without any significant problem Discharge home this afternoon with torsemide 10 mg daily to continue (2) Generalized weakness: (3) Fatigue: This is an 85yo M with a PMH of paroxysmal atrial fibrillation, h/o tachy froilan syndrome s/p pacemaker placement, hypothyroidism, CKD III, tobacco use and other medical problems listed below who presents with generalized weakness, fatigue and non productive cough over the past few days. Likely multifactorial with decompensated HF, hypothyroidism with elevated TSH, possible infectious process, arrhythmia Mild decompensation of HFpEF with BNP 2,689, CXR with cardiomegaly and radiographic evidence of mild central pulmonary vascular congestion, small right pleural effusion possible trace left pleural effusion Prescribed Torsemide 10mg PRN for BLE edema but has not been taking much over past few months Strict I&Os, daily weights, low sodium diet Concerned with possible underlying tick borne illness - Lyme and anaplasma serology pending Pacer interrogation, 2D echo, routine cardiology consult (4) Elevated troponin I level: Chronic troponin elevation noted on previous admissions, likely 2/2 uncontrolled HTN Initial trop 0.097. Continue trending troponin, optimize BP Secondary to decompensated CHF-no ACS (5) HTN (hypertension): Continue NTG 1" paste Q6H, candesartan dose increased to 32mg yesterday, Toprol Well controlled (6) Hypothyroidism: TSH elevated at 8.510, free T4 wnl Increased levothyroxine from 150 to 175 mcg Will need repeat TFT as an outpatient in 4-6 weeks (7) Paroxysmal atrial fibrillation: NSR on initial EKG. Monitor in telemetry Continue amiodarone, Toprol Not on anticoagulation due to h/o spontaneous calf hematoma Heart rate is controlled,has a pacemaker (8) Tachycardia-bradycardia syndrome: S/p pacemaker placement (9) Chronic cough: (10) COPD (chronic obstructive pulmonary disease): Follows with Dr. Meyer. Recently started on Stiolto inhaler daily, cont inue albuterol PRN (11) CKD (chronic kidney disease), stage III: Kidney function at baseline. Monitor with daily BMP DVT Ppx: SQ heparin Q12 Code status: FULL PCP: Ligia Uribe Dispo: Admitted to PCU Discharge home this afternoon Total Time Total Time Spent Total Time Spent (In Minutes): 35 minutes Total Time Includes: Examination of the Patient, Discharge Planning, Medication Reconciliation and Communication With Other Providers Discharge Plan Discharge Items Patient Disposition: Home - Self-Care Reason For Visit: VOLUME OVERLOAD, GEN WEAKNESS Discharge Diagnosis: Acute diastolic heart failure, hypertension, hypothyroidism, paroxysmal atrial fibrillation not on any anticoagulation due to h/o spontaneous left calf hematoma Condition on Discharge: Good Activity: Resume your previous activity Non-emergency contact: Primary Care Provider Call non-emergency contact if: you have any medication questions and your symptoms worsen Follow-up/Referrals: Raf Uribe DO [Primary Care Provider] - (Date & Time 08/15/2020 11:00 AM Provider Raf Uribe DO Department [facility] ) Diet: Heart Healthy and Low Sodium (2gm) Addtl Attending Provider Instructions: Please take precautions to avoid falls Take your torsemide 10 mg daily Please have a basal metabolic panel done within 1 week at your doctor's office 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 * Use the same scale. * Wear the same amount of clothing. * Write your weight down on your chart. * Call your doctor if you gain more than 2-3 pounds in 1-2 days. MEDICATIONS * Use this discharge instruction sheet for instructions. * Take your medications at the time your doctor ordered. * Do not skip a dose of your medicines. * If you miss a dose of medicine, take as soon as possible, but DO NOT DOUBLE A DOSE. * Read your medicine information when you get home. * Know all of the side effects of your medicine. * Call your doctor's office if you have any side effects. * Be sure all of your doctors know what medicine and herbs you take (including cold, flu, and herbal medicine). * Pain Medicine: If you do not get relief from your pain, please call your doctor for help. Take the following with you to your follow-up doctor appointments: * Weight Chart * Medication List * List of questions Do not drink excessive alcohol, beer or wine. Pending Studies at Discharge: No Stand-Alone Forms: My [facility] Like[employer]fm, Smoking Cessation Medications and DC Order Prescriptions: New levothyroxine [Synthroid] 175 mcg Tablet 175 mcg PO DAILYBB 30 Days Qty: 30 RF: 0 Continued cyanocobalamin (vitamin B-12) [Vitamin B-12] 1,000 mcg tablet 1,000 mcg PO QAM RF: 0 albuterol sulfate 90 mcg/actuation HFA aerosol inhaler 2 puff inhalation Q6H PRN (Reason: Shortness Of Breath Or Wheezing) Qty: 18 RF: 3 Stiolto Respimat 2.5-2.5 mcg/actuation mist 2 puff inhalation DAILY Qty: 4 RF: 5 finasteride 5 mg tablet 5 mg PO DAILY@0100 RF: 0 ferrous sulfate [iron] 325 mg (65 mg iron) Tablet 325 mg PO 3XWK RF: 0 metoprolol succinate 50 mg tablet extended release 24 hr 50 mg PO DAILY@2100 RF: 0 tamsulosin 0.4 mg capsule 0.4 mg PO DAILY@0100 RF: 0 candesartan 32 mg tablet 32 mg PO DAILY@2100 RF: 0 acetaminophen 500 mg tablet 1,000 mg PO Q8H PRN (Reason: fever or pain) Qty: 60 RF: 0 aspirin 81 mg Tablet,Delayed Release (Dr/Ec) 81 mg PO QAM RF: 0 amiodarone [Pacerone] 100 mg tablet 100 mg PO QPM RF: 0 fluticasone propionate 50 mcg/actuation [place],Suspension 1 spray INTRANASAL BID RF: 0 potassium 75 mg Tablet 75 mg PO MOWEFR RF: 0 Changed torsemide 10 mg Tablet 10 mg PO DAILY 30 Days Qty: 30 RF: 0 Discontinued levothyroxine 150 mcg Tablet 150 mcg PO QAM RF: 0 Discharge Orders: Discharge Order (Routine); Ordered 08/08/20 Ordered By: Jonah Ricci/Other Patient Handouts: Coping with Heart Failure Admission Data Admit Date/Time: 08/07/20 18:18 Attending Provider: Jonah Best Admit Provider: Brent Bennett Primary Care Provider: Raf Uribe Other Providers: Brent Bennett ; [place] Patricia Other Interventions: Discharge Summary Assessment (RN) Last Done: 08/08/20 13:33
[2020-08-08] MEDS ORDERED: AMIODARONE 200 MG TAB PO SCH (21:00)
[2020-08-09] MEDS ORDERED: TORSEMIDE 10 MG TAB PO SCH (09:00)
== END 2020-08-08 14:47 | disposition home or self-care (01) | DRG 291 ==
LOC: ED 14:18 → 2E 18:18 → SUATTDRO 18:18 → 2E 19:47

== ENCOUNTER 2022-12-12 04:13 | Inpatient (IN) ==
[2022-12-12 05:20] LABS: Influenza A virus by PCR Negative (Neg); Influenza B virus by PCR Negative (Neg); RSV by PCR Negative (Neg)
[2022-12-12 05:32] LABS: SARS CoV2 RNA(COVID-19) Ceph POSITIVE (Negative)
--- NOTE | 2022-12-12 06:17 | Emergency Department Note ---
Impression & Plan Generalized weakness, Dyspnea, Hypoxia, Fever, COVID-19, Pleural effusion, Elevated brain natriuretic peptide (BNP) level, Hematuria ED Provider Note ED Provider Note NAME: BESSIE ESCUDERO AGE:87 SEX: Male : 1935 ARRIVES VIA: EMS INFORMANT: Patient ED PROVIDER(s): Leah Robledo DO CHIEF COMPLAINT: Dyspnea, fever, hypoxia, nausea HPI: This is an 87-year-old male who presents emergency room via EMS with a t bedside due to concern for dyspnea, fevers, hypoxia, increased weakness, and nausea. states patient was seen and evaluated here on Tuesday due to concern for congestive heart failure. He was seen in the emergency department by cardiology who changed his diuretic dosing and he went home and felt slightly improved. states yesterday he seemed more weak, had a decreased appetite, and overnight developed a fever of 100.6. states he also complained of increased difficulty breathing and she checked his pulse ox at home and it was less than 90%. In this evening he also complained of nausea additionally although he did not vomit. No recent diarrhea, no recent leg swelling, he denies chest pain, headaches, and abdominal pain. PAST MEDICAL HISTORY:See Below PAST SURGICAL HISTORY:See Below FAMILY HISTORY:See Below SOCIAL HISTORY:See Below HOME MEDICATIONS:See Below ALLERGIES:See Below VITALS:See Below PHYSICAL EXAMINATION: GENERAL: alert, well appearing, well nourished, no distress, non-toxic EYE EXAM: normal conjunctiva, PERRL and EOM's grossly intact OROPHARYNX: no exudate, no erythema, lips, buccal mucosa, and tongue normal and mucous membranes are moist NECK: supple, no nuchal rigidity, no adenopathy, non-tender LUNGS: Clear to auscultation. Normal chest wall mechanics, no w/r/r HEART: no murmurs, S1 normal and S2 normal ABDOMEN: abdomen soft, non-tender, normo-active bowel sounds, no masses, no rebound or guarding. BACK: Back is symmetrical on inspection and there is no deformity, no midline tenderness, no CVA tenderness. SKIN: no rashes, petechiae, orbruising UPPER EXTREMITIES: upper extremities are grossly normal. FROM, nml pulses b/l. LOWER EXTREMITIES: No pitting edema. FROM, nml pulses b/l. NEURO EXAM: Normal sensorium, cranial nerves II-XII grossly intact, normal speech, no facial droop,nogross weakness of arms, no gross weakness of legs. Gross sensation intact. No ataxia. Vital Signs: reviewed and remarkable Differential Diagnosis: pneumonia, bronchitis, COPD/Asthma exacerbation, pneumothorax, pulmonary embolism, congestive heart failure, acute coronary syndrome, viral URI, as well as others were considered MEDICAL DECISION MAKING: This is an 87-year-old male presents emergency department due to concern for fever, fatigue, hypoxia, and recent cough/URI symptoms over the course of the week. Patient was previously seen and evaluated in the ER earlier this week and discharged home. Patient was afebrile and vital signs stable on arrival. Labs drawn and sent, IV established, EKG and chest ray performed at bedside and interpreted by me and patient monitored on telemetry. Patient's chest x-ray appeared similar compared to prior although given an advanced age, history of COPD, and worsening symptoms including hypoxia this evening, he was sent for CT of the chest additionally after discussion with patient and family. Patient's family were bedside does help with interpretation as patient's first language is Colombian. Patient also noted to have hematuria of unclear etiology, UA not otherwise suggestive of infection. Patient found to be COVID-positive on nasal swab. I suspect this is contributing to his worsening congestion as well as the fever and hypoxia noted this evening. While it originally been thought patient required increased diuresis due to history of CHF and pleural effusion, I suspect the increased diuresis contributed to the elevated creatinine and perhaps some of his fatigue. [facility]. Consultation(s): 911: [facility] Titus[facility] and management. ER Treatment Provided: See below 0840: Extensive discussion at bedside with patient and regarding his results thus far. I do have concerns given recent trial of increased diuretics and discharged home in patient's deterioration at this time. Patient's in agreement. Diagnostics Interpreted By Me: -ECG: Normal sinus at 63, first-degree AV block, normal axis, normal QRS, prolonged QT, nonspecific ST/T wave changes -Cardiac Monitoring: An order was placed for continuous cardiac monitoring. The monitor shows a rate of 60 with normal sinus rhythm. -Laboratory studies: As stated above and show below. -Imaging studies: X-ray Chest: A single view study of the chest was reviewed and was negative for focal infiltrate, or wide mediastinum, appearance of left pleural effusion and pulmonary edema noted, cardiomegaly also seen Triage Nursing Note Reviewed Prior/Outside Records Reviewed -prior cardiology visit reviewed Past Med/Surg History Medical History BPH (benign prostatic hyperplasia) CKD (chronic kidney disease), stage III HTN (hypertension) Hypothyroidism Mitral regurgitation Paroxysmal atrial fibrillation Prolonged QT interval Tachycardia-bradycardia syndrome Tobacco abuse Surgical History History of cataract surgery S/P placement of cardiac pacemaker Family History Brother Cancer Mother Stroke Hypertension Other No family history of allergies No family history of bleeding disorder Denies family history of Hearing loss Heart disease Asthma Social History Smoking Status: Former smoker Tobacco Type: Pipe Age Quit Using Tobacco: 86; Cigarettes Per Day: pipe tobacco use is not every day (once per day, per every use); Second Hand Exposure: No; Do You Dip or Chew Tobacco: No; Hx Alcohol Use: No Hx Substance Use: No Preferred Language: Colombian Communication Ability: Impaired Communication Tools: IPad Visual Impairment: No Limitations Mold Maker Required: No Beliefs That Will Affect Care: None marital status: Current Living Situation: Spouse current occupational status: retired Other Information That Helps Us Care for You: No Feels Safe at Home: Yes Safety Concerns: Feels Safe At This Time Assistive Devices: None Allergies Allergies Allergy/AdvReac Type Severity Reaction Status Date / Time No Known Drug Allergies Allergy Unknown Verified 12/12/22 11:56 Home Meds Home Medications Medication Instructions Recorded Confirmed finasteride 5 mg tablet 5 mg PO PM 01/10/19 12/12/22 cyanocobalamin (vitamin B-12) 1,000 mcg PO QAM 03/09/19 12/12/22 1,000 mcg tablet (Vitamin B-12) ferrous sulfate 325 mg (65 mg 325 mg PO 3XWK 08/10/19 12/12/22 iron) tablet (iron) metoprolol succinate 50 mg 50 mg PO DAILY@209909/23/19 12/12/22 tablet,extended release 24 hr amiodarone 100 mg tablet (Pacerone) 100 mg PO QPM 08/07/20 12/12/22 aspirin 81 mg tablet,delayed 81 mg PO QAM 08/07/20 12/12/22 release potassium 75 mg tablet 75 mg PO MOWEFR 08/07/20 12/12/22 tamsulosin 0.4 mg capsule 0.4 mg PO HS 04/17/21 12/12/22 candesartan 32 mg tablet 16 mg PO DAILY@209906/30/22 12/12/22 torsemide 10 mg tablet 15 mg PO DAILY 06/30/22 12/12/22 levothyroxine 150 mcg tablet 150 mcg PO DAILY 12/12/22 12/12/22 (Synthroid) Previous Rx's Medication Instructions Recorded albuterol sulfate 90 mcg/actuation 2 puff inhalation Q6H PRN 06/30/22 aerosol inhaler Shortness Of Breath Or Wheezing #18 grams Results & Data (ED) Vital Signs Vital Signs - 24 hr 12/12/22 04:53 12/12/22 05:03 12/12/22 06:49 Temperature 37.6 C H Temperature Source Oral Pulse Rate 61 Pulse Rate [Apical] 63 Respiratory Rate 23 24 Respiratory Effort / Characteristics Non-Labored Spontaneous Non-Labored Spontaneous Respiratory Depth Normal Normal Respiratory Pattern Regular Regular Blood Pressure 151/81 H Blood Pressure [Left Arm] Blood Pressure Mean 104 Blood Pressure Mean [Left Arm] Pulse Oximetry 95 95 93 Oxygen Delivery Method Room Air Room Air Room Air Oxygen Flow Rate Sepsis Recent Fever Within 48 Hours No Sepsis New/Unexplained Change in Mental Status No Sepsis Action Taken by Nursing No Action Required 12/12/22 08:21 12/12/22 08:00 12/12/22 10:00 Temperature Temperature Source Pulse Rate 74 Pulse Rate [Apical] 75 70 Respiratory Rate 18 18 Respiratory Effort / Characteristics Respiratory Depth Respiratory Pattern Blood Pressure Blood Pressure [Left Arm] 163/81 H 148/75 H Blood Pressure Mean Blood Pressure Mean [Left Arm] 108 99 Pulse Oximetry 97 95 Oxygen Delivery Method Nasal Cannula Nasal Cannula Oxygen Flow Rate 2 2 Sepsis Recent Fever Within 48 Hours Sepsis New/Unexplained Change in Mental Status Sepsis Action Taken by Nursing Laboratory Data 12/12/22 05:55 12/12/22 05:55 Lab Results 12/12/22 12/12/22 12/12/22 Range/Units 04:00 05:55 05:55 WBC 4.99 (4.8-10.8) K/ul RBC 4.20 L (4.70-6.10) M/uL Hgb 13.1 L (14.0-18.0) g/dl Hct 37.8 L (42.0-52.0) % MCV 90.0 (80.0-100.0) fL MCH 31.2 (25.0-34.0) pg MCHC 34.7 (32.0-36.0) g/dL RDW Std Deviation 41.4 (36.4-46.3) fL RDW Coeff of Millie 12.6 (11.5-14.5) % Plt Count 150 (130-400) K/uL MPV 10.8 (9.4-12.4) fL Immature Gran % (Auto) 0.2 % Neut % (Auto) 67.2 % Lymph % (Auto) 10.4 % Teller % (Auto) 21.8 % Eos % (Auto) 0.0 % Baso % (Auto) 0.4 % Neut # (Auto) 3.35 (1.40-6.50) K/uL Lymph # (Auto) 0.52 L (1.20-3.40) K/uL Teller # (Auto) 1.09 H (0.11-0.59) K/uL Eos # (Auto) 0.00 (0.00-0.50) K/uL Baso # (Auto) 0.02 (0.00-0.20) K/uL Immature Gran # (Auto) 0.01 (0.01-0.20) K/uL PT 11.9 (9.0-12.0) Seconds INR 1.1 (0.9-1.1) Sodium (136-145) mmol/L Potassium (3.5-5.1) mmol/L Chloride (98-107) mmol/L Carbon Dioxide (21-32) mmol/L Anion Gap (3-11) BUN (6-23) mg/dl Creatinine (0.6-1.4) mg/dl Est Cr Clr Drug Dosing ml/min Est GFR ( Amer) ml/min Est GFR (Non-Af Amer) ml/min BUN/Creatinine Ratio (10-20) Glucose (70-99(Fasting)) mg/dl Calcium (8.6-10.3) mg/dl Magnesium (1.7-2.4) mg/dl Total Bilirubin (0.2-1.0) mg/dl AST (13-39) U/L ALT (7-52) U/L Alkaline Phosphatase (34-104) U/L Troponin I High Sens (0-20) pg/ml B-Natriuretic Peptide (0-100) pg/ml Total Protein (6.0-8.3) gm/dl Albumin (3.4-5.0) gm/dl Globulin (2.5-4.0) gm/dl Albumin/Globulin Ratio (0.9-2) Lipase (11-82) U/L Procalcitonin (0-0.5) ng/ml TSH (0.300-4.500) uIu/ml Urine Color Urine Appearance (Clear) Urine pH (4.5-7.5) Ur Specific [place] (1.000-1.030) Urine Protein (Negative) Urine Glucose (UA) (Negative) Urine Ketones (Negative) Urine Blood (Negative) Urine Nitrite (Negative) Urine Bilirubin (Negative) Urine Urobilinogen (Negative) Ur Leukocyte Esterase (Negative) Urine WBC (Auto) (0-5) /hpf Urine RBC (Auto) (0-4) /hpf U Hyaline Cast (Auto) (0-5) /lpf U Epithel Cells (Auto) (0-5) /lpf Urine Bacteria (Auto) (Negative) Lyme Disease IgG Ab (Negative) Lyme Disease IgM Ab (Negative) SARS-CoV-2 (PCR) POSITIVE A* (Negative) Influenza Type A (PCR) Negative (Neg) Influenza Type B (PCR) Negative (Neg) RSV (RT-PCR) Negative (Neg) 12/12/22 12/12/22 12/12/22 Range/Units 05:55 05:55 05:55 WBC (4.8-10.8) K/ul RBC (4.70-6.10) M/uL Hgb (14.0-18.0) g/dl Hct (42.0-52.0) % MCV (80.0-100.0) fL MCH (25.0-34.0) pg MCHC (32.0-36.0) g/dL RDW Std Deviation (36.4-46.3) fL RDW Coeff of Millie (11.5-14.5) % Plt Count (130-400) K/uL MPV (9.4-12.4) fL Immature Gran % (Auto) % Neut % (Auto) % Lymph % (Auto) % Teller % (Auto) % Eos % (Auto) % Baso % (Auto) % Neut # (Auto) (1.40-6.50) K/uL Lymph # (Auto) (1.20-3.40) K/uL Teller # (Auto) (0.11-0.59) K/uL Eos # (Auto) (0.00-0.50) K/uL Baso # (Auto) (0.00-0.20) K/uL Immature Gran # (Auto) (0.01-0.20) K/uL PT (9.0-12.0) Seconds INR (0.9-1.1) Sodium 136 (136-145) mmol/L Potassium 3.4 L (3.5-5.1) mmol/L Chloride 99 (98-107) mmol/L Carbon Dioxide 29 (21-32) mmol/L Anion Gap 8 (3-11) BUN 24 H (6-23) mg/dl Creatinine 1.63 H (0.6-1.4) mg/dl Est Cr Clr Drug Dosing 32.6 ml/min Est GFR ( Amer) 42.7 ml/min Est GFR (Non-Af Amer) 36.8 ml/min BUN/Creatinine Ratio 14.7 (10-20) Glucose 95 (70-99(Fasting)) mg/dl Calcium 8.4 L (8.6-10.3) mg/dl Magnesium 2.1 (1.7-2.4) mg/dl Total Bilirubin 0.7 (0.2-1.0) mg/dl AST 15 (13-39) U/L ALT 4 L (7-52) U/L Alkaline Phosphatase 41 (34-104) U/L Troponin I High Sens 18.9 (0-20) pg/ml B-Natriuretic Peptide 477 H (0-100) pg/ml Total Protein 6.9 (6.0-8.3) gm/dl Albumin 3.5 (3.4-5.0) gm/dl Globulin 3.4 (2.5-4.0) gm/dl Albumin/Globulin Ratio 1.0 (0.9-2) Lipase 14 (11-82) U/L Procalcitonin (0-0.5) ng/ml TSH 0.402 (0.300-4.500) uIu/ml Urine Color Urine Appearance (Clear) Urine pH (4.5-7.5) Ur Specific [place] (1.000-1.030) Urine Protein (Negative) Urine Glucose (UA) (Negative) Urine Ketones (Negative) Urine Blood (Negative) Urine Nitrite (Negative) Urine Bilirubin (Negative) Urine Urobilinogen (Negative) Ur Leukocyte Esterase (Negative) Urine WBC (Auto) (0-5) /hpf Urine RBC (Auto) (0-4) /hpf U Hyaline Cast (Auto) (0-5) /lpf U Epithel Cells (Auto) (0-5) /lpf Urine Bacteria (Auto) (Negative) Lyme Disease IgG Ab Negative (Negative) Lyme Disease IgM Ab Negative (Negative) SARS-CoV-2 (PCR) (Negative) Influenza Type A (PCR) (Neg) Influenza Type B (PCR) (Neg) RSV (RT-PCR) (Neg) 12/12/22 12/12/22 Range/Units 05:55 08:15 WBC (4.8-10.8) K/ul RBC (4.70-6.10) M/uL Hgb (14.0-18.0) g/dl Hct (42.0-52.0) % MCV (80.0-100.0) fL MCH (25.0-34.0) pg MCHC (32.0-36.0) g/dL RDW Std Deviation (36.4-46.3) fL RDW Coeff of Millie (11.5-14.5) % Plt Count (130-400) K/uL MPV (9.4-12.4) fL Immature Gran % (Auto) % Neut % (Auto) % Lymph % (Auto) % Teller % (Auto) % Eos % (Auto) % Baso % (Auto) % Neut # (Auto) (1.40-6.50) K/uL Lymph # (Auto) (1.20-3.40) K/uL Teller # (Auto) (0.11-0.59) K/uL Eos # (Auto) (0.00-0.50) K/uL Baso # (Auto) (0.00-0.20) K/uL Immature Gran # (Auto) (0.01-0.20) K/uL PT (9.0-12.0) Seconds INR (0.9-1.1) Sodium (136-145) mmol/L Potassium (3.5-5.1) mmol/L Chloride (98-107) mmol/L Carbon Dioxide (21-32) mmol/L Anion Gap (3-11) BUN (6-23) mg/dl Creatinine (0.6-1.4) mg/dl Est Cr Clr Drug Dosing ml/min Est GFR ( Amer) ml/min Est GFR (Non-Af Amer) ml/min BUN/Creatinine Ratio (10-20) Glucose (70-99(Fasting)) mg/dl Calcium (8.6-10.3) mg/dl Magnesium (1.7-2.4) mg/dl Total Bilirubin (0.2-1.0) mg/dl AST (13-39) U/L ALT (7-52) U/L Alkaline Phosphatase (34-104) U/L Troponin I High Sens (0-20) pg/ml B-Natriuretic Peptide (0-100) pg/ml Total Protein (6.0-8.3) gm/dl Albumin (3.4-5.0) gm/dl Globulin (2.5-4.0) gm/dl Albumin/Globulin Ratio (0.9-2) Lipase (11-82) U/L Procalcitonin < 0.05 (0-0.5) ng/ml TSH (0.300-4.500) uIu/ml Urine Color Dark Yellow Urine Appearance Turbid A (Clear) Urine pH 5.0 (4.5-7.5) Ur Specific [place] 1.016 (1.000-1.030) Urine Protein 1+ H (Negative) Urine Glucose (UA) Negative (Negative) Urine Ketones Trace H (Negative) Urine Blood 3+ H (Negative) Urine Nitrite Negative (Negative) Urine Bilirubin Negative (Negative) Urine Urobilinogen Negative (Negative) Ur Leukocyte Esterase Trace H (Negative) Urine WBC (Auto) 1-5 (0-5) /hpf Urine RBC (Auto) >30 H (0-4) /hpf U Hyaline Cast (Auto) 1-5 (0-5) /lpf U Epithel Cells (Auto) 5-10 H (0-5) /lpf Urine Bacteria (Auto) Negative (Negative) Lyme Disease IgG Ab (Negative) Lyme Disease IgM Ab (Negative) SARS-CoV-2 (PCR) (Negative) Influenza Type A (PCR) (Neg) Influenza Type B (PCR) (Neg) RSV (RT-PCR) (Neg) Administered Medications Amiodarone HCl (Amiodarone 200 Mg Tab) 100 mg PO QPM [facility] Stop: 01/11/23 20:59 Last Admin: 12/12/22 20:43 Dose: 100 mg Documented By: IDD Finasteride (Finasteride 5 Mg Tab) 5 mg PO PM [facility] Stop: 01/11/23 20:59 Last Admin: 12/12/22 20:42 Dose: 5 mg Documented By: IDD Heparin Sodium (Porcine) (Heparin Sod 5,000 Unit/0.5 Ml Vial) 5,000 units SQ Q12 [facility] Stop: 01/11/23 20:59 Last Admin: 12/12/22 20:45 Dose: 5,000 units Documented By: IDD Levothyroxine Sodium (Levothyroxine Sodium 150 Mcg Tablet) 150 mcg PO DAILYBB [facility] Stop: 01/11/23 14:31 Last Admin: 12/12/22 20:42 Dose: 150 mcg Documented By: IDD Losartan Potassium (Losartan Potassium 50 Mg Tab) 50 mg PO DAILY@2099 [facility] Stop: 01/11/23 20:59 Last Admin: 12/12/22 20:41 Dose: 50 mg Documented By: IDD Metoprolol Succinate (Metoprolol Succ 50mg Ext Rel Tab) 50 mg PO DAILY@2099 [facility] Stop: 01/11/23 20:59 Last Admin: 12/12/22 20:41 Dose: 50 mg Documented By: IDD Tamsulosin HCl (Tamsulosin Hcl 0.4 Mg Cap) 0.4 mg PO HS [facility] Stop: 01/11/23 20:59 Last Admin: 12/12/22 20:40 Dose: 0.4 mg Documented By: IDD Discontinued Medications Albuterol (Albut/Ipratrop 3mg/0.5mg Neb 3 Ml Vial) 3 ml NEB NOW STA; Protocol Stop: 12/12/22 10:01 Last Admin: 12/12/22 10:47 Dose: 3 ml Documented By: OL Dexamethasone Sodium Phosphate (DexamethasonePf 10 Mg/Ml Vial) 6 mg IV NOW ONE Stop: 12/12/22 08:37 Last Admin: 12/12/22 09:17 Dose: 6 mg Documented By: OL Furosemide (Furosemide 40 Mg/4 Ml Vial) 60 mg IV ONE ONE Stop: 12/12/22 10:37 Last Admin: 12/12/22 11:20 Dose: 60 mg Documented By: AMS Ioversol (Optiray 320 500ml) 112 ml IV ONCE ONE Stop: 12/12/22 07:58 Last Admin: 12/12/22 07:58 Dose: 112 ml Documented By: LYUDMILA Potassium Chloride (Potassium Chloride Crtab 20 Meq Tabcr) 20 meq PO NOW STA Stop: 12/12/22 09:15 Last Admin: 12/12/22 10:44 Dose: 20 meq Documented By: OL Potassium Chloride (Potassium Chloride Crtab 20 Meq Tabcr) 40 meq PO ONE ONE Stop: 12/12/22 17:01 Last Admin: 12/12/22 20:38 Dose: 40 meq Documented By: IDD Imaging Data Radiologist's Impression: Chest X-Ray 12/12/22 05:18 XR chest 1V portable HISTORY: 87 years-old Male sob, hypoxia acute shortness of breath with hypoxia COMPARISON: 12/08/2022 TECHNIQUE: AP view of the chest FINDINGS: Left subclavian pacer. Cardiac silhouette is enlarged. Pulmonary vascular worsening. Small pleural effusions with mild bibasilar opacities. Right shoulder surgical anchors. IMPRESSION: 1. Cardiomegaly with pulmonary edema. 2. Small pleural effusions with mild bibasilar opacities, likely atelectatic. ACT 112: Negative or not required by law. The above report was generated using voice recognition software. It may contain grammatical, syntax or spelling errors. Electronically signed by: Oswald Locke M.D. 12/12/2022 7:40 AM Chest CTA 12/12/22 06:50 CT angio chest PE protocol CT DOSE: 846.16 mGy.cm HISTORY: 87 years-old Male with PE. Acute shortness of breath TECHNIQUE: Multiple CTA images of the chest were obtained after the intravenous administration of 112 ml Optiray. Coronal and sagittal MIPS were obtained from the axial data set and were submitted for review. All measurements were obtained according to NASCET criteria. A dose lowering technique was utilized adhering to the principles of ALARA. COMPARISON: Chest CT 11/21/2020 FINDINGS: CTA: Moderate cardiomegaly with moderate coronary artery calcifications. No pericardial effusion. Left subclavian pacer. Atherosclerosis of the thoracic aorta without aneurysm or dissection. 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 Reflux of contrast into the IVC and hepatic veins. No pulmonary emboli identified. The segmental and subsegmental branches however are difficult to visualize secondary to respiratory motion artifact. CT CHEST: No dominant thyroid nodule identified. There are mildly enlarged mediastinal and hilar lymph nodes including a 1.5 cm left hilar lymph node and 1.4 cm left paratracheal lymph node which have mildly increased in size from prior. Small moderate layering pleural effusions. Intralobular and bronchial wall thickening. Dependent bibasilar consolidation. No suspicious pulmonary nodules or masses identified. The central airways are patent. Stable 7 mm solid nodule in the right lower lobe, image 48. 4 mm nodule right lower lobe on image 66. No acute process of the imaged upper abdomen. Moderate colonic fecal retention. Unremarkable soft tissues. No acute fracture. Surgical anchors of the right humeral IMPRESSION: 1. No pulmonary emboli identified. 2. Cardiomegaly with pulmonary edema. 3. Layering pleural effusions with dependent bibasilar consolidation suggestive of atelectasis. 4. Mild mediastinal and hilar lymphadenopathy. ACT 112: Negative or not required by law. The above report was generated using voice recognition software. It may contain grammatical, syntax or spelling errors. Electronically signed by: Oswald Locke M.D. 12/12/2022 8:20 AM Discharge Plan Visit Data Chief Complaint: Cough Stated Complaint: SOB ED Provider: Leah Robledo Discharge Problem: Generalized weakness, Dyspnea, Hypoxia, Fever, COVID-19, Pleural effusion, Elevated brain natriuretic peptide (BNP) level, Hematuria Patient Disposition: Admitted As Inpatient Discharge Instructions Interventions: ED Discharge Assessment Last Done: 12/12/22 22:34
[2022-12-12 06:19] LABS: Basophils # (auto) 0.02 K/uL (0.00-0.20); Basophils % (auto) 0.4 %; Hematocrit (blood only) 37.8 % (42.0-52.0); Hemoglobin 13.1 g/dl (14.0-18.0); Immature Granulocytes # (auto) 0.01 K/uL (0.01-0.20); Immature Granulocytes % (auto) 0.2 %; Lymphocytes # (auto) 0.52 K/uL (1.20-3.40); Lymphocytes % (auto) 10.4 %; Mean Corpuscular Hemoglobin 31.2 pg (25.0-34.0); Mean Corpuscular Hgb Conc 34.7 g/dL (32.0-36.0); Mean Platelet Volume 10.8 fL (9.4-12.4); Monocytes # (auto) 1.09 K/uL (0.11-0.59); Monocytes % (auto) 21.8 %; Neutrophils # (auto) 3.35 K/uL (1.40-6.50); Neutrophils % (auto) 67.2 %; Platelet Count 150 K/uL (130-400); RDW Coefficient of Variation 12.6 % (11.5-14.5); RDW Standard Deviation 41.4 fL (36.4-46.3); White Blood Count 4.99 K/ul (4.8-10.8)
[2022-12-12 06:40] LABS: Albumin Level 3.5 gm/dl (3.4-5.0); BUN Creatinine Ratio 14.7 (10-20); Bilirubin,Total 0.7 mg/dl (0.2-1.0); Calcium 8.4 mg/dl (8.6-10.3); Creatinine Clr Calc Pharmacy 32.6 ml/min; Est GFR (African American) 42.7 ml/min; Est GFR (Non-African American) 36.8 ml/min; Globulin 3.4 gm/dl (2.5-4.0); Magnesium 2.1 mg/dl (1.7-2.4); Potassium 3.4 mmol/L (3.5-5.1); Total Protein 6.9 gm/dl (6.0-8.3)
[2022-12-12 06:44] LABS: Troponin I High Sensitivity 18.9 pg/ml (0-20)
[2022-12-12 06:47] LABS: INR 1.1 (0.9-1.1); Prothrombin Time 11.9 Seconds (9.0-12.0)
[2022-12-12 06:54] LABS: Thyroid Stimulating Hormone 0.402 uIu/ml (0.300-4.500)
[2022-12-12 07:07] LABS: Lyme Ab IgG w/WB Rflx Negative (Negative); Lyme Ab IgM w/WB Rflx Negative (Negative)
--- NOTE | 2022-12-12 07:41 | XRay Report ---
XR chest 1V portable HISTORY: 87 years-old Male sob, hypoxia acute shortness of breath with hypoxia COMPARISON: 12/08/2022 TECHNIQUE: AP view of the chest FINDINGS: Left subclavian pacer. Cardiac silhouette is enlarged. Pulmonary vascular worsening. Small pleural ef fusions with mild bibasilar opacities. Right shoulder surgical anchors. IMPRESSION: 1. Cardiomegaly with pulmonary edema. 2. Small pleural effusions with mild bibasilar opacities, likely atelectatic. ACT 112: Negative or not required by law. The above report was generated using voice recognition software. It may contain grammatical, syntax o r spelling errors. Electronically signed by: Oswald Locke M.D. 12/12/2022 7:40 AM
[2022-12-12] MEDS ORDERED: OPTIRAY 320 500ml IV ONE (07:57)
--- NOTE | 2022-12-12 08:22 | CT Scan Report ---
CT angio chest PE protocol CT DOSE: 846.16 mGy.cm HISTORY: 87 years-old Male with PE. Acute shortness of breath TECHNIQUE: Multiple CTA images of the chest were obtained after the intravenous administration of 112 ml Optiray. Coronal and sagittal MIPS were obtained from the axial data set and were submitted for review. All measurements were obtained according to NASCET criteria. A dose lowering technique was u tilized adhering to the principles of ALARA. COMPARISON: Chest CT 11/21/2020 FINDINGS: CTA: Moderate cardiomegaly with moderate coronary artery calcifications. No pericardial effusion. Left sub clavian pacer. Atherosclerosis of the thoracic aorta without aneurysm or dissection. There is stenosi s of the left subclavian vein with numerous opacified collaterals within the left chest wall. Reflux of contrast into the IVC and hepatic veins. No pulmonary emboli identified. The segmental and subsegm ental branches however are difficult to visualize secondary to respiratory motion artifact. CT CHEST: No dominant thyroid nodule identified. There are mildly enlarged mediastinal and hilar lymph nodes in cluding a 1.5 cm left hilar lymph node and 1.4 cm left paratracheal lymph node which have mildly incr eased in size from prior. Small moderate layering pleural effusions. Intralobular and bronchial wall thickening. Dependent bibasilar consolidation. No suspicious pulmonary nodules or masses identified. The central airways are patent. Stable 7 mm solid nodule in the right lower lobe, image 48. 4 mm nodu le right lower lobe on image 66. No acute process of the imaged upper abdomen. Moderate colonic fecal retention. Unremarkable soft tis sues. No acute fracture. Surgical anchors of the right humeral IMPRESSION: 1. No pulmonary emboli identified. 2. Cardiomegaly with pulmonary edema. 3. Layering pleural effusions with dependent bibasilar consolidation suggestive of atelectasis. 4. Mild mediastinal and hilar lymphadenopathy. ACT 112: Negative or not required by law. The above report was generated using voice recognition software. It may contain grammatical, syntax o r spelling errors. Electronically signed by: Oswald Locke M.D. 12/12/2022 8:20 AM
[2022-12-12] MEDS ORDERED: dexAMETHasone**PF** 10 MG/ML VIAL IV ONE (08:36)
[2022-12-12 08:37] LABS: Appearance Urine Turbid (Clear); Bacteria Urine Automated Negative (Negative); Bilirubin Urine Negative (Negative); Blood Urine 3+ (Negative); Color Urine Dark Yellow; Glucose Urine UA Negative (Negative); Ketones Urine Trace (Negative); Leukocyte Esterase Urine Trace (Negative); Nitrite Urine Negative (Negative); Protein Urine 1+ (Negative); RBC Urine Automated >30 /hpf (0-4); Specific Gravity Urine 1.016 (1.000-1.030); Urobilinogen Urine Negative (Negative)
[2022-12-12] MEDS ORDERED: POTASSIUM CHLORIDE CRTAB 20 MEQ TABCR PO STA (09:14)
--- NOTE | 2022-12-12 09:41 | History & Physical Report ---
Date of Service December 12, 2022 Assessment & Plan (1) ROBERTO (dyspnea on exertion): (2) Hypoxia: (3) CHF exacerbation: (4) COVID-19: (5) Pleural effusion: (6) Generalized weakness: Plan: Patient is 87-year-old male with PMH tachybrady syndrome s/p pacemaker, PAF, diastolic heart failure, CKD III, hypothyroidism, BPH and others listed below presented to ER with complaint of fever, shortness of breath. 4 days ago with negative COVID test, thought volume overload and torsemide was increased. Over the past couple days developed cough, fever. Hypoxia noticed at home last night Likely combination CHF exacerbation, acute COVID-19 infection In ER T: 37.6 C, P: 61, RR: 23, BP 151/81 is 95% on 2 L via nasal cannula No leukocytosis. + SARS-CoV-2 PCR. BNP 477. HS troponin 18 CXR: Cardiomegaly with pulmonary edema. Small pleural effusions with mild bibasilar opacities, likely atelectatic. CTA chest: No pulmonary emboli identified. Cardiomegaly with pulmonary edema. Layering pleural effusions with dependent bibasilar consolidation suggestive of atelectasis. Mild mediastinal and hilar lymphadenopathy. Procalcitonin pending Give 60 mg Lasix IV now Start Lasix IV 40 mg daily. Hold home torsemide Monitor I's and O's, daily weight. low-sodium diet Will hold on echo pending cardiology recommendations Cardiology consult In ER given dexamethasone 6 mg IV We will continue dexamethasone daily Airborne isolation Supplemental oxygen as needed Albuterol neb as needed Incentive spirometry, flutter valve CBC, BMP in am (7) Hematuria: Plan: UA: 3+ blood,> 30 WBC, trace leuk esterase Denies abdominal pain, flank pain, dysuria Ultrasound renal/bladder to further assess (8) Hypokalemia: Plan: K: 3.4. Magnesium: 2.1 Replace and monitor Plan to start daily KCl as is on diuretics (9) Tachycardia-bradycardia syndrome: Plan: S/P pacemaker Pacemaker was interrogated on 12/08/2022 The patient's pacemaker was interrogated remotely. Normal pacemaker function noted. Patient had an episode of paroxysmal atrial fibrillation that took place on 11/26/2022 that was of 3 hours in duration. (10) Paroxysmal atrial fibrillation: Plan: Not on anticoagulation secondary to history of spontaneous lower extremity hematoma in past Continue amiodarone, metoprolol (11) CKD (chronic kidney disease), stage III: Plan: Cr: 1.6. Baseline 1.4-1.6 Monitor renal functions, avoid nephrotoxic agents when possible (12) HTN (hypertension): Plan: Continue candesartan (13) BPH (benign prostatic hyperplasia): Plan: Continue tamsulosin, finasteride (14) Hypothyroidism: Plan: Continue levothyroxine DVT Prophylaxis Heparin SQ Full Code as per discussion with pt Follows with Dr Raf Uribe for routine care Pt was seen and care coordinated with Dr Juarez. See addendum History of Present Illness Chief Complaint: fever Primary Care Provider: Raf Uribe DO Patient is 87-year-old male with PMH tachybrady syndrome s/p pacemaker, PAF, diastolic heart failure, CKD III, hypothyroidism, BPH and others listed below presented to ER with complaint of fever, shortness of breath. Patient is [place] speaking, understands minimal Faroese. Presents to hospital with his . History obtained from patient, and outpatient chart review. Attempted to use installment dealer service however was unavailable at this time. interprets for patient. C/O phlegm in his throat x 5 days. No other cough or fever at that time. Was previously walking a block without SOB however last week started having exertional SOB with walking. He was seen in ER on 12/08/22 for shortness of breath. At that time had negative COVID test, appeared to be volume overloaded and cardiology had evaluated him in ER and increased his torsemide. States was feeling a little less SOB however 2 days ago started with rhinorrhea, OLSON and feeling run down. Last night severe coughing episodes. Yesterday with fever 100.6F and pulse ox was 87% on room air. Today clear to green color phlegm. He is also noticing SOB with ambulating to bathroom past several days. Since being in ER and on oxygen states feeling better. No nausea or headache currently. While in ER today urine looked very dark/reddish in coloration. Has not noticed that at home. Denies vomiting, diarrhea, constipation, dizziness, syncope, vision changes, neck pain, CP, orthopnea, palpitations, hemoptysis, sore throat, otalgia, abdominal pain, paresthesias, extremity weakness, extremity edema, rashes, dysuria, urinary frequency. Allergies Allergy/AdvReac Type Severity Reaction Status Date / Time No Known Drug Allergies Allergy Unknown Verified 12/12/22 11:56 Home Medications Medication Instructions Recorded Confirmed Type finasteride 5 mg tablet 5 mg PO PM 01/10/19 12/12/22 History cyanocobalamin (vitamin B-12) 1,000 mcg PO QAM 03/09/19 12/12/22 History 1,000 mcg tablet (Vitamin B-12) ferrous sulfate 325 mg (65 mg 325 mg PO 3XWK 08/10/19 12/12/22 History iron) tablet (iron) metoprolol succinate 50 mg 50 mg PO DAILY@209909/23/19 12/12/22 History tablet,extended release 24 hr amiodarone 100 mg tablet (P[place]one) 100 mg PO QPM 08/07/20 12/12/22 History aspirin 81 mg tablet,delayed 81 mg PO QAM 08/07/20 12/12/22 History release potassium 75 mg tablet 75 mg PO MOWEFR 08/07/20 12/12/22 History tamsulosin 0.4 mg capsule 0.4 mg PO HS 04/17/21 12/12/22 History albuterol sulfate 90 mcg/actuation 2 puff inhalation Q6H PRN 06/30/22 12/12/22 Rx aerosol inhaler Shortness Of Breath Or Wheezing #18 grams candesartan 32 mg tablet 16 mg PO DAILY@209906/30/22 12/12/22 History torsemide 10 mg tablet 15 mg PO DAILY 06/30/22 12/12/22 History levothyroxine 150 mcg tablet 150 mcg PO DAILY 12/12/22 12/12/22 History (Synthroid) Past Med/Surg History Medical History BPH (benign prostatic hyperplasia) CKD (chronic kidney disease), stage III HTN (hypertension) Hypothyroidism Mitral regurgitation Paroxysmal atrial fibrillation Prolonged QT interval Tachycardia-bradycardia syndrome Tobacco abuse Surgical History History of cataract surgery S/P placement of cardiac pacemaker Family History Brother Cancer Mother Stroke Hypertension Other No family history of allergies No family history of bleeding disorder Denies family history of Hearing loss Heart disease Asthma Social History Smoking Status: Former smoker Tobacco Type: Pipe Age Quit Using Tobacco: 86; Cigarettes Per Day: pipe tobacco use is not every day (once per day, per every use); Second Hand Exposure: No; Do You Dip or Chew Tobacco: No; Hx Alcohol Use: No Hx Substance Use: No Preferred Language: Faroese Communication Ability: Impaired Communication Tools: IPad and Language Line Wholesale Buyer Visual Impairment: No Limitations Wholesale Buyer Required: Yes Beliefs That Will Affect Care: None marital status: Current Living Situation: Spouse current occupational status: retired Feels Safe at Home: Yes Assistive Devices: None Review of Systems Review of Systems: All systems reviewed & are unremarkable except as noted in HPI & below Physical Exam Physical Exam: PE per Dr Juarez Results & Data Results & Data Vital Signs (Past 12 Hours) Vital Signs Temp Pulse Pulse Resp BP BP Pulse Ox 12/12/22 08:00 75 18 163/81 H 97 12/12/22 08:21 74 12/12/22 06:49 63 24 93 12/12/22 05:03 95 12/12/22 04:53 37.6 C H 61 23 151/81 H 95 O2 Del Method O2 Flow Rate 12/12/22 08:00 Nasal Cannula 2 12/12/22 08:21 12/12/22 06:49 Room Air 12/12/22 05:03 Room Air 12/12/22 04:53 Room Air Laboratory Results Short CBC 12/12/22 Range/Units 05:55 WBC 4.99 (4.8-10.8) K/ul Hgb 13.1 L (14.0-18.0) g/dl Hct 37.8 L (42.0-52.0) % Plt Count 150 (130-400) K/uL BMP 12/12/22 05:55 Sodium 136 Potassium 3.4 L Chloride 99 Carbon Dioxide 29 BUN 24 H Creatinine 1.63 H Glucose 95 Calcium 8.4 L Liver Function 12/12/22 Range/Units 05:55 Total Bilirubin 0.7 (0.2-1.0) mg/dl AST 15 (13-39) U/L ALT 4 L (7-52) U/L Alkaline Phosphatase 41 (34-104) U/L Albumin 3.5 (3.4-5.0) gm/dl Urine 12/12/22 Range/Units 08:15 Urine Color Dark Yellow Urine Appearance Turbid A (Clear) Urine pH 5.0 (4.5-7.5) Ur Specific [place] 1.016 (1.000-1.030) Urine Protein 1+ H (Negative) Urine Glucose (UA) Negative (Negative) Diagnostic Findings Chest X-Ray 12/12/22 05:18 XR chest 1V portable HISTORY: 87 years-old Male sob, hypoxia acute shortness of breath with hypoxia COMPARISON: 12/08/2022 TECHNIQUE: AP view of the chest FINDINGS: Left subclavian pacer. Cardiac silhouette is enlarged. Pulmonary vascular worsening. Small pleural effusions with mild bibasilar opacities. Right shoulder surgical anchors. IMPRESSION: 1. Cardiomegaly with pulmonary edema. 2. Small pleural effusions with mild bibasilar opacities, likely atelectatic. ACT 112: Negative or not required by law. The above report was generated using voice recognition software. It may contain grammatical, syntax or spelling errors. Electronically signed by: Oswald Locke M.D. 12/12/2022 7:40 AM Chest CTA 12/12/22 06:50 CT angio chest PE protocol CT DOSE: 846.16 mGy.cm HISTORY: 87 years-old Male with PE. Acute shortness of breath TECHNIQUE: Multiple CTA images of the chest were obtained after the intravenous administration of 112 ml Optiray. Coronal and sagittal MIPS were obtained from the axial data set and were submitted for review. All measurements were obtained according to NASCET criteria. A dose lowering technique was utilized adhering to the principles of ALARA. COMPARISON: Chest CT 11/21/2020 FINDINGS: CTA: Moderate cardiomegaly with moderate coronary artery calcifications. No pericardial effusion. Left subclavian pacer. Atherosclerosis of the thoracic aorta without aneurysm or dissection. 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 Reflux of contrast into the IVC and hepatic veins. No pulmonary emboli identified. The s egmental and subsegmental branches however are difficult to visualize secondary to respiratory motion artifact. CT CHEST: No dominant thyroid nodule identified. There are mildly enlarged mediastinal and hilar lymph nodes including a 1.5 cm left hilar lymph node and 1.4 cm left paratracheal lymph node which have mildly increased in size from prior. Small moderate layering pleural effusions. Intralobular and bronchial wall thickening. Dependent bibasilar consolidation. No suspicious pulmonary nodules or masses identified. The central airways are patent. Stable 7 mm solid nodule in the right lower lobe, image 48. 4 mm nodule right lower lobe on image 66. No acute process of the imaged upper abdomen. Moderate colonic fecal retention. Unremarkable soft tissues. No acute fracture. Surgical anchors of the right humeral IMPRESSION: 1. No pulmonary emboli identified. 2. Cardiomegaly with pulmonary edema. 3. Layering pleural effusions with dependent bibasilar consolidation suggestive of atelectasis. 4. Mild mediastinal and hilar lymphadenopathy. ACT 112: Negative or not required by law. The above report was generated using voice recognition software. It may contain grammatical, syntax or spelling errors. Electronically signed by: Oswald Locke M.D. 12/12/2022 8:20 AM Supervising Physician Co-Signing Physician Notes 87-year-old male with PMH tachybrady syndrome s/p pacemaker, PAF, diastolic heart failure, CKD III who presented to the ER with worsening respiratory symptoms. Patient is [place] speaking. [place] language services was not available at the time so patient's interpreted. Patient had presented to ER 4 days ago with cough and exertional dyspnea. Was evaluated by Cardiology and his home torsemide increased from 15mg to 30mg daily. He developed nasal congestion afterwards over the past few days with some fevers (Temp of 99.9 and 100.6) with increasing exertional dyspnea. noted oxygen sats was 87% on room air yesterday night on walking from bathroom. His cough was productive today per . Reports weakness On exam, General: Elderly man in no distress Eyes: PERRL, conjunctivae normal, not pale, anicteric sclerae, EOM intact bilaterally ENMT: External ear and nose normal, oropharynx normal Respiratory: Normal respiratory effort, no respiratory distress, on nasal cannula, some crackles, diminished breath sounds posteriorly Cardiovascular: RRR S1 S2 +systolic murmur Gastrointestinal (Abdomen): Abdomen is not distended, soft, non-tender to palpation, no guarding, no palpable hepatosplenomegaly, normal bowel sounds Musculoskeletal: No pedal edema Genitourinary: No CVA tenderness Neurologic: Alert and oriented x 3, No focal weakness, sensation grossly intact Psychiatric: Alert and oriented x 3, euthymic affect, no depressed affect Labs notable for Hb 13.1 (stable), K of 3.4, Cr of 1.63 (Baseline 1.4-1.6), BNP 477 (was 333 on 12/08/22), +COVID CT PE was negative for PE but noted cardiomegaly, pulm edema, pleural effusion with dependent consolidation Acute respiratory failure with hypoxia Acute on chronic diastolic heart failure COVID 19 infection Start IV diuretics Continue dexamethasone 6mg daily Incentive spirometry and flutter Wean oxygen as tolerated Cards consult. Will defer TTE to cardiology Patient has CKD3 at baseline. Monitor renal function with diuretics UA showed 3+ blood and >30RBC. reported urine today was pinkish Patient denied any urinary symptoms Get Kidney/Bladder USS for evaluation (3) CHF exacerbation Heart failure type: unspecified Qualified Code(s): I50.9 - Heart failure, unspecified
[2022-12-12] MEDS ORDERED: ALBUT/IPRATROP 3MG/0.5MG NEB 3 ML VIAL NEB STA (10:00)
[2022-12-12] MEDS ORDERED: FUROSEMIDE 40 MG/4 ML VIAL IV ONE (10:36)
--- NOTE | 2022-12-12 12:43 | Electrocardiogram Report ---
Test Reason : Blood Pressure : / mmHG Vent. Rate : 063 BPM Atrial Rate : 063 BPM P-R Int : 360 ms QRS Dur : 096 ms QT Int : 500 ms P-R-T Axes : 081 -08 -10 degrees QTc Int : 511 ms Sinus rhythm with 1st degree A-V block Prolonged QT Abnormal ECG When compared with ECG of 08-DEC-2022 09:41, Sinus rhythm has replaced Electronic atrial pacemaker Confirmed by Shane Edwards ([id number]) on 12/12/2022 12:42:33 PM Referred By: REFERRED SELF Confirmed By:David Edwards
[2022-12-12] MEDS ORDERED: ALBUTEROL HFA 8 GM INHALER INH PRN (14:32)
[2022-12-12] MEDS ORDERED: POLYETHYLENE (MIRALAX) 17 GM PACK PO PRN (14:32)
[2022-12-12] MEDS ORDERED: ACETAMINOPHEN 325 MG TAB PO PRN (14:32)
--- NOTE | 2022-12-12 15:21 | Ultrasound Report ---
RENAL ULTRASOUND HISTORY: Acute hematuria hematuria COMPARISON: CT 09/14/2019 FINDINGS: Right kidney: 10.0 cm. No hydronephrosis. Mild diffuse cortical thinning. Left kidney: 9.5 cm. No hydronephrosis. Mild diffuse cortical thinning. Bladder: No bladder wall thickening. The bilateral ureteral jets were identified. Enlarged prostate measuring up to 4.6 cm. IMPRESSION: 1. No hydronephrosis. 2. Prostatomegaly. ACT 112: Negative or not required by law. Electronically signed by: Oswald Locke M.D. 12/12/2022 3:19 PM
[2022-12-12] MEDS ORDERED: POTASSIUM CHLORIDE CRTAB 20 MEQ TABCR PO ONE (17:00)
[2022-12-12] MEDS: TAMSULOSIN HCL 0.4 MG CAP PO SCH (20:40)
[2022-12-12] MEDS: METOPROLOL SUCC 50MG EXT REL TAB PO SCH (20:41)
[2022-12-12] MEDS: LOSARTAN POTASSIUM 50 MG TAB PO SCH (20:41)
[2022-12-12] MEDS: FINASTERIDE 5 MG TAB PO SCH (20:42)
[2022-12-12] MEDS: LEVOTHYROXINE SODIUM 150 MCG TABLET PO SCH (20:42)
[2022-12-12] MEDS: AMIODARONE 200 MG TAB PO SCH (20:43)
[2022-12-12] MEDS: HEPARIN SOD 5,000 UNIT/0.5 ML VIAL SQ SCH (20:45)
[2022-12-13] MEDS: LEVOTHYROXINE SODIUM 150 MCG TABLET PO SCH (06:00)
[2022-12-13 06:51] LABS: Basophils # (auto) 0.01 K/uL (0.00-0.20); Basophils % (auto) 0.2 %; Eosinophils # (auto) 0.01 K/uL (0.00-0.50); Eosinophils % (auto) 0.2 %; Hematocrit (blood only) 38.2 % (42.0-52.0); Hemoglobin 13.3 g/dl (14.0-18.0); Immature Granulocytes # (auto) 0.02 K/uL (0.01-0.20); Immature Granulocytes % (auto) 0.3 %; Lymphocytes # (auto) 0.63 K/uL (1.20-3.40); Lymphocytes % (auto) 10.1 %; Mean Corpuscular Hemoglobin 30.8 pg (25.0-34.0); Mean Corpuscular Hgb Conc 34.8 g/dL (32.0-36.0); Mean Corpuscular Volume 88.4 fL (80.0-100.0); Mean Platelet Volume 11.2 fL (9.4-12.4); Monocytes # (auto) 0.94 K/uL (0.11-0.59); Monocytes % (auto) 15.1 %; Neutrophils # (auto) 4.63 K/uL (1.40-6.50); Neutrophils % (auto) 74.1 %; Platelet Count 148 K/uL (130-400); RDW Coefficient of Variation 12.5 % (11.5-14.5); Red Blood Count 4.32 M/uL (4.70-6.10); White Blood Count 6.24 K/ul (4.8-10.8)
--- NOTE | 2022-12-13 07:42 | Hospitalist Progress Note ---
Date of Service December 13, 2022 Assessment & Plan (1) ROBERTO (dyspnea on exertion): (2) Hypoxia: (3) CHF exacerbation: (4) COVID-19: (5) Pleural effusion: (6) Generalized weakness: Plan: Patient is 87-year-old male with PMH tachybrady syndrome s/p pacemaker, PAF, diastolic heart failure, CKD III, hypothyroidism, BPH and others listed below presented to ER with complaint of fever, shortness of breath. 4 days ago with negative COVID test, thought volume overload and torsemide was increased. Over the past couple days developed cough, fever. Hypoxia noticed at home last night Likely combination CHF exacerbation, acute COVID-19 infection In ER T: 37.6 C, P: 61, RR: 23, BP 151/81 is 95% on 2 L via nasal cannula No leukocytosis. + SARS-CoV-2 PCR. BNP 477. HS troponin 18 CXR: Cardiomegaly with pulmonary edema. Small pleural effusions with mild bibasilar opacities, likely atelectatic. CTA chest: No pulmonary emboli identified. Cardiomegaly with pulmonary edema. Layering pleural effusions with dependent bibasilar consolidation suggestive of atelectasis. Mild mediastinal and hilar lymphadenopathy. Procalcitonin negative Received 60 mg Lasix IV on admission - cont w/ Lasix IV 40 mg bid. Hold home torsemide Monitor I's and O's, daily weight. low-sodium diet echo obtained Cardiology consulted In ER given dexamethasone 6 mg IV We will continue dexamethasone daily Airborne isolation Supplemental oxygen as needed, currently pt is on RA Albuterol neb as needed Incentive spirometry, flutter valve CBC, BMP in am (7) Hematuria: Plan: UA: 3+ blood,> 30 WBC, trace leuk esterase Denies abdominal pain, flank pain, dysuria Ultrasound renal/bladder obtained - FINDINGS: Right kidney: 10.0 cm. No hydronephrosis. Mild diffuse cortical thinning. Left kidney: 9.5 cm. No hydronephrosis. Mild diffuse cortical thinning. Bladder: No bladder wall thickening. The bilateral ureteral jets were identified. Enlarged prostate measuring up to 4.6 cm. IMPRESSION: 1. No hydronephrosis. 2. Prostatomegaly. 12/13 - discussed w/ RN - no hematuria noted (8) Hypokalemia: Plan: K: 3.4. Magnesium: 2.1 Replace and monitor Plan to start daily KCl as is on diuretics (9) Tachycardia-bradycardia syndrome: Plan: S/P pacemaker Pacemaker was interrogated on 12/08/2022 The patient's pacemaker was interrogated remotely. Normal pacemaker function noted. Patient had an episode of paroxysmal atrial fibrillation that took place on 11/26/2022 that was of 3 hours in duration. (10) Paroxysmal atrial fibrillation: Plan: Not on anticoagulation secondary to history of spontaneous lower extremity hematoma in past Continue amiodarone, metoprolol (11) CKD (chronic kidney disease), stage III: Plan: Cr: 1.6. Baseline 1.4-1.6 Monitor renal functions, avoid nephrotoxic agents when possible (12) HTN (hypertension): Plan: Continue candesartan (13) BPH (benign prostatic hyperplasia): Plan: Continue tamsulosin, finasteride (14) Hypothyroidism: Plan: Continue levothyroxine DVT Prophylaxis Heparin SQ Full Code as per discussion with pt Follows with Dr Raf Uribe for routine care Admission and Anticipated Discharge Date Admission Date: December 12, 2022 Subjective Pt seen in follow up + covid 19 On my entrance to room, pt is in bathroom, ambulating by himself, brushing teeth etc. He is breathing on RA, comfortable and in no distress He tells me he feels fine today no fever, chills, chest pain, shortness of breath denies any hematuria - this was confirmed by RN as well Pt seen by cardiology - cont. w/ MIREYA kwan Review of Systems Review of Systems: All systems reviewed & are unremarkable except as noted in Subjective Physical Exam Physical Exam: General: Elderly man in no distress Eyes: PERRL, conjunctivae normal, not pale, anicteric sclerae, EOM intact bilaterally ENMT: External ear and nose normal, oropharynx normal Respiratory: Normal respiratory effort, no respiratory distress, on RA, diminished breath sounds, no wheezing, crackles, rhonchi noted Cardiovascular: RRR S1 S2 +systolic murmur Gastrointestinal (Abdomen): Abdomen is not distended, soft, non-tender to palpation, no guarding, normal bowel sounds Musculoskeletal: No pedal edema Genitourinary: No CVA tenderness Neurologic: Alert and oriented x 3, speech fluent, No focal weakness, moves extremities, answers appropriately Results & Data Results & Data Vital Signs (Past 12 Hours) Vital Signs Temp Pulse Pulse Resp BP Pulse Ox O2 Del Method 12/13/22 07:15 36.5 C 62 19 131/59 L 92 Room Air 12/13/22 02:35 36.5 C 76 18 155/74 H 92 Room Air 12/12/22 23:00 74 12/12/22 22:47 36.6 C 75 18 160/89 H 96 Room Air 12/12/22 22:30 Room Air Laboratory Results 12/13/22 12/13/22 12/12/22 Range/Units 06:15 06:15 08:15 WBC 6.24 (4.8-10.8) K/ul RBC 4.32 L (4.70-6.10) M/uL Hgb 13.3 L (14.0-18.0) g/dl Hct 38.2 L (42.0-52.0) % MCV 88.4 (80.0-100.0) fL MCH 30.8 (25.0-34.0) pg MCHC 34.8 (32.0-36.0) g/dL RDW Std Deviation 41.0 (36.4-46.3) fL RDW Coeff of Millie 12.5 (11.5-14.5) % Plt Count 148 (130-400) K/uL MPV 11.2 (9.4-12.4) fL Immature Gran % (Auto) 0.3 % Neut % (Auto) 74.1 % Lymph % (Auto) 10.1 % [place] % (Auto) 15.1 % Eos % (Auto) 0.2 % Baso % (Auto) 0.2 % Neut # (Auto) 4.63 (1.40-6.50) K/uL Lymph # (Auto) 0.63 L (1.20-3.40) K/uL [place] # (Auto) 0.94 H (0.11-0.59) K/uL Eos # (Auto) 0.01 (0.00-0.50) K/uL Baso # (Auto) 0.01 (0.00-0.20) K/uL Immature Gran # (Auto) 0.02 (0.01-0.20) K/uL Sodium Pending Potassium Pending Chloride Pending Carbon Dioxide Pending Anion Gap Pending BUN Pending Creatinine Pending Est Cr Clr Drug Dosing Pending Est GFR ( Amer) Pending Est GFR (Non-Af Amer) Pending BUN/Creatinine Ratio Pending Glucose Pending Calcium Pending Magnesium Pending Procalcitonin (0-0.5) ng/ml Urine Color Dark Yellow Urine Appearance Turbid A (Clear) Urine pH 5.0 (4.5-7.5) Ur Specific [place] 1.016 (1.000-1.030) Urine Protein 1+ H (Negative) Urine Glucose (UA) Negative (Negative) Urine Ketones Trace H (Negative) Urine Blood 3+ H (Negative) Urine Nitrite Negative (Negative) Urine Bilirubin Negative (Negative) Urine Urobilinogen Negative (Negative) Ur Leukocyte Esterase Trace H (Negative) Urine WBC (Auto) 1-5 (0-5) /hpf Urine RBC (Auto) >30 H (0-4) /hpf U Hyaline Cast (Auto) 1-5 (0-5) /lpf U Epithel Cells (Auto) 5-10 H (0-5) /lpf Urine Bacteria (Auto) Negative (Negative) 12/12/22 Range/Units 05:55 WBC (4.8-10.8) K/ul RBC (4.70-6.10) M/uL Hgb (14.0-18.0) g/dl Hct (42.0-52.0) % MCV (80.0-100.0) fL MCH (25.0-34.0) pg MCHC (32.0-36.0) g/dL RDW Std Deviation (36.4-46.3) fL RDW Coeff of Millie (11.5-14.5) % Plt Count (130-400) K/uL MPV (9.4-12.4) fL Immature Gran % (Auto) % Neut % (Auto) % Lymph % (Auto) % [place] % (Auto) % Eos % (Auto) % Baso % (Auto) % Neut # (Auto) (1.40-6.50) K/uL Lymph # (Auto) (1.20-3.40) K/uL [place] # (Auto) (0.11-0.59) K/uL Eos # (Auto) (0.00-0.50) K/uL Baso # (Auto) (0.00-0.20) K/uL Immature Gran # (Auto) (0.01-0.20) K/uL Sodium Potassium Chloride Carbon Dioxide Anion Gap BUN Creatinine Est Cr Clr Drug Dosing Est GFR ( Amer) Est GFR (Non-Af Amer) BUN/Creatinine Ratio Glucose Calcium Magnesium Procalcitonin < 0.05 (0-0.5) ng/ml Urine Color Urine Appearance (Clear) Urine pH (4.5-7.5) Ur Specific [place] (1.000-1.030) Urine Protein (Negative) Urine Glucose (UA) (Negative) Urine Ketones (Negative) Urine Blood (Negative) Urine Nitrite (Negative) Urine Bilirubin (Negative) Urine Urobilinogen (Negative) Ur Leukocyte Esterase (Negative) Urine WBC (Auto) (0-5) /hpf Urine RBC (Auto) (0-4) /hpf U Hyaline Cast (Auto) (0-5) /lpf U Epithel Cells (Auto) (0-5) /lpf Urine Bacteria (Auto) (Negative) Medications Administered Current Inpatient Medications Acetaminophen (Acetaminophen 325 Mg Tab) 650 mg PO Q4H PRN PRN Reason: Pain or Fever Stop: 01/11/23 14:31 Albuterol (Albuterol Hfa 8 Gm Inhaler) 2 puffs INH Q6H PRN PRN Reason: Shortness Of Breath Or Wheezing Stop: 01/11/23 14:31 Amiodarone HCl (Amiodarone 200 Mg Tab) 100 mg PO QPM JOE Stop: 01/11/23 20:59 Last Admin: 12/12/22 20:43 Dose: 100 mg Aspirin (Aspirin 81 Mg Ectab) 81 mg PO QAM [facility] Stop: 01/12/23 08:59 Cyanocobalamin (Cyanocobalamin (B-12) 500 Mcg Tablet) 1,000 mcg PO QAM [facility] Stop: 01/12/23 08:59 Ferrous Sulfate (Ferrous Sulfate 325 Mg Tab) 325 mg PO MoWeFr@0900 [facility] Stop: 01/12/23 08:59 Finasteride (Finasteride 5 Mg Tab) 5 mg PO PM JOE Stop: 01/11/23 20:59 Last Admin: 12/12/22 20:42 Dose: 5 mg Furosemide (Furosemide 40 Mg/4 Ml Vial) 40 mg IV DAILY [facility] Stop: 01/12/23 08:59 Heparin Sodium (Porcine) (Heparin Sod 5,000 Unit/0.5 Ml Vial) 5,000 units SQ Q12 [facility] Stop: 01/11/23 20:59 Last Admin: 12/12/22 20:45 Dose: 5,000 units Dexamethasone 6 mg/ Syringe 1.5 mls @ 1 mls/min IV DAILY [facility] Stop: 12/21/22 09:02 Levothyroxine Sodium (Levothyroxine Sodium 150 Mcg Tablet) 150 mcg PO DAILYBB [facility] Stop: 01/11/23 14:31 Last Admin: 12/13/22 06:00 Dose: 150 mcg Losartan Potassium (Losartan Potassium 50 Mg Tab) 50 mg PO DAILY@2099 [facility] Stop: 01/11/23 20:59 Last Admin: 12/12/22 20:41 Dose: 50 mg Metoprolol Succinate (Metoprolol Succ 50mg Ext Rel Tab) 50 mg PO DAILY@2099 [facility] Stop: 01/11/23 20:59 Last Admin: 12/12/22 20:41 Dose: 50 mg Polyethylene Glycol (Polyethylene (Miralax) 17 Gm Pack) 17 gm PO DAILY PRN PRN Reason: Constipation Stop: 01/11/23 14:31 Potassium Chloride (Potassium Chloride Crtab 20 Meq Tabcr) 20 meq PO QAM [facility] Stop: 01/12/23 08:59 Tamsulosin HCl (Tamsulosin Hcl 0.4 Mg Cap) 0.4 mg PO HS [facility] Stop: 01/11/23 20:59 Last Admin: 12/12/22 20:40 Dose: 0.4 mg (3) CHF exacerbation Heart failure type: unspecified Qualified Code(s): I50.9 - Heart failure, unspecified
[2022-12-13 07:59] LABS: Calcium 8.2 mg/dl (8.6-10.3); Creatinine Clr Calc Pharmacy 36.2 ml/min; Est GFR (African American) 43.3 ml/min; Est GFR (Non-African American) 37.4 ml/min; Magnesium 2.2 mg/dl (1.7-2.4); Potassium 4.1 mmol/L (3.5-5.1)
[2022-12-13] MEDS: dexAMETHasone 6 MG in SYRINGE 0 ML IV SCH (08:19)
[2022-12-13] MEDS: CYANOCOBALAMIN (B-12) 500 MCG TABLET PO SCH (08:19)
[2022-12-13] MEDS: ASPIRIN 81 MG ECTAB PO SCH (08:20)
[2022-12-13] MEDS: HEPARIN SOD 5,000 UNIT/0.5 ML VIAL SQ SCH ×2 (08:20→20:44)
[2022-12-13] MEDS: POTASSIUM CHLORIDE CRTAB 20 MEQ TABCR PO SCH (08:20)
--- NOTE | 2022-12-13 08:45 | Cardiology Consultation ---
Date of Consultation December 13, 2022 Assessment & Plan (1) Acute on chronic heart failure with preserved ejection fraction (HFpEF): (2) COVID-19: (3) Paroxysmal atrial fibrillation: (4) Tachycardia-bradycardia syndrome: (5) S/P placement of cardiac pacemaker: (6) Prolonged QT interval: Plan IMPRESSION: 87 year old male who presented due to worsening dyspnea/hypoxia and fever. Found to be COVID positive Cause of dyspnea likely due to +COVID 19 and superimposed acute on chronic HFpEF. PLAN: Acute on chronic HFpEF: Remains mildly hypervolemic on exam-- Agree with IV diuresis, increase IV Lasix to 40 mg BID. Monitor renal function and replace electrolytes to a potassium goal of 4.0 and a mag goal of 2.0 Update resting echo to reassess LV systolic function and valvular status. 2g sodium diet. Strict I&O. Daily weights. +COVID 19: COVID treatment per primary team. Wean supplemental O2 as tolerated PAF/Prolonged QTc: Hx of TBS s/p PPM-- recent device check stable. x1 episode of PAF x3 hours-- not on AC due to spontaneous hematoma in the past. Patient to remain off of anticoagulation as it is felt that the risk of bleeding outweighs the prophylactic benefit of anticoagulation in this patient's case. Hematuria noted this admission-- will defer to primary team for workup. Renal ultrasound-- No hydronephrosis, Prostatomegaly. Maintaining NSR-continue metoprolol succinate 50 mg daily amiodarone 100 mg daily as ordered. EKG with prolongation of QTc (511 ms). Repeat EKG to reassess QTc duration. Avoid QTc prolonging medications Case discussed with Dr. Patricia-- will follow. Supervising Physician Co-Signing Physician Notes 87-year-old patient admitted with fever shortness of breath. Diagnosed with a cute COVID infection and diastolic heart failure with bilateral pleural effusions. Treated with IV diuresis with improvement of respiratory status. No longer requiring supplemental oxygen. Denies chest pain. Preliminary review of bedside echocardiogram demonstrates preserved LV systolic function. Stable moderate-severe mitral regurgitation. PE: VSS. Gen: NAD, awake, alert oriented x3. Heart: Regular rhythm, normal S1- S2. 2/6 holosystolic murmur heard best at the apex. Lungs: Diminished breath sounds at the bases bilateral. No rhonchi or wheeze. Extremities: No edema. A/P: Agree with above LOSS PREVENTION COORDINATOR history, physical exam, assessment and plan. Continue IV Lasix 40 mg twice daily. Chronic QT prolongation noted. Continue telemetry monitoring and low-dose amiodarone for rhythm control. History of paroxysmal atrial fibrillation with relative contraindications to anticoagulation. Management of COVID-19 infection as per hospitalist. History of Present Illness Reason for Consultation: CHF Requesting Physician: Kasandra hospitalist Attending Physician: Roney Johnson MD History of Present Illness 87-year-old Occitan speaking male who presented to [facility] emergency department yesterday 12/12/2022 due to fever and progressive shortness of breath. He was seen in ER on 12/08/22 also for shortness of breath. At that time had negative COVID test, appeared to be volume overloaded-- given IV lasix and increased home torsemide dose to 30 mg daily (previously 15 mg daily). Patient was then discharged. Returned to ED, COVID test repeated-- patient now COVID positive. CXR suggestive of volume overload. CTA of the chest negative for PE. Cardiomegaly with pulmonary edema. Layering pleural effusions with dependent bibasilar consolidation suggestive of atele ctasis. Mild mediastinal and hilar lymphadenopathy. Given 60 mg IV lasix in ED. Started on 40 mg IV Lasix daily. Of note, ppm was interrogated remotely on 12/08/2022 showing normal function-- one episode of PAF noted on 11/26/2022 x3 hours. Echo 12/13/2022: PENDING EKG: SR with 1SVB HR 63, QTC prolonged at 511 ms (on amiodarone 100 mg qHS) Tele: SR/a-paced 60-70s I&O: +300 mL Weight: 86.1 kg >>84.1 kg Upon entrance into the room patient resting in bed. at bedside-- assists with translation. Patient denies any acute concerns. Feel much better compared to yesterday. Denies shortness of breath- no longer requiring supplemental o2. +cough. No orthopnea or PND. No lower extremity edema. No chest pain, palpitations, or lightheadedness. Past medical history: 1. Chronic diastolic CHF, NYHA class 2 2. 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 Hypertension 4. Paroxysmal atrial fibrillation, on chronic amiodarone therapy. a. Not on anticoagulation due to past spontaneous lower leg hematoma 5. Chronic venous insufficiency 6. CKD stage 3-- baseline scr ~1.4-1.6 7. Hypothyroidism Allergies Allergy/AdvReac Type Severity Reaction Status Date / Time No Known Drug Allergies Allergy Unknown Verified 12/12/22 11:56 Home Medications Medication Instructions Recorded Confirmed Type finasteride 5 mg tablet 5 mg PO PM 01/10/19 12/12/22 History cyanocobalamin (vitamin B-12) 1,000 mcg PO QAM 03/09/19 12/12/22 History 1,000 mcg tablet (Vitamin B-12) ferrous sulfate 325 mg (65 mg 325 mg PO [id number] 08/10/19 12/12/22 History iron) tablet (iron) metoprolol succinate 50 mg 50 mg PO DAILY@209909/23/19 12/12/22 History tablet,extended release 24 hr amiodarone 100 mg tablet (Pacerone) 100 mg PO QPM 08/07/20 12/12/22 History aspirin 81 mg tablet,delayed 81 mg PO QAM 08/07/20 12/12/22 History release potassium 75 mg tablet 75 mg PO MOWEFR 08/07/20 12/12/22 History tamsulosin 0.4 mg capsule 0.4 mg PO HS 04/17/21 12/12/22 History albuterol sulfate 90 mcg/actuation 2 puff inhalation Q6H PRN 06/30/22 12/12/22 Rx aerosol inhaler Shortness Of Breath Or Wheezing #18 grams candesartan 32 mg tablet 16 mg PO DAILY@209906/30/22 12/12/22 History torsemide 10 mg tablet 15 mg PO DAILY 06/30/22 12/12/22 History levothyroxine 150 mcg tablet 150 mcg PO DAILY 12/12/22 12/12/22 History (Synthroid) Patient History Medical History BPH (benign prostatic hyperplasia) CKD (chronic kidney disease), stage III HTN (hypertension) Hypothyroidism Mitral regurgitation Paroxysmal atrial fibrillation Prolonged QT interval Tachycardia-bradycardia syndrome Tobacco abuse Surgical History History of cataract surgery S/P placement of cardiac pacemaker Family History Brother Cancer Mother Stroke Hypertension Other No family history of allergies No family history of bleeding disorder Denies family history of Hearing loss Heart disease Asthma Social History Smoking Status: Former smoker Tobacco Type: Pipe Age Quit Using Tobacco: 86; Cigarettes Per Day: pipe tobacco use is not every day (once per day, per every use); Second Hand Exposure: No; Do You Dip or Chew Tobacco: No; Hx Alcohol Use: No Hx Substance Use: No Preferred Language: Occitan Communication Ability: Impaired Communication Tools: IPad Visual Impairment: No Limitations Conference Center Manager Required: No Beliefs That Will Affect Care: None marital status: Current Living Situation: Spouse current occupational status: retired Other Information That Helps Us Care for You: No Feels Safe at Home: Yes Safety Concerns: Feels Safe At This Time Assistive Devices: None Review of Systems Review of Systems: All systems reviewed & are unremarkable except as noted in HPI & below Physical Exam Constitutional: well developed and well nourished; no acute distress Eyes: PERRL, conjunctivae normal, anicteric sclerae Neck: normal visual inspection and trachea midline Respiratory: normal respiratory effort and + cough (+moist productive); no respiratory distress Auscultation: + rales; no rhonchi and no wheezes Cardiovascular: RRR, no murmur, no edema Heart Sounds: normal S1, normal S2 and + murmur (soft systolic murmur) Vessels: no JVD Extremities: no edema Chest (Breasts): Chest: + pacemaker Gastrointestinal (Abdomen): normal bowel sounds, soft, nontender, no hepatosplenomegaly Psychiatric: A+Ox3, euthymic affect Results & Data Vital Signs (Past 12 Hours) Vital Signs Temp Pulse Pulse Resp BP Pulse Ox O2 Del Method 12/13/22 07:15 36.5 C 62 19 131/59 L 92 Room Air 12/13/22 02:35 36.5 C 76 18 155/74 H 92 Room Air 12/12/22 23:00 74 12/12/22 22:47 36.6 C 75 18 160/89 H 96 Room Air 12/12/22 22:30 Room Air Laboratory Results CBC 12/13/22 Range/Units 06:15 WBC 6.24 (4.8-10.8) K/ul RBC 4.32 L (4.70-6.10) M/uL Hgb 13.3 L (14.0-18.0) g/dl Hct 38.2 L (42.0-52.0) % Plt Count 148 (130-400) K/uL Neut # (Auto) 4.63 (1.40-6.50) K/uL Lymph # (Auto) 0.63 L (1.20-3.40) K/uL [place] # (Auto) 0.94 H (0.11-0.59) K/uL Eos # (Auto) 0.01 (0.00-0.50) K/uL Baso # (Auto) 0.01 (0.00-0.20) K/uL Comprehensive Metabolic Panel 12/13/22 Range/Units 06:15 Sodium 135 L (136-145) mmol/L Potassium 4.1 D (3.5-5.1) mmol/L Chloride 99 (98-107) mmol/L Carbon Dioxide 30 (21-32) mmol/L BUN 29 H (6-23) mg/dl Creatinine 1.61 H (0.6-1.4) mg/dl Glucose 114 H (70-99(Fasting)) mg/dl Calcium 8.2 L (8.6-10.3) mg/dl Intake and Output 12/12/22 12/13/22 12/13/22 22:59 06:59 14:59 Intake Total 300 / 300 Balance 300 / 300 Intake: Oral 300 / 300 Other: # Unmeasured Voids 2 Weight 84.368 kg 84.1 kg Weight Measurement Method [facility]
[2022-12-13] MEDS ORDERED: FERROUS SULFATE 325 MG TAB PO SCH (09:00)
[2022-12-13] MEDS ORDERED: FUROSEMIDE 40 MG/4 ML VIAL IV SCH ×2 (09:00→17:00)
--- NOTE | 2022-12-13 13:18 | Electrocardiogram Report ---
Test Reason : Blood Pressure : / mmHG Vent. Rate : 060 BPM Atrial Rate : 063 BPM P-R Int : 376 ms QRS Dur : 096 ms QT Int : 520 ms P-R-T Axes : 000 -02 016 degrees QTc Int : 520 ms Atrial-paced rhythm with prolonged AV conduction Nonspecific ST abnormality Prolonged QT Abnormal ECG When compared with ECG of 12-DEC-2022 05:27, Electronic atrial pacemaker has replaced Sinus rhythm Criteria for Septal infarct are no longer Present Nonspecific T wave abnormality no longer evident in Anterolateral leads Confirmed by Shane Edwards ([id number]) on 12/13/2022 1:18:11 PM Referred By: REFERRED SELF Confirmed By:David Edwards
[2022-12-13] MEDS: METOPROLOL SUCC 50MG EXT REL TAB PO SCH (20:45)
[2022-12-13] MEDS: LOSARTAN POTASSIUM 50 MG TAB PO SCH (20:45)
[2022-12-13] MEDS: AMIODARONE 200 MG TAB PO SCH (20:45)
[2022-12-13] MEDS: TAMSULOSIN HCL 0.4 MG CAP PO SCH (20:46)
[2022-12-13] MEDS: FINASTERIDE 5 MG TAB PO SCH (20:46)
[2022-12-14] MEDS: LEVOTHYROXINE SODIUM 150 MCG TABLET PO SCH (05:48)
--- NOTE | 2022-12-14 07:05 | Cardiology Progress Note ---
Date of Service December 14, 2022 Assessment & Plan (1) Acute on chronic heart failure with preserved ejection fraction (HFpEF): (2) COVID-19: (3) Paroxysmal atrial fibrillation: (4) Tachycardia-bradycardia syndrome: (5) S/P placement of cardiac pacemaker: (6) Prolonged QT interval: Plan IMPRESSION: 87 year old male who presented due to worsening dyspnea/hypoxia and fever. Found to be COVID positive Cause of dyspnea likely due to +COVID 19 and superimposed acute on chronic HFpEF. PLAN: Acute on chronic HFpEF: Patient appears well compensated from a vL standpoint-- Discontinue IV Lasix and transition to Torsemide 20 mg daily. Monitor renal function and replace electrolytes to a potassium goal of 4.0 and a mag goal of 2.0 2g sodium diet. Strict I&O. Daily weights. +COVID 19: COVID treatment per primary team. Wean supplemental O2 as tolerated. Encourage pulmonary toilet. PAF/Prolonged QTc: Hx of TBS s/p PPM-- recent device check stable. x1 episode of PAF x3 hours-- not on AC due to spontaneous hematoma in the past. Patient to remain off of anticoagulation as it is felt that the risk of bleeding outweighs the prophylactic benefit of anticoagulation in this patient's case. Hematuria noted this admission-- will defer to primary team for workup. Renal ultrasound-- No hydronephrosis, Prostatomegaly. Maintaining NSR-continue metoprolol succinate 50 mg daily amiodarone 100 mg daily as ordered. Hx of chronic prolonged QTc. Avoid QTc prolonging medications Case discussed with Dr. Particia-- will follow. Admission and Anticipated Discharge Date Admission Date: December 12, 2022 Supervising Physician Co-Signing Physician Notes 87-year-old patient admitted with fever shortness of breath. Diagnosed with acute COVID infection and diastolic heart failure with bilateral pleural effusions. Feeling much better today. Volume status improved. Stable echocardiographic findings noted. PE: VSS. Gen: NAD, awake, alert oriented x3. Heart: Regular rhythm, normal S1- S2. 2/6 holosystolic murmur heard best at the apex. Lungs: Diminished breath sounds at the bases bilateral. No rhonchi or wheeze. Extremities: No edema. 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 Transition IV Lasix to oral torsemide. Avoid additional medications with potential to prolong the QT interval. Outpatient cardiology follow-up in 2 to 4 weeks. Subjective 87-year-old patient admitted with fever and shortness of breath. Diagnosed with acute COVID infection and acute on chronic diastolic CHF with bilateral pleural effusions. Treated with IV diuresis (Lasix 40 mg twice daily) with improvement in respiratory status. Echocardiogram showed preserved LV systolic function with stable moderate to severe MR. 12/13/2022: Diuresed with 40 mg of IV Lasix twice daily. COVID treatment per primary team. 12/14/2022: Upon entrance into the room patient asleep in bed. Woke easily. No acute complaints. No chest pain. SOB resolved. No orthopnea or PND. No lower extremity edema. Eager for discharge. No fevers over night. I&O: 370 mL (? accuracy) Weight: 86.1 kg >> 81.2 kg Review of Systems Review of Systems: All systems reviewed & are unremarkable except as noted in HPI & below Physical Exam Constitutional: well developed and well nourished; no acute distress Eyes: PERRL, conjunctivae normal, anicteric sclerae Neck: normal visual inspection and trachea midline Respiratory: normal respiratory effort and + cough (+moist productive); no respiratory distress Auscultation: + rhonchi; no rales and no wheezes Cardiovascular: Rate/Rhythm: regular rate and regular rhythm Heart Sounds: normal S1, normal S2 and + murmur (+2/6 systolic murmur) Vessels: no JVD Extremities: no edema Chest (Breasts): Chest: + pacemaker Gastrointestinal (Abdomen): normal bowel sounds, soft, nontender, no hepatosplenomegaly Psychiatric: A+Ox3, euthymic affect Results & Data Vital Signs (Past 12 Hours) Vital Signs Temp Pulse Pulse Resp BP Pulse Ox O2 Del Method 12/14/22 02:50 36.4 C L 62 20 164/85 H 94 Room Air 12/14/22 00:01 147/70 H 12/13/22 23:20 36.6 C 72 18 180/93 H 95 Room Air 12/13/22 22:01 69 12/13/22 20:45 Room Air Laboratory Results Comprehensive Metabolic Panel 12/14/22 Range/Units 07:20 Sodium 138 (136-145) mmol/L Potassium 3.8 (3.5-5.1) mmol/L Chloride 101 (98-107) mmol/L Carbon Dioxide 29 (21-32) mmol/L BUN 38 H (6-23) mg/dl Creatinine 1.68 H (0.6-1.4) mg/dl Glucose 103 H (70-99(Fasting)) mg/dl Calcium 8.1 L (8.6-10.3) mg/dl Intake and Output 12/13/22 12/14/22 12/14/22 22:59 06:59 14:59 Intake Total 120 / 670 300 / 670 Balance 120 / 70 300 / 70 Intake: Oral 120 / 670 300 / 670 Other: # Unmeasured Voids 3 2 Weight 81.2 kg
[2022-12-14 08:02] LABS: BUN Creatinine Ratio 22.6 (10-20); Calcium 8.1 mg/dl (8.6-10.3); Creatinine Clr Calc Pharmacy 34.2 ml/min; Est GFR (African American) 41.1 ml/min; Est GFR (Non-African American) 35.5 ml/min; Magnesium 2.4 mg/dl (1.7-2.4); Potassium 3.8 mmol/L (3.5-5.1)
[2022-12-14] MEDS ORDERED: TORSEMIDE 10 MG TAB PO SCH ×2 (09:00)
--- NOTE | 2022-12-14 09:07 | Hospitalist Progress Note ---
Date of Service December 14, 2022 Assessment & Plan (1) ROBERTO (dyspnea on exertion): (2) Hypoxia: (3) CHF exacerbation: (4) COVID-19: (5) Pleural effusion: (6) Generalized weakness: Plan: Patient is 87-year-old male with PMH tachybrady syndrome s/p pacemaker, PAF, diastolic heart failure, CKD III, hypothyroidism, BPH and others listed below presented to ER with complaint of fever, shortness of breath. 4 days ago with negative COVID test, thought volume overload and torsemide was increased. Over the past couple days developed cough, fever. Hypoxia noticed at home last night Likely combination CHF exacerbation, acute COVID-19 infection In ER T: 37.6 C, P: 61, RR: 23, BP 151/81 is 95% on 2 L via nasal cannula No leukocytosis. + SARS-CoV-2 PCR. BNP 477. HS troponin 18 CXR: Cardiomegaly with pulmonary edema. Small pleural effusions with mild bibasilar opacities, likely atelectatic. CTA chest: No pulmonary emboli identified. Cardiomegaly with pulmonary edema. Layering pleural effusions with dependent bibasilar consolidation suggestive of atelectasis. Mild mediastinal and hilar lymphadenopathy. Procalcitonin negative Received 60 mg Lasix IV on admission - continued w/ Lasix IV 40 mg bid. Now transition to torsemide 20 mg daily Monitor I's and O's, daily weight. low-sodium diet echo obtained Cardiology consulted In ER given dexamethasone 6 mg IV Continue dexamethasone daily while inpt Pt is on RA, feeling well, no shortness of breath, saturating 95% Airborne isolation Supplemental oxygen as needed, currently pt is on RA Albuterol neb as needed Incentive spirometry, flutter valve (7) Hematuria: Plan: UA: 3+ blood,> 30 WBC, trace leuk esterase Denies abdominal pain, flank pain, dysuria Ultrasound renal/bladder obtained - FINDINGS: Right kidney: 10.0 cm. No hydronephrosis. Mild diffuse cortical thinning. Left kidney: 9.5 cm. No hydronephrosis. Mild diffuse cortical thinning. Bladder: No bladder wall thickening. The bilateral ureteral jets were identified. Enlarged prostate measuring up to 4.6 cm. IMPRESSION: 1. No hydronephrosis. 2. Prostatomegaly. 10/30 - discussed w/ RN - no hematuria noted Follow up as outpt (8) Hypokalemia: Plan: K: 3.4. Magnesium: 2.1 Replace and monitor start daily KCl as is on diuretics (9) Tachycardia-bradycardia syndrome: Plan: S/P pacemaker Pacemaker was interrogated on 12/08/2022 The patient's pacemaker was interrogated remotely. Normal pacemaker function noted. Patient had an episode of paroxysmal atrial fibrillation that took place on 11/26/2022 that was of 3 hours in duration. (10) Paroxysmal atrial fibrillation: Plan: Not on anticoagulation secondary to history of spontaneous lower extremity hematoma in past Continue amiodarone, metoprolol (11) CKD (chronic kidney disease), stage III: Plan: Cr: 1.6. Baseline 1.4-1.6 Monitor renal functions, avoid nephrotoxic agents when possible (12) HTN (hypertension): Plan: Continue candesartan (13) BPH (benign prostatic hyperplasia): Plan: Continue tamsulosin, finasteride (14) Hypothyroidism: Plan: Continue levothyroxine Full Code as per discussion with pt Follows with Dr Raf Uribe for routine care Admission and Anticipated Discharge Date Admission Date: December 12, 2022 Subjective Pt seen in follow up + covid 19 Pt is laying in bed, in NAD He is breathing on RA, comfortable and in no distress He tells me he feels fine today no fever, chills, chest pain, shortness of breath Pt seen together w/ cardiology at the bedside. Discussed transition to torsemide and ok to DC home. Review of Systems Review of Systems: All systems reviewed & are unremarkable except as noted in Subjective Physical Exam Physical Exam: General: Elderly M in no distress Eyes: PERRL, conjunctivae normal, not pale, anicteric sclerae, EOM intact bilaterally ENMT: External ear and nose normal, oropharynx normal Respiratory: Normal respiratory effort, no respiratory distress, on RA, diminished breath sounds, no wheezing, crackles, rhonchi noted Cardiovascular: RRR S1 S2 +systolic murmur Gastrointestinal (Abdomen):Abdomen is not distended, soft, non-tender to palpation, no guarding, normal bowel sounds Musculoskeletal: No pedal edema Genitourinary: No CVA tenderness Neurologic: Alert and oriented x 3, speech fluent, No focal weakness, moves extremities, answers appropriately Results & Data Results & Data Vital Signs (Past 12 Hours) Vital Signs Temp Pulse Pulse Resp BP Pulse Ox O2 Del Method 12/14/22 08:45 Room Air 12/14/22 07:43 36.3 C L 70 16 158/81 H 92 Room Air 12/14/22 02:50 36.4 C L 62 20 164/85 H 94 Room Air 12/14/22 00:01 147/70 H 12/13/22 23:20 36.6 C 72 18 180/93 H 95 Room Air 12/13/22 22:01 69 Laboratory Results 12/14/22 Range/Units 07:20 Sodium 138 (136-145) mmol/L Potassium 3.8 (3.5-5.1) mmol/L Chloride 101 (98-107) mmol/L Carbon Dioxide 29 (21-32) mmol/L Anion Gap 8 (3-11) BUN 38 H (6-23) mg/dl Creatinine 1.68 H (0.6-1.4) mg/dl Est Cr Clr Drug Dosing 34.2 ml/min Est GFR ( Amer) 41.1 ml/min Est GFR (Non-Af Amer) 35.5 ml/min BUN/Creatinine Ratio 22.6 H (10-20) Glucose 103 H (70-99(Fasting)) mg/dl Calcium 8.1 L (8.6-10.3) mg/dl Magnesium 2.4 (1.7-2.4) mg/dl Medications Administered Current Inpatient Medications Acetaminophen (Acetaminophen 325 Mg Tab) 650 mg PO Q4H PRN PRN Reason: Pain or Fever Stop: 01/11/23 14:31 Albuterol (Albuterol Hfa 8 Gm Inhaler) 2 puffs INH Q6H PRN PRN Reason: Shortness Of Breath Or Wheezing Stop: 01/11/23 14:31 Amiodarone HCl (Amiodarone 200 Mg Tab) 100 mg PO QPM [facility] Stop: 01/11/23 20:59 Last Admin: 12/13/22 20:45 Dose: 100 mg Aspirin (Aspirin 81 Mg Ectab) [facility] [place] Stop: 01/12/23 08:59 Last Admin: 12/13/22 08:20 Dose: 81 mg Cyanocobalamin (Cyanocobalamin (B-12) 500 Mcg Tablet) 1,000 mcg [facility] [place] Stop: 01/12/23 08:59 Last Admin: 12/13/22 08:19 Dose: 1,000 mcg Ferrous Sulfate (Ferrous Sulfate 325 Mg Tab) 325 mg PO MoWeFr@0900 [facility]E Stop: 01/12/23 08:59 Last Admin: 12/13/22 08:19 Dose: 325 mg Finasteride (Finasteride 5 Mg Tab) 5 mg PO PM [facility]E Stop: 01/11/23 20:59 Last Admin: 12/13/22 20:46 Dose: 5 mg Heparin Sodium (Porcine) (Heparin Sod 5,000 Unit/0.5 Ml Vial) 5,000 units SQ Q12 [facility] Stop: 01/11/23 20:59 Last Admin: 12/13/22 20:44 Dose: 5,000 units Dexamethasone 6 mg/ Syringe 1.5 mls @ 1 mls/min IV DAILY [facility]E Stop: 12/21/22 09:02 Last Admin: 12/13/22 08:19 Dose: 1 mls/min Levothyroxine Sodium (Levothyroxine Sodium 150 Mcg Tablet) 150 mcg PO DAILYBB [facility] Stop: 01/11/23 14:31 Last Admin: 12/14/22 05:48 Dose: 150 mcg Losartan Potassium (Losartan Potassium 50 Mg Tab) 50 mg PO DAILY@2100 [facility] Stop: 01/11/23 20:59 Last Admin: 12/13/22 20:45 Dose: 50 mg Metoprolol Succinate (Metoprolol Succ 50mg Ext Rel Tab) 50 mg PO DAILY@2100 [facility] Stop: 01/11/23 20:59 Last Admin: 12/13/22 20:45 Dose: 50 mg Polyethylene Glycol (Polyethylene (Miralax) 17 Gm Pack) 17 gm PO DAILY PRN PRN Reason: Constipation Stop: 01/11/23 14:31 Potassium Chloride (Potassium Chloride Crtab 20 Meq Tabcr) 20 meq PO QAM [facility] Stop: 01/12/23 08:59 Last Admin: 12/13/22 08:20 Dose: 20 meq Tamsulosin HCl (Tamsulosin Hcl 0.4 Mg Cap) 0.4 mg PO HS [facility] Stop: 01/11/23 20:59 Last Admin: 12/13/22 20:46 Dose: 0.4 mg Torsemide (Torsemide 10 Mg Tab) 20 mg PO QAM [facility] Stop: 01/13/23 08:59 (3) CHF exacerbation Heart failure type: unspecified Qualified Code(s): I50.9 - Heart failure, unspecified
[2022-12-14] MEDS: HEPARIN SOD 5,000 UNIT/0.5 ML VIAL SQ SCH (09:47)
[2022-12-14] MEDS: dexAMETHasone 6 MG in SYRINGE 0 ML IV SCH (09:59)
[2022-12-14] MEDS: ASPIRIN 81 MG ECTAB PO SCH (09:59)
[2022-12-14] MEDS: CYANOCOBALAMIN (B-12) 500 MCG TABLET PO SCH (09:59)
[2022-12-14] MEDS: POTASSIUM CHLORIDE CRTAB 20 MEQ TABCR PO SCH (10:04)
[2022-12-14 11:05] LABS: Appearance Urine Clear (Clear); Bacteria Urine Automated Negative (Negative); Bilirubin Urine Negative (Negative); Blood Urine 3+ (Negative); Color Urine Yellow; Epithelial Cell Urine Auto >30 /lpf (0-5); Glucose Urine UA Negative (Negative); Ketones Urine Negative (Negative); Leukocyte Esterase Urine Negative (Negative); Nitrite Urine Negative (Negative); Protein Urine Trace (Negative); Specific Gravity Urine 1.017 (1.000-1.030); Urobilinogen Urine Negative (Negative)
--- NOTE | 2022-12-14 14:12 | Discharge Summary ---
Date of Service December 14, 2022 Admission HPI Per Admitting Provider Patient is 87-year-old male with PMH tachybrady syndrome s/p pacemaker, PAF, diastolic heart failure, CKD III, hypothyroidism, BPH and others listed below presented to ER with complaint of fever, shortness of breath. Patient is Niuean speaking, understands minimal Frisian. Presents to hospital with his . History obtained from patient, and outpatient chart review. Attempted to use clothes designer service however was unavailable at this time. interprets for patient. C/O phlegm in his throat x 5 days. No other cough or fever at that time. Was previously walking a block without SOB however last week started having exertional SOB with walking. He was seen in ER on 12/08/22 for shortness of breath. At that time had negative COVID test, appeared to be volume overloaded and cardiology had evaluated him in ER and increased his torsemide. States was feeling a little less SOB however 2 days ago started with rhinorrhea, OLSON and feeling run down. Last night severe coughing episodes. Yesterday with fev er 100.6F and pulse ox was 87% on room air. Today clear to green color phlegm. He is also noticing SOB with ambulating to bathroom past several days. Since being in ER and on oxygen states feeling better. No nausea or headache currently. While in ER today urine looked very dark/reddish in coloration. Has not noticed that at home. Denies vomiting, diarrhea, constipation, dizziness, syncope, vision changes, neck pain, CP, orthopnea, palpitations, hemoptysis, sore throat, otalgia, abdominal pain, paresthesias, extremity weakness, extremity edema, rashes, dysuria, urinary frequency. Admission Exam Per Admitting Provider General: Elderly man in no distress Eyes: PERRL, conjunctivae normal, not pale, anicteric sclerae, EOM intact bilaterally ENMT: External ear and nose normal, oropharynx normal Respiratory: Normal respiratory effort, no respiratory distress, on nasal cannula, some crackles, diminished breath sounds posteriorly Cardiovascular: RRR S1 S2 +systolic murmur Gastrointestinal (Abdomen): Abdomen is not distended, soft, non-tender to palpation, no guarding, no palpable hepatosplenomegaly, normal bowel sounds Musculoskeletal: No pedal edema Genitourinary: No CVA tenderness Neurologic: Alert and oriented x 3, No focal weakness, sensation grossly intact Psychiatric: Alert and oriented x 3, euthymic affect, no depressed affect Principal Diagnosis + Covid 19 CHF exacerbation Hypoxia Discharge Exam General: Elderly M in no distress Eyes: PERRL, conjunctivae normal, not pale, anicteric sclerae, EOM intact bilaterally ENMT: External ear and nose normal, oropharynx normal Respiratory: Normal respiratory effort, no respiratory distress, on RA, diminished breath sounds, no wheezing, crackles, rhonchi noted Cardiovascular: RRR S1 S2 +systolic murmur Gastrointestinal (Abdomen):Abdomen is not distended, soft, non-tender to palpation, no guarding, normal bowel sounds Musculoskeletal: No pedal edema Genitourinary: No CVA tenderness Neurologic: Alert and oriented x 3, speech fluent, No focal weakness, moves extremities, answers appropriately Discharge Data Allergies Allergy/AdvReac Type Severity Reaction Status Date / Time No Known Drug Allergies Allergy Unknown Verified 12/12/22 11:56 Consultations 12/12/22 09:13 ED Decision to Admit Stat 12/12/22 14:32 Consult Cardiology Routine Ordered Studies 12/12/22 06:50 CT angio chest PE protocol Stat FINDINGS: CTA: Moderate cardiomegaly with moderate coronary artery calcifications. No perica rdial effusion. Left subclavian pacer. Atherosclerosis of the thoracic aorta without aneurysm or dissection. 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 Reflux of contrast into the IVC and hepatic veins. No pulmonary emboli identified. The segmental and subsegmental branches however are difficult to visualize secondary to respiratory motion artifact. CT CHEST: No dominant thyroid nodule identified. There are mildly enlarged mediastinal and hilar lymph nodes including a 1.5 cm left hilar lymph node and 1.4 cm left paratracheal lymph node which have mildly increased in size from prior. Small moderate layering pleural effusions. Intralobular and bronchial wall thickening. Dependent bibasilar consolidation. No suspicious pulmonary nodules or masses identified. The central airways are patent. Stable 7 mm solid nodule in the right lower lobe, image 48. 4 mm nodule right lower lobe on image 66. No acute process of the imaged upper abdomen. Moderate colonic fecal retention. Unremarkable soft tissues. No acute fracture. Surgical anchors of the right humeral IMPRESSION: 1. No pulmonary emboli identified. 2. Cardiomegaly with pulmonary edema. 3. Layering pleural effusions with dependent bibasilar consolidation suggestive of atelectasis. 4. Mild mediastinal and hilar lymphadenopathy. 12/12/22 10:11 US renal/blad retro comp Urgent FINDINGS: Right kidney: 10.0 cm. No hydronephrosis. Mild diffuse cortical thinning. Left kidney: 9.5 cm. No hydronephrosis. Mild diffuse cortical thinning. Bladder: No bladder wall thickening. The bilateral ureteral jets were identified. Enlarged prostate measuring up to 4.6 cm. IMPRESSION: 1. No hydronephrosis. 2. Prostatomegaly. Hospital Course (1) ROBERTO (dyspnea on exertion): (2) Hypoxia: (3) CHF exacerbation: (4) COVID-19: (5) Pleural effusion: (6) Generalized weakness: Patient is 87-year-old male with PMH tachybrady syndrome s/p pacemaker, PAF, diastolic heart failure, CKD III, hypothyroidism, BPH and others listed below presented to ER with complaint of fever, shortness of breath. 4 days ago with negative COVID test, thought volume overload and torsemide was increased. Over the past couple days developed cough, fever. Hypoxia noticed at home last night Likely combination CHF exacerbation, acute COVID-19 infection In ER T: 37.6 C, P: 61, RR: 23, BP 151/81 is 95% on 2 L via nasal cannula No leukocytosis. + SARS-CoV-2 PCR. BNP 477. HS troponin 18 CXR: Cardiomegaly with pulmonary edema. Small pleural effusions with mild bibasilar opacities, likely atelectatic. CTA chest: No pulmonary emboli identified. Cardiomegaly with pulmonary edema. Layering pleural effusions with dependent bibasilar consolidation suggestive of atelectasis. Mild mediastinal and hilar lymphadenopathy. Procalcitonin negative Received 60 mg Lasix IV on admission - continued w/ Lasix IV 40 mg bid. Now transition to torsemide 20 mg daily Monitor I's and O's, daily weight. low-sodium diet echo obtained Cardiology consulted In ER given dexamethasone 6 mg IV Continue dexamethasone daily while inpt Pt is on RA, feeling well, no shortness of breath, saturating 95% Airborne isolation Supplemental oxygen as needed, currently pt is on RA Albuterol neb as needed Incentive spirometry, flutter valve (7) Hematuria: UA: 3+ blood,> 30 WBC, trace leuk esterase Denies abdominal pain, flank pain, dysuria Ultrasound renal/bladder obtained - FINDINGS: Right kidney: 10.0 cm. No hydronephrosis. Mild diffuse cortical thinning. Left kidney: 9.5 cm. No hydronephrosis. Mild diffuse cortical thinning. Bladder: No bladder wall thickening. The bilateral ureteral jets were identified. Enlarged prostate measuring up to 4.6 cm. IMPRESSION: 1. No hydronephrosis. 2. Prostatomegaly. 12/13 - discussed w/ RN - no hematuria noted Follow up as outpt (8) Hypokalemia: K: 3.4. Magnesium: 2.1 Replace and monitor start daily KCl as is on diuretics (9) Tachycardia-bradycardia syndrome: S/P pacemaker Pacemaker was interrogated on 12/08/2022 The patient's pacemaker was interrogated remotely. Normal pacemaker function noted. Patient had an episode of paroxysmal atrial fibrillation that took place on 11/26/2022 that was of 3 hours in duration. (10) Paroxysmal atrial fibrillation: Not on anticoagulation secondary to history of spontaneous lower extremity hematoma in past Continue amiodarone, metoprolol (11) CKD (chronic kidney disease), stage III: Cr: 1.6. Baseline 1.4-1.6 Monitor renal functions, avoid nephrotoxic agents when possible (12) HTN (hypertension): Continue candesartan (13) BPH (benign prostatic hyperplasia): Continue tamsulosin, finasteride (14) Hypothyroidism: Continue levothyroxine Full Code as per discussion with pt Follows with Dr Raf Uribe for routine care Total Time Total Time Spent Total Time Spent (In Minutes): 40 Discharge Plan Discharge Items Patient Disposition: Home - Self-Care Reason For Visit: COVID, HYPOXIA Discharge Diagnosis: + Covid 19 CHF exacerbation Hypoxia Activity: Per Instructions section Non-emergency contact: Primary Care Provider Call non-emergency contact if: you have any medication questions and your symptoms worsen Follow-up/Referrals: Raf Uribe DO [Primary Care Provider] - (Date & Time 12/22/2022 1:40 PM Provider Raf Uribe DO [facility] ) Diet: Heart Healthy and Low Sodium (2gm) Addtl Attending Provider Instructions: Follow up with primary care doctor within 1-2 weeks. The appointment was scheduled for you for 12/22/2022. Continue taking torsemide - dose was changed to 20 mg daily. Follow-up with cardiology in 2 to 4 weeks. Addtl Crossing Supervisor Provider Instructions: Coronavirus disease 2019 (COVID-19) is a virus that causes a respiratory illness. It is caused by a coronavirus called 2019 novel coronavirus (2019- nCoV). There are many types of coronavirus. Coronaviruses are a very common cause of bronchitis. They may sometimes cause lung infection(pneumonia). Symptoms can range from mild to severe respiratory illness. These viruses are also foundin some animals. COVID-19 was first found in people in [facility], in late 2019. In 2020, several cases of COVID-19 have been confirmed in the [place] Public health officials are working to find the source. How the virus spreads is not yet fully known. It may be spread through droplets of fluid that a person coughs or sneezes into the air. It may be spread if you touch a surface with virus on it, such as a handle or object, and then touch your mouth. What are the symptoms of COVID-19? Some people have no symptoms or mild symptoms. Symptoms may appear 2 to 14 days after contact with the virus. Symptoms can include: Fever Coughing Trouble breathing What are possible complications from COVID-19? In many cases, this virus can cause infection (pneumonia) in both lungs. In some cases, this can cause . How is COVID-19 diagnosed? Your healthcare provider will ask about your symptoms. He or she will also ask about your recent travel and contact with sick people. Testing for the virus is only done through the CDC. If yourhealthcare provider thinks you may have COVID- 19, he or she will work with your local health department and the CDC on testing. Follow all instructions from your healthcare provider. COVID-19 is diagnosed by: Nasal and throat swab. A cotton-tipped swab is wiped inside your nose or throat. This is done to check for viruses in your nasal mucus. Sputum culture. A small sample of mucus coughed from your lungs (sputum) is collected if you have a cough. It is checked for the virus. How is COVID-19 treated? There is currently no medicine to treat the virus. Treatment is done to help your body while it fights the virus. This is known as supportive care. Supportive care may include: Pain medicine. These include acetaminophen and ibuprofen. They are used to help ease pain and reduce fever. Bed rest. This helps your body fight the illness. For severe illness, you may need to stay in the hospital. Care during severe illness may include: IV (intravenous) fluids.These are given through a vein to help keep your body hydrated. Oxygen. Supplemental oxygen or ventilation with a breathing machine (ventilator) may be given. This is done to keep enough oxygen in your body. Are you at risk for COVID-19? If youve been to a place where people have been sick with this virus, you are at risk for infection. You are at risk if you: Recently traveled to an affected area Had contact with a sick person who recently traveled to this area Had contact with a person who was diagnosed with COVID-19 How can COVID-19 be prevented? There is no vaccine yet. The best prevention is to not have contact with the virus. The CDC advises that people should not travel to areas where there are COVID-19 outbreaks right now for any reason that is not urgent. To help prevent spreading the infection, wash your hands often, or use an alcohol-basedhand curriculum writer. If you are in an area with COVID-19: Wash your hands often. Or use an alcohol-based hand curriculum writer often. Only touch your eyes, nose, or mouth with clean hands. Dont have contact with people who are sick. Follow local instructions about being in public. For example, you may be told to not use public transport for a period of time. Stay away from markets that have live or animals. Wash your hands after touching any animals. Don't touch animals that may be sick. Dont share eating or drinking tools with sick people. Dont kiss someone who is sick. Clean surfaces often with disinfectant. If you were in an area with COVID-19 in the last 14 days: Call your healthcare provider. He or she can talk with local health staff to see what action may be needed. Follow all instructions from your provider. Take your temperature every morning and evening for at least 14 days. This is to check for fever. Keep a record of the readings. Keep watch for symptoms of the virus. Tell your provider right away if you have symptoms. If you were in an area with COVID-19 and have a fever or other symptoms: Dont panic. Keep in mind that other illnesses can cause similar symptoms. Stay away from work, school, and public places. Limit physical contact with family members. Don't kiss anyone or share eating or drinking utensils. Clean surfaces you touch with disinfectant. This is to help prevent the virus from spreading. Call your healthcare provider. Explain that you have been exposed to COVID-19 and have symptoms. Do this before going to any hospital. Wait for instructions. Keep in mind that healthcare staff may wear protective equipment such as masks, gowns, gloves, and eye protection. You may be put in a separate room. This is to prevent the possible virus from spreading. Tell the healthcare staff about recent travel. This includes local travel on public transport. Staff may need to find other people you have been in contact with. Follow all instructions the healthcare staff give you. If you have been diagnosed with COVID-19 Follow all instructions from your healthcare provider. Dont leave your home, except to get medical care. Call your healthcare providers office before going. They can prepare and give you instructions. This will help prevent the virus from spreading. Dont go to work, school, or public areas. Dont use public transport or taxis. Stay away from other people in your home. Have them wear face masks around you. Dont share household items or food. Wear a face mask if you can. This includes at home or in a medical facility. Cover your face with a tissue when you cough or sneeze. Throw the tissue away. Wash your hands. Wash your hands often. Caregivers should: Follow all instructions from healthcare staff. Wear a face mask and protective clothing as advised. Wash hands often. Keep track of the sick persons symptoms. Clean surfaces, fabrics, and laundry thoroughly. Keep other people away from the sick person. When to call your healthcare provider Call your healthcare provider: If youve recently traveled and have symptoms If you have been diagnosed with COVID-19 and your symptoms are worse To learn more To find out more about COVID-19, visit the CDC website at www.cdc.gov/coronavirus/2019-ncov/index.html. 8641-2773 [employer]. [address] [place] [address], [place] [address]. All rights reserved. This information is not intended as a substitute for professional medical care. Jerson ys follow your healthcare professional's instructions. This information has been adapted from [employer] Home Isolation COVID-19 Instructions The following information about Home Isolation is from the CDC Website: https://www.cdc.gov/coronavirus/2019-ncov/hcp/bhojfncr-bczzezy-gvfnvw.html Stay home except to get medical care People who are mildly ill with COVID-19 are able to isolate at home during their illness. You should restrict activities outside your home, except for getting medical care. Do not go to work, school, or public areas. Avoid using public transportation, ride-sharing, or taxis. Separate yourself from other people and animals in your home People: As much as possible, you should stay in a specific room and away from other people in your home. Also, you should use a separate bathroom, if available. Animals: You should restrict contact with pets and other animals while you are sick with COVID-19, just like you would around other people. Although there have not been reports of pets or other animals becoming sick with COVID-19, it is still recommended that people sick with COVID-19 limit contact with animals until more information is known about the virus. When possible, have another member of your household care for your animals while you are sick. If you are sick with COVID-19, avoid contact with your pet, including petting, snuggling, being kissed or licked, and sharing food. If you must care for your pet or be around animals while you are sick, wash your hands before and after you interact with pets and wear a face mask. Call ahead before visiting your doctor If you have a medical appointment, call the healthcare provider and tell them that you have or may have COVID-19. This will help the healthcare providers office take steps to keep other people from getting infected or exposed. Wear a face mask You should wear a face mask when you are around other people (e.g., sharing a room or vehicle) or pets and before you enter a healthcare providers office. If you are not able to wear a face mask (for example, because it causes trouble breathing), then people who live with you should not stay in the same room with you, or they should wear a face mask if they enter your room. Cover your coughs and sneezes Cover your mouth and nose with a tissue when you cough or sneeze. Throw used tissues in a lined trash can. Immediately wash your hands with soap and water for at least 20 seconds or, if soap and water are not available, clean your hands with an alcohol-based hand curriculum writer that contains at least 60% alcohol. Clean your hands often Wash your hands often with soap and water for at least 20 seconds, especially after blowing your nose, coughing, or sneezing; going to the bathroom; and before eating or preparing food. If soap and water are not readily available, use an alcohol-based hand curriculum writer with at least 60% alcohol, covering all surfaces of your hands and rubbing them together until they feel dry. Soap and water are the best option if hands are visibly dirty. Avoid touching your eyes, nose, and mouth with unwashed hands. Avoid sharing personal household items You should not share dishes, drinking glasses, cups, eating utensils, towels, or bedding with other people or pets in your home. After using these items, they should be washed thoroughly with soap and water. Clean all high-touch surfaces everyday High touch surfaces include counters, tabletops, doorknobs, bathroom fixtures, toilets, phones, keyboards, tablets, and bedside tables. Also, clean any surfaces that may have blood, stool, or body fluids on them. Use a household cleaning spray or wipe, according to the label instructions. Labels contain instructions for safe and effective use of the cleaning product including precautions you should take when applying the product, such as wearing gloves and making sure you have good ventilation during use of the product. Monitor your symptoms Seek prompt medical attention if your illness is worsening (e.g., difficulty breathing).Beforeseeking care, call your healthcare provider and tell them that you have, or are being evaluated for, COVID-19. Put on a face mask before you enter the facility. These steps will help the healthcare providers office to keep other people in the office or waiting room from getting infected or exposed. Ask your healthcare provider to call the local or [facility]. Persons who are placed under active monitoring or facilitated self- monitoring should follow instructions provided by their local health department or occupational health professionals, as appropriate. When working with your local health department check their available hours. If you have a medical emergency and need to call 911, notify the dispatch personnel that you have, or are being evaluated for COVID-19. If possible, put on a face mask before emergency medical services arrive. Discontinuing home isolation Patients with confirmed COVID-19 should remain under home isolation precautions until the risk of secondary transmission to others is thought to be low. The decision to discontinue home isolation precautions should be made on a [id number] basis, in consultation with healthcare providers and state and local health departments. Pending Studies at Discharge: No Stand-Alone Forms: My [facility], Smoking Cessation Medications and DC Order Prescriptions: New torsemide 10 mg Tablet 20 mg PO QAM 30 Days Qty: 60 0RF potassium chloride 20 mEq Tablet,Er Particles/Crystals 20 meq PO QAM 30 Days Qty: 30 0RF Continued albuterol sulfate 90 mcg/actuation HFA aerosol inhaler 2 puff inhalation Q6H PRN (Reason: Shortness Of Breath Or Wheezing) Qty: 18 3RF cyanocobalamin (vitamin B-12) [Vitamin B-12] 1,000 mcg tablet 1,000 mcg PO QAM finasteride 5 mg tablet 5 mg PO PM ferrous sulfate [iron] 325 mg (65 mg iron) Tablet 325 mg PO [id number] Rx Instructions: TAKES MON, WED, TUE. metoprolol succinate 50 mg tablet extended release 24 hr 50 mg PO DAILY@2100 Rx Instructions: Take daily at 9:00 PM. tamsulosin 0.4 mg capsule 0.4 mg PO HS candesartan 32 mg tablet 16 mg PO DAILY@2100 Rx Instructions: Daily at 9:00 PM. aspirin 81 mg Tablet,Delayed Release (Dr/Ec) 81 mg PO QAM amiodarone [Pacerone] 100 mg tablet 100 mg PO QPM potassium 75 mg Tablet 75 mg PO MOWEFR levothyroxine [Synthroid] 150 mcg tablet 150 mcg PO DAILY Discontinued torsemide 10 mg tablet 15 mg PO DAILY Discharge Orders: Discharge Order (Routine); Ordered 12/14/22 Ordered By: Roney Johnson Admission Data Admit Date/Time: 12/12/22 10:04 Attending Provider: Roney Johnson Admit Provider: Akosua Juarez I. Primary Care Provider: Raf Uribe Other Providers: Akosua Juarez I. ; [place] Patricia
== END 2022-12-14 17:08 | disposition home or self-care (01) | DRG 177 ==
LOC: ED 04:13 → EDINP 10:04 → SUATTDRO 10:04 → 2S 22:27